=== PATIENT | female | born 1960 | race Caucasian/White ===

== ENCOUNTER 2019-05-15 07:49 | Outpatient (RCR) | payer MEDICARE, MEDICAID, SELFPAY ==
[2019-05-06 13:55] VITALS: BMI 49.4
--- NOTE | 2019-05-06 16:20 | WPDWOUNDNOTE ---
Wound Care Note Date/Time: 05/06/19 16:20 Wound history: Had excisional debridement in office yesterday to remove old cyst material as the abscess wound was not healing. Seen in the wound clinic today to reassess and start new dressing changes. Wound depth: Wound is healing well. About 3 mm deep. No signs of residual cyst or any abscess material. Drainage: Minimal Surrounding tissue appearance: Healthy Tunneling: None Percentage granulation tissue: Twenty Dressings: Silver gel and a Band-Aid daily Assessment and Plan Assessment and plan (1) Sebaceous cyst: Code(s): L72.3 - Sebaceous cyst Status: Acute Assessment and Plan: Removed residual sebaceous cyst at the debridement yesterday along with skin and subcutaneous. No residual cyst materials noted. (2) Left breast abscess: Code(s): N61.1 - Abscess of the breast and nipple Status: Acute Assessment and Plan: Resulting wound has been failing to heal and debridement was done yesterday. (3) Encounter for surgical aftercare following surgery on the skin and subcutaneous tissue: Code(s): Z48.817 - Encounter for surgical aftercare following surgery on the skin and subcutaneous tissue Status: Acute Assessment and Plan: Silver gel and a Band-Aid daily. Recheck in the wound clinic in 2 weeks.
--- NOTE | 2019-06-09 15:31 | WPDWOUNDNOTE ---
Wound Care Note Date/Time: 05/15/19 08:31 Patient is seen in the wound clinic for follow-up of her left breast abscess. This wound was very difficult to heal and she underwent excisional debridement in the office under local anesthesia on May 05. She was read checked on May 06 and wound was healing well. She has been using silver gel. She is seen today in the wound clinic. She has no complaints or new problems associated with the left breast wound which has been difficult to heal. Exam today shows the wound is healing well. It is over 50% smaller and remaining tissue is granulating nicely. The depth of the wound is healing just as quickly as the width and length. This was not the case on previous attempts to heal this wound. No residual cyst material was noted. Assessment and Plan Assessment and plan (1) Encounter for surgical aftercare following surgery on the skin and subcutaneous tissue: Code(s): Z48.817 - Encounter for surgical aftercare following surgery on the skin and subcutaneous tissue Status: Chronic Assessment and Plan: Wound is finally healing very well. No need to recheck her again in the wound clinic. She will continue silver gel dressing changes and I will see her in the office in approximately 2 weeks. (2) Left breast abscess: Code(s): N61.1 - Abscess of the breast and nipple Status: Resolved (3) Sebaceous cyst: Code(s): L72.3 - Sebaceous cyst Status: Resolved
== END 2019-07-21 07:57 | disposition home or self-care (01) ==
LOC: ANHWOC 07:49
PROVIDERS: PCP Family Medicine; Visit Provider Surgery
DX: N61.1 Abscess of the breast and nipple (principal)
CPT/HCPCS: 99212; G0463

== ENCOUNTER 2020-03-18 07:45 | Outpatient (CLI) | payer MEDICARE, MEDICAID, SELFPAY ==
[2020-03-18 09:16] LABS: Basophils Percent Auto 0.3 % (0.2-1.2); Eosinophils Absolute Auto 0.1 K/mm3 (0-0.3); Eosinophils Percent Auto 1.4 % (0-4.4); Hematocrit 34.6 % (37.0-47.0); Hemoglobin 10.9 g/dL (12.0-15.0); Immature Granulocyte Absolute 0.12 K/mm3 (0.00-0.031); Immature Granulocyte Percent A 3.4 % (0-0.5); Lymphocytes Absolute Auto 1.32 K/mm3 (0.9-3.2); Lymphocytes Percent Auto 37.6 % (18.3-44.2); Mean Corpuscular HGB Conc 31.5 g/dl (32-36); Mean Corpuscular Hemoglobin 30.4 pg (26-34); Mean Corpuscular Volume 96.6 fl (80-100); Mean Platelet Volume 10.5 fl (7.4-10.4); Monocytes Absolute Auto 0.3 K/mm3 (0.1-0.6); Monocytes Percent Auto 9.4 % (2.6-8.5); Neutrophils Absolute Auto 1.7 K/mm3 (1.3-6.7); Neutrophils Percent Auto 47.9 % (45.5-73.1); Platelet Count Result 113 k/mm3 (150-375); Red Blood Count 3.58 M/mm3 (4.2-5.4); White Blood Count 3.5 K/mm3 (4.5-10.0)
[2020-03-18 09:36] LABS: Alanine Aminotransferase 14 U/L (4-35); Albumin Level 3.7 g/dL (3.5-5.1); Alkaline Phosphatase 43 U/L (38-126); Anion Gap 7 mmol/L (8-16); Aspartate Amino Transferase 35 U/L (14-36); Bilirubin,Total 0.5 mg/dL (0.2-1.3); Blood Urea Nitrogen 28 mg/dL (7-17); Calcium 9.3 mg/dL (8.4-10.2); Carbon Dioxide 30 mmol/L (22-30); Chloride 103 mmol/L (98-107); Cholesterol 181 mg/dL (0-200); Estimated Glomerular Filt Rate 42; Glucose 135 mg/dL (65-105); HDL Direct 37 mg/dL; Potassium 4.3 mmol/L (3.4-5.0); Sodium 140 mmol/L (137-145); Triglycerides 369 mg/dL (<150)
[2020-03-18 09:47] LABS: LDL Cholesterol Direct 100 mg/dL
[2020-03-18 09:55] LABS: Creatinine Urine 134.2 mg/dL; MALB Creatinine Ratio 11.2 mg/g (0-30)
[2020-03-18 09:57] LABS: Free T4 Free Thyroxine 1.89 ng/mL (0.78-2.19); Vitamin D 25 Hydroxy 44.5 ng/mL
== END 2020-03-18 07:46 | disposition home or self-care (01) ==
PROVIDERS: PCP Family Medicine; Visit Provider Nurse Practitioner
DX: E11.22 Type 2 diabetes mellitus with diabetic chronic kidney disease (principal); E66.01 Morbid (severe) obesity due to excess calories; R14.0 Abdominal distension (gaseous); I12.9 Hypertensive chronic kidney disease with stage 1 through stage 4 chronic kidney disease, or unspecified chronic kidney disease; N18.30 Chronic kidney disease, stage 3 unspecified
CPT/HCPCS: 36415; 80053; 80061; 82043; 82306; 84439; 84443; 84480; 85025

== ENCOUNTER 2020-04-02 10:20 | Outpatient (CLI) | payer MEDICARE, MEDICAID, SELFPAY ==
--- NOTE | ~2020-04-02 | US_ITS ---
US abdomen complete EXAMINATION: US Abdomen Complete INDICATION: Abdomen pain. PROCEDURE: Realtime High Resolution abdomen ultrasound. COMPARISON: No prior studies for comparison FINDINGS: There are gallstones with contracted gallbladder. Common bile duct measures 6 mm. Liver echotexture is increased, consistent with fatty infiltration. Liver is enlarged measuring 23 cm .. Pancreas within normal limits. Pancreatic tail is obscured by bowel gas. Spleen is unremarkeabl e. Renal echotexture is within normal limits bilaterally without hydronephrosis, contour deforming ma ss or renal stone. Right kidney measures 12.6 cm. Left kidney measures 12.5 cm. Visualized aspects of the aorta and IVC are within normal limits. Portal vein is patent. No sonograph ic Little's sign indicated by the technologist. IMPRESSION: 1: Cholelithiasis. Contracted gallbladder with possible mild gallbladder wall thickening. 2: Fatty infiltration of the liver with hepatomegaly. Reviewed, dictated and finalized at location B. IMPRESSION: 1: Cholelithiasis. Contracted gallbladder with possible mild gallbladder wall t hickening. 2: Fatty infiltration of the liver with hepatomegaly.
== END 2020-04-02 10:21 | disposition home or self-care (01) ==
PROVIDERS: PCP Family Medicine; Visit Provider Nurse Practitioner
DX: K76.0 Fatty (change of) liver, not elsewhere classified (principal); K80.20 Calculus of gallbladder without cholecystitis without obstruction
CPT/HCPCS: 76700

== ENCOUNTER 2020-04-20 00:19 | Outpatient (CLI) | payer MEDICARE, MEDICAID, SELFPAY ==
[2020-04-20 19:47] LABS: SARS-CoV-2 RNA PCR Negative
== END 2020-04-20 00:20 | disposition home or self-care (01) ==
LOC: ANHCOVIDDT 00:20
PROVIDERS: PCP Family Medicine; Visit Provider Internal Medicine Gastroenterology
DX: Z01.818 Encounter for other preprocedural examination (principal); Z20.828 Contact with and (suspected) exposure to other viral communicable diseases
CPT/HCPCS: 87635; C9803; U0003

== ENCOUNTER 2020-04-23 00:44 | Day surgery (SDC) | payer MEDICARE, MEDICAID, SELFPAY ==
[2020-04-19 15:58] VITALS: BMI 47.5
--- NOTE | 2020-04-23 09:52 | WPDANESEPPF ---
Anes - Initial Pre Proc Eval Procedure: Operation Date: 04/23/20 13:15 Proposed Procedures p Esophagogastroduodenoscopy & Colonoscopy - Lorenzo Leone MD Date/Time: 04/23/20 09:52 Surgeon: Lorenzo Leone MD Pre Op Diagnosis: Diarrhea,nausea Patient Data Age: 60 Gender: F Height: 1.57 m Weight: 118 kg Allergies Allergy/AdvReac Type Severity Reaction Status Date / Time diphenhydramine Allergy Severe HYPERACTIVE Verified 04/23/20 12:20 FEELING oxycodone Allergy Severe go crazy Verified 04/23/20 12:20 tramadol Allergy Severe itching Verified 04/23/20 12:20 codeine AdvReac Mild feel weird Verified 04/23/20 12:20 Home Medications Medication Instructions Recorded Confirmed Type aspirin 81 mg tablet,delayed 81 mg PO DAILY 04/16/19 04/19/20 History release atorvastatin 80 mg tablet 80 mg PO DAILY 04/16/19 04/19/20 History divalproex 500 mg tablet,delayed 1,500 mg PO DAILY 04/16/19 04/19/20 History release ergocalciferol (vitamin D2) 1,250 50,000 unit PO WEEKLY 04/16/19 04/19/20 History mcg (50,000 unit) capsule fenofibrate nanocrystallized 145 145 mg PO DAILY 04/16/19 04/19/20 History mg tablet fluoxetine 20 mg capsule 20 mg PO DAILY 04/16/19 04/19/20 History glimepiride 4 mg tablet 4 mg PO BID 04/16/19 04/19/20 History levothyroxine 150 mcg tablet 150 mcg PO DAILY 04/16/19 04/19/20 History lorazepam 1 mg tablet 0.5 mg PO DAILY 04/16/19 04/19/20 History meclizine 25 mg tablet 25 mg PO BID 04/16/19 04/19/20 History metformin 500 mg tablet 2,000 mg PO DAILY 04/16/19 04/19/20 History quetiapine 100 mg tablet 100 mg PO HS 04/16/19 04/19/20 History sitagliptin 100 mg tablet 100 mg PO DAILY 04/16/19 04/19/20 History carvedilol 3.125 mg PO BID 04/19/20 04/19/20 History ferrous sulfate 325 mg PO BID 04/19/20 04/19/20 History hydrochlorothiazide 25 mg PO DAILY 04/19/20 04/19/20 History lamotrigine 100 mg PO BID 04/19/20 04/19/20 History lorazepam 2 mg PO HS 04/19/20 04/19/20 History peg 3350 240 gram-electrolytes 240 ml PO Q10M #4000 ml 04/19/20 Rx 22.72 gram-6.72 g-5.84 g powdr for soln sodium,potassium,mag sulfates 17.5 354 ml PO .COMPLEX #354 ml 04/20/20 Rx gram-3.13 gram-1.6 gram oral soln omeprazole 20 mg capsule,delayed 20 mg PO BID #60 cap 04/23/20 Rx release Patient hx anesthesia problems: none Family hx anesthesia problems: none PMFSH Past Medical History Medical History (Updated 04/23/20 @ 09:53 by Blas Ramires MD) Bipolar 1 disorder Cholelithiases Depression with anxiety Diabetes Fatty infiltration of liver High blood pressure High cholesterol History of kidney stones History of uterine cancer Hypothyroid Left breast abscess Morbid obesity Nausea PTSD (post-traumatic stress disorder) Surgical History Surgical History History of hysterectomy History of removal of cyst from back Family History Family History Mother Family history of cardiovascular disease Diabetes mellitus Leukemia Father Family history of lung cancer Liver cancer AIDS Grandparent Stomach cancer Grandparent Cerebrovascular accident Other Depression Hypertension Social History Social History Smoking status: Never smoker Alcohol intake: never Substance use: never Substance use type: does not use Living arrangements: alone Gender identity (if verbalized by the patient): Female Spiritual care concerns: No Anes - Eval Final PreProcedure Day of Procedure 04/23/20 09:52 Patient weight: morbidly obese Heart: regular rate and rhythm Lungs: clear to auscultation and normal air movement Airway: Mallampati scale class II Neurological: alert and oriented Last oral intake: >/= 8 hours ASA classification: III Emergent: no Anesthetic plan: proceed Anesthesia type and monitoring: g
[2020-04-23 12:22] VITALS: BP 147/69; PULSE 66; RESP 16; TEMP 36.2; O2SAT 100; BMI 48.7
[2020-04-23] MEDS: LACTATED RINGERS 1,000 ML 150 ML IV CONT (12:39)
[2020-04-23 12:41] LABS: Glucose Point of Care 171 (65-105)
[2020-04-23] MEDS: BENZOCAINE (*SP) 60 ML SPRAY CAN (HURRICAINE) 1 SPRAY MUCOUS MEM (13:25)
--- NOTE | 2020-04-23 13:52 | SUR.OPER ---
EGD START 1328, END 1333 COLONOSCOPY START 1338, END 1352
--- NOTE | 2020-04-23 13:55 | WPDHPUPDATE1 ---
History and Physical Update Update Date/Time: 04/23/20 13:55 History and Physical has been reviewed, including an updated exam of the patient. There are NO changes in the patient's condition. Risks, benefits, and alternatives have been discussed and questions answered. Patient agrees to proceed with procedure.
[2020-04-23 14:00] VITALS: BP 147/79; PULSE 67; RESP 23; O2SAT 94
[2020-04-23 14:10] VITALS: BP 141/75; PULSE 66; RESP 24; O2SAT 97
--- NOTE | 2020-04-23 14:15 | SUR.PHASEII ---
NOTIFIED DR STEWART OF PT C/O LT EYE BURNING, EYE GTTS ORDERED PER PROTOCOL
[2020-04-23 14:20] VITALS: BP 132/80; PULSE 69; RESP 22; O2SAT 95
[2020-04-23] MEDS: DICLOFENAC SODIUM 0.1% OPHTH SOLN 2.5 ML BOTTLE 1 DROP EACH EYE (14:27)
[2020-04-23] MEDS: PROPARACAINE HCL 0.5% 15 ML OPHTH SOLN 1 DROP EACH EYE (14:36)
== END 2020-04-23 14:43 | disposition home or self-care (01) ==
PROVIDERS: PCP Family Medicine; Visit Provider Internal Medicine Gastroenterology
PROC: 0DJ08ZZ Inspection of Upper Intestinal Tract, Via Natural or Artificial Opening Endoscopic (ICD-10-PCS; CPT 43235; principal; 2020-04-23 13:15)
DX: Z12.11 Encounter for screening for malignant neoplasm of colon (principal); R19.7 Diarrhea, unspecified; K57.30 Diverticulosis of large intestine without perforation or abscess without bleeding; K29.70 Gastritis, unspecified, without bleeding; K25.9 Gastric ulcer, unspecified as acute or chronic, without hemorrhage or perforation; E11.9 Type 2 diabetes mellitus without complications; I10 Essential (primary) hypertension; E78.00 Pure hypercholesterolemia, unspecified; E03.9 Hypothyroidism, unspecified; F43.10 Post-traumatic stress disorder, unspecified; K76.0 Fatty (change of) liver, not elsewhere classified; F41.9 Anxiety disorder, unspecified; F31.9 Bipolar disorder, unspecified; Z79.84 Long term (current) use of oral hypoglycemic drugs; E66.01 Morbid (severe) obesity due to excess calories; Z68.42 Body mass index [BMI] 45.0-49.9, adult
CPT/HCPCS: 45380; 43239; 87081; 88305; A9270; J2704; J7120

== ENCOUNTER 2020-08-20 10:15 | Outpatient (CLI) | payer MEDICARE, MEDICAID, SELFPAY ==
[2020-08-20 11:06] LABS: Basophils Percent Auto 0.4 % (0.2-1.2); Eosinophils Percent Auto 1.5 % (0-4.4); Hematocrit 33.4 % (37.0-47.0); Hemoglobin 10.6 g/dL (12.0-15.0); Immature Granulocyte Absolute 0.05 K/mm3 (0.00-0.031); Immature Granulocyte Percent A 1.8 % (0-0.5); Lymphocytes Absolute Auto 1.08 K/mm3 (0.9-3.2); Lymphocytes Percent Auto 39.4 % (18.3-44.2); Mean Corpuscular HGB Conc 31.7 g/dl (32-36); Mean Corpuscular Hemoglobin 31.6 pg (26-34); Mean Corpuscular Volume 99.7 fl (80-100); Mean Platelet Volume 9.2 fl (7.4-10.4); Monocytes Absolute Auto 0.3 K/mm3 (0.1-0.6); Monocytes Percent Auto 9.9 % (2.6-8.5); Neutrophils Absolute Auto 1.3 K/mm3 (1.3-6.7); Platelet Count Result 100 k/mm3 (150-375); Red Blood Count 3.35 M/mm3 (4.2-5.4); White Blood Count 2.7 K/mm3 (4.5-10.0)
[2020-08-20 11:15] LABS: Hemoglobin A1C 5.2 % (<5.7)
[2020-08-20 11:17] LABS: Potassium 3.7 mmol/L (3.4-5.0)
[2020-08-20 11:19] LABS: Alanine Aminotransferase 15 U/L (4-35); Albumin Level 3.7 g/dL (3.5-5.1); Alkaline Phosphatase 45 U/L (38-126); Anion Gap 7 mmol/L (8-16); Aspartate Amino Transferase 35 U/L (14-36); Bilirubin,Total 0.4 mg/dL (0.2-1.3); Blood Urea Nitrogen 33 mg/dL (7-17); Calcium 9.4 mg/dL (8.4-10.2); Carbon Dioxide 29 mmol/L (22-30); Chloride 105 mmol/L (98-107); Cholesterol 172 mg/dL (0-200); Estimated Glomerular Filt Rate 33; Glucose 95 mg/dL (65-105); HDL Direct 50 mg/dL; Sodium 141 mmol/L (137-145); Triglycerides 268 mg/dL (<150)
[2020-08-20 11:28] LABS: LDL Cholesterol Direct 82 mg/dL
[2020-08-20 11:48] LABS: Thyroid Stimulating Hormone 0.573 uIU/mL (0.465-4.680)
[2020-08-20 11:55] LABS: Valproic Acid 51.9 ug/mL (50-120)
[2020-08-20 12:07] LABS: Free T4 Free Thyroxine 1.91 ng/mL (0.78-2.19)
[2020-08-20 12:23] LABS: Folic Acid 6.7 ng/mL (2.76->20)
[2020-08-24 20:54] LABS: Prolactin 6.2 ng/mL (***)
== END 2020-08-20 10:16 | disposition home or self-care (01) ==
PROVIDERS: PCP Family Medicine
DX: E03.9 Hypothyroidism, unspecified (principal); E55.9 Vitamin D deficiency, unspecified; E23.2 Diabetes insipidus; E10.8 Type 1 diabetes mellitus with unspecified complications; F31.32 Bipolar disorder, current episode depressed, moderate; F41.1 Generalized anxiety disorder; E66.01 Morbid (severe) obesity due to excess calories; F51.11 Primary hypersomnia; E78.5 Hyperlipidemia, unspecified; F43.12 Post-traumatic stress disorder, chronic
CPT/HCPCS: 36415; 80053; 80061; 80164; 82306; 82746; 83036; 84146; 84439; 84443; 85025

== ENCOUNTER 2021-02-15 17:33 | Emergency (ER) | payer MEDICARE, MEDICAID, SELFPAY ==
[2021-02-15 17:39] VITALS: BP 123/66; PULSE 78; RESP 18; TEMP 36.9; O2SAT 97
--- NOTE | 2021-02-15 17:49 | ECG_ITS ---
Measurements Intervals [place] Rate: 70 P: 14 [place]: 194 QRS: -5 QRSD: 91 T: 10 QT: 410 QTc: 445 Interpretive Statements SINUS RHYTHM BORDERLINE R WAVE PROGRESSION, ANTERIOR LEADS CONSIDE INFERIOR INFARCT, AGE INDETERMINATE ABNORMAL ECG Electronically Signed On 02-15-2021 20:36:45 CDT by Giorgio Osorio D.O.
[2021-02-15 18:10] LABS: Basophils Percent Auto 0.3 % (0.2-1.2); Eosinophils Absolute Auto 0.1 K/mm3 (0-0.3); Eosinophils Percent Auto 2.2 % (0-4.4); Hematocrit 33.7 % (37.0-47.0); Hemoglobin 10.8 g/dL (12.0-15.0); Immature Granulocyte Absolute 0.04 K/mm3 (0.00-0.031); Immature Granulocyte Percent A 1.1 % (0-0.5); Lymphocytes Absolute Auto 1.49 K/mm3 (0.9-3.2); Lymphocytes Percent Auto 40.1 % (18.3-44.2); Mean Corpuscular Hemoglobin 30.1 pg (26-34); Mean Corpuscular Volume 93.9 fl (80-100); Mean Platelet Volume 10.2 fl (7.4-10.4); Monocytes Absolute Auto 0.4 K/mm3 (0.1-0.6); Monocytes Percent Auto 10.5 % (2.6-8.5); Neutrophils Absolute Auto 1.7 K/mm3 (1.3-6.7); Neutrophils Percent Auto 45.8 % (45.5-73.1); Platelet Count Result 108 k/mm3 (150-375); Red Blood Count 3.59 M/mm3 (4.2-5.4); Red Cell Distribution Width 13.9 % (11.5-14.5); White Blood Count 3.7 K/mm3 (4.5-10.0)
[2021-02-15 18:20] LABS: Alanine Aminotransferase 18 U/L (4-35); Albumin Level 3.4 g/dL (3.5-5.1); Alkaline Phosphatase 44 U/L (38-126); Anion Gap 9 mmol/L (8-16); Aspartate Amino Transferase 38 U/L (14-36); Bilirubin,Total 0.5 mg/dL (0.2-1.3); Blood Urea Nitrogen 41 mg/dL (7-17); Calcium 9.4 mg/dL (8.4-10.2); Carbon Dioxide 23 mmol/L (22-30); Chloride 107 mmol/L (98-107); Estimated CRCL calculation 42 ml/min; Estimated Glomerular Filt Rate 35; Glucose 166 mg/dL (65-110); Potassium 4.4 mmol/L (3.4-5.0); Sodium 139 mmol/L (137-145)
[2021-02-15 18:21] LABS: Acetaminophen < 10 ug/mL (10-30); Ethanol < 10 mg/dL (<10); Salicylate < 1.0 mg/dL (2-20)
[2021-02-15 19:58] VITALS: BP 137/72; PULSE 82; RESP 18; TEMP 36.4; O2SAT 96
[2021-02-15 22:58] LABS: Add Urine Microscopic? YES; Appearance Urine Clear (Clear); Bilirubin Urine Negative (Negative); Blood Urine Negative (Negative); Color Urine Yellow (Yellow); Glucose Urine UA Negative (Negative); Ketones Urine Trace mg/dL (Negative); Leukocyte Esterase Ur Trace LEU/UL (Negative); Mucus Urine Rare /lpf; Nitrate Urine Negative (Negative); Protein Urine 1+ mg/dL (Negative); RBC Urine 0-2 /hpf (0-2); Squamous Epithelial Cell Urine Few /hpf (Few); WBC Urine 0-3 /hpf
[2021-02-15 23:11] LABS: Amphetamine Screen Urine Negative (Negative); Barbiturate Screen Urine Negative (Negative); Benzodiazepines Screen Urine Negative (Negative); Cannabinoid Screen Urine Negative (Negative); Cocaine Screen Urine Negative (Negative); Methadone Screen Urine Negative (Negative); Opiate Screen Urine Negative (Negative); Phencyclidine Screen Urine Negative (Negative)
[2021-02-15 23:17] VITALS: BP 142/71; PULSE 71; RESP 18; TEMP 36.6; O2SAT 96
[2021-02-15 23:58] VITALS: BP 148/84; PULSE 79; RESP 18; TEMP 36.7; O2SAT 100
--- NOTE | 2021-02-15 23:58 | ED.OVERDOSE ---
HPI - Overdose General Chief Complaint: Overdose Stated Complaint: accidental od of prescribed meds, dizzy Time Seen by Provider: 02/15/21 23:46 History of Present Illness HPI Narrative: Patient presents for drug overdose. Patient reports she accidentally took her evening medications 1300 today. Ports her evening meds are BuSpar, carvedilol, iron, glemepiride, lamotrigine, meclizine, quetiapine. Reports initially felt lethargic called her primary care doctor is referred to the ER for evaluation. At the time my evaluation patient reports she feels much improved does not feel lightheaded denies any chest pain, shortness of breath, nausea, vomiting. She is evaluated approximately 11 hours after her ingestion. Related Data Home Medications Medication Instructions Recorded Confirmed aspirin 81 mg tablet,delayed 81 mg PO DAILY 04/16/19 04/19/20 release atorvastatin 80 mg tablet 80 mg PO DAILY 04/16/19 04/19/20 divalproex 500 mg tablet,delayed 1,500 mg PO DAILY 04/16/19 04/19/20 release ergocalciferol (vitamin D2) 1,250 50,000 unit PO WEEKLY 04/16/19 04/19/20 mcg (50,000 unit) capsule fenofibrate nanocrystallized 145 145 mg PO DAILY 04/16/19 04/19/20 mg tablet fluoxetine 20 mg capsule 20 mg PO DAILY 04/16/19 04/19/20 glimepiride 4 mg tablet 4 mg PO BID 04/16/19 04/19/20 levothyroxine 150 mcg tablet 150 mcg PO DAILY 04/16/19 04/19/20 lorazepam 1 mg tablet 0.5 mg PO DAILY 04/16/19 04/19/20 meclizine 25 mg tablet 25 mg PO BID 04/16/19 04/19/20 metformin 500 mg tablet 2,000 mg PO DAILY 04/16/19 04/19/20 quetiapine 100 mg tablet 100 mg PO HS 04/16/19 04/19/20 sitagliptin 100 mg tablet 100 mg PO DAILY 04/16/19 04/19/20 carvedilol 3.125 mg PO BID 04/19/20 04/19/20 ferrous sulfate 325 mg PO BID 04/19/20 04/19/20 hydrochlorothiazide 25 mg PO DAILY 04/19/20 04/19/20 lamotrigine 100 mg PO BID 04/19/20 04/19/20 lorazepam 2 mg PO HS 04/19/20 04/19/20 buspirone 10 mg PO TID 02/15/21 Allergies Allergy/AdvReac Type Severity Reaction Status Date / Time diphenhydramine Allergy Severe HYPERACTIVE Verified 04/23/20 12:20 FEELING oxycodone Allergy Severe go crazy Verified 04/23/20 12:20 tramadol Allergy Severe itching Verified 04/23/20 12:20 codeine AdvReac Mild feel weird Verified 04/23/20 12:20 Review of Systems Review of Systems: CONSTITUTIONAL: Denies fever, chills, or sweats. EYES: Denies visual changes, redness, or discharge. ENT: Denies rhinorrhea, congestion, sore throat, or otalgia. CARDIOVASCULAR: Denies chest pain, palpitations, or edema. RESPIRATORY: Denies cough or dyspnea. GASTROINTESTINAL: Denies abdominal pain, nausea, vomiting, or diarrhea. GENITOURINARY: Denies dysuria or hematuria. SKIN: Denies rash or itching. MUSCULOSKELETAL: Denies back pain, joint pain, or myalgia. NEUROLOGIC: Denies headache, numbness, dizziness, or weakness. PSYCHIATRIC: Denies anxiety or depression. All systems reviewed & are unremarkable except as noted in HPI and below PMFSH Past Medical History Medical History Bipolar 1 disorder Cholelithiases Depression with anxiety Diabetes Fatty infiltration of liver High blood pressure High cholesterol History of kidney stones History of uterine cancer Hypothyroid Left breast abscess Morbid obesity Nausea PTSD (post-traumatic stress disorder) Surgical History Surgical History History of hysterectomy History of removal of cyst from back Family History Family History Mother Family history of cardiovascular disease Diabetes mellitus Leukemia Father Family history of lung cancer Liver cancer AIDS Grandparent Stomach cancer Grandparent Cerebrovascular accident Other Depression Hypertension Social History Social History Smoking status: Never smoker A
[2021-02-16 00:24] VITALS: BP 146/70; PULSE 77; RESP 18; O2SAT 100
== END 2021-02-16 00:25 | disposition home or self-care (01) ==
LOC: ANHED 02-16 00:07
PROVIDERS: Emergency Medicine; Emergency Provider Emergency Medicine; PCP Family Medicine
DX: T50.901A Poisoning by unspecified drugs, medicaments and biological substances, accidental (unintentional), initial encounter (principal); F31.9 Bipolar disorder, unspecified; F41.8 Other specified anxiety disorders; E11.9 Type 2 diabetes mellitus without complications; E78.00 Pure hypercholesterolemia, unspecified; E03.9 Hypothyroidism, unspecified; E66.01 Morbid (severe) obesity due to excess calories; F43.10 Post-traumatic stress disorder, unspecified; Z79.899 Other long term (current) drug therapy; Z51.81 Encounter for therapeutic drug level monitoring; Z87.442 Personal history of urinary calculi; Z85.42 Personal history of malignant neoplasm of other parts of uterus; Z90.710 Acquired absence of both cervix and uterus
CPT/HCPCS: 36415; 80053; 80307; 81001; 84443; 85025; 93005; 99283

== ENCOUNTER 2021-06-17 09:19 | Outpatient (CLI) | payer MEDICARE, MEDICAID, SELFPAY ==
[2021-06-17 09:57] LABS: Basophils Percent Auto 0.2 % (0.2-1.2); Eosinophils Absolute Auto 0.1 K/mm3 (0-0.3); Eosinophils Percent Auto 2.5 % (0-4.4); Hematocrit 35.3 % (37.0-47.0); Hemoglobin 11.5 g/dL (12.0-15.0); Immature Granulocyte Absolute 0.05 K/mm3 (0.00-0.031); Immature Granulocyte Percent A 1.2 % (0-0.5); Lymphocytes Absolute Auto 1.76 K/mm3 (0.9-3.2); Lymphocytes Percent Auto 43.7 % (18.3-44.2); Mean Corpuscular HGB Conc 32.6 g/dl (32-36); Mean Corpuscular Hemoglobin 30.8 pg (26-34); Mean Corpuscular Volume 94.6 fl (80-100); Mean Platelet Volume 9.8 fl (7.4-10.4); Monocytes Absolute Auto 0.4 K/mm3 (0.1-0.6); Monocytes Percent Auto 9.4 % (2.6-8.5); Neutrophils Absolute Auto 1.7 K/mm3 (1.3-6.7); Platelet Count Result 122 k/mm3 (150-375); Red Blood Count 3.73 M/mm3 (4.2-5.4)
[2021-06-17 10:06] LABS: Alanine Aminotransferase 15 U/L (4-35); Albumin Level 3.9 g/dL (3.5-5.1); Alkaline Phosphatase 51 U/L (38-126); Anion Gap 8 mmol/L (8-16); Aspartate Amino Transferase 33 U/L (14-36); Bilirubin,Total 0.4 mg/dL (0.2-1.3); Blood Urea Nitrogen 47 mg/dL (7-17); Calcium 9.8 mg/dL (8.4-10.2); Carbon Dioxide 29 mmol/L (22-30); Chloride 104 mmol/L (98-107); Cholesterol 178 mg/dL (0-200); Estimated Glomerular Filt Rate 31; Glucose 97 mg/dL (65-110); HDL Direct 40 mg/dL; Hemoglobin A1C 5.5 % (<5.7); Potassium 4.1 mmol/L (3.4-5.0); Sodium 141 mmol/L (137-145); Triglycerides 270 mg/dL (<150)
[2021-06-17 10:19] LABS: LDL Cholesterol Direct 88 mg/dL; Valproic Acid 57.2 ug/mL (50-120)
[2021-06-17 10:32] LABS: Free T4 Free Thyroxine 1.67 ng/mL (0.78-2.19); Vitamin D 25 Hydroxy 57.7 ng/mL
[2021-06-17 11:12] LABS: Folic Acid 9.3 ng/mL (2.76->20)
[2021-06-17 11:26] LABS: Lithium < 0.2 mmol/L (0.6-1.2)
== END 2021-06-17 09:20 | disposition home or self-care (01) ==
PROVIDERS: PCP Family Medicine; Visit Provider Nurse Practitioner Psychiatric/Mental Health
DX: F51.01 Primary insomnia (principal); E55.9 Vitamin D deficiency, unspecified; Z79.899 Other long term (current) drug therapy; F41.1 Generalized anxiety disorder; E78.5 Hyperlipidemia, unspecified; E03.9 Hypothyroidism, unspecified; E11.9 Type 2 diabetes mellitus without complications; E66.9 Obesity, unspecified; F31.32 Bipolar disorder, current episode depressed, moderate
CPT/HCPCS: 36415; 80053; 80061; 80164; 80178; 82306; 82746; 83036; 84439; 84443; 85025

== ENCOUNTER 2021-12-01 20:04 | Inpatient (IN) | payer MEDICARE, MEDICAID, SELFPAY ==
--- NOTE | ~2021-12-01 | MR_ITS ---
EXAMINATION: MR brain/brain stem wo con DATE: 12/02/2021 12:29 INDICATION: Aphasia. Transient ischemic attack. TECHNIQUE: Magnetic resonance imaging (MRI) of the brain and brainstem was performed without intraven ous contrast. COMPARISON: Brain MRI 02/08/2017, head CT 12/01/2021 FINDINGS: There are scattered areas of nonspecific increased T2-weighted signal intensity in the cere bral white matter, which is within normal limits for the patient's age. There is no intracranial hemo rrhage, acute infarction, or abnormal intracranial mass lesion. The ventricles are normal in size. Th ere is mild mucosal thickening in the paranasal sinuses. There is a trace right mastoid effusion. The orbits are normal. IMPRESSION: 1. Normal aging brain. Reviewed, dictated and finalized at location A. IMPRESSION: 1. Normal aging brain.
--- NOTE | ~2021-12-01 | BM_ITS ---
EXAMINATION: CCL basic procedure ORDER COMPLETED DATE: 12/08/2021 10:16 INDICATION: Pancytopenia TECHNIQUE: A time-out was performed to verify the patient's name, date of , and procedure to b e performed. The procedure including the risks and benefits was discussed with the patient. Risks dis cussed included bleeding, infection, nerve injury and allergic reaction. The patient understood the r isks and agreed to proceed. The skin overlying the right posterior iliac spine was prepped and draped in usual sterile fashion. Anesthetic was administered with 1% lidocaine subcutaneously. Moderate co nscious sedation was achieved with 50 mcg fentanyl IV and 1 mg of Versed IV. An 11 gauge needle was i nserted into the ilium with fluoroscopic guidance. Bone marrow was aspirated. An 8 gauge needle was t hen inserted into the ilium with fluoroscopic guidance. A core bone marrow biopsy was obtained. The n eedle was removed and the entry site was cleaned and dressed. There were no immediate complications. A total of 103 fluoroscopic images were recorded. Fluoroscopy exposure time was 0.4 minutes. Total D AP was 993 mGycm^2 FINDINGS: Real-time fluoroscopy demonstrates the biopsy needle tip overlying the left posterior iliac spine. IMPRESSION: 1. Successful fluoroscopic guided bone marrow aspiration. 2. Successful fluoroscopic guided bone marrow biopsy. Reviewed, dictated and finalized at location A.
--- NOTE | ~2021-12-01 | US_ITS ---
EXAMINATION: US abdomen complete DATE: 12/06/2021 08:19 INDICATION: Pancytopenia TECHNIQUE: Multiple grayscale and Doppler ultrasound images of the abdomen were obtained. COMPARISON: 04/02/2020 FINDINGS: Bowel gas obscures visualization of the pancreas. The visualized portions of the pancreas a re unremarkable. The liver is normal with normal echogenicity and echotexture. No surface nodularity. Normal hepatopetal flow in the main portal vein. The gallbladder is contracted and full of stones. T here is no gallbladder wall thickening or pericholecystic fluid. The normal common bile duct measures 6 mm. There was no sonographic Little sign. The visualized portions of the aorta and inferior vena c yosvany are normal. The right kidney measures 12.5 x 5.5 x 6.9 cm. The left kidney measures 12.4 x 6.5 x 7.4 cm. The kidn eys demonstrate normal parenchymal echogenicity. There is no hydronephrosis. Punctate echogenic foci throughout the spleen are consistent with old granulomatous disease. The spleen is otherwise normal i n appearance and measures 13.1 cm. IMPRESSION: 1. No sonographic correlate for the patient's symptoms. Reviewed, dictated and finalized at location A.
--- NOTE | ~2021-12-01 | US_ITS ---
EXAMINATION: US carotid duplex BI DATE: 12/02/2021 12:35 INDICATION: Aphasia. Transient ischemic attack. TECHNIQUE: Grayscale, color Doppler, and pulsed Doppler images of the cervical carotid arteries were obtained. The degree of vessel stenosis is placed in one of the following categories: normal, <50%, 5 0-69%, >=70% but less than near-occlusion, near-occlusion, or total occlusion. Note that percent sten osis relative to normal distal artery lumen diameter is indirectly measured from velocity measurement s as described by Cortez, et al. Radiology 2003; 229:340-346. COMPARISON: Ultrasound 02/08/2017 FINDINGS: RIGHT: The right common carotid artery (CCA) peak systolic velocity (PSV) is 98 cm/s. The right internal car otid artery (ICA) PSV is 89 cm/s. The right ICA end-diastolic velocity (EDV) is 25 cm/s. The right IC A/CCA PSV ratio is 0.9. Grayscale and color Doppler images yield an estimate of <50% diameter reducti on from plaque in the ICA. There is antegrade flow in the right vertebral artery. LEFT: The left CCA PSV is 104 cm/s. The left ICA PSV is 119 cm/s. The left ICA EDV is 32 cm/s. The left ICA /CCA PSV ratio is 1.1. Grayscale and color Doppler images yield an estimate of <50% diameter reductio n from plaque in the ICA. There is antegrade flow in the left vertebral artery. IMPRESSION: 1. <50% stenosis in the right internal carotid artery. 2. <50% stenosis in the left internal carotid artery. Reviewed, dictated and finalized at location A.
--- NOTE | ~2021-12-01 | CT_ITS ---
EXAMINATION: CT brain wo con INDICATION: Intermittent weakness and confusion COMPARISON: 08/26/2018 TECHNIQUE: Standard unenhanced head CT. The dose-length product (DLP) was 605.33 mGy-cm. The mA was a djusted according to patient size. Iterative reconstruction technique was employed. FINDINGS: There is no acute intraparenchymal hemorrhage. No evidence of mass lesion. No evidence of a cute infarction. There is mild periventricular and subcortical hypodensity probably related to small vessel ischemic disease. There is mild prominence of the sulci and ventricles related to cerebral atr ophy. Intracranial calcified cerebral atherosclerosis is noted. There are no extra-axial collections. There is no mass effect or midline shift. The orbits and soft tissues are unremarkable. The visualiz ed sinuses and mastoid air cells are well aerated. IMPRESSION: 1. No acute intracranial abnormality. 2. Age related findings. Reviewed, dictated and finalized at location F.
[2021-12-01 20:14] VITALS: BP 140/99; PULSE 78; RESP 16; TEMP 36.3; O2SAT 98
--- NOTE | 2021-12-01 20:17 | ECG_ITS ---
Measurements Intervals [place] Rate: 71 P: 12 SD: 182 QRS: 17 QRSD: 97 T: -2 QT: 408 QTc: 444 Interpretive Statements SINUS RHYTHM POOR R-WAVE PROGRESSION ABNORMAL ECG COMPARED TO ECG 02/15/2021 18:01:39 NO SIGNIFICANT CHANGES Electronically Signed On 12-02-2021 16:42:03 CDT by Ash Malik M.D.
[2021-12-01 20:43] LABS: Basophils Percent Auto 0.3 % (0.2-1.2); Eosinophils Percent Auto 0.9 % (0-4.4); Hematocrit 32.6 % (37.0-47.0); Hemoglobin 10.3 g/dL (12.0-15.0); Immature Granulocyte Absolute 0.04 K/mm3 (0.00-0.031); Immature Granulocyte Percent A 1.2 % (0-0.5); Immature Platelet Fraction Pct 1.6 % (0.9-11.2); Lymphocytes Absolute Auto 1.02 K/mm3 (0.9-3.2); Lymphocytes Percent Auto 30.4 % (18.3-44.2); Mean Corpuscular HGB Conc 31.6 g/dl (32-36); Mean Corpuscular Hemoglobin 30.4 pg (26-34); Mean Corpuscular Volume 96.2 fl (80-100); Mean Platelet Volume 9.6 fl (7.4-10.4); Monocytes Absolute Auto 0.3 K/mm3 (0.1-0.6); Monocytes Percent Auto 9.9 % (2.6-8.5); Neutrophils Absolute Auto 1.9 K/mm3 (1.3-6.7); Neutrophils Percent Auto 57.3 % (45.5-73.1); Platelet Count Result 110 k/mm3 (150-375); Red Blood Count 3.39 M/mm3 (4.2-5.4); White Blood Count 3.4 K/mm3 (4.5-10.0)
--- NOTE | 2021-12-01 20:44 | ED.AMS ---
HPI - Altered Mental Status General Chief Complaint: Altered Mental Status Stated Complaint: feeling confused Time Seen by Provider: 12/01/21 20:31 History of Present Illness HPI narrative: Patient is a 61-year-old female with history of diabetes, high blood pressure, high cholesterol, hypothyroidism here for evaluation of intermittent episodes of weakness and confusion. Patient states that she first had an episode like this about a year ago. Since then she has had about 1 episode per month, but states over the past 2 weeks these episodes are becoming more frequent, to the point where over the past 4 days these episodes have been going on daily. She reports that all of a sudden she will be hit with a wave of confusion, not sure where she is or how to use items in front of her with slurred speech and difficulty with word finding. Additionally reports dyspnea on exertion. Patient also states that she has chronic indigestion symptoms, that has led her to feel nauseous with poor appetite past year. This is led to a 40 pound weight loss. Denies chest pain, fevers, chills, sick contacts, history of stroke. Related Data Home Medications Medication Instructions Recorded Confirmed aspirin 81 mg tablet,delayed 81 mg PO DAILY 04/16/19 04/19/20 release (Aspir-) atorvastatin 80 mg tablet 80 mg PO DAILY 04/16/19 04/19/20 divalproex 500 mg tablet,delayed 1,500 mg PO DAILY 04/16/19 04/19/20 release ergocalciferol (vitamin D2) 1,250 50,000 unit PO WEEKLY 04/16/19 04/19/20 mcg (50,000 unit) capsule fenofibrate nanocrystallized 145 145 mg PO DAILY 04/16/19 04/19/20 mg tablet fluoxetine 20 mg capsule (Prozac) 20 mg PO DAILY 04/16/19 04/19/20 glimepiride 4 mg tablet 4 mg PO BID 04/16/19 04/19/20 levothyroxine 150 mcg tablet 150 mcg PO DAILY 04/16/19 04/19/20 (Synthroid) lorazepam 1 mg tablet 0.5 mg PO DAILY 04/16/19 04/19/20 meclizine 25 mg tablet 25 mg PO BID 04/16/19 04/19/20 metformin 500 mg tablet 2,000 mg PO DAILY 04/16/19 04/19/20 quetiapine 100 mg tablet (Seroquel) 100 mg PO HS 04/16/19 04/19/20 sitagliptin 100 mg tablet (Januvia) 100 mg PO DAILY 04/16/19 04/19/20 carvedilol 3.125 mg tablet 3.125 mg PO BID 04/19/20 04/19/20 ferrous sulfate 325 mg (65 mg 325 mg PO BID 04/19/20 04/19/20 iron) tablet hydrochlorothiazide 25 mg tablet 25 mg PO DAILY 04/19/20 04/19/20 lamotrigine 100 mg tablet 100 mg PO BID 04/19/20 04/19/20 lorazepam 2 mg tablet 2 mg PO HS 04/19/20 04/19/20 buspirone 10 mg tablet 10 mg PO TID 02/15/21 Allergies Allergy/AdvReac Type Severity Reaction Status Date / Time diphenhydramine Allergy Severe HYPERACTIVE Verified 12/01/21 20:18 FEELING oxycodone Allergy Severe go crazy Verified 12/01/21 20:18 tramadol Allergy Severe itching Verified 12/01/21 20:18 codeine AdvReac Mild feel weird Verified 12/01/21 20:18 Review of Systems Review of Systems: Gen.: Denies fevers or chills Eyes: Denies eye pain or visual change ENT: Denies congestion Respiratory: Denies shortness of breath or cough CV: Denies chest pain or palpitations GI: Denies abdominal pain nausea, emesis or diarrhea : denies burning, urgency, frequency or hematuria Musculoskeletal: Denies back pain or muscle pain Neuro: Reports confusion. Skin: Denies rash Except as documented, all other systems reviewed and negative [facility] Past Medical History Medical History Bipolar 1 disorder Cholelithiases Depression with anxiety Diabetes Fatty infiltration of liver High blood pressure High cholesterol History of kidney stones History of uterine cancer Hypothyroid Left breast abscess Morbid obesity Nausea PTSD (post-traumatic stress disorder) Surgical History Surgical History History of hysterectomy History of removal of cyst from back Family History Family History Mother Fa
[2021-12-01 20:52] LABS: Alanine Aminotransferase 20 U/L (6-35); Albumin Level 3.3 g/dL (3.5-5.1); Alkaline Phosphatase 63 U/L (38-126); Anion Gap 7 mmol/L (8-16); Aspartate Amino Transferase 43 U/L (14-36); Bilirubin,Total 0.4 mg/dL (0.2-1.3); Blood Urea Nitrogen 42 mg/dL (7-17); Carbon Dioxide 26 mmol/L (22-30); Chloride 103 mmol/L (98-107); Estimated CRCL calculation 36 ml/min; Estimated Glomerular Filt Rate 31; Glucose 167 mg/dL (65-110); Potassium 3.8 mmol/L (3.4-5.0); Sodium 136 mmol/L (137-145)
[2021-12-01 21:03] LABS: INR 1.1; Prothrombin Time 13.5 Seconds (11.1-14.7)
[2021-12-01 21:04] LABS: Partial Thromboplastin Time 27.9 SECONDS (22.3-36.8)
[2021-12-01 21:10] LABS: Valproic Acid 32.1 ug/mL (50-120)
[2021-12-01 22:26] VITALS: BP 140/84; PULSE 90; RESP 16; O2SAT 98
[2021-12-01 22:45] LABS: Add Urine Microscopic? YES; Appearance Urine Clear (Clear); Bilirubin Urine Negative (Negative); Blood Urine Negative (Negative); Color Urine Yellow (Yellow); Glucose Urine UA Negative (Negative); Ketones Urine Trace mg/dL (Negative); Leukocyte Esterase Ur Trace LEU/UL (Negative); Nitrate Urine Negative (Negative); Protein Urine Negative (Negative)
[2021-12-01 22:49] LABS: Bacteria Urine Trace /hpf; Mucus Urine Rare /lpf; RBC Urine 0-2 /hpf (0-2); Squamous Epithelial Cell Urine Occasional /hpf (Few)
--- NOTE | 2021-12-01 23:11 | PC.NURSE ---
Assuming care of pt.
[2021-12-01 23:20] VITALS: BP 119/75; PULSE 75; RESP 18; O2SAT 97
[2021-12-02] VITALS (11 sets, daily range): BP systolic 105–155; BP diastolic 51–79; PULSE 56–75; RESP 16–18; TEMP 36.3–36.4; O2SAT 93–100; BMI 41.0
--- NOTE | 2021-12-02 | ECHO_ITS ---
Patient Info Name: Lee Ann May Age: 61 years : 1960 Gender: Female Ht: 63 in Wt: 231 lbs BSA: 2.21 m2 HR: 56 bpm BP: 115 / 64 mmHg Heart Rhythm: Sinus Rhythm Technical Quality: Fair Exam Date: 12/02/2021 7:28 AM Exam Location: [facility] Patient Status: Inpatient Admit Date: 12/01/2021 Staff Ordering Physician: Patrice Andino DO Tree Feller Operator: Nanda Cooper RDCS Attending Provider: Patrice Andino DO Exam Type: CA echo dop bubble study w con Study Info Indications - r/o TIA Complete two-dimentional, color flow and Doppler transthoracic echocardiogram is performed with agitated saline and with contrast to opacify the left ventricle and to improve the delineation of the left ventricle endocardial borders. Contrast/Agitated Saline Contrast/Ag. Saline: Definity Amount: 3.00 ml Administered By: Kasia Dial RDCS Existing IV Access: Yes IV Access Condition: patent with no signs of infiltration Contrast/Ag. Saline: Agitated Saline Amount: 20.00 ml Administered By: Kasia Dial RDCS Existing IV Access: Yes Summary 1. There is mild concentric increased left ventricular wall thickness. 2. Left ventricular chamber dimension is normal. 3. Normal left ventricular systolic function. 4. Right ventricular chamber dimension is normal. 5. There is mild aortic valve regurgitation. 6. Agitated saline contrast injection demonstrates no evidence of an intracardiac shunt. 7. Calcified mitral valve annulus. 8. Normal sinus rhythm. Left Ventricle Left ventricular chamber dimension is normal. There is mild concentric increased left ventricular wall thickness. The left ventricular diastolic function is grade I diastolic dysfunction. Normal left ventricular systolic function. Right Ventricle Right ventricular chamber dimension is normal. Left Atria Left atrial chamber dimension is mildly enlarged. Right Atria Right atrial chamber dimension is normal. Atrial Septum Intact interatrial septum visualized by agitated saline imaging. Aortic Valve The aortic valve is trileaflet. There is mild aortic valve regurgitation. Pulmonic Valve The pulmonic valve is not well visualized. Mitral Valve The mitral valve has normal leaflets. The mitral valve annulus is moderately calcified. Tricuspid Valve The tricuspid valve leaflets are normal. Pericardium/Pleural The pericardium appears normal. Aorta The aortic root size at the sinus of Valsalva is normal. Left Ventricular Outflow Tract Name Value Normal LVOT 2D LVOT Diameter 2.0 cm LVOT Doppler LVOT Peak Gradient 7 mmHg LVOT Mean Gradient 4 mmHg LVOT VTI 34 cm LVOT VTI/AV VTI Ratio 0.8 LVOT Stroke Volume 102 ml LVOT CO 5.9 l/min LVOT CI 2.7 l/min/m2 Pulmonic Valve
--- NOTE | 2021-12-02 03:02 | PM.IMHP ---
H&P: HPI History of Present Illness Date/Time: 12/02/21 03:02 Chief Complaint: Intermittent AMS Narrative: Greater than 30 minutes spent reviewing chart, evaluating, counseling, treating patient. Anticipate less than 48 hour admission, will admit as observation. 61-year-old female past medical history of bipolar 1 disorder, depression/anxiety, PTSD, hypothyroidism, diabetes on insulin, nonalcoholic fatty liver disease, history of uterine cancer, obesity, hypertension/hyperlipidemia. Presents with 2 weeks of intermittent difficulty with finding words and difficulty with performing certain actions. She states this typically happens later at night. Examples of certain actions that she has difficulty with from time to time are putting on a shirt. She admits to headaches, however they are not associated with these events. Admits to blurry vision intermittently. Denies sudden weakness in extremities. Denies chest pain, palpitations, shortness of breath. Denies nausea/vomiting, diarrhea/constipation, dysuria, hematuria. In ED, patient's vitals stable. CT head negative for acute intracranial pathology. UA unremarkable. EKG showing normal sinus rhythm. Glucose 167. Creatinine 1.7 (at baseline). Review of Systems Review of Systems: Ten point review of systems performed, negative unless otherwise specified per HPI [facility] Past Medical History Medical History (Updated 12/02/21 @ 03:14 by Patrice Andino DO) Bipolar 1 disorder Cholelithiases Depression with anxiety Diabetes Fatty infiltration of liver High blood pressure High cholesterol History of kidney stones History of uterine cancer Hypothyroid Left breast abscess Morbid obesity Nausea PTSD (post-traumatic stress disorder) Surgical History Surgical History History of hysterectomy History of removal of cyst from back Family History Family History Mother Family history of cardiovascular disease Diabetes mellitus Leukemia Father Family history of lung cancer Liver cancer AIDS Grandparent Stomach cancer Grandparent Cerebrovascular accident Other Depression Hypertension Social History Social History Smoking status: Never smoker Alcohol intake: never Substance use: never Substance use type: does not use Gender identity (if verbalized by the patient): Female Spiritual care concerns: No Meds Home Medications and Allergies Home Medications Medication Instructions Recorded Confirmed Type aspirin 81 mg tablet,delayed 81 mg PO DAILY 04/16/19 12/02/21 History release (Aspir-) atorvastatin 80 mg tablet 80 mg PO HS 04/16/19 12/02/21 History divalproex 500 mg tablet,delayed 1,500 mg PO HS 04/16/19 12/02/21 History release ergocalciferol (vitamin D2) 1,250 50,000 unit PO WEEKLY 04/16/19 12/02/21 History mcg (50,000 unit) capsule fenofibrate nanocrystallized 145 145 mg PO DAILY 04/16/19 12/02/21 History mg tablet fluoxetine 20 mg capsule (Prozac) 20 mg PO DAILY 04/16/19 12/02/21 History glimepiride 4 mg tablet 4 mg PO BID 04/16/19 12/02/21 History levothyroxine 150 mcg tablet 150 mcg PO DAILY 04/16/19 12/02/21 History (Synthroid) lorazepam 1 mg tablet 0.5 mg PO QAM AND QHS 04/16/19 12/02/21 History meclizine 25 mg tablet 25 mg PO BID PRN Dizziness 04/16/19 12/02/21 History metformin 500 mg tablet 1,000 mg PO DAILY 04/16/19 12/02/21 History quetiapine 100 mg tablet (Seroquel) 100 mg PO HS 04/16/19 12/02/21 History sitagliptin 100 mg tablet (Januvia) 100 mg PO DAILY 04/16/19 12/02/21 History carvedilol 3.125 mg tablet 3.125 mg PO BID 04/19/20 12/02/21 History hydrochlorothiazide 25 mg tablet 25 mg PO DAILY 04/19/20 12/02/21 History lamotrigine 100 mg tablet 100 mg PO BID 04/19/20 12/02/21 History buspirone 10 mg tablet 10 mg PO TID 02/15/21 12/02/21 History hydrox
[2021-12-02 05:46] LABS: Anion Gap 4 mmol/L (8-16); Blood Urea Nitrogen 41 mg/dL (7-17); Calcium 8.8 mg/dL (8.4-10.2); Carbon Dioxide 30 mmol/L (22-30); Chloride 103 mmol/L (98-107); Estimated CRCL calculation 39 ml/min; Estimated Glomerular Filt Rate 33; Glucose 37 mg/dL (65-110); Potassium 3.5 mmol/L (3.4-5.0); Sodium 137 mmol/L (137-145)
[2021-12-02] MEDS: LEVOTHYROXINE SODIUM 150 MCG TABLET PO (05:50)
[2021-12-02] MEDS: DEXTROSE 50% 25 GM/50 ML SYRINGE IV PUSH (05:50)
[2021-12-02] MEDS: MAG HYDROX/AL HYDROX/SIMETH 30 ML UDC PO (05:52)
[2021-12-02 06:07] LABS: Glucose Point of Care 100 mg/dl (65-105)
[2021-12-02 06:07] LABS: Glucose Point of Care 352 mg/dl (65-105)
[2021-12-02 06:12] LABS: Thyroid Stimulating Hormone 0.135 uIU/mL (0.465-4.680)
[2021-12-02 06:16] LABS: Hemoglobin A1C 4.9 % (<5.7)
[2021-12-02 07:48] LABS: Glucose Point of Care 49 mg/dl (65-105)
[2021-12-02] MEDS: PERFLUTREN LIPID MICROSPHERES 1.5 ML VIAL DILUTED TO 10 ML TOTAL VOLUME IV PUSH (08:25)
[2021-12-02 08:41] LABS: Glucose Point of Care 67 mg/dl (65-105)
--- NOTE | 2021-12-02 09:00 | PM.IMPN ---
Progress Note: A&P Assessment and Plan (1) Weakness: Code(s): R53.1 - Weakness Status: Acute Assessment and Plan: Reported aphasia, and difficulty with some adls at times Could be from psychosis, TIA, CVA, hypoglycemia CT of the head negative Carotid doppler ordered MRI ordered Echo pending Neurology consulted thank you for your help Telemetry ABCD2 5 which indicates a moderate risk NIH 2 for language (2) Bipolar 1 disorder: Code(s): F31.9 - Bipolar disorder, unspecified Status: Acute Assessment and Plan: Continue Depakote, Prozac, BuSpar, Lamictal, Ativan p.r.n., Seroquel Trend symptoms No toxicity noted on labs (3) High blood pressure: Code(s): I10 - Essential (primary) hypertension Status: Acute Assessment and Plan: Current BP is 105/51 Continue home carvedilol 3.125mg PO BID Stop HCTZ Trend BP Adjust therapy as indicated (4) Fatty infiltration of liver: Code(s): K76.0 - Fatty (change of) liver, not elsewhere classified Status: Acute Assessment and Plan: Continue Lipitor and fenofibrate (5) Hypothyroid: Code(s): E03.9 - Hypothyroidism, unspecified Status: Acute Assessment and Plan: Synthroid continued TSH low at 0.135 have her recheck in 4-6 weeks (6) Diabetes: Code(s): E11.9 - Type 2 diabetes mellitus without complications Status: Acute Assessment and Plan: Current glucose 37 on labs, rechecked was 352, current POC is 49 Hold metformin, sitagliptin, Amaryl. Low-dose sliding scale insulin check A1c 4.9 Wonder if this is why she is having the aphasia Probably need to DC one of her home medications Diabetes and social service agency director educator consult (7) Hypoglycemia: Code(s): E16.2 - Hypoglycemia, unspecified Status: Acute Assessment and Plan: Glucose on labs 37 Intervention given and up to 352, currently 49 Continue to trend Probably need to decrease her home regimen Continue to trend labs Adjust therapy as indicated hypoglycemia protocol on board Time Spent With Patient Time with patient: Greater than 35 minutes Subjective Date/time seen: 12/02/21 09:00 Interval history: 12/02/21 0900 Patient was lying in bed eating breakfast. Patient stated that a lot of times and she wakes up she just does not know what is happening or can not wrap her brain around certain tasks like putting on a shirt. She also states that she gets very dizzy and shaky and walk sideways and does not know why she does all of that. She also states that she is nauseous all the time and over the last year she has lost about 50 lb. She stated that she does not have an appetite. She also stated that for last 3 weeks she has had some indigestion and intermittent shortness of breath. Patient does not check her blood sugars as she said she cannot afford a monitor. Patient was enquiring about a diet. She denies any chest pain, vomiting, diarrhea, constipation, sweats, chills, fevers, weakness or fatigue. This morning patient's blood sugar has dropped into the 30s and 40s x2. Patient has been alert oriented however is very shaky and her words to come out very shaky as well. Patient is on 4 mg of glimepiride b.i.d. along with Januvia and metformin. It seems that patient is probably having more hypoglycemic episodes that is known. A1c was 4.9. She did state that her doctor had said that he thinks that her medications are not right and did orders of test however she has not had those performed at this time yet. Current workup for TIA CVA and progress. 12/02/21? 03:02 61-year-old female past medical history of bipolar 1 disorder, depression/anxiety, PTSD, hypothyroidism, diabetes on insulin, nonalcoholic fatty liver disease, history of uterine cancer, obesity, hypertension/hyperlipidemia.? Presents with 2 we
--- NOTE | 2021-12-02 09:00 | P.PNIM_ITS ---
Progress Note: A&P Assessment and Plan (1) Weakness: Code(s): R53.1 - Weakness Status: Acute Assessment and Plan: * Reported aphasia, and difficulty with some adls at times * Could be from psychosis, TIA, CVA, hypoglycemia * CT of the head negative * Carotid doppler ordered * MRI ordered * Echo pending * Neurology consulted thank you for your help * Telemetry * ABCD2 5 which indicates a moderate risk * NIH 2 for language (2) Bipolar 1 disorder: Code(s): F31.9 - Bipolar disorder, unspecified Status: Acute Assessment and Plan: * Continue Depakote, Prozac, BuSpar, Lamictal, Ativan p.r.n., Seroquel * Trend symptoms * No toxicity noted on labs (3) High blood pressure: Code(s): I10 - Essential (primary) hypertension Status: Acute Assessment and Plan: * Current BP is 105/51 * Continue home carvedilol 3.125mg PO BID * Stop HCTZ * Trend BP * Adjust therapy as indicated (4) Fatty infiltration of liver: Code(s): K76.0 - Fatty (change of) liver, not elsewhere classified Status: Acute Assessment and Plan: * Continue Lipitor and fenofibrate (5) Hypothyroid: Code(s): E03.9 - Hypothyroidism, unspecified Status: Acute Assessment and Plan: * Synthroid continued * TSH low at 0.135 * have her recheck in 4-6 weeks (6) Diabetes: Code(s): E11.9 - Type 2 diabetes mellitus without complications Status: Acute Assessment and Plan: * Current glucose 37 on labs, rechecked was 352, current POC is 49 * Hold metformin, sitagliptin, Amaryl. * Low-dose sliding scale insulin * check A1c 4.9 * Wonder if this is why she is having the aphasia * Probably need to DC one of her home medications * Diabetes and rn acute dialysis educator consult (7) Hypoglycemia: Code(s): E16.2 - Hypoglycemia, unspecified Status: Acute Assessment and Plan: * Glucose on labs 37 * Intervention given and up to 352, currently 49 * Continue to trend * Probably need to decrease her home regimen * Continue to trend labs * Adjust therapy as indicated * hypoglycemia protocol on board Time Spent With Patient Time with patient: Greater than 35 minutes Subjective Date/time seen: 12/02/21 09:00 Interval history: 12/02/21 0900 Patient was lying in bed eating breakfast. Patient stated that a lot of times and she wakes up she just does not know what is happening or can not wrap her brain around certain tasks like putting on a shirt. She also states that she gets very dizzy and shaky and walk sideways and does not know why she does all of that. She also states that she is nauseous all the time and over the last year she has lost about 50 lb. She stated that she does not have an appetite. She also stated that for last 3 weeks she has had some indigestion and intermittent shortness of breath. Patient does not check her blood sugars as she said she cannot afford a monitor. Patient was enquiring about a diet. She denies any chest pain, vomiting, diarrhea, constipation, sweats, chills, fevers, weakness or fatigue. This morning patient's blood sugar has dropped into the 30s and 40s x2. Patient has been alert oriented however is very shaky and her words to come out very shaky as well. Patient is on 4 mg of glimepiride b.i.d. along with Januvia and metformin. It seems that patien
[2021-12-02] MEDS: PANTOPRAZOLE 40 MG TABLET PO (09:27)
[2021-12-02] MEDS: busPIRone HCL 10 MG TABLET PO ×3 (09:27→16:24)
[2021-12-02] MEDS: FENOFIBRATE NANOCRYSTALLIZED 145 MG TABLET PO (09:27)
[2021-12-02] MEDS: carvediloL 3.125 MG TABLET PO ×2 (09:27→20:11)
[2021-12-02] MEDS: lamoTRIgine 100 MG TABLET PO ×2 (09:28→16:24)
[2021-12-02] MEDS: ENOXAPARIN 40 MG/0.4 ML SYRINGE SUB-Q (09:28)
[2021-12-02] MEDS: ASPIRIN 81 MG ENTERIC TABLET PO (09:28)
[2021-12-02] MEDS: FLUoxetine HCL 20 MG CAPSULE PO (09:28)
[2021-12-02] MEDS: LORazepam (*CRX) 0.5 MG TABLET PO ×2 (09:55→20:11)
[2021-12-02 10:32] LABS: Glucose Point of Care 148 mg/dl (65-105)
[2021-12-02 11:44] LABS: Iron 124 ug/dL (37-170)
[2021-12-02 11:47] LABS: Glucose Point of Care 128 mg/dl (65-105)
[2021-12-02 11:53] LABS: Percent Iron Saturation 25 % (20-50); Transferrin 346 mg/dL (206-381)
[2021-12-02 12:52] LABS: Folic Acid 9.7 ng/mL (2.76->20)
--- NOTE | 2021-12-02 13:07 | WPDNEURCNPN ---
Assessment and Plan Assessment and plan (1) TIA (transient ischemic attack): Code(s): G45.9 - Transient cerebral ischemic attack, unspecified Status: Acute Plan considering the history of underlying bipolar illness we just have to rule out the possibility of the TIA and also the use of the multiple medications as outlined again does list entertained by the psychiatrist he is taking aspirin 81 mg daily with atorvastatin 80 mg at night carvedilol 3.125 mg b.i.d. we will continue as such in addition to diabetic treatment and multiple psych medications have to be arranged by the psychiatric Consult date: 12/02/21 Time Seen: 11:00 Reason for consult: change in the mental status HPI: Lee Ann May is a 61 year old female admitted to the hospital through the emergency room for the complaints of confusion in addition to the history of 1. Hypertension 2. Diabetes mellitus 3. Hypo thyroidism 4. Hypercholesteremia and 5. Intermittent weakness with specific description that she has had an episode like this about a year ago, and has been experiencing recurrent episodes 1 per month but over the last 2 weeks episodes are becoming more frequent particularly describing that all of sudden she will become confused and would not know how to get along, she will have difficulties in finding the right word to carry on the conversation she has been taking aspirin 81 mg daily atorvastatin 80 mg daily divalproex 500 mg 3 of them daily fluoxetine 20 mg daily levothyroxine 150 micro g daily glimepiride 4 mg daily lorazepam half a mg daily metformin 2000 mg daily Seroquel 100 mg at night sitagliptin 100 mg daily carvedilol 3.125 mg twice a day hydrochlorothiazide 25 mg daily lamotrigine 100 mg b.i.d. lorazepam 2 mg at night and BuSpar 10 mg 3 times a day, she has ongoing history of bipolar disorder with morbid obesity hypothyroidism and fatty infiltration of the liver with hypercholesterolemia and high blood pressure though she has never smoker never alcohol intake evaluation documented normal vital signs, normal EKG with no atrial fibrillation, normal routine lab, negative Doppler study, normal MRI of the brain Review of Systems Review of Systems: All systems reviewed & are unremarkable except as noted in HPI and below [facility] Past Medical History Medical History (Updated 12/02/21 @ 13:18 by Hari Carreno MD) Bipolar 1 disorder Cholelithiases Depression with anxiety Diabetes Fatty infiltration of liver High blood pressure High cholesterol History of kidney stones History of uterine cancer Hypothyroid Left breast abscess Morbid obesity Nausea PTSD (post-traumatic stress disorder) Surgical History Surgical History History of hysterectomy History of removal of cyst from back Family History Family History Mother Family history of cardiovascular disease Diabetes mellitus Leukemia Father Family history of lung cancer Liver cancer AIDS Grandparent Stomach cancer Grandparent Cerebrovascular accident Other Depression Hypertension Social History Social History Smoking status: Never smoker Alcohol intake: never Substance use: never Substance use type: does not use Gender identity (if verbalized by the patient): Female Spiritual care concerns: No Meds Home Medications and Allergies Home Medications Medication Instructions Recorded Confirmed Type aspirin 81 mg tablet,delayed 81 mg PO DAILY 04/16/19 12/02/21 History release (Aspir-) atorvastatin 80 mg tablet 80 mg PO HS 04/16/19 12/02/21 History divalproex 500 mg tablet,delayed 1,500 mg PO HS 04/16/19 12/02/21 History release ergocalciferol (vitamin D2) 1,250 50,000 unit PO WEEKLY 04/16/19 12/02/21 History mcg (50,000 unit) capsule fenofibrate nanocrystallized 145 145 mg PO DAILY 11
--- NOTE | 2021-12-02 14:58 | PCNSR ---
On 12/02/21, the student, Damion Phelps, provided care and completed [facility] documentation on this patient. I have reviewed the student's documentation and agree with the findings.
[2021-12-02 16:59] LABS: Glucose Point of Care 141 mg/dl (65-105)
[2021-12-02] MEDS: QUEtiapine FUMARATE 100 MG TABLET PO (20:10)
[2021-12-02] MEDS: DIVALPROEX SODIUM DR 250 MG TABEC 1500 MG PO (20:10)
[2021-12-02] MEDS: ATORVASTATIN 40 MG TABLET 80 MG PO (20:11)
[2021-12-02 21:49] LABS: Glucose Point of Care 102 mg/dl (65-105)
[2021-12-03] VITALS (11 sets, daily range): BP systolic 119–164; BP diastolic 60–64; PULSE 64–101; RESP 16; TEMP 36.3–36.8; O2SAT 96–100
[2021-12-03] MEDS: LEVOTHYROXINE SODIUM 150 MCG TABLET PO (05:59)
[2021-12-03 06:53] LABS: Anion Gap 3 mmol/L (8-16); Blood Urea Nitrogen 37 mg/dL (7-17); Calcium 8.6 mg/dL (8.4-10.2); Carbon Dioxide 30 mmol/L (22-30); Chloride 105 mmol/L (98-107); Estimated CRCL calculation 39 ml/min; Estimated Glomerular Filt Rate 33; Glucose 37 mg/dL (65-110); Potassium 3.8 mmol/L (3.4-5.0); Sodium 138 mmol/L (137-145)
[2021-12-03] MEDS: DEXTROSE 50% 25 GM/50 ML SYRINGE IV PUSH (07:00)
[2021-12-03 07:16] LABS: Glucose Point of Care 98 mg/dl (65-105)
[2021-12-03 07:16] LABS: Glucose Point of Care 47 mg/dl (65-105)
[2021-12-03 09:05] LABS: Glucose Point of Care 78 mg/dl (65-105)
[2021-12-03] MEDS: busPIRone HCL 10 MG TABLET PO ×3 (09:08→16:49)
[2021-12-03] MEDS: FENOFIBRATE NANOCRYSTALLIZED 145 MG TABLET PO (09:09)
[2021-12-03] MEDS: ASPIRIN 81 MG ENTERIC TABLET PO (09:09)
[2021-12-03] MEDS: lamoTRIgine 100 MG TABLET PO ×2 (09:09→16:49)
[2021-12-03] MEDS: PANTOPRAZOLE 40 MG TABLET PO (09:09)
[2021-12-03] MEDS: carvediloL 3.125 MG TABLET PO ×2 (09:09→20:19)
[2021-12-03] MEDS: FLUoxetine HCL 20 MG CAPSULE PO (09:09)
[2021-12-03] MEDS: ENOXAPARIN 40 MG/0.4 ML SYRINGE SUB-Q (09:10)
[2021-12-03] MEDS: LORazepam (*CRX) 0.5 MG TABLET PO ×2 (09:15→20:28)
--- NOTE | 2021-12-03 10:15 | PM.IMPN ---
Progress Note: A&P Assessment and Plan (1) Hypoglycemia: Code(s): E16.2 - Hypoglycemia, unspecified <Kami ParksANU - Last Filed: 12/03/21 10:28> Status: Acute <Kami Parks ANU - Last Filed: 12/03/21 10:28> Assessment and Plan: I suspect this is what was causing the patient's weakness, confusion and hallucinations -glucose again this morning was down to 37 and improved with hypoglycemia protocol -she has remained within normal limits the last 2 readings and is eating so I do not think she needs dextrose IV at this time -will change diabetic diet to a regular diet -she is likely persistently hypoglycemic due to chronic renal failure which is likely causing her to retain some of her prior medications that have now been stopped Hopefully with time this will washout and her hypoglycemia will resolve -if she continues to be hypoglycemic after the washout, may consider workup for insulinoma etc although this seems less likely at this time -since she is hypoglycemic overnight, will provided snack before bed and I discussed this with the nurse. Will continue telemetry <Kami ParksANU - Last Filed: 12/03/21 10:28> (2) Weakness: Code(s): R53.1 - Weakness <Kami ParksANU - Last Filed: 12/03/21 10:28> Status: Acute <Kami ParksANU - Last Filed: 12/03/21 10:28> Assessment and Plan: Reported aphasia, and difficulty with some adls at times -likely due to above -brain MRI without acute stroke -TIA seems less likely due to persistent hypoglycemia which can cause similar symptoms -continue aspirin -TSH was abnormal but free T4 is normal, do not suspect thyroid to be a cause <Kami ParksANU - Last Filed: 12/03/21 10:28> (3) Bipolar 1 disorder: Code(s): F31.9 - Bipolar disorder, unspecified <Kami ParksANU - Last Filed: 12/03/21 10:28> Status: Acute <Kami FajardoANU schmitz - Last Filed: 12/03/21 10:28> Assessment and Plan: Continue Depakote, Prozac, BuSpar, Lamictal, Ativan p.r.n., Seroquel -no evidence of serotonin syndrome <Kami ParishJoseline Parks PA-C - Last Filed: 12/03/21 10:28> (4) High blood pressure: Code(s): I10 - Essential (primary) hypertension <Kami Eladio ANU Parks - Last Filed: 12/03/21 10:28> Status: Acute <Kami Hendricks ANU Parks - Last Filed: 12/03/21 10:28> Assessment and Plan: Last blood pressure 151/64 -continue carvedilol -hydrochlorothiazide has been stopped -monitor blood pressure and if it continues to be high, adjust therapy <Kami ParishJoseline Parks PA-C - Last Filed: 12/03/21 10:28> (5) Fatty infiltration of liver: Code(s): K76.0 - Fatty (change of) liver, not elsewhere classified <Kami ParishJoseline Parks PA-C - Last Filed: 12/03/21 10:28> Status: Acute <Kami ParishJoseline Parks PA-C - Last Filed: 12/03/21 10:28> Assessment and Plan: Chronic. Continue Lipitor and fenofibrate <Kami ParishJoseline Parks PA-C - Last Filed: 12/03/21 10:28> (6) Hypothyroid: Code(s): E03.9 - Hypothyroidism, unspecified <Kami ParishJoseline Parks PA-C - Last Filed: 12/03/21 10:28> Status: Acute <Kami ParishJoseline Parks PA-C - Last Filed: 12/03/21 10:28> Assessment and Plan: TSH low but T4 normal -recheck outpatient and 6 weeks -continue current dose of levothyroxine <Kami ParishJoseline Parks PA-C - Last Filed: 12/03/21 10:28> (7) Diabetes: Code(s): E11.9 - Type 2 diabetes mellitus without complications <Kami Parks PA-C - Last Filed: 12/03/21 10:28> Status: Acute <Kami ParishJoseline Parks PA-C - Last Filed: 12/03/21 10:28> Assessment and Plan: Plan as discussed above -recommend stopping hypoglycemics at discharge and with primary care. Was previously on glimepiride 4 mg b.i.d. and Januvia as well as metformin -A1c 4.9 <Kami Praks PA-C - Last Filed: 12/03/21 10:28>
[2021-12-03 11:25] LABS: Glucose Point of Care 260 mg/dl (65-105)
[2021-12-03 16:46] LABS: Glucose Point of Care 194 mg/dl (65-105)
[2021-12-03] MEDS: QUEtiapine FUMARATE 100 MG TABLET PO (20:19)
[2021-12-03] MEDS: ATORVASTATIN 40 MG TABLET 80 MG PO (20:19)
[2021-12-03] MEDS: DIVALPROEX SODIUM DR 250 MG TABEC 1500 MG PO (20:20)
[2021-12-03 21:30] LABS: Glucose Point of Care 145 mg/dl (65-105)
[2021-12-04] VITALS (11 sets, daily range): BP systolic 126–142; BP diastolic 52–69; PULSE 70–81; RESP 14–18; TEMP 36.3–36.8; O2SAT 95–100
[2021-12-04] MEDS: ACETAMINOPHEN 325 MG TABLET 650 MG PO ×3 (00:57→21:10)
[2021-12-04] MEDS: LEVOTHYROXINE SODIUM 150 MCG TABLET PO (05:45)
[2021-12-04 06:36] LABS: Anion Gap 2 mmol/L (8-16); Blood Urea Nitrogen 41 mg/dL (7-17); Calcium 8.8 mg/dL (8.4-10.2); Carbon Dioxide 29 mmol/L (22-30); Chloride 105 mmol/L (98-107); Estimated CRCL calculation 41 ml/min; Estimated Glomerular Filt Rate 35; Glucose 47 mg/dL (65-110); Potassium 4.1 mmol/L (3.4-5.0); Sodium 136 mmol/L (137-145)
[2021-12-04 07:53] LABS: Glucose Point of Care 110 mg/dl (65-105)
--- NOTE | 2021-12-04 07:58 | PC.NURSE ---
blood sugar serum 47 recieved 0636. Alert oriented x3,asymptomic except states felt very tired. Food given,repeat bloood sugar 110.
[2021-12-04 08:02] LABS: Glucose Point of Care 161 mg/dl (65-105)
[2021-12-04] MEDS: ENOXAPARIN 40 MG/0.4 ML SYRINGE SUB-Q (08:25)
[2021-12-04] MEDS: LORazepam (*CRX) 0.5 MG TABLET PO (08:25)
[2021-12-04] MEDS: PANTOPRAZOLE 40 MG TABLET PO (08:26)
[2021-12-04] MEDS: FENOFIBRATE NANOCRYSTALLIZED 145 MG TABLET PO (08:26)
[2021-12-04] MEDS: lamoTRIgine 100 MG TABLET PO ×2 (08:26→17:22)
[2021-12-04] MEDS: FLUoxetine HCL 20 MG CAPSULE PO (08:26)
[2021-12-04] MEDS: busPIRone HCL 10 MG TABLET PO ×3 (08:26→17:22)
[2021-12-04] MEDS: ASPIRIN 81 MG ENTERIC TABLET PO (08:26)
[2021-12-04] MEDS: carvediloL 3.125 MG TABLET PO ×2 (08:26→21:08)
[2021-12-04] MEDS: DEXTROSE 5%/0.9% SOD CHL 1,000 ML 100 ML IV CONT (08:29)
[2021-12-04 08:51] LABS: Valproic Acid 58.1 ug/mL (50-120)
[2021-12-04 10:44] LABS: Glucose Point of Care 110 mg/dl (65-105)
--- NOTE | 2021-12-04 12:07 | PM.IMPN ---
Progress Note: A&P Assessment and Plan (1) Hypoglycemia: Code(s): E16.2 - Hypoglycemia, unspecified Status: Acute Assessment and Plan: Patient had about a 50 lb weight loss last year. Weight has been stable since that time. Suspect that her symptoms of weakness, confusion and word-finding problems are related to hypoglycemia. 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 She is on sitagliptin, metformin and Amaryl for treatment of her diabetes. Her A1c is 4.9 which also points to well controlled diabetes and increased risk of hypoglycemia. Glucose again this morning was down to 47 and improved with hypoglycemia protocol. D5NS started. Glucose remaining stable. For persistent hyperglycemia probably related to her medications worsened by her CKD. Continue regular diet. Wean IV fluids as she tolerates. Frequent glucose checks. Continue hypoglycemia protocol. (2) Weakness: Code(s): R53.1 - Weakness Status: Acute Assessment and Plan: Patient reported to me as she was having headache, confusion and word-finding problems. She has a murmur but echocardiogram showing normal systolic function with grade 1 diastolic dysfunction and mild aortic regurgitation. TSH slightly low at 0.14 although free T4 is normal. Brain MRI negative for acute findings. Carotid ultrasound also negative for significant stenosis. Continue aspirin and Lipitor. Suspect overall that her symptoms are related to intermittent episodes of hypoglycemia. Appreciate Neurology input. (3) Bipolar 1 disorder: Code(s): F31.9 - Bipolar disorder, unspecified Status: Acute Assessment and Plan: Mood stable. Continue Depakote, Prozac, BuSpar, Lamictal and Seroquel. Ativan available as needed. Valproic acid level is 58. Continue to follow. (4) High blood pressure: Code(s): I10 - Essential (primary) hypertension Status: Acute Assessment and Plan: Patient's blood pressure was reviewed on 12/04 Blood pressure elevated at times. Will continue current medications with carvedilol. Hydrochlorothiazide has been stopped. Continue to monitor. (5) Fatty infiltration of liver: Code(s): K76.0 - Fatty (change of) liver, not elsewhere classified Status: Acute Assessment and Plan: Chronic. Continue Lipitor and fenofibrate (6) Hypothyroid: Code(s): E03.9 - Hypothyroidism, unspecified Status: Acute Assessment and Plan: TSH low but T4 normal -recheck outpatient and 6 weeks -continue current dose of levothyroxine (7) Diabetes: Code(s): E11.9 - Type 2 diabetes mellitus without complications Status: Acute Assessment and Plan: A1c 4.9. Plan as discussed above. Amaryl, Januvia and metformin have been stopped here. No plans to continue these at discharge. (8) Pancytopenia: Code(s): D61.818 - Other pancytopenia Status: Acute Assessment and Plan: Noted on labs but appears to be chronic. B12and folate levels normal. Possibly related to her medications. Follow-up with PCP Consider Hematology outpatient referral (9) CKD (chronic kidney disease): Code(s): N18.9 - Chronic kidney disease, unspecified Status: Acute Assessment and Plan: Creatinine 1.7 on admission. This is unchanged from a creatinine drawn 5 months earlier and appears to be within her baseline Creatinine has trended down to 1.5. Her hydrochlorothiazide has been stopped. Will continue to follow. Subjective Date/time seen: 12/04/21 12:07 Interval history: 61yo female with a history of diabetes, CKD, bipolar and hypertension here for weakness found to be hypoglycemic. Assuming care. Chart reviewed. Patient about a year ago lost about 50 lb. Over the past 10 months or so she states she has had headaches with confusion and word-finding problems. Sym
[2021-12-04 12:32] LABS: Glucose Point of Care 176 mg/dl (65-105)
[2021-12-04 14:43] LABS: Glucose Point of Care 198 mg/dl (65-105)
[2021-12-04 16:48] LABS: Glucose Point of Care 136 mg/dl (65-105)
[2021-12-04 20:40] LABS: Glucose Point of Care 112 mg/dl (65-105)
[2021-12-04] MEDS: ATORVASTATIN 40 MG TABLET 80 MG PO (21:08)
[2021-12-04] MEDS: DIVALPROEX SODIUM DR 250 MG TABEC 1500 MG PO (21:09)
[2021-12-04] MEDS: QUEtiapine FUMARATE 100 MG TABLET PO (21:09)
[2021-12-04 21:32] LABS: Glucose Point of Care 155 mg/dl (65-105)
[2021-12-04 23:36] LABS: Glucose Point of Care 141 mg/dl (65-105)
[2021-12-05] VITALS (9 sets, daily range): BP systolic 117–143; BP diastolic 55–73; PULSE 60–74; RESP 18–24; TEMP 36.4–36.6; O2SAT 97–100
[2021-12-05] MEDS: DEXTROSE 5%/0.9% SOD CHL 1,000 ML 50 ML IV CONT (01:09)
[2021-12-05 01:50] LABS: Glucose Point of Care 60 mg/dl (65-105)
[2021-12-05 03:05] LABS: Glucose Point of Care 114 mg/dl (65-105)
[2021-12-05] MEDS: LEVOTHYROXINE SODIUM 150 MCG TABLET PO (05:35)
[2021-12-05 05:39] LABS: Glucose Point of Care 73 mg/dl (65-105)
[2021-12-05 06:21] LABS: Basophils Percent Auto 0.4 % (0.2-1.2); Eosinophils Percent Auto 1.8 % (0-4.4); Hematocrit 31.3 % (37.0-47.0); Hemoglobin 9.6 g/dL (12.0-15.0); Immature Granulocyte Absolute 0.03 K/mm3 (0.00-0.031); Immature Granulocyte Percent A 1.3 % (0-0.5); Immature Platelet Fraction Pct 2.5 % (0.9-11.2); Lymphocytes Absolute Auto 0.99 K/mm3 (0.9-3.2); Lymphocytes Percent Auto 43.6 % (18.3-44.2); Mean Corpuscular HGB Conc 30.7 g/dl (32-36); Mean Corpuscular Hemoglobin 30.1 pg (26-34); Mean Corpuscular Volume 98.1 fl (80-100); Mean Platelet Volume 10.3 fl (7.4-10.4); Monocytes Absolute Auto 0.4 K/mm3 (0.1-0.6); Monocytes Percent Auto 15.9 % (2.6-8.5); Neutrophils Absolute Auto 0.8 K/mm3 (1.3-6.7); Platelet Count Result 70 k/mm3 (150-375); Red Blood Count 3.19 M/mm3 (4.2-5.4); Red Cell Distribution Width 14.1 % (11.5-14.5); White Blood Count 2.3 K/mm3 (4.5-10.0)
[2021-12-05 06:30] LABS: Anion Gap 2 mmol/L (8-16); Blood Urea Nitrogen 34 mg/dL (7-17); Calcium 8.3 mg/dL (8.4-10.2); Carbon Dioxide 29 mmol/L (22-30); Chloride 107 mmol/L (98-107); Estimated CRCL calculation 44 ml/min; Estimated Glomerular Filt Rate 38; Glucose 80 mg/dL (65-110); Potassium 3.9 mmol/L (3.4-5.0); Sodium 138 mmol/L (137-145)
[2021-12-05 08:09] LABS: Glucose Point of Care 77 mg/dl (65-105)
[2021-12-05] MEDS: carvediloL 3.125 MG TABLET PO ×2 (08:43→22:26)
[2021-12-05] MEDS: FENOFIBRATE NANOCRYSTALLIZED 145 MG TABLET PO (08:43)
[2021-12-05] MEDS: PANTOPRAZOLE 40 MG TABLET PO (08:43)
[2021-12-05] MEDS: FLUoxetine HCL 20 MG CAPSULE PO (08:43)
[2021-12-05] MEDS: busPIRone HCL 10 MG TABLET PO ×3 (08:43→16:28)
[2021-12-05] MEDS: lamoTRIgine 100 MG TABLET PO ×2 (08:43→16:28)
[2021-12-05] MEDS: ASPIRIN 81 MG ENTERIC TABLET PO (08:43)
[2021-12-05] MEDS: LORazepam (*CRX) 0.5 MG TABLET PO ×2 (08:48→22:25)
[2021-12-05 09:36] LABS: Glucose Point of Care 162 mg/dl (65-105)
[2021-12-05 11:36] LABS: Glucose Point of Care 140 mg/dl (65-105)
--- NOTE | 2021-12-05 12:51 | PDONCCN ---
HPI - Date of Consult Date/Time: 12/05/21 12:51 Requesting Physician: Kingsley Coombs MD Primary Care Provider: Derrell Scott MD - Consult Narrative Reason for consult: Pancytopenia Narrative: Lee Ann May is a 61 year old obese female with history of bipolar disorder, hypothyroidism, diabetes and nonalcoholic fatty liver disease came into the hospital with mental status changes. She was having difficulty finding words and performing tasks for last couple of weeks duration prior to the admission. Head CT showed no acute intracranial abnormalities. Brain MRI also came back normal. Labs showed WBC 2.3 hemoglobin 9.6 and platelets [id number]. Creatinine was 1.4 with GFR 38%. She denies any bleeding and bruising. She denies any history of drinking alcohol. She is feeling better today with some more alertness. She denies any recent weight changes. Denies any other new complaints. Review of Systems - Review of Systems All systems reviewed & are unremarkable except as noted in [facility] and [facility] Medical History: Medical History (Last Updated 12/04/21 @ 12:24 by Javier Coombs MD) Bipolar 1 disorder Cholelithiases CKD (chronic kidney disease) Depression with anxiety Diabetes Fatty infiltration of liver High blood pressure High cholesterol History of kidney stones History of uterine cancer Hypothyroid Left breast abscess Morbid obesity Nausea PTSD (post-traumatic stress disorder) Surgical History: Surgical History (Last Reviewed 02/16/21 @ 00:00 by Tod Urias MD) History of hysterectomy History of removal of cyst from back Family History: Family History (Last Reviewed 02/16/21 @ 00:00 by Tod Urias MD) Mother Family history of cardiovascular disease Diabetes mellitus Leukemia Father Family history of lung cancer Liver cancer AIDS Grandparent Stomach cancer Grandparent Cerebrovascular accident Other Depression Hypertension - Social History Social History: Social History (Last Reviewed 02/16/21 @ 00:00 by Tod Urias MD) Gender Identity: Gender identity (if verbalized by the patient): Female Alcohol Use: Alcohol intake: never Substance Use: Substance use: never Substance use type: does not use Others: Spiritual care concerns: No Smoking Status: Smoking status: Never smoker Meds Home Medications Medication Instructions Recorded Confirmed Type aspirin 81 mg tablet,delayed 81 mg PO DAILY 04/16/19 12/02/21 History release (Aspir-) atorvastatin 80 mg tablet 80 mg PO HS 04/16/19 12/02/21 History divalproex 500 mg tablet,delayed 1,500 mg PO HS 04/16/19 12/02/21 History release ergocalciferol (vitamin D2) 1,250 50,000 unit PO WEEKLY 04/16/19 12/02/21 History mcg (50,000 unit) capsule fenofibrate nanocrystallized 145 145 mg PO DAILY 04/16/19 12/02/21 History mg tablet fluoxetine 20 mg capsule (Prozac) 20 mg PO DAILY 04/16/19 12/02/21 History glimepiride 4 mg tablet 4 mg PO BID 04/16/19 12/02/21 History levothyroxine 150 mcg tablet 150 mcg PO DAILY 04/16/19 12/02/21 History (Synthroid) lorazepam 1 mg tablet 0.5 mg PO QAM AND QHS 04/16/19 12/02/21 History meclizine 25 mg tablet 25 mg PO BID PRN Dizziness 04/16/19 12/02/21 History metformin 500 mg tablet 1,000 mg PO DAILY 04/16/19 12/02/21 History quetiapine 100 mg tablet (Seroquel) 100 mg PO HS 04/16/19 12/02/21 History sitagliptin 100 mg tablet (Januvia) 100 mg PO DAILY 04/16/19 12/02/21 History carvedilol 3.125 mg tablet 3.125 mg PO BID 04/19/20 12/02/21 History hydrochlorothiazide 25 mg tablet 25 mg PO DAILY 04/19/20 12/02/21 History lamotrigine 100 mg tablet 100 mg PO BID 04/19/20 12/02/21 History buspirone 10 mg tablet 10 mg PO TID 02/15/21 12/02/21 History hydroxyzine pamoate 25 mg capsule 25 mg PO BID 12/02/21 12/02/21 History (Vistaril) Allergies Allergy/AdvReac Type Severity Reaction Status Date / Time diphenhydrami
--- NOTE | 2021-12-05 13:05 | PM.IMPN ---
Progress Note: A&P Assessment and Plan (1) Hypoglycemia: Code(s): E16.2 - Hypoglycemia, unspecified Status: Acute Assessment and Plan: Patient had about a 50 lb weight loss last year. Weight has been stable since that time. Suspect that her symptoms of weakness, confusion and word-finding problems are related to hypoglycemia. 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 She is on sitagliptin, metformin and Amaryl for treatment of her diabetes. Her A1c is 4.9 which also points to well controlled diabetes and increased risk of hypoglycemia. Patient was started on D5 NS. Glucose has stable this treatment. We have consulted wean IV fluids says her glucose tolerance. Continue to wean off IV fluids. Continue frequent glucose checks. Continue hypoglycemia protocol. Plan to stop IV fluids later today and monitor overnight. If glucose remains stable overnight, patient can be discharged home. (2) Weakness: Code(s): R53.1 - Weakness Status: Acute Assessment and Plan: Patient reported to me as she was having headache, confusion and word-finding problems. She has a murmur but echocardiogram showing normal systolic function with grade 1 diastolic dysfunction and mild aortic regurgitation. TSH slightly low at 0.14 although free T4 is normal. Brain MRI negative for acute findings. Carotid ultrasound also negative for significant stenosis. Continue aspirin and Lipitor. Suspect overall that her symptoms are related to intermittent episodes of hypoglycemia. Appreciate Neurology input. Okay to stop telemetry (3) Pancytopenia: Code(s): D61.818 - Other pancytopenia Status: Acute Assessment and Plan: Noted on labs but appears to be chronic. B12and folate levels normal. Possibly related to her medications. Hematology consulted and felt PCP related to underlying live disease with splenomegaly. Abdominal ultrasound ordered. Plan to have patient follow-up with Hematology at discharge. (4) High blood pressure: Code(s): I10 - Essential (primary) hypertension Status: Acute Assessment and Plan: Patient's blood pressure was reviewed on 12/05 Blood pressure elevated at times. Will continue current medications with carvedilol. Hydrochlorothiazide has been stopped. Continue to monitor. (5) Fatty infiltration of liver: Code(s): K76.0 - Fatty (change of) liver, not elsewhere classified Status: Acute Assessment and Plan: Chronic. Continue Lipitor and fenofibrate (6) Hypothyroid: Code(s): E03.9 - Hypothyroidism, unspecified Status: Acute Assessment and Plan: TSH low but T4 normal -recheck outpatient and 6 weeks -continue current dose of levothyroxine (7) Diabetes: Code(s): E11.9 - Type 2 diabetes mellitus without complications Status: Acute Assessment and Plan: A1c 4.9. Plan as discussed above. Amaryl, Januvia and metformin have been stopped here. No plans to continue these at discharge. (8) Bipolar 1 disorder: Code(s): F31.9 - Bipolar disorder, unspecified Status: Acute Assessment and Plan: Mood stable. Continue Depakote, Prozac, BuSpar, Lamictal and Seroquel. Ativan available as needed. Valproic acid level is 58. Continue to follow. (9) CKD (chronic kidney disease): Code(s): N18.9 - Chronic kidney disease, unspecified Status: Acute Assessment and Plan: Creatinine 1.7 on admission. This is unchanged from a creatinine drawn 5 months earlier and appears to be within her baseline Creatinine has trended down to 1.4. Her hydrochlorothiazide has been stopped which may have helped. Will continue to follow. Subjective Date/time seen: 12/05/21 13:05 Interval history: 61yo female with a history of diabetes, CKD, bipolar and hypertension here for weakness found to be hy
--- NOTE | 2021-12-05 13:20 | PC.NURSE ---
MD Dubose ordered US abd complete, scheduled for tomorrow, pt will be NPO at midnight for procedure in am 12/06/21.
[2021-12-05 15:08] LABS: Glucose Point of Care 181 mg/dl (65-105)
[2021-12-05 15:33] LABS: Glucose Point of Care 210 mg/dl (65-105)
[2021-12-05] MEDS: DEXTROSE 5%/0.9% SOD CHL 1,000 ML 25 ML IV CONT (15:57)
--- NOTE | 2021-12-05 16:45 | PC.NURSE ---
spoken with MD Coombs accuchecks back to q4hrs, dextrose stop for now, continue to monitor.
[2021-12-05 16:52] LABS: Glucose Point of Care 149 mg/dl (65-105)
[2021-12-05 18:14] LABS: Glucose Point of Care 204 mg/dl (65-105)
[2021-12-05] MEDS: ATORVASTATIN 40 MG TABLET 80 MG PO (22:25)
[2021-12-05] MEDS: DIVALPROEX SODIUM DR 250 MG TABEC 1500 MG PO (22:26)
[2021-12-05] MEDS: QUEtiapine FUMARATE 100 MG TABLET PO (22:26)
[2021-12-05 23:14] LABS: Glucose Point of Care 85 mg/dl (65-105)
[2021-12-06] VITALS (7 sets, daily range): BP systolic 114–148; BP diastolic 53–60; PULSE 64–82; RESP 18–19; TEMP 35.9–36.4; O2SAT 97–98
[2021-12-06] MEDS: LEVOTHYROXINE SODIUM 150 MCG TABLET PO (05:11)
[2021-12-06 05:26] LABS: Glucose Point of Care 70 mg/dl (65-105)
[2021-12-06 06:54] LABS: Basophils Percent Auto 0.4 % (0.2-1.2); Eosinophils Absolute Auto 0.1 K/mm3 (0-0.3); Eosinophils Percent Auto 2.4 % (0-4.4); Hematocrit 29.5 % (37.0-47.0); Hemoglobin 9.1 g/dL (12.0-15.0); Immature Granulocyte Absolute 0.03 K/mm3 (0.00-0.031); Immature Granulocyte Percent A 1.2 % (0-0.5); Immature Platelet Fraction Pct 2.4 % (0.9-11.2); Lymphocytes Absolute Auto 1.23 K/mm3 (0.9-3.2); Mean Corpuscular HGB Conc 30.8 g/dl (32-36); Mean Corpuscular Hemoglobin 30.5 pg (26-34); Mean Platelet Volume 10.1 fl (7.4-10.4); Monocytes Absolute Auto 0.5 K/mm3 (0.1-0.6); Monocytes Percent Auto 18.7 % (2.6-8.5); Neutrophils Absolute Auto 0.7 K/mm3 (1.3-6.7); Neutrophils Percent Auto 28.3 % (45.5-73.1); Platelet Count Result 70 k/mm3 (150-375); Red Blood Count 2.98 M/mm3 (4.2-5.4); Red Cell Distribution Width 14.1 % (11.5-14.5); White Blood Count 2.5 K/mm3 (4.5-10.0)
[2021-12-06 07:41] LABS: Glucose Point of Care 72 mg/dl (65-105)
[2021-12-06] MEDS: lamoTRIgine 100 MG TABLET PO ×2 (08:59→17:11)
[2021-12-06] MEDS: PANTOPRAZOLE 40 MG TABLET PO (08:59)
[2021-12-06] MEDS: FENOFIBRATE NANOCRYSTALLIZED 145 MG TABLET PO (08:59)
[2021-12-06] MEDS: carvediloL 3.125 MG TABLET PO ×2 (08:59→20:42)
[2021-12-06] MEDS: FLUoxetine HCL 20 MG CAPSULE PO (08:59)
[2021-12-06] MEDS: busPIRone HCL 10 MG TABLET PO ×3 (08:59→17:11)
[2021-12-06] MEDS: ASPIRIN 81 MG ENTERIC TABLET PO (08:59)
[2021-12-06] MEDS: LORazepam (*CRX) 0.5 MG TABLET PO ×2 (09:14→20:43)
--- NOTE | 2021-12-06 09:45 | PCOTNOTE ---
Attempted to see patient for OT tx this AM. Patient declined any/all activity at this time due to not feeling well and being tired. She requests to rest at this time. Will continue to attempt.
--- NOTE | 2021-12-06 10:45 | PCPTNOTE ---
Patient declined PT stating I am trying to get some sleep but I keep getting interrupted. I am not feeling well today.
[2021-12-06 11:46] LABS: Glucose Point of Care 127 mg/dl (65-105)
--- NOTE | 2021-12-06 13:09 | PM.IMPN ---
Progress Note: A&P Assessment and Plan (1) Hypoglycemia: Code(s): E16.2 - Hypoglycemia, unspecified Status: Acute Assessment and Plan: Patient had about a 50 lb weight loss last year. Weight has been stable since that time. Suspect that her symptoms of weakness, confusion and word-finding problems are related to hypoglycemia. 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 She is on sitagliptin, metformin and Amaryl for treatment of her diabetes. Her A1c is 4.9 which also points to well controlled diabetes and increased risk of hypoglycemia. Patient was started on D5 NS. Glucose has stable this treatment. We have consulted wean IV fluids says her glucose tolerance. Continue to wean off IV fluids. Continue frequent glucose checks. Continue hypoglycemia protocol. Plan to stop IV fluids later today and monitor overnight. If glucose remains stable overnight, patient can be discharged home. 12/06/2021 interval history: patient is 61-year-old female with history of bipolar, diabetes and obesity presented with weakness was found to have hypoglycemia as patient had been taking, sitagliptin, metformin, and Amaryl for her diabetes, patient hypoglycemic medication placed on hold and started the patient on D5 at 100 cc an hour has started the diet, blood sugars are trending up, patient A1c is 4.9 suggesting her diabetes was overtreated, hypoglycemia may have led to weakness and altered mental status as her CT scan of the head and MRI of the brain were normal, currently patient states mentally much more alert, patient still quite fatigue and tired, will stop D5IVF, and continue regular diet hold hypoglycemic medication and monitor, patient was also found to pancytopenia seen by and Hematology, hematology did not suspect that pancytopenia is related nutritional deficiency however patient does have history of fatty liver and to further evaluate abdominal ultrasound was ordered which is essentially normal, patient to follow with Oncology as outpatient, (2) Weakness: Code(s): R53.1 - Weakness Status: Acute Assessment and Plan: Patient reported to me as she was having headache, confusion and word-finding problems. She has a murmur but echocardiogram showing normal systolic function with grade 1 diastolic dysfunction and mild aortic regurgitation. TSH slightly low at 0.14 although free T4 is normal. Brain MRI negative for acute findings. Carotid ultrasound also negative for significant stenosis. Continue aspirin and Lipitor. Suspect overall that her symptoms are related to intermittent episodes of hypoglycemia. Appreciate Neurology input. Okay to stop telemetry (3) Pancytopenia: Code(s): D61.818 - Other pancytopenia Status: Acute Assessment and Plan: Noted on labs but appears to be chronic. B12and folate levels normal. Possibly related to her medications. Hematology consulted and felt PCP related to underlying live disease with splenomegaly. Abdominal ultrasound ordered. Plan to have patient follow-up with Hematology at discharge. (4) High blood pressure: Code(s): I10 - Essential (primary) hypertension Status: Acute Assessment and Plan: Patient's blood pressure was reviewed on 12/05 Blood pressure elevated at times. Will continue current medications with carvedilol. Hydrochlorothiazide has been stopped. Continue to monitor. (5) Fatty infiltration of liver: Code(s): K76.0 - Fatty (change of) liver, not elsewhere classified Status: Acute Assessment and Plan: Chronic. Continue Lipitor and fenofibrate (6) Hypothyroid: Code(s): E03.9 - Hypothyroidism, unspecified Status: Acute Assessment and Plan: TSH low but T4 normal -recheck outpatient and 6 weeks -continue current dose of levothyroxine (7) Diabetes: Code(s): E11.9 - Type 2 di
[2021-12-06 16:45] LABS: Glucose Point of Care 117 mg/dl (65-105)
[2021-12-06] MEDS: ATORVASTATIN 40 MG TABLET 80 MG PO (20:41)
[2021-12-06] MEDS: QUEtiapine FUMARATE 100 MG TABLET PO (20:42)
[2021-12-06] MEDS: DIVALPROEX SODIUM DR 250 MG TABEC 1500 MG PO (20:42)
[2021-12-06 21:25] LABS: Glucose Point of Care 86 mg/dl (65-105)
[2021-12-07] MEDS: LEVOTHYROXINE SODIUM 150 MCG TABLET PO (05:45)
[2021-12-07 05:49] VITALS: BP 120/57; PULSE 58; RESP 18; TEMP 36.7; O2SAT 97
[2021-12-07 07:03] LABS: Glucose Point of Care 76 mg/dl (65-105)
[2021-12-07 07:55] LABS: Glucose Point of Care 81 mg/dl (65-105)
[2021-12-07 08:07] VITALS: PULSE 68
[2021-12-07] MEDS: ASPIRIN 81 MG ENTERIC TABLET PO (08:07)
[2021-12-07] MEDS: lamoTRIgine 100 MG TABLET PO ×2 (08:07→17:40)
[2021-12-07] MEDS: carvediloL 3.125 MG TABLET PO ×2 (08:07→22:21)
[2021-12-07] MEDS: FLUoxetine HCL 20 MG CAPSULE PO (08:07)
[2021-12-07] MEDS: busPIRone HCL 10 MG TABLET PO ×3 (08:08→17:40)
[2021-12-07] MEDS: FENOFIBRATE NANOCRYSTALLIZED 145 MG TABLET PO (08:08)
[2021-12-07] MEDS: PANTOPRAZOLE 40 MG TABLET PO (08:08)
[2021-12-07] MEDS: LORazepam (*CRX) 0.5 MG TABLET PO ×2 (08:10→22:22)
[2021-12-07 11:46] LABS: Glucose Point of Care 166 mg/dl (65-105)
--- NOTE | 2021-12-07 12:49 | WPDONCPN ---
Progress Note: A/P - Additional Plan Pancytopenia. Abdominal ultrasound showed normal spleen and liver. I am concerned about underlying bone marrow pathology. Labs reviewed that showed persistent pancytopenia. Iron and vitamin B12 level is normal. Patient remains asymptomatic. We will order bone marrow aspiration and biopsy. I have explained the procedure to patient in detail. She will follow-up with me in the office to discuss the pathology report. - Time Spent With Patient Total time spent is greater than 50% in coordination of care (as documented) at patient's floor/unit and/or counseling patient: 15 - 25 minutes Subjective Interval history: Pancytopenia Review of Systems - Review of Systems Patient seems to be more alert and awake today. She denies any bleeding and bruising. Denies any chest pain and shortness of breath. She does have some tiredness and fatigue. No fevers and chills. No other new complaints. Exam Vital signs: Temp Pulse Resp BP Pulse Ox O2 Del Method 36.7 C 68 18 120/57 L 97 Room Air 12/07/21 05:49 12/07/21 08:07 12/07/21 05:49 12/07/21 05:49 12/07/21 05:49 12/07/21 08:00 Narrative: Lungs are clear to auscultation bilaterally Cardiovascular regular rate rhythm no murmurs Abdomen soft nontender nondistended bowel sounds are positive Extremities no edema PN: Objective Data - Labs CBC & Chem 7: 12/06/21 05:52 12/05/21 05:43 Labs: Laboratory Results - last 24 hr 12/06/21 12/06/21 12/07/21 16:42 20:40 06:53 POC Capillary Glucose 117 H 86 76 12/07/21 12/07/21 07:50 11:43 POC Capillary Glucose 81 166 H
--- NOTE | 2021-12-07 13:19 | PCNFU ---
Nutrition Follow-Up Complete: Nutrition related knowledge deficit related to glucose control as evidenced by pt report. Goal:Maintain oral intake of 75% or more. Pt is meeting current goal. New goal is for understanding and comprehension of diet recommendations upon discharge Pt current nutrition is Regular, Ensure compact BID. Nutrition recommendation: D/d ensure per pt preference Last recorded weight is 105 kg - stable Bowel Motility: +BM 12/05 Labs Reviewed: Hgb:9.1, HCT:24, glucose 117 Meds Noted:protonix Skin: WNL Additional Notes: pt reports good appetite and intake. Presents with nutrition questions from previous education given last week. Answered questions and encouraged follow up with outpatient counseling as needed. Pt stated she did not want the ensure drinks, agreed to discontinue. Monitor changes in wt, oral intake, and labs as well as education needs every 7 days.
[2021-12-07 14:00] VITALS: BP 135/56; PULSE 65; RESP 18; TEMP 36.1; O2SAT 100
--- NOTE | 2021-12-07 14:57 | PM.IMPN ---
Progress Note: A&P Assessment and Plan (1) Hypoglycemia: Code(s): E16.2 - Hypoglycemia, unspecified Status: Acute Assessment and Plan: Patient had about a 50 lb weight loss last year. Weight has been stable since that time. Suspect that her symptoms of weakness, confusion and word-finding problems are related to hypoglycemia. 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 She is on sitagliptin, metformin and Amaryl for treatment of her diabetes. Her A1c is 4.9 which also points to well controlled diabetes and increased risk of hypoglycemia. Patient was started on D5 NS. Glucose stablized with this treatment. We have been able to wean off IV fluids. Continue to monitor. Continue hypoglycemia protocol. Continue regular diet. (2) Weakness: Code(s): R53.1 - Weakness Status: Acute Assessment and Plan: Patient reported to me as she was having headache, confusion and word-finding problems. She has a murmur but echocardiogram showing normal systolic function with grade 1 diastolic dysfunction and mild aortic regurgitation. TSH slightly low at 0.14 although free T4 is normal. Brain MRI negative for acute findings. Carotid ultrasound also negative for significant stenosis. Continue aspirin and Lipitor. Suspect overall that her symptoms are related to intermittent episodes of hypoglycemia. Appreciate Neurology input. (3) Pancytopenia: Code(s): D61.818 - Other pancytopenia Status: Acute Assessment and Plan: Noted on labs but appears to be chronic. B12 and folate levels normal. Possibly related to her medications. Abd US showing no HSM. Hematology consulted and appreciate their input. Plan for bone marrow biopsy tomorrow. (4) High blood pressure: Code(s): I10 - Essential (primary) hypertension Status: Acute Assessment and Plan: Patient's blood pressure was reviewed on 12/07 Blood pressure better controlled. Will continue current medications with carvedilol. Hydrochlorothiazide has been stopped. Continue to monitor. (5) Fatty infiltration of liver: Code(s): K76.0 - Fatty (change of) liver, not elsewhere classified Status: Acute Assessment and Plan: Chronic. Abdominal ultrasound as mentioned above. Continue Lipitor and fenofibrate. (6) Hypothyroid: Code(s): E03.9 - Hypothyroidism, unspecified Status: Acute Assessment and Plan: TSH low but T4 normal -recheck outpatient and 6 weeks -continue current dose of levothyroxine (7) Diabetes: Code(s): E11.9 - Type 2 diabetes mellitus without complications Status: Acute Assessment and Plan: A1c 4.9. Plan as discussed above. Amaryl, Januvia and metformin have been stopped here. No plans to continue these at discharge. (8) Bipolar 1 disorder: Code(s): F31.9 - Bipolar disorder, unspecified Status: Acute Assessment and Plan: Mood stable. Continue Depakote, Prozac, BuSpar, Lamictal and Seroquel. Ativan available as needed. Valproic acid level is 58. Continue to follow. (9) CKD (chronic kidney disease): Code(s): N18.9 - Chronic kidney disease, unspecified Status: Acute Assessment and Plan: Creatinine 1.7 on admission. This is unchanged from a creatinine drawn 5 months earlier and appears to be within her baseline Creatinine has trended down to 1.4. Her hydrochlorothiazide has been stopped which may have helped. Will continue to follow. Subjective Date/time seen: 12/07/21 14:57 Interval history: 61yo female with a history of diabetes, CKD, bipolar and hypertension here for weakness found to be hypoglycemic. Resuming care. Chart reviewed. Slept well last night. Overall feeling much better. No further neurologic symptoms. Tolerating being off the dextrose. Nervous about bone marrow biopsy tomorrow. Exam Narrati
--- NOTE | 2021-12-07 15:03 | PCOTNOTE ---
Patient not seen for OT this date. Will continue per plan of care.
--- NOTE | 2021-12-07 15:16 | PC.NURSE ---
rapid covid screen sent to lab, pt is going to have a roommate
[2021-12-07 15:35] LABS: EDCOVIDSCREEN Negative (Negative)
[2021-12-07 16:43] LABS: Glucose Point of Care 91 mg/dl (65-105)
[2021-12-07 22:00] VITALS: BP 103/52; PULSE 104; RESP 18; TEMP 36.5; O2SAT 97
[2021-12-07] MEDS: ATORVASTATIN 40 MG TABLET 80 MG PO (22:20)
[2021-12-07 22:21] VITALS: PULSE 104
[2021-12-07] MEDS: DIVALPROEX SODIUM DR 250 MG TABEC 1500 MG PO (22:21)
[2021-12-07] MEDS: QUEtiapine FUMARATE 100 MG TABLET PO (22:22)
[2021-12-07 22:32] LABS: Glucose Point of Care 142 mg/dl (65-105)
[2021-12-08 03:40] VITALS: O2SAT 98
[2021-12-08] MEDS: LEVOTHYROXINE SODIUM 150 MCG TABLET PO (05:49)
[2021-12-08 06:00] VITALS: BP 134/59; PULSE 61; RESP 18; TEMP 36.2; O2SAT 97
[2021-12-08] MEDS: LORazepam (*CRX) 0.5 MG TABLET PO (07:59)
[2021-12-08 08:22] LABS: Glucose Point of Care 86 mg/dl (65-105)
--- NOTE | 2021-12-08 08:24 | WPDMODSED ---
Moderate Sedation Note-Pt Data Patient Data Diagnosis: pancytopenia Present Complaint: pancytopenia Procedure to be performed/Plan: bone marrow biopsy Allergies Allergy/AdvReac Type Severity Reaction Status Date / Time diphenhydramine Allergy Severe HYPERACTIVE Verified 12/01/21 20:18 FEELING oxycodone Allergy Severe go crazy Verified 12/01/21 20:18 tramadol Allergy Severe itching Verified 12/01/21 20:18 codeine AdvReac Mild feel weird Verified 12/01/21 20:18 Home Medications Medication Instructions Recorded Confirmed Type aspirin 81 mg tablet,delayed 81 mg PO DAILY 04/16/19 12/02/21 History release (Aspir-) atorvastatin 80 mg tablet 80 mg PO HS 04/16/19 12/02/21 History divalproex 500 mg tablet,delayed 1,500 mg PO HS 04/16/19 12/02/21 History release ergocalciferol (vitamin D2) 1,250 50,000 unit PO WEEKLY 04/16/19 12/02/21 History mcg (50,000 unit) capsule fenofibrate nanocrystallized 145 145 mg PO DAILY 04/16/19 12/02/21 History mg tablet fluoxetine 20 mg capsule (Prozac) 20 mg PO DAILY 04/16/19 12/02/21 History glimepiride 4 mg tablet 4 mg PO BID 04/16/19 12/02/21 History levothyroxine 150 mcg tablet 150 mcg PO DAILY 04/16/19 12/02/21 History (Synthroid) lorazepam 1 mg tablet 0.5 mg PO QAM AND QHS 04/16/19 12/02/21 History meclizine 25 mg tablet 25 mg PO BID PRN Dizziness 04/16/19 12/02/21 History metformin 500 mg tablet 1,000 mg PO DAILY 04/16/19 12/02/21 History quetiapine 100 mg tablet (Seroquel) 100 mg PO HS 04/16/19 12/02/21 History sitagliptin 100 mg tablet (Januvia) 100 mg PO DAILY 04/16/19 12/02/21 History carvedilol 3.125 mg tablet 3.125 mg PO BID 04/19/20 12/02/21 History hydrochlorothiazide 25 mg tablet 25 mg PO DAILY 04/19/20 12/02/21 History lamotrigine 100 mg tablet 100 mg PO BID 04/19/20 12/02/21 History buspirone 10 mg tablet 10 mg PO TID 02/15/21 12/02/21 History hydroxyzine pamoate 25 mg capsule 25 mg PO BID 12/02/21 12/02/21 History (Vistaril) Current Medications: Active Medications Acetaminophen (Acetaminophen 325 Mg Tablet) 650 mg PO Q6H PRN PRN Reason: Mild Pain (1-3) or Fever Last Admin: 12/04/21 21:10 Dose: 650 mg Al Hydrox/Mg Hydrox/Simethicone (Mag Hydrox/Al Hydrox/Simeth 30 Ml Udc) 30 ml PO QID PRN PRN Reason: Dyspepsia Last Admin: 12/02/21 05:52 Dose: 30 ml Aspirin (Aspirin 81 Mg Enteric Tablet) 81 mg PO DAILY [facility] Last Admin: 12/07/21 08:07 Dose: 81 mg Atorvastatin Calcium (Atorvastatin 40 Mg Tablet) 80 mg PO HS [facility] Last Admin: 12/07/21 22:20 Dose: 80 mg Buspirone HCl (Buspirone Hcl 10 Mg Tablet) 10 mg PO TID [facility] Last Admin: 12/07/21 17:40 Dose: 10 mg Carvedilol (Carvedilol 3.125 Mg Tablet) 3.125 mg PO Q12HR [facility] Last Admin: 12/07/21 22:21 Dose: 3.125 mg Dextrose (Dextrose 50% 25 Gm/50 Ml Syringe) 12.5 gm IV PUSH PRN PRN; Protocol PRN Reason: Hypoglycemia Last Admin: 12/03/21 07:00 Dose: 12.5 gm Divalproex Sodium (Divalproex Sodium Dr 250 Mg Tabec) 1,500 mg PO HS [facility] Last Admin: 12/07/21 22:21 Dose: 1,500 mg Enoxaparin Sodium (Enoxaparin 40 Mg/0.4 Ml Syringe) 40 mg SUB-Q DAILY [facility] Last Admin: 12/04/21 08:25 Dose: 40 mg Fenofibrate (Fenofibrate Nanocrystallized 145 Mg Tablet) 145 mg PO DAILY [facility] Last Admin: 12/07/21 08:08 Dose: 145 mg Fluoxetine HCl (Fluoxetine Hcl 20 Mg Capsule) 20 mg PO DAILY [facility] Last Admin: 12/07/21 08:07 Dose: 20 mg Glucagon (Glucagon For Inj 1 Mg Vial) 1 mg IM PRN PRN; Protocol PRN Reason: Hypoglycemia Glucose (Glucose Oral Gel 15 Gm Of Glucse In 37.5 Gm Tube) 15 gm PO PRN PRN; Protocol PRN Reason: Hypoglycemia Dextrose (Dextrose 5% 1,000 Ml) 1,000 mls @ 100 mls/hr IVPB PRN PRN; Protocol PRN Reason: Hypoglycemia Lamotrigine (Lamotrigine 100 Mg Tablet) 100 mg PO BID [facility] Last Admin: 12/07/21 17:40 Dose: 100 mg Levothyroxine Sodium (Levothyroxine Sodium 150 Mcg Tablet) 150 mcg PO DAILY@0630 [facility] Last Admin: 12/08/21 05:49 Dose: 150 mcg Lorazepam (Lorazepam (*Crx) 0.
[2021-12-08] MEDS: FENOFIBRATE NANOCRYSTALLIZED 145 MG TABLET PO (10:00)
[2021-12-08] MEDS: lamoTRIgine 100 MG TABLET PO ×2 (10:00→17:15)
[2021-12-08] MEDS: ASPIRIN 81 MG ENTERIC TABLET PO (10:00)
[2021-12-08] MEDS: busPIRone HCL 10 MG TABLET PO ×3 (10:00→17:15)
[2021-12-08] MEDS: FLUoxetine HCL 20 MG CAPSULE PO (10:00)
[2021-12-08] MEDS: PANTOPRAZOLE 40 MG TABLET PO (10:00)
[2021-12-08] MEDS: carvediloL 3.125 MG TABLET PO (10:00)
[2021-12-08 11:38] LABS: Glucose Point of Care 168 mg/dl (65-105)
--- NOTE | 2021-12-08 12:49 | PCOTNOTE ---
Attempted to see Pt at 11:06 am for Occupational Therapy tx. Per RN, pt is on bedrest for the next 4 hours due to recent procedure. Will continue per poc duration/frequency when appropriate.
[2021-12-08 14:00] VITALS: BP 150/71; PULSE 59; RESP 21; TEMP 35.8; O2SAT 100
--- NOTE | 2021-12-08 14:54 | PCOTNOTE ---
Attempted to see pt for Occupational Therapy Tx this PM. Pt is frustrated and upset due to not knowing when she is able to d/c due to being told different things different days. Pt was educated on the purpose and benefits of continued therapy, pt states I can clean myself up, put on my own socks, walk, exercise, etc...I don't need therapy. RN and CMM TECHNICIAN were notified of pt's refusal. Will continue per poc duration/frequency tomorrow.
--- NOTE | 2021-12-08 16:59 | PM.DS ---
DS: Admitting Diagnosis Discharge Date 12/08/21 Admitting Diagnosis Weakness DS: Discharge Diagnosis Discharge Diagnosis (1) Hypoglycemia: Code(s): E16.2 - Hypoglycemia, unspecified Status: Acute Assessment and Plan: Patient presents with weakness and found to have hypoglycemia. Patient had about a 50 lb weight loss last year. Weight has been stable since that time. Suspect that her symptoms of weakness, confusion and word-finding problems are related to hypoglycemia. 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 She is on sitagliptin, metformin and Amaryl for treatment of her diabetes. Her A1c is 4.9 which also points to well controlled diabetes and increased risk of hypoglycemia. Patient was started on D5 NS. Glucose stabilized with this treatment. We have been able to wean off IV fluids. No recurrence of the hypoglycemia. (2) Weakness: Code(s): R53.1 - Weakness Status: Acute Assessment and Plan: Patient reported to me as she was having headache, confusion and word-finding problems intermittently over the past few months. She has a murmur but echocardiogram showing normal systolic function with grade 1 diastolic dysfunction and mild aortic regurgitation. TSH slightly low at 0.14 although free T4 is normal. Brain MRI negative for acute findings. Carotid ultrasound also negative for significant stenosis. We continued aspirin and Lipitor. Suspect overall that her symptoms are related to intermittent episodes of hypoglycemia. Appreciated Neurology input. (3) Pancytopenia: Code(s): D61.818 - Other pancytopenia Status: Acute Assessment and Plan: Noted on labs but appears to be chronic. B12 and folate levels normal. Possibly related to her medications. Abd US showing no HSM. Hematology consulted and appreciate their input. Bone marrow biopsy performed 12/08/21. Patient to follow up with Hematology in 2-3 weeks. (4) HTN (hypertension), benign: Code(s): I10 - Essential (primary) hypertension Status: Acute Assessment and Plan: Patient's blood pressure remained well controlled. Will continued current medications with carvedilol. Hydrochlorothiazide was stopped. (5) Fatty infiltration of liver: Code(s): K76.0 - Fatty (change of) liver, not elsewhere classified Status: Acute Assessment and Plan: Chronic. Abdominal ultrasound as mentioned above. We continued Lipitor and fenofibrate. (6) Hypothyroid: Code(s): E03.9 - Hypothyroidism, unspecified Status: Acute Assessment and Plan: TSH low but T4 normal. Plan to recheck outpatient in 6 weeks. We continued current dose of levothyroxine here (7) Diabetes: Code(s): E11.9 - Type 2 diabetes mellitus without complications Status: Acute Assessment and Plan: A1c 4.9. Plan as discussed above. Amaryl, Januvia and metformin have been stopped here. No plans to continue these at discharge. (8) Bipolar 1 disorder: Code(s): F31.9 - Bipolar disorder, unspecified Status: Acute Assessment and Plan: Mood stable. We continued Depakote, Prozac, BuSpar, Lamictal and Seroquel. Ativan was available as needed. Valproic acid level was 58. (9) CKD (chronic kidney disease): Code(s): N18.9 - Chronic kidney disease, unspecified Status: Acute Assessment and Plan: Creatinine 1.7 on admission. This is unchanged from a creatinine drawn 5 months earlier and appears to be within her baseline Creatinine did trend down to 1.4. Her hydrochlorothiazide was stopped which may have helped. DS: Summary Hospital Course Reason for hospitalization: 61yo female with a history of diabetes, CKD, bipolar and hypertension here for weakness found to be hypoglycemic. Please see H&P for details. Hospital Course: Please see above for details of hos
[2021-12-08 20:01] LABS: Glucose Point of Care 125 mg/dl (65-105)
--- NOTE | 2021-12-15 07:52 | PC.NURSE ---
Bone marrow bx results shown to Dr. Coombs.
--- NOTE | 2021-12-17 07:18 | PC.NURSE ---
Bone marrow bx report faxed to Dr. Scott.
== END 2021-12-08 18:40 | disposition home health service (06) | DRG 638 ==
LOC: ANHED 23:37 → ANH3MEDSUR 12-02 00:01
PROVIDERS: Emergency Medicine; Nurse Practitioner; Physician Assistant; Radiology Diagnostic Radiology; Admitting Provider Internal Medicine; Emergency Provider Emergency Medicine; PCP Family Medicine; Referring Provider Internal Medicine Hematology & Oncology; Visit Provider Internal Medicine
PROC: 079T3ZX Drainage of Bone Marrow, Percutaneous Approach, Diagnostic (ICD-10-PCS; principal; 2021-12-08 08:00)
DX: E11.649 Type 2 diabetes mellitus with hypoglycemia without coma (principal); D61.818 Other pancytopenia; R53.1 Weakness; E11.22 Type 2 diabetes mellitus with diabetic chronic kidney disease; I12.9 Hypertensive chronic kidney disease with stage 1 through stage 4 chronic kidney disease, or unspecified chronic kidney disease; N18.9 Chronic kidney disease, unspecified; E66.9 Obesity, unspecified; F31.9 Bipolar disorder, unspecified; K76.0 Fatty (change of) liver, not elsewhere classified; E03.9 Hypothyroidism, unspecified; E78.5 Hyperlipidemia, unspecified; F41.8 Other specified anxiety disorders; F43.10 Post-traumatic stress disorder, unspecified; Z20.822 Contact with and (suspected) exposure to COVID-19; Z79.82 Long term (current) use of aspirin; Z79.84 Long term (current) use of oral hypoglycemic drugs; Z79.899 Other long term (current) drug therapy; Z85.42 Personal history of malignant neoplasm of other parts of uterus; Z87.442 Personal history of urinary calculi; Z90.710 Acquired absence of both cervix and uterus
CPT/HCPCS: 36415; 38222; 70450; 70551; 76700; 80048; 80053; 80164; 81001; 82607; 82728; 82746; 82948; 83036; 83540; 83550; 84439; 84443; 84466; 85025; 85055; 85610; 85730; 87426; 88305; 88311; 88313; 88341; 88342; 93005; 93880; 96374; 96375; 97110; 97116; 97161; 97165; 97530; 97535; 99285; A9270; C8929; C9803; J1642; J1650; J2250; J3010; J7040; J7042; Q9957

== ENCOUNTER 2022-06-30 10:08 | Outpatient (CLI) | payer MEDICARE, MEDICAID, SELFPAY ==
[2022-06-30 12:12] LABS: Thyroid Stimulating Hormone Reflex 0.298 uIU/mL (0.465-4.68)
[2022-06-30 12:56] LABS: Free T4 Free Thyroxine Reflex 1.88 ng/dL (0.78-2.19)
[2022-06-30 13:45] LABS: Total Triiodothyronine (T3) 0.82 NG/ML (0.97-1.69)
== END 2022-06-30 10:09 | disposition home or self-care (01) ==
PROVIDERS: PCP Family Medicine; Visit Provider Internal Medicine
DX: E03.9 Hypothyroidism, unspecified (principal)
CPT/HCPCS: 36415; 84439; 84443; 84480

== ENCOUNTER 2022-09-15 09:03 | Outpatient (CLI) | payer MEDICARE, MEDICAID, SELFPAY ==
[2022-09-15 09:52] LABS: Basophils Percent Auto 0.6 % (0.2-1.2); Eosinophils Absolute Auto 0.1 K/mm3 (0-0.3); Eosinophils Percent Auto 1.9 % (0-4.4); Hematocrit 34.1 % (37.0-47.0); Hemoglobin 10.9 g/dL (12.0-15.0); Immature Granulocyte Absolute 0.03 K/mm3 (0.00-0.031); Lymphocytes Absolute Auto 1.34 K/mm3 (0.9-3.2); Lymphocytes Percent Auto 42.9 % (18.3-44.2); Mean Corpuscular Hemoglobin 29.1 pg (26-34); Mean Corpuscular Volume 91.2 fl (80-100); Mean Platelet Volume 10.2 fl (7.4-10.4); Monocytes Absolute Auto 0.3 K/mm3 (0.1-0.6); Monocytes Percent Auto 8.7 % (2.6-8.5); Neutrophils Absolute Auto 1.4 K/mm3 (1.3-6.7); Neutrophils Percent Auto 44.9 % (45.5-73.1); Platelet Count Result 148 k/mm3 (150-375); Red Blood Count 3.74 M/mm3 (4.2-5.4); Red Cell Distribution Width 13.2 % (11.5-14.5); White Blood Count 3.1 K/mm3 (4.5-10.0)
[2022-09-15 09:59] LABS: Alanine Aminotransferase 17 U/L (6-35); Albumin Level 3.8 g/dL (3.5-5.1); Alkaline Phosphatase 75 U/L (38-126); Anion Gap 8 mmol/L (8-16); Aspartate Amino Transferase 24 U/L (14-36); Bilirubin,Total 0.6 mg/dL (0.2-1.3); Blood Urea Nitrogen 32 mg/dL (7-17); Calcium 9.6 mg/dL (8.4-10.2); Carbon Dioxide 27 mmol/L (22-30); Chloride 103 mmol/L (98-107); Cholesterol 178 mg/dL (0-200); Estimated Glomerular Filt Rate 42; Glucose 247 mg/dL (65-110); HDL Direct 49 mg/dL; Potassium 4.3 mmol/L (3.4-5.0); Sodium 138 mmol/L (137-145); Triglycerides 220 mg/dL (<150)
[2022-09-15 10:11] LABS: LDL Cholesterol Direct 91 mg/dL
[2022-09-15 10:29] LABS: Thyroid Stimulating Hormone 0.582 uIU/mL (0.465-4.680)
[2022-09-15 10:30] LABS: Free T4 Free Thyroxine 1.73 ng/mL (0.78-2.19); Vitamin D 25 Hydroxy 58.7 ng/mL
[2022-09-15 11:22] LABS: Microalbumin Urine Random 116.5 mg/L (0-16.7)
[2022-09-15 11:23] LABS: Creatinine Urine 137.8 mg/dL; MALB Creatinine Ratio 84.5 mg/g (0-30)
[2022-09-19 09:56] LABS: PCP NEGATIVE ng/mL (<25)
[2022-09-19 14:03] LABS: Marijuana Metabolites Negative
[2022-09-19 14:04] LABS: Amphetamines Negative; Barbiturates Negative; Benzodiazepines Positive; Cocaine Metabolites Negative
[2022-09-19 23:31] LABS: Vitamin D 1,25 (OH)2 Total 26 pg/mL (18-72); Vitamin D2 1,25 (OH)2 26 pg/mL; Vitamin D3 1,25 (OH)2 <8 pg/mL
[2022-09-20 05:51] LABS: Triiodothyronine T3 Free 2.2 pg/mL (2.3-4.2)
== END 2022-09-15 09:04 | disposition home or self-care (01) ==
PROVIDERS: PCP Family Medicine; Referring Provider Nurse Practitioner Psychiatric/Mental Health; Visit Provider Family Medicine
DX: E78.5 Hyperlipidemia, unspecified (principal); E55.9 Vitamin D deficiency, unspecified; E66.01 Morbid (severe) obesity due to excess calories; K21.9 Gastro-esophageal reflux disease without esophagitis; I10 Essential (primary) hypertension; R80.9 Proteinuria, unspecified; Z79.899 Other long term (current) drug therapy; F31.89 Other bipolar disorder; F41.1 Generalized anxiety disorder; E03.9 Hypothyroidism, unspecified; F31.32 Bipolar disorder, current episode depressed, moderate; F51.01 Primary insomnia
CPT/HCPCS: 36415; 80053; 80061; 80307; 82043; 82248; 82306; 82652; 83036; 84439; 84443; 84481; 85025

== ENCOUNTER 2022-10-04 21:02 | Emergency (ER) | payer MEDICARE, MEDICAID, SELFPAY ==
--- NOTE | ~2022-10-04 | XR_ITS ---
EXAMINATION: XR chest 1V portable Exam Date/Time: 10/04/2022 22:00 CDT HISTORY: URI Comparison: 08/25/2018. RESULT: Lines, tubes, and devices: None. Lungs and pleura: Clear. Cardiomediastinal silhouette: Stable. Other: No acute osseous or upper abdominal finding. IMPRESSION: No acute cardiopulmonary process. Reviewed, dictated and finalized at location [facility].
[2022-10-04 21:13] VITALS: BP 186/76; PULSE 93; RESP 19; TEMP 36.8; O2SAT 97
[2022-10-04 21:58] LABS: Influenza A QL RT-PCR Negative (Negative); Influenza B QL RT-PCR Negative (Negative); SARS-CoV-2 RNA PCR Negative (Negative)
--- NOTE | 2022-10-04 23:20 | ED.GENADULT ---
HPI - General Adult General Chief complaint: Upper Respiratory Infection Stated complaint: upper resp symptoms Time Seen by Provider: 10/04/22 21:36 History of Present Illness HPI narrative: This is a 62-year-old female presenting to the ED with URI symptoms. Patient has had a cough and sore throat for the last week. She has had some nausea and vomiting headaches and body aches. No diarrhea. No fevers at home. Noted difficulty breathing. Patient has taken an unknown [id number] cold medicine but does not know what it is. Related Data Home Medications Medication Instructions Recorded Confirmed aspirin 81 mg tablet,delayed 81 mg PO DAILY 04/16/19 12/02/21 release (Aspir-) atorvastatin 80 mg tablet 80 mg PO HS 04/16/19 12/02/21 divalproex 500 mg tablet,delayed 1,500 mg PO HS 04/16/19 12/02/21 release ergocalciferol (vitamin D2) 1,250 50,000 unit PO WEEKLY 04/16/19 12/02/21 mcg (50,000 unit) capsule fenofibrate nanocrystallized 145 145 mg PO DAILY 04/16/19 12/02/21 mg tablet fluoxetine 20 mg capsule (Prozac) 20 mg PO DAILY 04/16/19 12/02/21 levothyroxine 150 mcg tablet 150 mcg PO DAILY 04/16/19 12/02/21 (Synthroid) lorazepam 1 mg tablet 0.5 mg PO QAM AND QHS 04/16/19 12/02/21 meclizine 25 mg tablet 25 mg PO BID PRN Dizziness 04/16/19 12/02/21 quetiapine 100 mg tablet (Seroquel) 100 mg PO HS 04/16/19 12/02/21 carvedilol 3.125 mg tablet 3.125 mg PO BID 04/19/20 12/02/21 lamotrigine 100 mg tablet 100 mg PO BID 04/19/20 12/02/21 buspirone 10 mg tablet 10 mg PO TID 02/15/21 12/02/21 hydroxyzine pamoate 25 mg capsule 25 mg PO BID 12/02/21 12/02/21 (Vistaril) Allergies Allergy/AdvReac Type Severity Reaction Status Date / Time diphenhydramine Allergy Severe HYPERACTIVE Verified 12/01/21 20:18 FEELING oxycodone Allergy Severe go crazy Verified 12/01/21 20:18 tramadol Allergy Severe itching Verified 12/01/21 20:18 codeine AdvReac Mild feel weird Verified 12/01/21 20:18 PMFSH Past Medical History Medical History Bipolar 1 disorder Cholelithiases CKD (chronic kidney disease) Depression with anxiety Diabetes Fatty infiltration of liver High cholesterol History of kidney stones History of uterine cancer HTN (hypertension), benign Hypothyroid Left breast abscess Morbid obesity Nausea PTSD (post-traumatic stress disorder) Surgical History Surgical History History of hysterectomy History of removal of cyst from back Family History Family History Mother Family history of cardiovascular disease Diabetes mellitus Leukemia Father Family history of lung cancer Liver cancer AIDS Grandparent Stomach cancer Grandparent Cerebrovascular accident Other Depression Hypertension Social History Social History Smoking status: Never smoker Alcohol intake: never Substance use: never Substance use type: does not use Living arrangements: alone Gender identity (if verbalized by the patient): Female Spiritual care concerns: No Exam Narrative: APPEARANCE: No apparent distress. Patient is well-appearing Head: atraumatic. tympanic membranes are normal. No erythema or exudates on the throat. EYES: EOMI, NOSE: Atraumatic NECK: Trachea midline RESPIRATORY: No increased rate of breathing, clear to auscultation CARDIOVASCULAR: RRR, peripheral edema ABDOMINAL: Non-distended soft nontender no guarding or rebound MUSCULOSKELETAl: No obvious deformities NEURO: Alert. Moving 4/4 extremities SKIN:: Warm, dry. Normal color PSYCHIATRIC: Normal affect Course Vital Signs Vital signs: Vital Signs Temperature 98.3 F 10/04/22 21:13 Pulse Rate 93 10/04/22 21:13 Respiratory Rate 19 10/04/22 21:13 Blood Pressure 186/76 H 10/04/22 21:13 Pulse Oximetry
[2022-10-04] MEDS: IBUPROFEN 400 MG TABLET 800 MG PO (23:22)
[2022-10-04] MEDS: ACETAMINOPHEN 500 MG TABLET 1000 MG PO (23:23)
[2022-10-04 23:27] LABS: Strep Group A RT-PCR NOT DETECTED (Negative)
[2022-10-04] MEDS: guaiFENesin/DEXTROMETHORPHAN 10 ML UDC PO (23:29)
== END 2022-10-04 23:59 | disposition home or self-care (01) ==
PROVIDERS: Emergency Provider Emergency Medicine; PCP Family Medicine
DX: B34.9 Viral infection, unspecified (principal); Z20.822 Contact with and (suspected) exposure to COVID-19; I12.9 Hypertensive chronic kidney disease with stage 1 through stage 4 chronic kidney disease, or unspecified chronic kidney disease; N18.9 Chronic kidney disease, unspecified; F31.9 Bipolar disorder, unspecified; F43.10 Post-traumatic stress disorder, unspecified; F41.8 Other specified anxiety disorders; E66.01 Morbid (severe) obesity due to excess calories; Z68.41 Body mass index [BMI] 40.0-44.9, adult; Z87.440 Personal history of urinary (tract) infections; Z85.42 Personal history of malignant neoplasm of other parts of uterus; Z79.82 Long term (current) use of aspirin; Z90.710 Acquired absence of both cervix and uterus
CPT/HCPCS: 71045; 87636; 87651; 99283; A9270; J1100

== ENCOUNTER 2022-10-17 11:20 | Inpatient (IN) | payer MEDICARE, MEDICAID, SELFPAY ==
[2022-10-17] VITALS (67 sets, daily range): BP systolic 98–221; BP diastolic 56–202; PULSE 67–94; RESP 11–30; TEMP 36.2–36.7; O2SAT 85–100; BMI 38.2
--- NOTE | ~2022-10-17 | CT_ITS ---
EXAMINATION: CT brain wo con DATE: 10/17/2022 18:42 INDICATION: confusion, fall . TECHNIQUE: Computed tomography (CT) of the head was performed without intravenous contrast. The mA wa s adjusted according to patient size. Iterative reconstruction technique was employed. The dose-lengt h product was 681.00 mGy-cm. COMPARISON: 12/01/2021. FINDINGS: No acute intracranial hemorrhage or extra-axial fluid collection. No hydrocephalus, mass, or herniation. No acute ischemic infarct. Unremarkable dural venous sinus attenuation. No acute osseous abnormality. Opacification and air-fluid levels in the left maxillary, ethmoid, and sphenoid sinuses. Trace right mastoid fluid. The remaining aerated spaces are clear. Mild atrophy and chronic white matter change. Atherosclerotic intracranial calcification. IMPRESSION: No acute intracranial process. Paranasal sinus findings may reflect acute sinusitis in the appropriat e clinical context. Reviewed, dictated and finalized at location [facility]. IMPRESSION: No acute intracranial process. Paranasal sinus findings may reflect acute sinus itis in the appropriate clinical context.
--- NOTE | ~2022-10-17 | US_ITS ---
Abdominal Sonogram: Real-time sonographic imaging of the abdomen was performed. Clinical History: Pancreatitis, abnormal LFTs Findings: The liver appears mildly heterogeneous, with no evidence of mass lesion or bile duct dilat ation. Main portal vein demonstrates normal direction of flow. The spleen is normal in size, with lexi cified granulomas present. The gallbladder is completely filled with shadowing stones. No definite g allbladder wall thickening. The common bile duct measures 6 mm. The visualized pancreas, aorta, and IVC are unremarkable. The right kidney measures 11.8 cm in length and the left kidney measures 11.5 cm. There is no hydronephrosis or renal calculus. Renal echogenicity is diffusely increased. Impression: Cholelithiasis. Diffuse fatty infiltration of the liver. Echogenic kidneys suggest chronic medical renal disease. Reviewed, dictated and finalized at [facility]. Impression: Cholelithiasis. Diffuse fatty infiltration of the liver. Echogenic kidneys suggest chronic medical renal disease.
--- NOTE | ~2022-10-17 | CT_ITS ---
EXAMINATION: CT chest abdomen pelvis wo con DATE: 10/17/2022 13:54 CDT INDICATION: Abdominal pain TECHNIQUE: Computed tomography (CT) of the chest, abdomen, and pelvis was performed without intraveno us contrast. The dose-length product was 1749.45 mGy-cm. Automated exposure control and iterative rec onstruction technique were employed. COMPARISON: None FINDINGS: CHEST CT: There is a 3.4 cm low-density subcutaneous mass of the right chest anteriorly, most likely benign dionisio aceous cysts. There are additional low-density lesions of the subcutaneous tissues overlying the back , also likely sebaceous cysts. No significant pleural or pericardial effusion. No thoracic lymph node enlargement. There is atherosclerosis of the aorta and coronary arteries. No endobronchial lesions. No focal airspace consolidation. There is evidence for chronic granulomatous disease in the lungs, me diastinum and spleen. No pneumothorax. No endobronchial lesions. ABDOMEN/PELVIS CT: There are gallstones. There is thickened heterogeneous appearing pancreas with surrounding inflammato ry changes and fluid, consistent with acute pancreatitis. No evidence for necrosis or pseudocyst form ation given the limitations of a noncontrast study. The adrenal glands are unremarkable. There is a 3 mm nonobstructing right renal stone. There is an exophytic 12 mm left renal cyst laterally. There is a small subcentimeter hypodensity lower pole of the left kidney, most likely benign. Nonobstructive bowel gas pattern. No abnormal pelvic masses or fluid collections. Status post hysterectomy. No free air. There is advanced lower lumbar spondylosis. No acute osseous abnormality. IMPRESSION: 1. Acute uncomplicated appendicitis. 2: Cholelithiasis. 3: Nonobstructing right nephrolithiasis. Reviewed, dictated and finalized at location L.
--- NOTE | ~2022-10-17 | XR_ITS ---
EXAMINATION: XR ankle RT min 3V DATE: 10/17/2022 13:28 INDICATION: Right ankle pain, swelling and bruising post fall. TECHNIQUE: Anteroposterior, oblique, mortise, and lateral views of the right ankle were obtained. COMPARISON: None. FINDINGS: Small minimally displaced avulsion fracture along the lateral margin of the tip of the medial malleol us likely involving the footplate of the deep deltoid ligament. Additional small minimally displaced avulsion fracture at the distal tip of the lateral malleolus. Additional oblique fracture of the dist al fibular metadiaphysis with 4 mm posterior displacement. The fracture line extends across the media l cortex approximately 2 cm above level of the tibiotalar joint line. No other fracture of the economic analysis director ior malleolus or talar dome. Mild osteoarthritis at a few of the joints at the right midfoot. Small p lantar calcaneal spur and small enthesopathic ossicle at the distal Achilles tendon. IMPRESSION: 1. Small avulsion fractures at the distal tips of the medial and lateral malleoli and 4 mm posterior displacement of an oblique fracture of the distal right fibular metadiaphysis. Reviewed, dictated and finalized at location A. IMPRESSION: 1. Small avulsion fractures at the distal tips of the medial and lateral malleo li and 4 mm posterior displacement of an oblique fracture of the distal right f ibular metadiaphysis.
--- NOTE | ~2022-10-17 | XR_ITS ---
EXAMINATION: XR chest 2V 10/17/2022 13:28 INDICATION: Cough. Low oxygen saturations. PROCEDURE: 2 view chest COMPARISON: Comparison to multiple prior studies sequentially, with oldest reviewed study dated 07/25. FINDINGS: The lungs are clear. The cardiomediastinal silhouette is within normal limits. There are no pleural effusions. There is no pneumothorax suspected. IMPRESSION: 1: NO ACUTE CARDIOPULMONARY DISEASE. Reviewed, dictated and finalized at location L.
--- NOTE | 2022-10-17 11:40 | ECG_ITS ---
Measurements Intervals Sabael Rate: 69 P: 27 MA: 207 QRS: 3 QRSD: 110 T: 50 QT: 457 QTc: 493 Interpretive Statements SINUS RHYTHM DELAYED PRECORDIAL R/S TRANSITION VOLTAGE CRITERIA FOR LVH BORDERLINE ECG COMPARED TO ECG 12/01/2021 20:34:35 NO SIGNIFICANT CHANGES Electronically Signed On 10-17-2022 11:58:19 CDT by Giorgio Osorio D.O.
[2022-10-17 12:09] LABS: Basophils Percent Auto 0.1 % (0.2-1.2); Hematocrit 36.9 % (37.0-47.0); Hemoglobin 11.9 g/dL (12.0-15.0); Immature Granulocyte Absolute 0.19 K/mm3 (0.00-0.031); Immature Granulocyte Percent A 1.3 % (0-0.5); Lymphocytes Absolute Auto 0.93 K/mm3 (0.9-3.2); Lymphocytes Percent Auto 6.3 % (18.3-44.2); Mean Corpuscular HGB Conc 32.2 g/dl (32-36); Mean Corpuscular Hemoglobin 28.7 pg (26-34); Mean Corpuscular Volume 88.9 fl (80-100); Mean Platelet Volume 10.1 fl (7.4-10.4); Monocytes Absolute Auto 0.9 K/mm3 (0.1-0.6); Monocytes Percent Auto 6.2 % (2.6-8.5); Neutrophils Absolute Auto 12.7 K/mm3 (1.3-6.7); Neutrophils Percent Auto 86.1 % (45.5-73.1); Platelet Count Result 253 k/mm3 (150-375); Red Blood Count 4.15 M/mm3 (4.2-5.4); Red Cell Distribution Width 12.4 % (11.5-14.5); White Blood Count 14.8 K/mm3 (4.5-10.0)
[2022-10-17 12:31] LABS: Alanine Aminotransferase 55 U/L (6-35); Albumin Level 3.8 g/dL (3.5-5.1); Alkaline Phosphatase 128 U/L (38-126); Anion Gap 25 mmol/L (8-16); Aspartate Amino Transferase 132 U/L (14-36); Bilirubin,Total 1.4 mg/dL (0.2-1.3); Blood Urea Nitrogen 81 mg/dL (7-17); Calcium 8.8 mg/dL (8.4-10.2); Carbon Dioxide 19 mmol/L (22-30); Chloride 73 mmol/L (98-107); Estimated CRCL calculation 25 ml/min; Estimated Glomerular Filt Rate 20; Glucose 1226 mg/dL (65-110); Potassium 4.6 mmol/L (3.4-5.0); Sodium 117 mmol/L (137-145)
[2022-10-17 12:34] LABS: Appearance Urine Clear (Clear); Bacteria Urine None Seen /hpf; Bilirubin Urine Negative (Negative); Blood Urine 2+ (Negative); Color Urine Yellow (Yellow); Glucose Urine UA 3+ mg/dL (Negative); Ketones Urine 1+ mg/dL (Negative); Leukocyte Esterase Ur Negative LEU/UL (Negative); Need Manual Microscopic Reviewed; Nitrate Urine Negative (Negative); Non Pathogenic Casts 0-2; Protein Urine Negative (Negative); RBC Urine 0-2 /hpf (0-2); Specific Grav Ur 1.027 (1.001-1.035); Squamous Epithelial Cell Urine None seen /hpf (Few); Urobilinogen Urine 0.2 mg/dL (<2.0); WBC Urine 0-5 /hpf; pH Urine 5.5 (5.0-9.0)
[2022-10-17] MEDS: SODIUM CHLORIDE 0.9% IV 1,000 ML 999 ML IV CONT (12:41)
[2022-10-17 12:43] LABS: Alveolar/Arterial O2 Gradient 74.2 mmHg; Base Excess ABG -5.7 mEq/l (+/-2.0); Fractional Inspired Oxygen 28 %; HCO3 ABG 19.9 mEq/l (22.0-26.0); Oxygen Content ABG 16.8 %vol (16.0-22.0); Oxygen Saturation ABG 94.9 % (95.0-100.0); Oxyhemoglobin 92.5 % THb (90.0-100.0); PCO2 ABG 39.3 mmHg (35.0-45.0); PO2 ABG 79.1 mmHg (80.0-100.0); PO2 FiO2 Ratio Arterial Blood 2.83 %; Total Hemoglobin 12.9 g/dL (12.0-18.0); pH ABG 7.322 (7.350-7.450)
[2022-10-17 12:44] LABS: Device NASAL CANNULA; Modified Allen's Test Pass; Site Drawn RIGHT RADIAL
[2022-10-17 12:45] LABS: Add Urine Microscopic? YES
--- NOTE | 2022-10-17 12:59 | ED.GENADULT ---
HPI - General Adult General Chief complaint: Weakness Stated complaint: Weakness Time Seen by Provider: 10/17/22 11:58 Source: patient and family Mode of arrival: ambulatory Limitations: no limitations History of Present Illness HPI narrative: 62-year-old with a history of bipolar disorder, hypertension, diabetes on metformin was brought in by family with complaints of 4-week history of not feeling well. Patient's daughter who is at the bedside states that she has been hallucinating. She also states that her primary doctor prescribed a Z-[place] and prednisone a week ago she also states that she has been having black-colored stools. She denies any fever or chills. She states that she feels extremely drained her primary doctor recently started her back on metformin as her blood sugars going up. She also complains of right ankle pain. Patient states that she fell 3 to 4 days ago. She denied any head injuries. Onset (ago): week(s) (4) Severity: moderate Relieving factors: none Exacerbating factors: none Associated symptoms: confusion, cough and loss of appetite Treatments prior to arrival: none Related Data Home Medications Medication Instructions Recorded Confirmed aspirin 81 mg tablet,delayed 81 mg PO DAILY 04/16/19 12/02/21 release (Aspir-) atorvastatin 80 mg tablet 80 mg PO HS 04/16/19 12/02/21 divalproex 500 mg tablet,delayed 1,500 mg PO HS 04/16/19 12/02/21 release ergocalciferol (vitamin D2) 1,250 50,000 unit PO WEEKLY 04/16/19 12/02/21 mcg (50,000 unit) capsule fenofibrate nanocrystallized 145 145 mg PO DAILY 04/16/19 12/02/21 mg tablet fluoxetine 20 mg capsule (Prozac) 20 mg PO DAILY 04/16/19 12/02/21 levothyroxine 150 mcg tablet 150 mcg PO DAILY 04/16/19 12/02/21 (Synthroid) lorazepam 1 mg tablet 0.5 mg PO QAM AND QHS 04/16/19 12/02/21 meclizine 25 mg tablet 25 mg PO BID PRN Dizziness 04/16/19 12/02/21 quetiapine 100 mg tablet (Seroquel) 100 mg PO HS 04/16/19 12/02/21 carvedilol 3.125 mg tablet 3.125 mg PO BID 04/19/20 12/02/21 lamotrigine 100 mg tablet 100 mg PO BID 04/19/20 12/02/21 buspirone 10 mg tablet 10 mg PO TID 02/15/21 12/02/21 hydroxyzine pamoate 25 mg capsule 25 mg PO BID 12/02/21 12/02/21 (Vistaril) Allergies Allergy/AdvReac Type Severity Reaction Status Date / Time diphenhydramine Allergy Severe HYPERACTIVE Verified 10/17/22 11:41 FEELING oxycodone Allergy Severe go crazy Verified 10/17/22 11:41 tramadol Allergy Severe itching Verified 10/17/22 11:41 codeine AdvReac Mild feel weird Verified 10/17/22 11:41 Review of Systems Review of Systems: All systems reviewed & are unremarkable except as noted in HPI and below Constitutional: Constitutional: Reports as per HPI Eyes: Eyes: Reports no additional eye complaints ENT: Reports nasal congestion Cardiovascular: Cardiovascular: Reports no additional cardiovascular complaints Respiratory: Respiratory: Reports as per HPI Gastrointestinal: Gastrointestinal: Reports no additional gastrointestinal complaints Genitourinary: Genitourinary: Reports no additional female genitourinary complaints Musculoskeletal: Musculoskeletal: Reports as per HPI Integumentary/Breasts: Skin/Breast: Reports system reviewed and no additional complaints, except as docu PMFSH Past Medical History Medical History Bipolar 1 disorder Cholelithiases Chronic kidney disease, stage 3 Depression with anxiety Dyslipidemia Fatty infiltration of liver History of kidney stones History of uterine cancer Hypertension Hypothyroidism Morbid obesity Posttraumatic stress disorder Type 2 diabetes mellitus Surgical History Surgical History History of section History of hysterectomy For endometrial cancer. History of removal of cyst From the back. Family History Family History Mother Fam
[2022-10-17] MEDS: INSULIN HUMAN REGULAR (*BKC) 100 UNITS/ML 10 UNITS IV PUSH (13:00)
[2022-10-17 13:20] LABS: Magnesium 3.2 mg/dL (1.6-2.3); Phosphorus 8.1 mg/dL (2.5-4.5)
[2022-10-17] MEDS: SODIUM CHLORIDE 0.9% IV 2,000 ML 999 ML IV CONT (13:27)
[2022-10-17 13:52] LABS: Anion Gap 25 mmol/L (8-16); Blood Urea Nitrogen 81 mg/dL (7-17); Calcium 8.7 mg/dL (8.4-10.2); Carbon Dioxide 19 mmol/L (22-30); Chloride 73 mmol/L (98-107); Estimated CRCL calculation 24 ml/min; Estimated Glomerular Filt Rate 20; Glucose 1214 mg/dL (65-110); Magnesium 3.3 mg/dL (1.6-2.3); Potassium 4.4 mmol/L (3.4-5.0); Sodium 117 mmol/L (137-145)
--- NOTE | 2022-10-17 13:58 | PM.IMHP ---
H&P: HPI History of Present Illness Date/Time: 10/17/22 13:30 Chief Complaint: Weakness. Narrative: This is a 62-year-old female with type 2 diabetes mellitus, chronic kidney disease, hypothyroidism, dyslipidemia, anxiety, and bipolar disorder who presented to the emergency department for evaluation of weakness. The patient provides the following history but she is a bit confused and the accuracy of the history she provides is questionable. Her daughter provides additional information with the patient's history. She reportedly has not been feeling well for a month and saw her doctor the week of September although she could not really give me any specifics. Outpatient labs drawn on 09/15/2021 showed stable anemia and chronic kidney disease, glucose 247, and a hemoglobin A1c of 8 0. She was started back on metformin which she had been off for a period of time for unclear reasons. She has been taking the metformin but has not been monitoring her glucose at home. It looks like she was seen in the ED on 10/04/2022 with URI symptoms including headache, body aches, sore throat, cough, nausea, vomiting, and weakness. Chest x-ray and viral swabs were both negative and she was discharged home. She has continued to feel unwell and was prescribed a Z-Israel and prednisone 4 days ago for continued dry cough. Over last couple of days she has become increasingly weak and daughter reports that she has been hallucinating ?and seeing everything.? Her appetite has not been good and she continues to have nausea and occasional vomiting. She complains of diffuse abdominal discomfort which she cannot localize or qualify. She also reports polyuria, polydipsia, and blurry vision. She has been increasingly weak and has been feeling very lightheaded and dizzy. She reports having a fall 2 days ago in which she injured her right ankle; she cannot tell me where or how she fell or if there was any loss of consciousness. She denies diarrhea but reports having some dark stools last week. She denies fever, vertigo, focal weakness, headache, sore throat, chest pain, shortness a breath, and dysuria. In the ED: She was afebrile on arrival with stable blood pressures. SpO2 was 86% on room air and she is currently on 2 L nasal cannula. Labs were significant for a WBC count of 14.8, hemoglobin 11.9, sodium 117, potassium 4.6, chloride 73, carbon dioxide 19, anion gap 25, BUN 81, creatinine 2.40, glucose 1226, total bilirubin 1.4, AST 132, ALT 55, alkaline phosphatase 128, CK 4741, lipase 17,709, beta hydroxybutyrate 6.57, triglycerides 442.. UA was positive for 3+ glucose, 1+ ketones, 2+ blood, and 0 to 5 WBC. ABG showed a pH of 7.32, pCO2 39.3, bicarb 19.9. Brain CT showed no acute intracranial process and paranasal sinus findings which may reflect acute sinusitis. Right ankle x-ray showed small avulsion fractures at the distal tips of the medial and lateral malleoli and a 4 mm posterior displacement of an oblique fracture of the distal right fibular metadiaphysis. CT of the chest, abdomen, and pelvis showed acute uncomplicated pancreatitis, cholelithiasis, and nonobstructing right nephrolithiasis. She received a 3 L normal saline bolus, 10 units IV insulin, and she has since been started on an insulin drip. She is being admitted to ICU in this setting. Review of Systems Review of Systems: Twelve systems were reviewed and are negative except for as per HPI. Accuracy is questionable as detailed above. [facility] Past Medical History Medical History Bipolar 1 disorder Cholelithiases Chronic kidney disease, stage 3 Depression with anxiety Dyslipidemia Fatty infiltration of liver Grade I diastolic dysfunction History of kidney stones History of uterine cancer Hypertension Hypothyroidism Morbid obesity Posttraumatic stress disorder Type 2 diabetes mellitus Surgical History Surgical History (Reviewed 10/18/22 @ 13:16 by SAM Carlson
[2022-10-17] MEDS: INSULIN HUMAN REGULAR (*BKC) 100 UNITS in SODIUM CHLORIDE 0.9% IV 99 ML 23.3 UNITS IV CONT (13:59)
[2022-10-17 14:09] LABS: Hemoglobin A1C > 14.0 % (<5.7)
[2022-10-17 14:09] LABS: Glucose Point of Care > 500 mg/dl (65-105)
[2022-10-17 15:00] LABS: Glucose Point of Care > 500 mg/dl (65-105)
[2022-10-17 15:05] LABS: Beta-Hydroxybutyrate/Acetoacetate 6.57 mmol/L (0.02-0.27)
[2022-10-17] MEDS: PIPERACILLN/TAZ 3.375GM/NS50ML 3.375 GM/50 ML BAG IVPB (15:30)
--- NOTE | 2022-10-17 15:39 | ADMGEN ---
This patient, Lee Ann May, was admitted to Intensive Care Unit-3. Patient/family oriented to hospital policies and general routines including ID bracelet, bed and alarms, visiting hours, pain management, procedures, bathroom and other care routines, personal items, smoking policy, room service/diet, and visiting hours. Information on how to activate the Rapid Response Team has been discussed. Patient/Family are encouraged to report perceived risks to care and to ask questions if they do not understand what they are told or what they should do.
[2022-10-17] MEDS: SODIUM CHLORIDE 0.9% IV 1,000 ML 125 ML IV CONT (15:43)
[2022-10-17 15:50] LABS: Glucose 156 mg/dL (65-110)
[2022-10-17 16:18] LABS: Glucose Point of Care > 500 mg/dl (65-105)
[2022-10-17 16:18] LABS: Glucose Point of Care > 500 mg/dl (65-105)
[2022-10-17 17:05] LABS: Glucose 608 mg/dL (65-110)
[2022-10-17] MEDS: INSULIN HUMAN REGULAR (*BKC) 100 UNITS in SODIUM CHLORIDE 0.9% IV 99 ML 12 UNITS IV CONT (17:38)
[2022-10-17] MEDS: SODIUM CHLORIDE 0.9% IV 1,000 ML 150 ML IV CONT (17:39)
[2022-10-17 18:25] LABS: SARS-CoV-2 RNA PCR Negative (Negative)
[2022-10-17 18:27] LABS: Anion Gap 15 mmol/L (8-16); Blood Urea Nitrogen 74 mg/dL (7-17); Calcium 8.4 mg/dL (8.4-10.2); Carbon Dioxide 26 mmol/L (22-30); Chloride 92 mmol/L (98-107); Estimated CRCL calculation 27 ml/min; Estimated Glomerular Filt Rate 23; Glucose 351 mg/dL (65-110); Potassium 2.8 mmol/L (3.4-5.0); Sodium 133 mmol/L (137-145); Triglycerides 442 mg/dL (<150)
[2022-10-17 18:42] LABS: Appearance Urine Clear (Clear); Bacteria Urine None Seen /hpf; Bilirubin Urine Negative (Negative); Blood Urine 3+ (Negative); Color Urine Yellow (Yellow); Glucose Urine UA 3+ mg/dL (Negative); Ketones Urine Negative (Negative); Leukocyte Esterase Ur Negative LEU/UL (NEGATIVE); Need Manual Microscopic Reviewed; Nitrate Urine Negative (Negative); Protein Urine 1+ mg/dL (Negative); Squamous Epithelial Cell Urine Few /hpf (Few); Urobilinogen Urine 0.2 mg/dL (<2.0); WBC Urine 0-5 /hpf (0-3); pH Urine 5.5 (5.0-9.0)
[2022-10-17 18:53] LABS: Glucose Point of Care 463 mg/dl (65-105)
[2022-10-17 18:53] LABS: Glucose Point of Care 292 mg/dl (65-105)
[2022-10-17 18:57] LABS: Add Urine Microscopic? YES
[2022-10-17 18:59] LABS: Thyroid Stimulating Hormone Reflex 0.022 uIU/mL (0.465-4.68)
[2022-10-17 19:02] LABS: Glucose Point of Care 264 mg/dl (65-105)
[2022-10-17 19:26] LABS: Creatine Kinase 4741 U/L (30-135)
[2022-10-17] MEDS: POTASSIUM CHLORIDE 20 MEQ TABLET 40 MEQ PO (19:36)
[2022-10-17] MEDS: POTASSIUM CHLORIDE INJ 40 MEQ in SODIUM CHLORIDE 0.9% IV 500 ML 130 MEQ IVPB (19:36)
[2022-10-17] MEDS: KCL 20MEQ/0.9% SOD CHL 1,000 ML 125 ML IV CONT (19:59)
[2022-10-17 20:16] LABS: Lipase 17709 U/L (23-300)
[2022-10-17] MEDS: carvediloL 3.125 MG TABLET PO (21:32)
[2022-10-17] MEDS: lamoTRIgine 100 MG TABLET PO (22:45)
[2022-10-17] MEDS: PIPERACILLIN/TAZ 2.25G/NS 50ML 2.25 GM/50 ML BAG IVPB (23:00)
[2022-10-18] VITALS (11 sets, daily range): BP systolic 104–191; BP diastolic 50–125; PULSE 68–74; RESP 14–26; TEMP 36.1–37.2; O2SAT 96–100; BMI 40.6
[2022-10-18 04:11] LABS: Glucose Point of Care 337 mg/dl (65-105)
[2022-10-18 04:11] LABS: Glucose Point of Care 334 mg/dl (65-105)
[2022-10-18] MEDS: PIPERACILLIN/TAZ 2.25G/NS 50ML 2.25 GM/50 ML BAG IVPB (05:35)
[2022-10-18 05:38] LABS: Glucose Point of Care 325 mg/dl (65-105)
--- NOTE | 2022-10-18 06:23 | PC.NURSE ---
unplanned downtime, see paper charting.
--- NOTE | 2022-10-18 06:35 | PC.NURSE ---
Paper documentation exists on this patient due to [employer] [facility] downtime on 10/18/22 from 2200 to [0600] .
[2022-10-18 06:44] LABS: Glucose Point of Care 296 mg/dl (65-105)
[2022-10-18 07:37] LABS: Glucose Point of Care 273 mg/dl (65-105)
[2022-10-18 08:32] LABS: Anion Gap 15 mmol/L (8-16); Blood Urea Nitrogen 71 mg/dL (7-17); Calcium 8.3 mg/dL (8.4-10.2); Carbon Dioxide 20 mmol/L (22-30); Chloride 97 mmol/L (98-107); Estimated CRCL calculation 29 ml/min; Estimated Glomerular Filt Rate 24; Glucose 344 mg/dL (65-110); Potassium 5.1 mmol/L (3.4-5.0); Sodium 132 mmol/L (137-145)
[2022-10-18 08:33] LABS: Glucose Point of Care 215 mg/dl (65-105)
[2022-10-18] MEDS: ASPIRIN 81 MG ENTERIC TABLET PO (09:28)
[2022-10-18] MEDS: ATORVASTATIN 40 MG TABLET 80 MG PO (09:28)
[2022-10-18] MEDS: amLODIPine BESYLATE 5 MG TABLET PO (09:28)
[2022-10-18] MEDS: lamoTRIgine 100 MG TABLET PO ×2 (09:29→16:49)
[2022-10-18] MEDS: carvediloL 3.125 MG TABLET PO ×2 (09:29→20:25)
[2022-10-18] MEDS: ENOXAPARIN 40 MG/0.4 ML SYRINGE SUB-Q (09:29)
[2022-10-18] MEDS: PANTOPRAZOLE SODIUM IV 40 MG VIAL IV PUSH ×2 (09:29→20:30)
[2022-10-18] MEDS: FENOFIBRATE NANOCRYSTALLIZED 145 MG TABLET PO (09:29)
[2022-10-18 09:30] LABS: Glucose Point of Care 184 mg/dl (65-105)
[2022-10-18] MEDS: SODIUM CHLORIDE 0.9% IV 1,000 ML 150 ML IV CONT (09:53)
[2022-10-18 09:55] LABS: Basophils Absolute Auto 0.1 K/mm3 (0.0-0.1); Basophils Percent Auto 0.3 % (0.2-1.2); Eosinophils Percent Auto 0.1 % (0-4.4); Hematocrit 35.7 % (37.0-47.0); Hemoglobin 11.7 g/dL (12.0-15.0); Immature Granulocyte Absolute 0.21 K/mm3 (0.00-0.031); Immature Granulocyte Percent A 1.2 % (0-0.5); Lymphocytes Absolute Auto 0.78 K/mm3 (0.9-3.2); Lymphocytes Percent Auto 4.3 % (18.3-44.2); Mean Corpuscular HGB Conc 32.8 g/dl (32-36); Mean Corpuscular Hemoglobin 28.5 pg (26-34); Mean Corpuscular Volume 86.9 fl (80-100); Mean Platelet Volume 9.8 fl (7.4-10.4); Monocytes Absolute Auto 0.6 K/mm3 (0.1-0.6); Monocytes Percent Auto 3.1 % (2.6-8.5); Neutrophils Absolute Auto 16.4 K/mm3 (1.3-6.7); Platelet Count Result 178 k/mm3 (150-375); Red Blood Count 4.11 M/mm3 (4.2-5.4); Red Cell Distribution Width 12.7 % (11.5-14.5)
[2022-10-18 10:16] LABS: Glucose Point of Care 168 mg/dl (65-105)
[2022-10-18 10:18] LABS: Alanine Aminotransferase 52 U/L (6-35); Albumin Level 3.2 g/dL (3.5-5.1); Alkaline Phosphatase 100 U/L (38-126); Anion Gap 10 mmol/L (8-16); Aspartate Amino Transferase 115 U/L (14-36); Bilirubin,Total 0.8 mg/dL (0.2-1.3); Blood Urea Nitrogen 70 mg/dL (7-17); Calcium 8.7 mg/dL (8.4-10.2); Carbon Dioxide 27 mmol/L (22-30); Chloride 102 mmol/L (98-107); Creatine Kinase 1448 U/L (30-135); Estimated CRCL calculation 32 ml/min; Estimated Glomerular Filt Rate 27; Glucose 235 mg/dL (65-110); Magnesium 3.1 mg/dL (1.6-2.3); Potassium 3.8 mmol/L (3.4-5.0); Sodium 139 mmol/L (137-145); Triglycerides 256 mg/dL (<150)
--- NOTE | 2022-10-18 10:32 | WPDCNINT ---
Assessment and Plan Assessment and plan (1) Diabetic ketoacidosis associated with type 2 diabetes mellitus: Code(s): E11.10 - Type 2 diabetes mellitus with ketoacidosis without coma Status: Acute Assessment and Plan: Patient presented with DKA and was started on insulin infusion Patient was given iVF bolus and infusion Serial labs were performed Last night insulin was held due to hypokalemia and insulin infusion was restarted after K was replaced At this time patient is 9 gap has closed I will transition her to subcutaneous Lantus and sliding scale and monitor Hold metformin (2) Acute pancreatitis: Code(s): K85.90 - Acute pancreatitis without necrosis or infection, unspecified Status: Acute Assessment and Plan: Patient presented with findings of acute pancreatitis which was confirmed and elevated lipase She has been NPO Patient appears to have history of hypertriglyceridemia as she is on fenofibrate Triglyceride level is elevated but not critically high Abdominal ultrasound shows cholelithiasis but no bile duct dilatation and her bilirubin level is normal Continue pain control Patient at this time states that she is thirsty and hungry and would like to eat food. I will start patient on water and advanced to clear liquid diet if patient tolerates (3) Acute on chronic kidney failure: Code(s): N17.9 - Acute kidney failure, unspecified; N18.9 - Chronic kidney disease, unspecified Status: Acute Assessment and Plan: Patient has history of chronic kidney disease and presented with what appears to be acute kidney injury This is likely secondary to dehydration and rhabdomyolysis Continue IV fluids decrease rate CT abdomen pelvis shows nonobstructing right nephrolithiasis Creatinine is improving Potassium is improved Monitor electrolytes urine output and creatinine (4) Rhabdomyolysis: Code(s): M62.82 - Rhabdomyolysis Status: Acute Assessment and Plan: Patient presented with elevated CK of 4741 which is improved to 1 448 Continue IV fluids Hold statin (5) Toxic metabolic encephalopathy: Code(s): G92.8 - Other toxic encephalopathy Status: Acute Assessment and Plan: Patient is mildly confused but alert awake partially oriented. She appears to be more awake this morning as compared to last night Likely toxic metabolic encephalopathy Avoid sedatives Continue to monitor Head CT was negative (6) Transaminitis: Code(s): R74.01 - Elevation of levels of liver transaminase levels Status: Acute Assessment and Plan: Elevated AST > ALT likely secondary to rhabdomyolysis Bilirubin and alkaline phosphatase is normal Continue monitoring Hold statin (7) Fracture of distal end of fibula: Qualifiers: Encounter type: initial encounter Fracture morphology: unspecified fracture morphology Fracture type: closed Laterality: right Qualified Code(s): S82.831A - Other fracture of upper and lower end of right fibula, initial encounter for closed fracture Code(s): S82.839A - Other fracture of upper and lower end of unspecified fibula, initial encounter for closed fracture Status: Acute Assessment and Plan: Patient has OCL Consult Orthopedics (8) Hypothyroidism: Code(s): E03.9 - Hypothyroidism, unspecified Status: Acute Assessment and Plan: Continue Synthroid (9) Hypertension: Code(s): I10 - Essential (primary) hypertension Status: Acute Assessment and Plan: Continue Coreg. Add Norvasc Hold hydrochlorothiazide (10) Dark stools: Code(s): R19.5 - Other fecal abnormalities Status: Acute Assessment and Plan: Patient reported history of dark stools although her history is unreliable Her hemoglobin is 11.7 this morning which has been stable since she has arrived Stool occult is ordered and pending Continue PPI Patient on Lovenox for DVT prophylaxis due to h
[2022-10-18] MEDS: INSULIN GLARGINE (*BKC) 100 UNITS/ML 40 UNITS SUB-Q (11:16)
[2022-10-18 11:43] LABS: Free T4 Free Thyroxine Reflex 1.96 ng/dL (0.78-2.19)
[2022-10-18 12:13] LABS: Glucose Point of Care 218 mg/dl (65-105)
[2022-10-18] MEDS: INSULIN ASPART (*BKC) 100 UNITS/ML SUB-Q ×3 (12:23→20:28)
[2022-10-18 12:30] LABS: Lipase 10583 U/L (23-300)
[2022-10-18 12:32] LABS: Anion Gap 7 mmol/L (8-16); Blood Urea Nitrogen 65 mg/dL (7-17); Calcium 8.4 mg/dL (8.4-10.2); Carbon Dioxide 27 mmol/L (22-30); Chloride 104 mmol/L (98-107); Estimated CRCL calculation 36 ml/min; Estimated Glomerular Filt Rate 30; Glucose 196 mg/dL (65-110); Potassium 3.9 mmol/L (3.4-5.0); Sodium 138 mmol/L (137-145)
--- NOTE | 2022-10-18 12:40 | PM.IMPN ---
Progress Note: A&P Assessment and Plan (1) Diabetic ketoacidosis associated with type 2 diabetes mellitus: Code(s): E11.10 - Type 2 diabetes mellitus with ketoacidosis without coma Status: Acute Assessment and Plan: Management per orthotics prosthetics technician patient presented with DKA and was started on insulin infusion Patient was given iVF bolus and infusion Serial labs were performed Last night insulin was held due to hypokalemia and insulin infusion was restarted after K was replaced At this time anion gap has closed. being transitioned to subcutaneous Lantus and sliding scale and monitor Hold metformin (2) Acute pancreatitis: Code(s): K85.90 - Acute pancreatitis without necrosis or infection, unspecified Status: Acute Assessment and Plan: Patient presented with findings of acute pancreatitis which was confirmed and elevated lipase She has been NPO Patient appears to have history of hypertriglyceridemia as she is on fenofibrate Triglyceride level is elevated but not critically high Abdominal ultrasound shows cholelithiasis but no bile duct dilatation and her bilirubin level is normal Continue pain control Patient at this time states that she is thirsty and hungry and would like to eat food. (3) Acute on chronic kidney failure: Code(s): N17.9 - Acute kidney failure, unspecified; N18.9 - Chronic kidney disease, unspecified Status: Acute Assessment and Plan: Patient has history of chronic kidney disease and presented with what appears to be acute kidney injury This is likely secondary to dehydration and rhabdomyolysis Continue IV fluids decrease rate CT abdomen pelvis shows nonobstructing right nephrolithiasis Creatinine is improving Potassium is improved Monitor electrolytes urine output and creatinine (4) Rhabdomyolysis: Code(s): M62.82 - Rhabdomyolysis Status: Acute Assessment and Plan: Patient presented with elevated CK of 4741 which is improved to 1 448 Continue IV fluids Hold statin (5) Toxic metabolic encephalopathy: Code(s): G92.8 - Other toxic encephalopathy Status: Acute Assessment and Plan: Patient is mildly confused but alert awake partially oriented. She appears to be more awake this morning as compared to last night Likely toxic metabolic encephalopathy Avoid sedatives Continue to monitor Head CT was negative (6) Transaminitis: Code(s): R74.01 - Elevation of levels of liver transaminase levels Status: Acute Assessment and Plan: Elevated AST > ALT likely secondary to rhabdomyolysis Bilirubin and alkaline phosphatase is normal Continue monitoring Hold statin (7) Fracture of distal end of fibula: Qualifiers: Encounter type: initial encounter Fracture morphology: unspecified fracture morphology Fracture type: closed Laterality: right Qualified Code(s): S82.831A - Other fracture of upper and lower end of right fibula, initial encounter for closed fracture Code(s): S82.839A - Other fracture of upper and lower end of unspecified fibula, initial encounter for closed fracture Status: Acute Assessment and Plan: Patient has OCL Consult Orthopedics (8) Hypothyroidism: Code(s): E03.9 - Hypothyroidism, unspecified Status: Acute Assessment and Plan: Continue Synthroid (9) Hypertension: Code(s): I10 - Essential (primary) hypertension Status: Acute Assessment and Plan: Continue Coreg. Add Norvasc Hold hydrochlorothiazide Subjective Date/time seen: 10/18/22 12:40 Interval history: Patient confused Review of Systems Review of Systems: ROS unobtainable: Yes unobtainable due to mental status Exam Narrative: General: Pt is alert awake and in NAD Lungs/Chest: Trachea central Clear BS B/L, No crackles or wheezing. Cardiac: RRR. Normal S1 S2. No murmurs Circulation: Pedal pulses are intact and symmetrical. Abdomen: Normal bowel soun
[2022-10-18 13:08] LABS: Hepatitis B Surface Antigen Negative (Negative)
[2022-10-18 13:14] LABS: HAV RESULT Negative (Negative); Hepatitis B Core IgM Result Negative (Negative)
[2022-10-18 13:25] LABS: Hepatitis C Virus Antibody Negative (Negative)
--- NOTE | 2022-10-18 13:35 | PM.CNOR ---
Assessment and Plan Assessment and plan (1) Fracture of distal end of fibula: Qualifiers: Encounter type: initial encounter Fracture morphology: unspecified fracture morphology Fracture type: closed Laterality: right Qualified Code(s): S82.831A - Other fracture of upper and lower end of right fibula, initial encounter for closed fracture Code(s): S82.839A - Other fracture of upper and lower end of unspecified fibula, initial encounter for closed fracture Status: Acute Assessment and Plan: New patient evaluation status post injury Right ankle. The history, physical exam and radiographs reviewed with the patient. right distal fibular fracture status post fall. Type of fracture discussed in detail. Treatment options including operative and non operative treatment reviewed. Risks, benefits and alternatives of each treatment discussed in detail. The patient has declined surgical treatment. Risks of treatment decision discussed in detail. Potential problems with displacement of the fracture, loss of alignment, nonunion, malunion and dysfunction discussed in detail. The patient's questions were answered. They verbalized understanding and agreement. Conservative treatment with immobilization, ice, compression and elevation. Currently in splint. Will transition to fracture boot when able to mobilize. Nonweightbearing. History of Present Illness HPI Consult date: 10/18/22 Requesting physician: Alexei Curtis MD Chief complaint: DKA/ Right Ankle Fracture Narrative: 62-year-old with a history of recent falls noted to have right ankle fracture with emergency room evaluation. Admitted to intensive care for TKA. Patient complains of lateral ankle pain. Review of Systems Constitutional: Constitutional: Denies fever(s) Eyes: Eyes: Denies blurry vision ENT: Reports Normal hearing present Cardiovascular: Cardiovascular: Denies chest pain and Denies dyspnea Respiratory: Respiratory: Denies dyspnea and Denies wheezing Gastrointestinal: Gastrointestinal: Denies abdominal pain Genitourinary: Genitourinary: Denies urinary urgency Musculoskeletal: Musculoskeletal: Reports as per HPI and Denies numbness Integumentary/Breasts: Skin/Breast: Denies changing lesions and Denies sores Neurologic: Reports Normal hearing present, Denies behavioral changes, Denies confusion, Denies numbness and Denies convulsions Psychiatric: Psychiatric: Denies behavioral changes, Denies confusion and Denies hallucinations Endocrine: Endocrine: Denies heat intolerance Hematologic/Lymphatic: Hematologic/Lymphatic: Denies easy bleeding Allergic/Immunologic: Allergic/Immunologic: Denies wheezing PMFSH Past Medical History Medical History Bipolar 1 disorder Cholelithiases Chronic kidney disease, stage 3 Depression with anxiety Dyslipidemia Fatty infiltration of liver Grade I diastolic dysfunction History of kidney stones History of uterine cancer Hypertension Hypothyroidism Morbid obesity Posttraumatic stress disorder Type 2 diabetes mellitus Surgical History Surgical History History of section History of hysterectomy For endometrial cancer. History of removal of cyst From the back. Family History Family History Mother Family history of cardiovascular disease Diabetes mellitus Leukemia Father Family history of lung cancer Liver cancer AIDS Grandparent Stomach cancer Grandparent Cerebrovascular accident Other Depression Hypertension Social History Social History Social History: Surrogate medical decision maker: Mirtha Zeeshan (daughter) or Brinda Stuart (sister). Code status: Full code. Smoking status: Never smoker Alcohol intake: never Substance use: n
[2022-10-18 14:31] LABS: Total Triiodothyronine (T3) 0.38 NG/ML (0.97-1.69)
[2022-10-18 16:09] LABS: Glucose Point of Care 205 mg/dl (65-105)
--- NOTE | 2022-10-18 17:30 | PC.NURSE ---
This patient, Lee Ann May, was transferred to [[id number]] on 10/18/22 at 1730. Personal belongings sent with patient. Report given to [PADMINI STERLING]. Appropriate documentation sent with patient.
--- NOTE | 2022-10-18 17:42 | PC.NURSE ---
This patient, Lee Ann May, was transferred to [[facility]] on 10/18/22 at 1742. Personal belongings sent with patient. Report given to [Paula STERLING ]. Appropriate documentation sent with patient.
[2022-10-18] MEDS: SODIUM CHLORIDE 0.9% IV 1,000 ML 100 ML IV CONT (18:07)
[2022-10-18 20:24] LABS: Glucose Point of Care 245 mg/dl (65-105)
[2022-10-18 23:27] LABS: Glucose Point of Care 200 mg/dl (65-105)
[2022-10-19 01:06] LABS: Glucose Point of Care 193 mg/dl (65-105)
[2022-10-19 03:50] LABS: Glucose Point of Care 172 mg/dl (65-105)
[2022-10-19] MEDS: SODIUM CHLORIDE 0.9% IV 1,000 ML 100 ML IV CONT (04:13)
[2022-10-19 06:43] LABS: Hematocrit 30.3 % (37.0-47.0); Hemoglobin 9.8 g/dL (12.0-15.0); Mean Corpuscular HGB Conc 32.3 g/dl (32-36); Mean Corpuscular Hemoglobin 28.3 pg (26-34); Mean Corpuscular Volume 87.6 fl (80-100); Mean Platelet Volume 9.5 fl (7.4-10.4); Platelet Count Result 104 k/mm3 (150-375); Red Blood Count 3.46 M/mm3 (4.2-5.4); Red Cell Distribution Width 13.2 % (11.5-14.5); White Blood Count 10.9 K/mm3 (4.5-10.0)
[2022-10-19 06:56] LABS: Alanine Aminotransferase 47 U/L (6-35); Albumin Level 2.7 g/dL (3.5-5.1); Alkaline Phosphatase 81 U/L (38-126); Anion Gap 7 mmol/L (8-16); Aspartate Amino Transferase 84 U/L (14-36); Bilirubin,Total 0.7 mg/dL (0.2-1.3); Blood Urea Nitrogen 43 mg/dL (7-17); Calcium 8.3 mg/dL (8.4-10.2); Carbon Dioxide 26 mmol/L (22-30); Chloride 103 mmol/L (98-107); Estimated CRCL calculation 54 ml/min; Estimated Glomerular Filt Rate 46; Glucose 169 mg/dL (65-110); Magnesium 2.4 mg/dL (1.6-2.3); Phosphorus 2.8 mg/dL (2.5-4.5); Potassium 3.9 mmol/L (3.4-5.0); Sodium 136 mmol/L (137-145)
[2022-10-19] MEDS: LEVOTHYROXINE SODIUM 150 MCG TABLET PO (07:06)
[2022-10-19 07:58] LABS: Glucose Point of Care 158 mg/dl (65-105)
[2022-10-19 08:00] VITALS: BP 161/76; PULSE 68; RESP 20; TEMP 36.2; O2SAT 100
[2022-10-19] MEDS: INSULIN GLARGINE (*BKC) 100 UNITS/ML 30 UNITS SUB-Q (08:58)
[2022-10-19] MEDS: FENOFIBRATE NANOCRYSTALLIZED 145 MG TABLET PO (08:59)
[2022-10-19] MEDS: ENOXAPARIN 40 MG/0.4 ML SYRINGE SUB-Q (08:59)
[2022-10-19] MEDS: ASPIRIN 81 MG ENTERIC TABLET PO (08:59)
[2022-10-19] MEDS: amLODIPine BESYLATE 5 MG TABLET 10 MG PO (08:59)
[2022-10-19] MEDS: lamoTRIgine 100 MG TABLET PO ×2 (09:00→17:40)
[2022-10-19] MEDS: carvediloL 3.125 MG TABLET PO ×2 (09:00→20:30)
--- NOTE | 2022-10-19 09:26 | PM.PNORT ---
Progress Note: A&P Assessment and Plan (1) Fracture of distal end of fibula: Qualifiers: Encounter type: initial encounter Fracture morphology: unspecified fracture morphology Fracture type: closed Laterality: right Qualified Code(s): S82.831A - Other fracture of upper and lower end of right fibula, initial encounter for closed fracture Code(s): S82.839A - Other fracture of upper and lower end of unspecified fibula, initial encounter for closed fracture Status: Acute Assessment and Plan: History, exam and injury radiographs reviewed once again with the patient. Patient has splint in place at this time. Continue conservative treatment with immobilization in splint, ice, elevate. Okay to transition to CAM boot when able to be mobilized with PT/OT and swelling controlled. Patient will maintain NWB status with boot in place as well. Will arrange outpatient orthopedic follow up to monitor fracture and progress activity. PT/OT to determine patient's safe discharge plan. Would recommend CC consult. (2) Diabetic ketoacidosis associated with type 2 diabetes mellitus: Code(s): E11.10 - Type 2 diabetes mellitus with ketoacidosis without coma Status: Acute (3) Acute pancreatitis: Code(s): K85.90 - Acute pancreatitis without necrosis or infection, unspecified Status: Acute (4) Acute on chronic kidney failure: Code(s): N17.9 - Acute kidney failure, unspecified; N18.9 - Chronic kidney disease, unspecified Status: Acute (5) Rhabdomyolysis: Code(s): M62.82 - Rhabdomyolysis Status: Acute (6) Toxic metabolic encephalopathy: Code(s): G92.8 - Other toxic encephalopathy Status: Acute (7) Transaminitis: Code(s): R74.01 - Elevation of levels of liver transaminase levels Status: Acute (8) Hypothyroidism: Code(s): E03.9 - Hypothyroidism, unspecified Status: Acute (9) Hypertension: Code(s): I10 - Essential (primary) hypertension Status: Acute Subjective Subjective Date/Time Seen: 10/19/22 09:26 Post Op day: 1 Interval history: 2 days s/p right distal fibula fracture. Admitted for DKA treatment and pain control right ankle. Splint in place. No new concerns regarding ankle today. Has not gotten up with PT/OT up to this point. Review of Systems Constitutional: Constitutional: Denies fever(s) Eyes: Eyes: Denies blurry vision ENT: Reports Normal hearing present Cardiovascular: Cardiovascular: Denies chest pain and Denies dyspnea Respiratory: Respiratory: Denies dyspnea and Denies wheezing Gastrointestinal: Gastrointestinal: Denies abdominal pain Genitourinary: Genitourinary: Denies urinary urgency Musculoskeletal: Musculoskeletal: Reports as per HPI and Denies numbness Integumentary/Breasts: Skin/Breast: Denies changing lesions and Denies sores Neurologic: Reports Normal hearing present, Denies behavioral changes, Denies confusion, Denies numbness and Denies convulsions Psychiatric: Psychiatric: Denies behavioral changes, Denies confusion and Denies hallucinations Endocrine: Endocrine: Denies heat intolerance Hematologic/Lymphatic: Hematologic/Lymphatic: Denies easy bleeding Allergic/Immunologic: Allergic/Immunologic: Denies wheezing Exam Const: General: No confusion Orientation/consciousness: patient oriented x3 and No confusion HENMT: Head: normal to inspection, normocephalic and atraumatic Eyes: Conjunctivae: conjunctivae normal Sclera: sclerae normal Neck: Neck: supple and nontender Chest: Chest palpation & inspection: normal inspection of the chest Resp: Effort & Inspection: normal respiratory effort and no audible wheezes Cardio: Rate: regular rate Rhythm: regular rhythm : General: Yes deferred Skin: General skin exam: no rashes or lesions noted Neuro: General: patient oriented x3 and No confusion Extrem: General: capillary refill normal Right upper extremity
--- NOTE | 2022-10-19 09:48 | PCOTNOTE ---
Spoke with Helen Mahmood from Dr. Covington's office who reports it is ok to take out bedrest orders at this time. Will speak with RN about taking bedrest orders out.
--- NOTE | 2022-10-19 11:01 | PM.IMPN ---
Progress Note: A&P Assessment and Plan (1) Diabetic ketoacidosis associated with type 2 diabetes mellitus: Code(s): E11.10 - Type 2 diabetes mellitus with ketoacidosis without coma Status: Acute Assessment and Plan: Resolved On subcutaneous Lantus and sliding scale insulin. Will stop sliding scale insulin and put her on scheduled dose of Humalog. A1c greater than 14 (2) Acute pancreatitis: Code(s): K85.90 - Acute pancreatitis without necrosis or infection, unspecified Status: Acute Assessment and Plan: Patient presented with findings of acute pancreatitis which was confirmed and elevated lipase Patient has tolerated clear liquid diet. Advance to diabetic diet (3) Acute on chronic kidney failure: Code(s): N17.9 - Acute kidney failure, unspecified; N18.9 - Chronic kidney disease, unspecified Status: Acute Assessment and Plan: Resolved. patient has history of chronic kidney disease and presented with what appears to be acute kidney injury This is likely secondary to dehydration and rhabdomyolysis Discontinue IV fluid (4) Rhabdomyolysis: Code(s): M62.82 - Rhabdomyolysis Status: Acute Assessment and Plan: Hold statin (5) Toxic metabolic encephalopathy: Code(s): G92.8 - Other toxic encephalopathy Status: Acute Assessment and Plan: Resolved Head CT was negative (6) Transaminitis: Code(s): R74.01 - Elevation of levels of liver transaminase levels Status: Acute Assessment and Plan: Elevated AST > ALT likely secondary to rhabdomyolysis Bilirubin and alkaline phosphatase is normal Continue monitoring Hold statin (7) Fracture of distal end of fibula: Qualifiers: Encounter type: initial encounter Fracture morphology: unspecified fracture morphology Fracture type: closed Laterality: right Qualified Code(s): S82.831A - Other fracture of upper and lower end of right fibula, initial encounter for closed fracture Code(s): S82.839A - Other fracture of upper and lower end of unspecified fibula, initial encounter for closed fracture Status: Acute Assessment and Plan: Splint per Orthopedic surgery (8) Hypothyroidism: Code(s): E03.9 - Hypothyroidism, unspecified Status: Acute Assessment and Plan: Continue Synthroid (9) Hypertension: Code(s): I10 - Essential (primary) hypertension Status: Acute Assessment and Plan: Continue Coreg. Norvasc Hold hydrochlorothiazide Subjective Date/time seen: 10/19/22 11:01 Interval history: Patient remains stable. Wants to eat regular diet Review of Systems Review of Systems: Negative other than HPI Exam Narrative: General: Pt is alert awake and in NAD Lungs/Chest: Trachea central Clear BS B/L, No crackles or wheezing. Cardiac: RRR. Normal S1 S2. No murmurs Circulation: Pedal pulses are intact and symmetrical. Abdomen: Normal bowel sounds.. Soft. She states she is mildly tender throughout her abdomen, no guarding or rigidity Extremities: No clubbing, cyanosis or edema. Warm, right foot and lower leg OCL Splint Roll : [place] in place Neurologic: She appears to be slightly confused, she follows commands. Moves all 4 extremities PERRL AO x2 Skin: No Rash Objective Data Vital Signs Vital Signs: Vital Signs - 24 hr 10/18/22 12:00 10/18/22 12:00 10/18/22 12:00 Temperature 98.3 F Pulse Rate 69 70 Respiratory Rate 22 H Blood Pressure 118/50 L Pulse Oximetry 100 96 Oxygen Delivery Room Air 10/18/22 14:00 10/18/22 14:00 10/18/22 16:00 Temperature 98.8 F 98.9 F Pulse Rate 69 69 73 Respiratory Rate 22 H 20 Blood Pressure 104/82 191/64 H Pulse Oximetry 100 100 Oxygen Delivery 10/18/22 18:22 10/18/22 20:25 10/18/22 20:00 Temperature 97.3 F L Pulse Rate 68 70 Respiratory Rate 18 Blood Pressure 151/75 H Pulse Oximetry 100 Oxygen Delivery Room Air
[2022-10-19 11:53] LABS: Glucose Point of Care 179 mg/dl (65-105)
[2022-10-19 16:00] VITALS: BP 173/84; PULSE 73; RESP 20; TEMP 36.2; O2SAT 100
[2022-10-19 16:24] LABS: Glucose Point of Care 201 mg/dl (65-105)
[2022-10-19] MEDS: INSULIN ASPART (*BKC) 100 UNITS/ML 7 UNITS SUB-Q (17:40)
[2022-10-19] MEDS: ACETAMINOPHEN 325 MG TABLET 650 MG PO (19:50)
[2022-10-19 20:18] LABS: Glucose Point of Care 208 mg/dl (65-105)
[2022-10-19 20:30] VITALS: PULSE 73
[2022-10-19 23:52] VITALS: BP 170/70; PULSE 73; RESP 14; TEMP 36.3; O2SAT 100
[2022-10-20] MEDS: ACETAMINOPHEN 325 MG TABLET 650 MG PO (02:46)
[2022-10-20] MEDS: LEVOTHYROXINE SODIUM 150 MCG TABLET PO (05:30)
[2022-10-20 07:07] LABS: Anion Gap 5 mmol/L (8-16); Blood Urea Nitrogen 28 mg/dL (7-17); Calcium 8.7 mg/dL (8.4-10.2); Carbon Dioxide 26 mmol/L (22-30); Chloride 101 mmol/L (98-107); Estimated CRCL calculation 65 ml/min; Estimated Glomerular Filt Rate 56; Glucose 231 mg/dL (65-110); Potassium 3.8 mmol/L (3.4-5.0); Sodium 132 mmol/L (137-145)
[2022-10-20 07:53] LABS: Glucose Point of Care 231 mg/dl (65-105)
--- NOTE | 2022-10-20 09:01 | PM.PNORT ---
Progress Note: A&P Assessment and Plan (1) Fracture of distal end of fibula: Qualifiers: Encounter type: initial encounter Fracture morphology: unspecified fracture morphology Fracture type: closed Laterality: right Qualified Code(s): S82.831A - Other fracture of upper and lower end of right fibula, initial encounter for closed fracture Code(s): S82.839A - Other fracture of upper and lower end of unspecified fibula, initial encounter for closed fracture Status: Acute Assessment and Plan: Patient has splint in place at this time. Continue conservative treatment with immobilization in splint, ice, elevate. PT/OT for mobilization with NWB RLE. Okay to transition to CAM boot when able to be better mobilized with PT/OT and swelling controlled. Patient will maintain NWB status with boot in place as well. Outpatient orthopedic follow up arranged to monitor fracture and progress activity. PT/OT to determine patient's safe discharge plan. Would recommend CC consult. Patient will likely require SNF or rehab at discharge. (2) Diabetic ketoacidosis associated with type 2 diabetes mellitus: Code(s): E11.10 - Type 2 diabetes mellitus with ketoacidosis without coma Status: Acute Assessment and Plan: Resolved (3) Acute pancreatitis: Code(s): K85.90 - Acute pancreatitis without necrosis or infection, unspecified Status: Acute Assessment and Plan: Advancing diet (4) Acute on chronic kidney failure: Code(s): N17.9 - Acute kidney failure, unspecified; N18.9 - Chronic kidney disease, unspecified Status: Acute (5) Rhabdomyolysis: Code(s): M62.82 - Rhabdomyolysis Status: Acute (6) Toxic metabolic encephalopathy: Code(s): G92.8 - Other toxic encephalopathy Status: Acute (7) Transaminitis: Code(s): R74.01 - Elevation of levels of liver transaminase levels Status: Acute (8) Hypothyroidism: Code(s): E03.9 - Hypothyroidism, unspecified Status: Acute (9) Hypertension: Code(s): I10 - Essential (primary) hypertension Status: Acute Subjective Subjective Date/Time Seen: 10/20/22 09:01 Post Op day: 3 Interval history: 3 days s/p right distal fibula fracture. Admitted for DKA treatment, pancreatitis and pain control of right ankle. Splint in place. Overall improvement in medical condition. No new concerns regarding ankle today aside from difficulty maintaining NWB status per PT/OT. Up in chair at time of exam. Review of Systems Constitutional: Constitutional: Denies fever(s) Eyes: Eyes: Denies blurry vision ENT: Reports Normal hearing present Cardiovascular: Cardiovascular: Denies chest pain and Denies dyspnea Respiratory: Respiratory: Denies dyspnea and Denies wheezing Gastrointestinal: Gastrointestinal: Denies abdominal pain Genitourinary: Genitourinary: Denies urinary urgency Musculoskeletal: Musculoskeletal: Reports as per HPI and Denies numbness Integumentary/Breasts: Skin/Breast: Denies changing lesions and Denies sores Neurologic: Reports Normal hearing present, Denies behavioral changes, Denies confusion, Denies numbness and Denies convulsions Psychiatric: Psychiatric: Denies behavioral changes, Denies confusion and Denies hallucinations Endocrine: Endocrine: Denies heat intolerance Hematologic/Lymphatic: Hematologic/Lymphatic: Denies easy bleeding Allergic/Immunologic: Allergic/Immunologic: Denies wheezing Exam Const: General: No confusion Orientation/consciousness: patient oriented x3 and No confusion HENMT: Head: normal to inspection, normocephalic and atraumatic Eyes: Conjunctivae: conjunctivae normal Sclera: sclerae normal Neck: Neck: supple and nontender Chest: Chest palpation & inspection: normal inspection of the chest Resp: Effort & Inspection: normal respiratory effort and no audible wheezes Cardio: Rate: regular rate Rhythm: regular rhythm G
[2022-10-20 09:27] VITALS: PULSE 74
[2022-10-20] MEDS: FENOFIBRATE NANOCRYSTALLIZED 145 MG TABLET PO (09:27)
[2022-10-20] MEDS: ASPIRIN 81 MG ENTERIC TABLET PO (09:27)
[2022-10-20] MEDS: ENOXAPARIN 40 MG/0.4 ML SYRINGE SUB-Q (09:27)
[2022-10-20] MEDS: carvediloL 3.125 MG TABLET PO ×2 (09:27→21:04)
[2022-10-20] MEDS: lamoTRIgine 100 MG TABLET PO ×2 (09:27→17:30)
[2022-10-20] MEDS: INSULIN ASPART (*BKC) 100 UNITS/ML 10 UNITS SUB-Q ×3 (09:27→17:30)
[2022-10-20] MEDS: amLODIPine BESYLATE 5 MG TABLET 10 MG PO (09:27)
[2022-10-20] MEDS: INSULIN GLARGINE (*BKC) 100 UNITS/ML 30 UNITS SUB-Q (09:28)
[2022-10-20] MEDS: lisinopriL 5 MG TABLET PO (09:32)
[2022-10-20] MEDS: ONDANSETRON INJ 4 MG/2 ML VIAL IV PUSH (09:38)
[2022-10-20 11:56] LABS: Glucose Point of Care 234 mg/dl (65-105)
--- NOTE | 2022-10-20 11:58 | PM.IMPN ---
Progress Note: A&P Assessment and Plan (1) Diabetic ketoacidosis associated with type 2 diabetes mellitus: Code(s): E11.10 - Type 2 diabetes mellitus with ketoacidosis without coma Status: Acute Assessment and Plan: Resolved continue Lantus at 30 units. Will increase Humalog dose to 10 units t.i.d. since still uncontrolled blood glucose . A1c greater than 14 (2) Acute pancreatitis: Code(s): K85.90 - Acute pancreatitis without necrosis or infection, unspecified Status: Acute Assessment and Plan: Patient presented with findings of acute pancreatitis which was confirmed and elevated lipase Patient tolerating diabetic diet (3) Acute on chronic kidney failure: Code(s): N17.9 - Acute kidney failure, unspecified; N18.9 - Chronic kidney disease, unspecified Status: Acute Assessment and Plan: Resolved. patient has history of chronic kidney disease and presented with what appears to be acute kidney injury This is likely secondary to dehydration and rhabdomyolysis Discontinue IV fluid (4) Rhabdomyolysis: Code(s): M62.82 - Rhabdomyolysis Status: Acute Assessment and Plan: Hold statin (5) Toxic metabolic encephalopathy: Code(s): G92.8 - Other toxic encephalopathy Status: Acute Assessment and Plan: Resolved Head CT was negative (6) Transaminitis: Code(s): R74.01 - Elevation of levels of liver transaminase levels Status: Acute Assessment and Plan: Elevated AST > ALT likely secondary to rhabdomyolysis Bilirubin and alkaline phosphatase is normal Continue monitoring Hold statin (7) Fracture of distal end of fibula: Qualifiers: Encounter type: initial encounter Fracture morphology: unspecified fracture morphology Fracture type: closed Laterality: right Qualified Code(s): S82.831A - Other fracture of upper and lower end of right fibula, initial encounter for closed fracture Code(s): S82.839A - Other fracture of upper and lower end of unspecified fibula, initial encounter for closed fracture Status: Acute Assessment and Plan: Splint per Orthopedic surgery (8) Hypothyroidism: Code(s): E03.9 - Hypothyroidism, unspecified Status: Acute Assessment and Plan: Continue Synthroid (9) Hypertension: Code(s): I10 - Essential (primary) hypertension Status: Acute Assessment and Plan: Continue Coreg. Norvasc Hold hydrochlorothiazide Subjective Date/time seen: 10/20/22 11:58 Interval history: patient states she feels weak. She is a little anxious this morning Review of Systems Review of Systems: Negative other than HPI Exam Narrative: General: Pt is alert awake and in NAD Lungs/Chest: Trachea central Clear BS B/L, No crackles or wheezing. Cardiac: RRR. Normal S1 S2. No murmurs Circulation: Pedal pulses are intact and symmetrical. Abdomen: Normal bowel sounds.. Soft. She states she is mildly tender throughout her abdomen, no guarding or rigidity Extremities: No clubbing, cyanosis or edema. Warm, right foot and lower leg OCL Splint Roll : Huddleston in place Neurologic: She appears to be slightly confused, she follows commands. Moves all 4 extremities PERRL AO x2 Skin: No Rash Objective Data Vital Signs Vital Signs: Vital Signs - 24 hr 10/19/22 16:00 10/19/22 20:30 10/19/22 23:52 Temperature 97.2 F L 97.4 F L Pulse Rate 73 73 73 Respiratory Rate 20 14 Blood Pressure 173/84 H 170/70 H Pulse Oximetry 100 100 Oxygen Delivery 10/20/22 09:27 10/20/22 08:00 Temperature Pulse Rate 74 Respiratory Rate Blood Pressure Pulse Oximetry Oxygen Delivery Room Air Intake/Output Intake/Output: Intake & Output 10/17/22 10/18/22 10/19/22 10/20/22 23:59 23:59 23:59 23:59 Intake Total 1150 / 1150 5150 / 5150 2512 / 2512 750 / 750 Output Total 700 / 700 1800 / 1800 2550 / 2550 1400 / 1400 Balance 450 / 450 3
--- NOTE | 2022-10-20 13:58 | PCCDE ---
Stopped in to see pt due to interest in outpatient DSMT/MNT and potential DC on insulin. Provided insulin instruction/demo. Daughter came in while we were talking. Daughter demo?d back insulin injection technique. Patient with blurry vision, didn?t have glasses. Aware blurry vision potential side effect hyperglycemia vs need for new glasses. Discussed BG control before getting new prescription glasses. Educated on insulin injection technique, site, rotation, storage, different types, timing. Questions answered. Educated re: Medicare benefits for outpatient DSMT/MNT and provided contact information for our outpatient services. Pt plans on changing PCPs advised re: need for referral from provider treating DM.
[2022-10-20 14:37] VITALS: BP 123/62; PULSE 79; RESP 18; TEMP 36.3; O2SAT 100
[2022-10-20 17:11] LABS: Glucose Point of Care 255 mg/dl (65-105)
[2022-10-20 20:00] LABS: Glucose Point of Care 308 mg/dl (65-105)
[2022-10-20] MEDS: INSULIN ASPART (*BKC) 100 UNITS/ML 6 UNITS SUB-Q (20:55)
[2022-10-20] MEDS: DIVALPROEX SODIUM ER 500 MG TAB.24H PO (21:03)
[2022-10-20] MEDS: LORazepam (*CRX) 0.5 MG TABLET PO (21:03)
[2022-10-20 21:04] VITALS: PULSE 64
[2022-10-20] MEDS: QUEtiapine FUMARATE 100 MG TABLET PO (21:04)
[2022-10-20 21:24] VITALS: BP 151/66; PULSE 86; RESP 18; TEMP 36.4; O2SAT 100
[2022-10-21] VITALS (7 sets, daily range): BP systolic 88–127; BP diastolic 50–66; PULSE 74–88; RESP 14–20; TEMP 36–36.5; O2SAT 95–98
[2022-10-21] MEDS: LEVOTHYROXINE SODIUM 150 MCG TABLET PO (05:31)
[2022-10-21 07:59] LABS: Glucose Point of Care 191 mg/dl (65-105)
[2022-10-21] MEDS: amLODIPine BESYLATE 5 MG TABLET 10 MG PO (08:47)
[2022-10-21] MEDS: DIVALPROEX SODIUM ER 250 MG TAB.24H PO (08:47)
[2022-10-21] MEDS: ASPIRIN 81 MG ENTERIC TABLET PO (08:48)
[2022-10-21] MEDS: INSULIN GLARGINE (*BKC) 100 UNITS/ML 40 UNITS SUB-Q (08:48)
[2022-10-21] MEDS: ENOXAPARIN 40 MG/0.4 ML SYRINGE SUB-Q (08:48)
[2022-10-21] MEDS: carvediloL 3.125 MG TABLET PO ×2 (08:48→20:22)
[2022-10-21] MEDS: FENOFIBRATE NANOCRYSTALLIZED 145 MG TABLET PO (08:48)
[2022-10-21] MEDS: INSULIN ASPART (*BKC) 100 UNITS/ML 13 UNITS SUB-Q ×3 (08:48→16:54)
[2022-10-21] MEDS: lisinopriL 5 MG TABLET PO (08:48)
[2022-10-21] MEDS: lamoTRIgine 100 MG TABLET PO ×2 (08:48→16:55)
--- NOTE | 2022-10-21 10:35 | PM.DS ---
DS: Admitting Diagnosis Discharge Date 10/21/2022 Admitting Diagnosis DKA closed right ankle fracture DS: Discharge Diagnosis Discharge Diagnosis (1) Acute pancreatitis: Code(s): K85.90 - Acute pancreatitis without necrosis or infection, unspecified Status: Acute (2) DKA, type 2: Qualifiers: Diabetes mellitus complication detail: without coma Qualified Code(s): E11.10 - Type 2 diabetes mellitus with ketoacidosis without coma Code(s): E11.10 - Type 2 diabetes mellitus with ketoacidosis without coma Status: Acute (3) Closed right ankle fracture: Code(s): S82.891A - Other fracture of right lower leg, initial encounter for closed fracture Status: Acute (4) Hypothyroidism: Code(s): E03.9 - Hypothyroidism, unspecified Status: Acute (5) Hypertension: Code(s): I10 - Essential (primary) hypertension Status: Acute DS: Summary Hospital Course Hospital Course: Assessment and Plan (1) Diabetic ketoacidosis associated with type 2 diabetes mellitus: Resolved continue Lantus at 40 units.? Will increase Humalog dose to 13 units t.i.d. since? still uncontrolled blood glucose .? A1c greater than 14. patient to continue on diabetic diet. Patient counseled on medication compliance. She was advised to follow-up with her PCP and maybe follow-up with endocrine specialist as outpatient (2) Acute pancreatitis: Patient presented with findings of acute pancreatitis which was confirmed and elevated lipase Patient? tolerating diabetic diet (3) Acute on chronic kidney failure: Resolved.? patient has history of chronic kidney disease and presented with what appears to be acute kidney injury This is likely secondary to dehydration and rhabdomyolysis Discontinue IV fluid (4) Rhabdomyolysis: resolved resume statin (5) Toxic metabolic encephalopathy: Resolved Head CT was negative (6) Transaminitis: Elevated AST > ALT likely secondary to rhabdomyolysis Bilirubin and alkaline phosphatase is normal Continue monitoring (7) Fracture of distal end of fibula: Splint per Orthopedic surgery (8) Hypothyroidism: Continue Synthroid (9) Hypertension: Continue Coreg.? losartan at home does. patient is clinically stable and is being discharged to long-term facility Time Spent with Patient Time attestation: Total time spent providing and/or coordinating discharge services: Exam Narrative: General: Pt is alert awake and in NAD Lungs/Chest: Trachea central Clear BS B/L, No crackles or wheezing. Cardiac: RRR. Normal S1 S2. No murmurs Circulation: Pedal pulses are intact and symmetrical. Abdomen: Normal bowel sounds.. Soft. She states she is mildly tender throughout her abdomen, no guarding or rigidity Extremities: No clubbing, cyanosis or edema. Warm, right foot and lower leg OCL Splint Roll : H[place]leston in place Neurologic: She appears to be slightly confused, she follows commands. Moves all 4 extremities PERRL AO x2 Skin: No Rash DS: Data Data Completed and Pending Labs on day of discharge: Labs from last 24 hours 10/21/22 10/20/22 10/20/22 07:30 19:49 16:46 POC Capillary Glucose 191 H 308 H 255 H 10/20/22 11:40 POC Capillary Glucose 234 H Discharge Plan Discharge Consulting providers: Carlito Antonio; Jude Pedro Discharging Clinician: Shorty Gong Anticipated Discharge Date/Time: 10/21/22 10:31 Patient Disposition: SNF Activity: may shower, no driving and follow weight bearing status Diet: heart healthy and diabetic Discharge Instructions: Orthopedic Recommendations Dr. Jude Pedro [phone] Okay to transition out of splint and into fracture boot with NON weight bearing at discharge. Elevate, ice right ankle. Pain control. Follow up appt as indicated below. Patient Instructions: Basic Carbohydrate Counting (DC) Stand Alone Forms: General Discharge Information Follow-up/Refe
[2022-10-21 12:11] LABS: Glucose Point of Care 296 mg/dl (65-105)
--- NOTE | 2022-10-21 12:22 | PM.PNORT ---
Progress Note: A&P Assessment and Plan (1) Fracture of distal end of fibula: Qualifiers: Encounter type: initial encounter Fracture morphology: unspecified fracture morphology Fracture type: closed Laterality: right Qualified Code(s): S82.831A - Other fracture of upper and lower end of right fibula, initial encounter for closed fracture Code(s): S82.839A - Other fracture of upper and lower end of unspecified fibula, initial encounter for closed fracture Status: Acute Assessment and Plan: Patient has splint in place at this time. Continue conservative treatment with immobilization in splint, ice, elevate. PT/OT for mobilization with NWB RLE. Okay to transition to CAM boot when able to be better mobilized with PT/OT and swelling controlled. Patient will maintain NWB status with boot in place as well. (2) Diabetic ketoacidosis associated with type 2 diabetes mellitus: Qualifiers: Diabetes mellitus complication detail: without coma Qualified Code(s): E11.10 - Type 2 diabetes mellitus with ketoacidosis without coma Code(s): E11.10 - Type 2 diabetes mellitus with ketoacidosis without coma Status: Acute Assessment and Plan: Resolved (3) Acute on chronic kidney failure: Qualifiers: Acute renal failure type: unspecified Chronic kidney disease stage: stage 3 (moderate) Chronic kidney disease stage 3 subtype: stage 3a (GFR 45-59) Qualified Code(s): N17.9 - Acute kidney failure, unspecified; N18.31 - Chronic kidney disease, stage 3a Code(s): N17.9 - Acute kidney failure, unspecified; N18.9 - Chronic kidney disease, unspecified Status: Acute (4) Toxic metabolic encephalopathy: Code(s): G92.8 - Other toxic encephalopathy Status: Acute Assessment and Plan: Slowly improving but patient complains of weakness and hallucinations. Subjective Subjective Date/Time Seen: 10/21/22 12:22 Principal diagnosis: Right ankle fracture Interval history: patient complains of weakness as well as hallucinations. States she sees people running in the [place]. Exam Const: General: alert and awake; No acute distress Orientation/consciousness: oriented to person and oriented to place HENMT: Head: normal to inspection, normocephalic and atraumatic Neck: Neck: supple and nontender Neuro: General: patient oriented x3 and No confusion Cranial nerves: Yes Normal hearing present Extrem: General: capillary refill normal Right upper extremity: normal to inspection Left upper extremity: normal to inspection Right lower extremity: hip/thigh Details: no tenderness, knee Details: abnormal ROM ( Knee range of motion deferred secondary to fracture); no tenderness and no swelling, ankle Details: tenderness Location: of the lateral malleolus and anteromedially, swelling ( moderate) Details: laterally and medially, abnormal ROM Details: pain with active ROM and ecchymosis ( moderate diffusely ankle) and foot Details: vascular exam Details: dorsalis pedis pulse present and normal capillary refill, tendon exam (intact, able to flex and extend toes) and motor-sensory exam Details: light-touch normal Location: in all toes Left lower extremity: normal to inspection, hip/thigh Details: normal to inspection, knee Details: normal to inspection, ankle Details: normal to inspection and normal ROM ( Active flexion and extension intact); no tenderness and no swelling and foot Details: vascular exam Details: dorsalis pedis pulse present and normal capillary refill, tendon exam active flexion normal and active flexion abnormal and motor-sensory exam light-touch normal; no tenderness Other: Right ankle splint in place. Psych: Affect: normal affect Objective Data Vital Signs Vital Signs: Vital Signs - 24 hr 10/20/22 14:37 10/20/22 21:04 10/20/22 21:24 Temperature 97.4 F L 97.5 F L Pulse Rate 79 64 86 Respiratory Rate 18 18 Blood Pressure 123/62 151/66 H
--- NOTE | 2022-10-21 14:27 | PCOTNOTE ---
Per RN, pt is not appropriate for Occupational Therapy treatment at this time due to low bp. Will continue per POC duration/frequency tomorrow.
[2022-10-21 17:05] LABS: Glucose Point of Care 419 mg/dl (65-105)
[2022-10-21] MEDS: DIVALPROEX SODIUM ER 500 MG TAB.24H PO (20:22)
[2022-10-21] MEDS: QUEtiapine FUMARATE 100 MG TABLET PO (20:22)
[2022-10-21] MEDS: LORazepam (*CRX) 0.5 MG TABLET PO (20:23)
[2022-10-21] MEDS: ACETAMINOPHEN 325 MG TABLET 650 MG PO (20:23)
[2022-10-21 21:15] LABS: Glucose Point of Care 367 mg/dl (65-105)
[2022-10-21] MEDS: INSULIN ASPART (*BKC) 100 UNITS/ML 8 UNITS SUB-Q (21:34)
[2022-10-22] MEDS: LEVOTHYROXINE SODIUM 150 MCG TABLET PO (05:42)
[2022-10-22 06:00] VITALS: BP 131/70; PULSE 73; RESP 20; TEMP 36.4; O2SAT 100
[2022-10-22 07:38] LABS: Glucose Point of Care 330 mg/dl (65-105)
--- NOTE | 2022-10-22 08:05 | PM.PNORT ---
Progress Note: A&P Assessment and Plan (1) Fracture of distal end of fibula: Qualifiers: Encounter type: initial encounter Fracture morphology: unspecified fracture morphology Fracture type: closed Laterality: right Qualified Code(s): S82.831A - Other fracture of upper and lower end of right fibula, initial encounter for closed fracture Code(s): S82.839A - Other fracture of upper and lower end of unspecified fibula, initial encounter for closed fracture Status: Acute Assessment and Plan: Patient has splint in place at this time. Continue conservative treatment with immobilization in splint, ice, elevate. PT/OT for mobilization with NWB RLE. Okay to transition to CAM boot when able to be better mobilized with PT/OT and swelling controlled. Patient will maintain NWB status with boot in place as well. (2) Toxic metabolic encephalopathy: Code(s): G92.8 - Other toxic encephalopathy Status: Acute Assessment and Plan: Slowly improving but patient complains of weakness and hallucinations. Subjective Subjective Date/Time Seen: 10/22/22 08:05 Principal diagnosis: Right ankle fracture Interval history: patient complains of weakness as well as hallucinations. States she sees people running in the [place]. Exam Const: General: alert and awake; No acute distress or confusion Orientation/consciousness: oriented to person, oriented to place, patient oriented x3 and No confusion Neck: Neck: supple and nontender Skin: General skin exam: no rashes or lesions noted Neuro: General: oriented to person, oriented to place, patient oriented x3 and No confusion Extrem: General: capillary refill normal Right upper extremity: normal to inspection Left upper extremity: normal to inspection Right lower extremity: hip/thigh Details: no tenderness, knee Details: abnormal ROM ( Knee range of motion deferred secondary to fracture); no tenderness and no swelling, ankle Details: tenderness Location: of the lateral malleolus and anteromedially, swelling ( moderate) Details: laterally and medially, abnormal ROM Details: pain with active ROM and ecchymosis ( moderate diffusely ankle) and foot Details: vascular exam Details: dorsalis pedis pulse present and normal capillary refill, tendon exam (intact, able to flex and extend toes) and motor-sensory exam Details: light-touch normal Location: in all toes Left lower extremity: normal to inspection, hip/thigh Details: normal to inspection, knee Details: normal to inspection, ankle Details: normal to inspection and normal ROM ( Active flexion and extension intact); no tenderness and no swelling and foot Details: vascular exam Details: dorsalis pedis pulse present and normal capillary refill, tendon exam active flexion normal and active flexion abnormal and motor-sensory exam light-touch normal; no tenderness Other: Right ankle splint in place. Psych: Affect: normal affect Objective Data Vital Signs Vital Signs: Vital Signs - 24 hr 10/21/22 08:48 10/21/22 14:00 10/21/22 14:00 Temperature 96.8 F L Pulse Rate 77 74 Respiratory Rate 14 Blood Pressure 88/50 L 110/56 L Pulse Oximetry 98 Oxygen Delivery 10/21/22 15:05 10/21/22 20:22 10/21/22 20:00 Temperature Pulse Rate 88 88 Respiratory Rate 14 Blood Pressure 108/56 L Pulse Oximetry 98 Oxygen Delivery Room Air 10/21/22 21:26 10/22/22 06:00 Temperature 97.7 F 97.6 F Pulse Rate 77 73 Respiratory Rate 20 20 Blood Pressure 127/63 131/70 Pulse Oximetry 95 100 Oxygen Delivery Intake/Output Intake/Output: Intake & Output 10/19/22 10/20/22 10/21/22 10/22/22 23:59 23:59 23:59 23:59 Intake Total 2512 1290 1220 125 Output Total 2550 2225 400 Balance -38 935 820 125 Meds/Results Medications: Active Medications Generic Name Dose Route Start Last Admin Trade Name Freq PRN Reason Stop Dose Admin Acetaminophen 650 mg 10/17/22 14:06 10/21/22 20:
[2022-10-22] MEDS: lamoTRIgine 100 MG TABLET PO (09:24)
[2022-10-22] MEDS: lisinopriL 5 MG TABLET PO (09:24)
[2022-10-22] MEDS: ASPIRIN 81 MG ENTERIC TABLET PO (09:24)
[2022-10-22] MEDS: FENOFIBRATE NANOCRYSTALLIZED 145 MG TABLET PO (09:25)
[2022-10-22] MEDS: DIVALPROEX SODIUM ER 250 MG TAB.24H PO (09:25)
[2022-10-22 09:28] VITALS: BP 116/79; PULSE 76
[2022-10-22] MEDS: amLODIPine BESYLATE 5 MG TABLET 10 MG PO (09:32)
[2022-10-22 09:33] VITALS: PULSE 76
[2022-10-22] MEDS: carvediloL 3.125 MG TABLET PO (09:33)
[2022-10-22] MEDS: INSULIN GLARGINE (*BKC) 100 UNITS/ML 40 UNITS SUB-Q (09:34)
[2022-10-22] MEDS: INSULIN ASPART (*BKC) 100 UNITS/ML 13 UNITS SUB-Q ×2 (09:35→12:29)
[2022-10-22] MEDS: CALCIUM CARBONATE (TUMS) 500 MG (200 MG ELEMENTAL) PO (10:27)
[2022-10-22 11:55] LABS: Glucose Point of Care 374 mg/dl (65-105)
[2022-10-22 13:34] VITALS: BP 107/51; PULSE 70; RESP 18; TEMP 36.6; O2SAT 99
[2022-10-22 14:02] LABS: EDCOVIDSCREEN Negative (Negative)
[2022-10-22] MEDS: ONDANSETRON INJ 4 MG/2 ML VIAL IV PUSH (15:16)
== END 2022-10-22 16:35 | DRG 637 ==
LOC: ANHED 12:43 → ANHICU 14:52 → ANH3MEDSUR 10-18 17:33
PROVIDERS: Internal Medicine; Physician Assistant; Preventive Medicine Aerospace Medicine; Admitting Provider Chiropractor; Emergency Provider Family Medicine; PCP Family Medicine; Visit Provider Hospitalist
DX: E11.10 Type 2 diabetes mellitus with ketoacidosis without coma (principal); G92.8 Other toxic encephalopathy; K85.90 Acute pancreatitis without necrosis or infection, unspecified; N17.9 Acute kidney failure, unspecified; M62.82 Rhabdomyolysis; Z68.42 Body mass index [BMI] 45.0-49.9, adult; E87.1 Hypo-osmolality and hyponatremia; S82.51XA Displaced fracture of medial malleolus of right tibia, initial encounter for closed fracture; S82.431A Displaced oblique fracture of shaft of right fibula, initial encounter for closed fracture; E86.0 Dehydration; E03.9 Hypothyroidism, unspecified; E66.01 Morbid (severe) obesity due to excess calories; I12.9 Hypertensive chronic kidney disease with stage 1 through stage 4 chronic kidney disease, or unspecified chronic kidney disease; E11.22 Type 2 diabetes mellitus with diabetic chronic kidney disease; N18.30 Chronic kidney disease, stage 3 unspecified; D64.9 Anemia, unspecified; Z20.822 Contact with and (suspected) exposure to COVID-19; F41.9 Anxiety disorder, unspecified; F31.9 Bipolar disorder, unspecified; E87.6 Hypokalemia; R19.5 Other fecal abnormalities; E78.5 Hyperlipidemia, unspecified; K76.0 Fatty (change of) liver, not elsewhere classified; F41.8 Other specified anxiety disorders; F43.10 Post-traumatic stress disorder, unspecified; Z79.84 Long term (current) use of oral hypoglycemic drugs; Z85.42 Personal history of malignant neoplasm of other parts of uterus; Z79.82 Long term (current) use of aspirin; Z87.442 Personal history of urinary calculi; Z90.710 Acquired absence of both cervix and uterus
CPT/HCPCS: 36415; 36600; 70450; 71046; 71250; 73610; 74176; 76700; 80048; 80053; 80074; 80164; 81001; 82010; 82550; 82805; 82947; 82948; 83036; 83690; 83735; 84100; 84439; 84443; 84478; 84480; 85025; 85027; 87426; 93005; 96361; 96374; 97110; 97161; 97165; 97530; 97535; 99285; A9270; C9113; C9803; J1650; J1815; J2405; J2543; J3480; J7030; J7040; U0003; U0005

== ENCOUNTER 2023-01-13 08:38 | Outpatient (CLI) | payer MEDICARE, MEDICAID, SELFPAY ==
[2023-01-13 09:33] LABS: Eosinophils Absolute Auto 0.1 K/mm3 (0-0.3); Hematocrit 32.8 % (37.0-47.0); Hemoglobin 10.1 g/dL (12.0-15.0); Immature Granulocyte Absolute 0.01 K/mm3 (0.00-0.031); Immature Granulocyte Percent A 0.3 % (0-0.5); Lymphocytes Absolute Auto 1.32 K/mm3 (0.9-3.2); Lymphocytes Percent Auto 41.1 % (18.3-44.2); Mean Corpuscular HGB Conc 30.8 g/dl (32-36); Mean Corpuscular Hemoglobin 30.1 pg (26-34); Mean Corpuscular Volume 97.9 fl (80-100); Mean Platelet Volume 10.1 fl (7.4-10.4); Monocytes Absolute Auto 0.3 K/mm3 (0.1-0.6); Monocytes Percent Auto 8.7 % (2.6-8.5); Neutrophils Absolute Auto 1.5 K/mm3 (1.3-6.7); Neutrophils Percent Auto 45.9 % (45.5-73.1); Platelet Count Result 123 k/mm3 (150-375); Red Blood Count 3.35 M/mm3 (4.2-5.4); Red Cell Distribution Width 14.9 % (11.5-14.5); White Blood Count 3.2 K/mm3 (4.5-10.0)
[2023-01-13 09:47] LABS: Hemoglobin A1C 5.2 % (<5.7)
[2023-01-13 09:51] LABS: Alanine Aminotransferase 21 U/L (6-35); Albumin Level 3.4 g/dL (3.5-5.1); Alkaline Phosphatase 83 U/L (38-126); Anion Gap 4 mmol/L (8-16); Aspartate Amino Transferase 42 U/L (14-36); Bilirubin,Total 0.4 mg/dL (0.2-1.3); Blood Urea Nitrogen 32 mg/dL (7-17); Calcium 9.3 mg/dL (8.4-10.2); Carbon Dioxide 27 mmol/L (22-30); Chloride 109 mmol/L (98-107); Cholesterol 117 mg/dL (0-200); Estimated Glomerular Filt Rate 35; Glucose 72 mg/dL (65-110); HDL Direct 40 mg/dL; Potassium 4.5 mmol/L (3.4-5.0); Sodium 140 mmol/L (137-145); Triglycerides 178 mg/dL (<150)
[2023-01-13 10:01] LABS: LDL Cholesterol Direct 41 mg/dL
[2023-01-13 10:15] LABS: Thyroid Stimulating Hormone 0.088 uIU/mL (0.465-4.680)
[2023-01-13 10:18] LABS: Microalbumin Urine Random 26.6 mg/L (0-16.7)
[2023-01-13 10:25] LABS: Creatinine Urine 117.4 mg/dL; MALB Creatinine Ratio 22.7 mg/g (0-30)
[2023-01-13 10:32] LABS: Vitamin D 25 Hydroxy 45.4 ng/mL
== END 2023-01-13 08:39 | disposition home or self-care (01) ==
PROVIDERS: PCP Internal Medicine; Visit Provider Nurse Practitioner
DX: E03.9 Hypothyroidism, unspecified (principal); E11.9 Type 2 diabetes mellitus without complications; E78.5 Hyperlipidemia, unspecified; E55.9 Vitamin D deficiency, unspecified
CPT/HCPCS: 36415; 80053; 80061; 82043; 82306; 83036; 84443; 85025

== ENCOUNTER 2023-04-06 09:44 | Outpatient (CLI) | payer MEDICARE, MEDICAID, SELFPAY ==
[2023-04-06 10:03] LABS: Eosinophils Absolute Auto 0.1 K/mm3 (0-0.3); Eosinophils Percent Auto 2.2 % (0-4.4); Hematocrit 35.5 % (37.0-47.0); Hemoglobin 10.7 g/dL (12.0-15.0); Immature Granulocyte Absolute 0.02 K/mm3 (0.00-0.031); Immature Granulocyte Percent A 0.5 % (0-0.5); Lymphocytes Absolute Auto 1.81 K/mm3 (0.9-3.2); Lymphocytes Percent Auto 43.5 % (18.3-44.2); Mean Corpuscular HGB Conc 30.1 g/dl (32-36); Mean Corpuscular Hemoglobin 28.7 pg (26-34); Mean Corpuscular Volume 95.2 fl (80-100); Mean Platelet Volume 9.5 fl (7.4-10.4); Monocytes Absolute Auto 0.4 K/mm3 (0.1-0.6); Monocytes Percent Auto 10.6 % (2.6-8.5); Neutrophils Absolute Auto 1.8 K/mm3 (1.3-6.7); Neutrophils Percent Auto 43.2 % (45.5-73.1); Platelet Count Result 119 k/mm3 (150-375); Red Blood Count 3.73 M/mm3 (4.2-5.4); Red Cell Distribution Width 13.9 % (11.5-14.5); White Blood Count 4.2 K/mm3 (4.5-10.0)
[2023-04-06 10:13] LABS: Alanine Aminotransferase 25 U/L (6-35); Albumin Level 3.6 g/dL (3.5-5.1); Alkaline Phosphatase 71 U/L (38-126); Anion Gap 6 mmol/L (8-16); Aspartate Amino Transferase 41 U/L (14-36); Bilirubin,Total 0.5 mg/dL (0.2-1.3); Blood Urea Nitrogen 38 mg/dL (7-17); Calcium 9.5 mg/dL (8.4-10.2); Carbon Dioxide 26 mmol/L (22-30); Chloride 107 mmol/L (98-107); Estimated Glomerular Filt Rate 35; Glucose 109 mg/dL (65-110); Potassium 4.2 mmol/L (3.4-5.0); Sodium 139 mmol/L (137-145)
[2023-04-06 10:16] LABS: Hemoglobin A1C 5.4 % (<5.7)
== END 2023-04-06 09:45 | disposition home or self-care (01) ==
PROVIDERS: PCP Internal Medicine; Visit Provider Nurse Practitioner
DX: E03.9 Hypothyroidism, unspecified (principal); E11.9 Type 2 diabetes mellitus without complications
CPT/HCPCS: 36415; 80053; 83036; 84443; 85025

== ENCOUNTER 2023-07-20 09:53 | Outpatient (CLI) | payer MEDICARE, SELFPAY ==
[2023-07-20 10:07] LABS: Hematocrit 37.6 % (37.0-47.0); Hemoglobin 11.3 g/dL (12.0-15.0); Mean Corpuscular HGB Conc 30.1 g/dl (32-36); Mean Corpuscular Hemoglobin 28.6 pg (26-34); Mean Corpuscular Volume 95.2 fl (80-100); Mean Platelet Volume 10.1 fl (7.4-10.4); Platelet Count Result 128 k/mm3 (150-375); Red Blood Count 3.95 M/mm3 (4.2-5.4); Red Cell Distribution Width 13.6 % (11.5-14.5); White Blood Count 3.4 K/mm3 (4.5-10.0)
[2023-07-20 10:19] LABS: Hematocrit 36.7 % (37.0-47.0); Hemoglobin 11.3 g/dL (12.0-15.0); Mean Corpuscular HGB Conc 30.8 g/dl (32-36); Mean Corpuscular Hemoglobin 28.8 pg (26-34); Mean Corpuscular Volume 93.4 fl (80-100); Mean Platelet Volume 10.2 fl (7.4-10.4); Platelet Count Result 130 k/mm3 (150-375); Red Blood Count 3.93 M/mm3 (4.2-5.4); Red Cell Distribution Width 13.7 % (11.5-14.5); White Blood Count 3.2 K/mm3 (4.5-10.0)
[2023-07-20 10:21] LABS: Appearance Urine Clear (Clear); Bacteria Urine None Seen /hpf; Bilirubin Urine Negative (Negative); Blood Urine Negative (Negative); Color Urine Yellow (Yellow); Glucose Urine UA 3+ mg/dL (Negative); Ketones Urine Negative (Negative); Leukocyte Esterase Ur Trace LEU/UL (NEGATIVE); Nitrate Urine Negative (Negative); Non Pathogenic Casts 0-2; Protein Urine Negative (Negative); RBC Urine 0-2 /hpf (0-2); Specific Grav Ur 1.026 (1.001-1.035); Squamous Epithelial Cell Urine Occasional /hpf (Few); Urobilinogen Urine 0.2 mg/dL (<2.0); pH Urine 5.5 (5.0-9.0)
[2023-07-20 10:22] LABS: Albumin Level 3.7 g/dL (3.5-5.1); Anion Gap 8 mmol/L (8-16); Blood Urea Nitrogen 34 mg/dL (7-17); Calcium 9.9 mg/dL (8.4-10.2); Carbon Dioxide 26 mmol/L (22-30); Chloride 109 mmol/L (98-107); Estimated Glomerular Filt Rate 35; Glucose 138 mg/dL (65-110); Phosphorus 3.9 mg/dL (2.5-4.5); Potassium 4.6 mmol/L (3.4-5.0); Sodium 143 mmol/L (137-145)
[2023-07-20 10:23] LABS: Add Urine Microscopic? YES
[2023-07-20 10:29] LABS: Total Protein Urine Random 12 mg/dL; Ur Ttl Prot Creatinine Ratio 0.13 mg/mg (0-0.20)
[2023-07-20 10:29] LABS: Creatine Kinase 57 U/L (30-135)
[2023-07-20 10:37] LABS: Complement C3 130 mg/dL (88-165)
[2023-07-20 10:41] LABS: Parathyroid Intact 36.6 pg/mL (7.5-53.5)
[2023-07-20 11:07] LABS: Erythrocyte Sedimentation Rate 23 mm/hr (0-20)
[2023-07-24 09:11] LABS: Complement Total CH50 >60 U/mL (31-60)
[2023-07-24 11:45] LABS: Kappa\\Lambda Light Chains 1.25 (0.26-1.65); Lambda Light Chain 29.1 mg/L (5.7-26.3)
== END 2023-07-20 09:54 | disposition home or self-care (01) ==
PROVIDERS: PCP Internal Medicine; Visit Provider Internal Medicine Nephrology
DX: I12.9 Hypertensive chronic kidney disease with stage 1 through stage 4 chronic kidney disease, or unspecified chronic kidney disease (principal); N18.32 Chronic kidney disease, stage 3b; E11.9 Type 2 diabetes mellitus without complications; E78.5 Hyperlipidemia, unspecified
CPT/HCPCS: 36415; 80069; 81001; 82550; 82570; 83883; 83970; 84156; 85027; 85652; 86038; 86160; 86162; 86334

== ENCOUNTER 2023-07-25 11:37 | Emergency (ER) | payer MEDICARE, SELFPAY | END 2023-07-25 11:55 | disposition left against medical advice (07) | PROVIDERS: Emergency Provider Internal Medicine Hematology & Oncology; PCP Internal Medicine | DX: Z53.21 Procedure and treatment not carried out due to patient leaving prior to being seen by health care provider (principal) | CPT/HCPCS: 99199 ==

== ENCOUNTER 2023-08-31 08:51 | Outpatient (CLI) | payer MEDICARE, SELFPAY ==
[2023-08-31 09:31] LABS: Basophils Percent Auto 0.2 % (0.2-1.2); Eosinophils Absolute Auto 0.1 K/mm3 (0-0.3); Eosinophils Percent Auto 2.7 % (0-4.4); Hematocrit 39.4 % (37.0-47.0); Hemoglobin 12.3 g/dL (12.0-15.0); Immature Granulocyte Absolute 0.03 K/mm3 (0.00-0.031); Immature Granulocyte Percent A 0.7 % (0-0.5); Lymphocytes Absolute Auto 1.77 K/mm3 (0.9-3.2); Lymphocytes Percent Auto 40.5 % (18.3-44.2); Mean Corpuscular HGB Conc 31.2 g/dl (32-36); Mean Corpuscular Hemoglobin 29.1 pg (26-34); Mean Corpuscular Volume 93.4 fl (80-100); Mean Platelet Volume 9.6 fl (7.4-10.4); Monocytes Absolute Auto 0.4 K/mm3 (0.1-0.6); Monocytes Percent Auto 8.9 % (2.6-8.5); Neutrophils Absolute Auto 2.1 K/mm3 (1.3-6.7); Platelet Count Result 135 k/mm3 (150-375); Red Blood Count 4.22 M/mm3 (4.2-5.4); Red Cell Distribution Width 13.6 % (11.5-14.5); White Blood Count 4.4 K/mm3 (4.5-10.0)
[2023-08-31 09:44] LABS: Alanine Aminotransferase 17 U/L (6-35); Alkaline Phosphatase 69 U/L (38-126); Anion Gap 3 mmol/L (8-16); Aspartate Amino Transferase 34 U/L (14-36); Bilirubin,Total 0.7 mg/dL (0.2-1.3); Blood Urea Nitrogen 41 mg/dL (7-17); Calcium 9.8 mg/dL (8.4-10.2); Carbon Dioxide 25 mmol/L (22-30); Chloride 109 mmol/L (98-107); Estimated Glomerular Filt Rate 28; Glucose 153 mg/dL (65-110); Potassium 4.6 mmol/L (3.4-5.0); Sodium 137 mmol/L (137-145)
[2023-08-31 10:16] LABS: Thyroid Stimulating Hormone 0.322 uIU/mL (0.465-4.680)
[2023-08-31 16:12] LABS: Hemoglobin A1C 6.6 % (<5.7)
== END 2023-08-31 08:52 | disposition home or self-care (01) ==
LOC: ANHLAB 09:07
PROVIDERS: PCP Internal Medicine; Visit Provider Nurse Practitioner
DX: E03.9 Hypothyroidism, unspecified (principal); E11.22 Type 2 diabetes mellitus with diabetic chronic kidney disease
CPT/HCPCS: 36415; 80053; 83036; 84443; 85025

== ENCOUNTER 2023-10-12 09:17 | Outpatient (CLI) | payer MEDICARE, SELFPAY ==
[2023-10-12 09:44] LABS: Hematocrit 38.2 % (37.0-47.0); Hemoglobin 11.5 g/dL (12.0-15.0); Mean Corpuscular HGB Conc 30.1 g/dl (32-36); Mean Corpuscular Hemoglobin 28.8 pg (26-34); Mean Corpuscular Volume 95.5 fl (80-100); Mean Platelet Volume 10.6 fl (7.4-10.4); Platelet Count Result 125 k/mm3 (150-375); Red Cell Distribution Width 13.8 % (11.5-14.5); White Blood Count 3.3 K/mm3 (4.5-10.0)
[2023-10-12 10:01] LABS: Albumin Level 3.9 g/dL (3.5-5.1); Anion Gap 7 mmol/L (4-12); Blood Urea Nitrogen 44 mg/dL (7-17); Calcium 9.9 mg/dL (8.4-10.2); Carbon Dioxide 24 mmol/L (22-30); Chloride 110 mmol/L (98-107); Estimated Glomerular Filt Rate 28; Glucose 136 mg/dL (65-110); Phosphorus 4.4 mg/dL (2.5-4.5); Potassium 4.3 mmol/L (3.4-5.0); Sodium 141 mmol/L (137-145)
[2023-10-12 10:10] LABS: Creatinine Urine 55.8 mg/dL; Total Protein Urine Random 6 mg/dL; Total Volume 24 Hour Urine 2000 ml; Ur Ttl Prot Creatinine Ratio 0.11 mg/mg (0-0.20); Urea Nitrogen 24 Hour Urine 16.1 G/DAY (12-20)
[2023-10-12 10:11] LABS: Parathyroid Intact 36.8 pg/mL (7.5-53.5)
[2023-10-13 07:29] LABS: Creat 24 Hr 1.08 g/24 h (0.50-2.15); Pro/Creat Ratio 93 mg/g creat (<150); Pro/Creat Ratio mg/mg 0.093 (<0.150); Protein,total, 24 Hr Ur 100 mg/24 h (<150)
== END 2023-10-12 09:18 | disposition home or self-care (01) ==
LOC: ANHLAB 09:18
PROVIDERS: PCP Internal Medicine; Visit Provider Internal Medicine Nephrology
DX: E11.9 Type 2 diabetes mellitus without complications (principal); E78.5 Hyperlipidemia, unspecified; Z48.817 Encounter for surgical aftercare following surgery on the skin and subcutaneous tissue; I12.9 Hypertensive chronic kidney disease with stage 1 through stage 4 chronic kidney disease, or unspecified chronic kidney disease; N18.32 Chronic kidney disease, stage 3b
CPT/HCPCS: 36415; 80069; 81050; 82570; 83970; 84156; 84540; 85027; 86335

== ENCOUNTER 2023-12-15 09:00 | Outpatient (CLI) | payer MEDICARE, SELFPAY ==
[2023-12-15 09:39] LABS: Basophils Percent Auto 0.8 % (0.2-1.2); Eosinophils Absolute Auto 0.1 K/mm3 (0-0.3); Eosinophils Percent Auto 3.1 % (0-4.4); Hematocrit 37.8 % (37.0-47.0); Hemoglobin 11.3 g/dL (12.0-15.0); Immature Granulocyte Absolute 0.06 K/mm3 (0.00-0.031); Immature Granulocyte Percent A 1.5 % (0-0.5); Lymphocytes Absolute Auto 1.53 K/mm3 (0.9-3.2); Lymphocytes Percent Auto 39.1 % (18.3-44.2); Mean Corpuscular HGB Conc 29.9 g/dl (32-36); Mean Corpuscular Volume 96.9 fl (80-100); Mean Platelet Volume 10.4 fl (7.4-10.4); Monocytes Absolute Auto 0.3 K/mm3 (0.1-0.6); Monocytes Percent Auto 8.7 % (2.6-8.5); Neutrophils Absolute Auto 1.8 K/mm3 (1.3-6.7); Neutrophils Percent Auto 46.8 % (45.5-73.1); Platelet Count Result 132 k/mm3 (150-375); Red Cell Distribution Width 14.4 % (11.5-14.5); White Blood Count 3.9 K/mm3 (4.5-10.0)
[2023-12-15 09:57] LABS: Alanine Aminotransferase 15 U/L (6-35); Albumin Level 3.9 g/dL (3.5-5.1); Alkaline Phosphatase 68 U/L (38-126); Anion Gap 7 mmol/L (4-12); Aspartate Amino Transferase 32 U/L (14-36); Bilirubin,Total 0.6 mg/dL (0.2-1.3); Blood Urea Nitrogen 40 mg/dL (7-17); Calcium 9.6 mg/dL (8.4-10.2); Carbon Dioxide 26 mmol/L (22-30); Chloride 108 mmol/L (98-107); Cholesterol 139 mg/dL (0-200); Estimated Glomerular Filt Rate 28; Glucose 129 mg/dL (65-110); HDL Direct 48 mg/dL; Potassium 4.7 mmol/L (3.4-5.0); Sodium 141 mmol/L (137-145); Triglycerides 166 mg/dL (<150)
[2023-12-15 10:06] LABS: Hemoglobin A1C 5.9 % (<5.7)
[2023-12-15 10:07] LABS: LDL Cholesterol Direct 69 mg/dL
[2023-12-15 10:24] LABS: Platelet Estimate Slightly Decreased (Adequate); Schistocytes None Seen
[2023-12-15 10:50] LABS: Thyroid Stimulating Hormone Reflex 0.536 uIU/mL (0.465-4.68)
== END 2023-12-15 09:01 | disposition home or self-care (01) ==
PROVIDERS: PCP Internal Medicine; Visit Provider Nurse Practitioner Psychiatric/Mental Health
DX: E78.5 Hyperlipidemia, unspecified (principal); E03.9 Hypothyroidism, unspecified; F31.32 Bipolar disorder, current episode depressed, moderate; F41.1 Generalized anxiety disorder; E11.9 Type 2 diabetes mellitus without complications; E66.9 Obesity, unspecified; F51.01 Primary insomnia; E55.9 Vitamin D deficiency, unspecified; Z79.899 Other long term (current) drug therapy
CPT/HCPCS: 36415; 80053; 80061; 80164; 80165; 83036; 84443; 85025

== ENCOUNTER 2023-12-31 14:19 | Outpatient (CLI) | payer MEDICARE, SELFPAY ==
[2023-12-31 14:39] LABS: Basophils Percent Auto 0.7 % (0.2-1.2); Eosinophils Absolute Auto 0.1 K/mm3 (0-0.3); Eosinophils Percent Auto 2.7 % (0-4.4); Hematocrit 36.5 % (37.0-47.0); Hemoglobin 11.4 g/dL (12.0-15.0); Immature Granulocyte Absolute 0.06 K/mm3 (0.00-0.031); Immature Granulocyte Percent A 1.4 % (0-0.5); Lymphocytes Absolute Auto 1.42 K/mm3 (0.9-3.2); Lymphocytes Percent Auto 34.2 % (18.3-44.2); Mean Corpuscular HGB Conc 31.2 g/dl (32-36); Mean Corpuscular Hemoglobin 29.8 pg (26-34); Mean Corpuscular Volume 95.3 fl (80-100); Monocytes Absolute Auto 0.4 K/mm3 (0.1-0.6); Monocytes Percent Auto 8.7 % (2.6-8.5); Neutrophils Absolute Auto 2.2 K/mm3 (1.3-6.7); Neutrophils Percent Auto 52.3 % (45.5-73.1); Platelet Count Result 125 k/mm3 (150-375); Red Blood Count 3.83 M/mm3 (4.2-5.4); White Blood Count 4.2 K/mm3 (4.5-10.0)
[2023-12-31 16:58] LABS: Iron 113 ug/dL (37-170)
[2023-12-31 17:08] LABS: Percent Iron Saturation 21 % (20-50)
[2023-12-31 17:12] LABS: Anion Gap 8 mmol/L (4-12); Blood Urea Nitrogen 33 mg/dL (7-17); Calcium 9.6 mg/dL (8.4-10.2); Carbon Dioxide 26 mmol/L (22-30); Chloride 106 mmol/L (98-107); Estimated Glomerular Filt Rate 30; Glucose 108 mg/dL (65-110); Potassium 4.8 mmol/L (3.4-5.0); Sodium 140 mmol/L (137-145)
[2023-12-31 18:15] LABS: Folic Acid 9.9 ng/mL (2.76->20)
[2024-01-04 14:13] LABS: Methylmalonic Acid 277 nmol/L (69-390)
== END 2023-12-31 14:20 | disposition home or self-care (01) ==
LOC: ANHLAB 14:22
PROVIDERS: PCP Internal Medicine; Visit Provider Internal Medicine Hematology & Oncology
DX: D63.8 Anemia in other chronic diseases classified elsewhere (principal)
CPT/HCPCS: 36415; 80048; 82607; 82728; 82746; 83540; 83550; 83921; 84238; 85025

== ENCOUNTER 2024-01-28 13:54 | Emergency (ER) | payer MEDICARE, MEDICAID, SELFPAY ==
--- NOTE | ~2024-01-28 | XR_ITS ---
EXAMINATION: XR chest 2V Exam Date/Time: 01/28/2024 14:45 CDT HISTORY: productive cough Comparison: 10/17/2022. RESULT: Lines, tubes, and devices: None. Lungs and pleura: Ill-defined subsegmental airspace disease in the left lower lobe. Cardiomediastinal silhouette: Stable. Other: No acute osseous or upper abdominal finding. IMPRESSION: Subsegmental left lower lobe airspace disease concerning for pneumonia. Reviewed, dictated and finalized at location K.
[2024-01-28 14:08] VITALS: BP 139/73; PULSE 80; RESP 20; TEMP 36.8; O2SAT 97
--- NOTE | 2024-01-28 14:26 | ED.URI ---
HPI - URI/Sore Throat General Chief Complaint: Upper Respiratory Infection Stated Complaint: throat hurts,GOMEZ,bodyaches Time Seen by Provider: 01/28/24 14:26 Source: patient, RN notes reviewed and old records reviewed Mode of arrival: ambulatory Limitations: no limitations History of Present Illness HPI Narrative: Quite possible patient presents with complaints of sore throat, cough, fever and fatigue for 4 days. She reports cough became productive today. She has been using lozenges and Tylenol for her symptoms. She reports the most bothersome symptom is her sore throat, states that pain is worse when she coughs. She denies any shortness of breath. Related Data Home Medications Medication Instructions Recorded Confirmed divalproex 500 mg tablet,delayed 500 mg PO HS 04/16/19 01/28/24 release quetiapine 100 mg tablet (Seroquel) 100 mg PO HS 04/16/19 01/28/24 lamotrigine 100 mg tablet 100 mg PO BID 04/19/20 01/28/24 buspirone 10 mg tablet 10 mg PO TID 02/15/21 01/28/24 divalproex 250 mg tablet,delayed 250 mg PO DAILY 10/17/22 01/28/24 release acetaminophen 325 mg capsule 325 mg PO Q6H PRN Pain 12/27/22 01/28/24 lorazepam 0.5 mg tablet 0.5 mg PO BID 10/05/23 01/28/24 fluoxetine 20 mg capsule 20 mg PO DAILY 01/28/24 01/28/24 Allergies Allergy/AdvReac Type Severity Reaction Status Date / Time diphenhydramine Allergy Severe HYPERACTIVE Verified 11/21/23 13:56 FEELING oxycodone Allergy Severe go crazy Verified 11/21/23 13:56 tramadol Allergy Severe itching Verified 11/21/23 13:56 codeine AdvReac Mild feel weird Verified 11/21/23 13:56 ALL STEROIDS AdvReac Other Uncoded 01/28/24 14:45 Review of Systems Review of Systems: All systems reviewed & are unremarkable except as noted in HPI and below Constitutional: Constitutional: Reports no additional constitutional complaints ENT: Reports system reviewed and no additional complaints, except as documented, Reports as per HPI and Reports sore throat Cardiovascular: Cardiovascular: Reports no additional cardiovascular complaints Respiratory: Respiratory: Reports as per HPI, Reports no additional respiratory complaints, Reports chest congestion, Reports cough, Reports excessive phlegm production and Reports pain with cough Gastrointestinal: Gastrointestinal: Reports no additional gastrointestinal complaints PMFSH Past Medical History Medical History Bipolar 1 disorder Cholelithiases Chronic kidney disease, stage 3 Depression with anxiety Dyslipidemia Fatty infiltration of liver Grade I diastolic dysfunction History of kidney stones History of uterine cancer Hypertension Hypothyroidism Morbid obesity Posttraumatic stress disorder Type 2 diabetes mellitus Surgical History Surgical History History of section History of hysterectomy For endometrial cancer. History of removal of cyst From the back. Family History Family History Mother Family history of cardiovascular disease Diabetes mellitus Leukemia Father Family history of lung cancer Liver cancer AIDS Grandparent Stomach cancer Grandparent Cerebrovascular accident Other Depression Hypertension Social History Social History Social History: Surrogate medical decision maker: Mirtha Byers (daughter) or Brinda Stuart (sister). Code status: Full code. Smoking status: Never smoker Alcohol intake: never Substance use: never Substance use type: does not use Do You Feel Safe in your Home?: Yes Lack of Transportation: No Lack of Food: Never True Current Housing: I Have Housing Concerned About Future Housing: No Difficulty Paying Gas/Electric Bills: No Difficulty Paying for Meds: No Currently Unemploy[employer]
[2024-01-28 14:35] LABS: EDINFLUASCREEN Negative; EDINFLUBSCREEN Negative
[2024-01-28 14:47] LABS: Glucose Point of Care 130 mg/dl (65-105)
[2024-01-28 15:30] VITALS: PULSE 88; RESP 18; O2SAT 97
[2024-01-30 16:37] LABS: EDSTREPNEGPOS1 Negative
== END 2024-01-28 15:30 | disposition home or self-care (01) ==
PROVIDERS: Emergency Provider Nurse Practitioner Family; PCP Nurse Practitioner
DX: J18.9 Pneumonia, unspecified organism (principal); Z20.822 Contact with and (suspected) exposure to COVID-19; I12.9 Hypertensive chronic kidney disease with stage 1 through stage 4 chronic kidney disease, or unspecified chronic kidney disease; E11.22 Type 2 diabetes mellitus with diabetic chronic kidney disease; N18.30 Chronic kidney disease, stage 3 unspecified; E78.5 Hyperlipidemia, unspecified; E03.9 Hypothyroidism, unspecified; E66.01 Morbid (severe) obesity due to excess calories; Z68.39 Body mass index [BMI] 39.0-39.9, adult; F31.9 Bipolar disorder, unspecified; F41.9 Anxiety disorder, unspecified
CPT/HCPCS: 71046; 82948; 87081; 87426; 87804; 87880; 99213; G0463

== ENCOUNTER 2024-01-28 20:05 | Emergency (ER) | payer MEDICARE, MEDICAID, SELFPAY ==
[2024-01-28 20:25] VITALS: BP 142/69; PULSE 74; RESP 20; TEMP 36.7; O2SAT 97
[2024-01-28 22:55] VITALS: BP 165/76; PULSE 66; RESP 16; TEMP 36.8; O2SAT 95
--- NOTE | 2024-01-29 00:54 | ED.GENADULT ---
HPI - General Adult General Chief complaint: Shortness of Breath/Dyspnea Stated complaint: feels funny, facial twisting Time Seen by Provider: 01/29/24 00:40 History of Present Illness HPI narrative: This is a 63-year-old female with history of anxiety depression bipolar disorder presenting to the ED with concerns about her pneumonia diagnosis. She was diagnosed with pneumonia at the urgent care earlier today as she has been having a cough. She was started on doxycycline. After the patient took the doxycycline she felt like she had a cramp on the side of her face that happened 1 time and that has not occurred since then. She has not had any other signs of allergic reaction such as hives, throat swelling, nausea vomiting or diarrhea. She has had a cough and sometime she gets very scared when she starts coughing she will be able to breathe. She believes she had a panic attack earlier. At this time the patient is not in any respiratory distress and is resting comfortably in the room although she appears anxious. Related Data Home Medications Medication Instructions Recorded Confirmed divalproex 500 mg tablet,delayed 500 mg PO HS 04/16/19 01/28/24 release quetiapine 100 mg tablet (Seroquel) 100 mg PO HS 04/16/19 01/28/24 lamotrigine 100 mg tablet 100 mg PO BID 04/19/20 01/28/24 buspirone 10 mg tablet 10 mg PO TID 02/15/21 01/28/24 divalproex 250 mg tablet,delayed 250 mg PO DAILY 10/17/22 01/28/24 release acetaminophen 325 mg capsule 325 mg PO Q6H PRN Pain 12/27/22 01/28/24 lorazepam 0.5 mg tablet 0.5 mg PO BID 10/05/23 01/28/24 fluoxetine 20 mg capsule 20 mg PO DAILY 01/28/24 01/28/24 Allergies Allergy/AdvReac Type Severity Reaction Status Date / Time diphenhydramine Allergy Severe HYPERACTIVE Verified 01/28/24 20:28 FEELING oxycodone Allergy Severe go crazy Verified 01/28/24 20:28 tramadol Allergy Severe itching Verified 01/28/24 20:28 codeine AdvReac Mild feel weird Verified 01/28/24 20:28 ALL STEROIDS AdvReac Other Uncoded 01/28/24 14:45 [facility] Past Medical History Medical History Bipolar 1 disorder Cholelithiases Chronic kidney disease, stage 3 Depression with anxiety Dyslipidemia Fatty infiltration of liver Grade I diastolic dysfunction History of kidney stones History of uterine cancer Hypertension Hypothyroidism Morbid obesity Posttraumatic stress disorder Type 2 diabetes mellitus Surgical History Surgical History History of section History of hysterectomy For endometrial cancer. History of removal of cyst From the back. Family History Family History Mother Family history of cardiovascular disease Diabetes mellitus Leukemia Father Family history of lung cancer Liver cancer AIDS Grandparent Stomach cancer Grandparent Cerebrovascular accident Other Depression Hypertension Social History Social History Social History: Surrogate medical decision maker: Mirtha Zeeshan (daughter) or Brinda Stuart (sister). Code status: Full code. Smoking status: Never smoker Alcohol intake: never Substance use: never Substance use type: does not use Do You Feel Safe in your Home?: Yes Lack of Transportation: No Lack of Food: Never True Current Housing: I Have Housing Concerned About Future Housing: No Difficulty Paying Gas/Electric Bills: No Difficulty Paying for Meds: No Currently Unemployed: No Education: High School Diploma/GED Difficulty w/ Childcare or Family Care: No Gender identity (if verbalized by the patient): Female Sexual Orientation (if Verbalized by the Patient): Straight or Heterosexual Spiritual care concerns: No Exam Narrative: APPEARANCE: Anxious appearing Head: atraumatic. EYES: EOMI, NOSE: Atraumati
[2024-01-29 01:07] VITALS: O2SAT 99
[2024-01-29 01:08] VITALS: BP 134/87; PULSE 78; RESP 18; O2SAT 99
== END 2024-01-29 01:09 | disposition home or self-care (01) ==
PROVIDERS: Emergency Provider Emergency Medicine; PCP Nurse Practitioner
DX: J18.9 Pneumonia, unspecified organism (principal); F41.9 Anxiety disorder, unspecified; F31.9 Bipolar disorder, unspecified; I12.9 Hypertensive chronic kidney disease with stage 1 through stage 4 chronic kidney disease, or unspecified chronic kidney disease; E11.22 Type 2 diabetes mellitus with diabetic chronic kidney disease; N18.30 Chronic kidney disease, stage 3 unspecified; Z87.442 Personal history of urinary calculi; E03.9 Hypothyroidism, unspecified
CPT/HCPCS: 71046; 82948; 87081; 87426; 87804; 87880; 99281

== ENCOUNTER 2024-02-14 10:51 | Emergency (ER) | payer MEDICARE, MEDICAID, SELFPAY ==
--- NOTE | ~2024-02-14 | XR_ITS ---
EXAMINATION: XR chest 2V DATE: 02/14/2024 13:24 INDICATION: Recent pneumonia. TECHNIQUE: PA and lateral views of the chest were obtained. COMPARISON: Chest radiograph dated 01/28/2024 FINDINGS: The prior airspace opacity left lower lung zone has resolved. The lungs are clear with no airspace op acities, pulmonary edema, pleural effusion or pneumothorax. The cardiomediastinal silhouette is daisy l. Dense mitral annular calcification. IMPRESSION: 1. No acute cardiopulmonary disease with resolution of the prior opacity at the left lower lung zone. Reviewed, dictated and finalized at location A.
[2024-02-14 10:52] VITALS: BP 148/99; PULSE 69; RESP 16; TEMP 36.6; O2SAT 98
[2024-02-14 12:19] VITALS: BP 144/76; PULSE 66; RESP 18; O2SAT 100
[2024-02-14 12:31] VITALS: BP 115/60; PULSE 62; RESP 20; O2SAT 98
--- NOTE | 2024-02-14 12:56 | ED.GENADULT ---
HPI - General Adult General Chief complaint: Upper Respiratory Infection Stated complaint: multiple complaints Time Seen by Provider: 02/14/24 12:32 Source: patient Mode of arrival: ambulatory Limitations: no limitations History of Present Illness HPI narrative: Patient reports continually not feeling well and overall generalized weakness. She was recently treated with doxycycline for pneumonia that was diagnosed at an urgent care on 01/28/2024. She was subsequently seen in the emergency department on 01/29/2024 and she states that she was told that her lungs sounded good but in general she states the visit was late at night and she does not recall many of the instruction she was given. She has had decreased p.o. intake and occasionally vomiting. She notes that the difficulty breathing is somewhat better although she still coughs with deep breaths and experiences dyspnea with exertion. She has also been a bit forgetful on which medication she should take despite the fact that at baseline she uses many alarms to keep track. Denies any lower extremity edema. States she called her healthcare provider, Jackelyn Garcia DEVICE TEST ENGINEER with Dr Fallon. She was frustrated as she was not able to get in to be seen and they advised her to present to the emergency department. She felt that she should have been able to get in to be seen in the past several weeks and doesn't like that she had to come to the ED to be evaluated. History of anemia but no previous blood transfusions required. Patient has not been taking any steroids; states she has an adverse reaction with them due to her history of diabetes which caused her to be admitted to the intensive care unit 1 point. Related Data Home Medications Medication Instructions Recorded Confirmed divalproex 500 mg tablet,delayed 500 mg PO HS 04/16/19 01/28/24 release quetiapine 100 mg tablet (Seroquel) 100 mg PO HS 04/16/19 01/28/24 lamotrigine 100 mg tablet 100 mg PO BID 04/19/20 01/28/24 buspirone 10 mg tablet 10 mg PO TID 02/15/21 01/28/24 divalproex 250 mg tablet,delayed 250 mg PO DAILY 10/17/22 01/28/24 release acetaminophen 325 mg capsule 325 mg PO Q6H PRN Pain 12/27/22 01/28/24 lorazepam 0.5 mg tablet 0.5 mg PO BID 10/05/23 01/28/24 fluoxetine 20 mg capsule 20 mg PO DAILY 01/28/24 01/28/24 Allergies Allergy/AdvReac Type Severity Reaction Status Date / Time diphenhydramine Allergy Severe HYPERACTIVE Verified 01/28/24 20:28 FEELING oxycodone Allergy Severe go crazy Verified 01/28/24 20:28 tramadol Allergy Severe itching Verified 01/28/24 20:28 codeine AdvReac Mild feel weird Verified 01/28/24 20:28 ALL STEROIDS AdvReac Other Uncoded 01/28/24 14:45 [facility] Past Medical History Medical History Bipolar 1 disorder Cholelithiases Chronic kidney disease, stage 3 Depression with anxiety Dyslipidemia Fatty infiltration of liver Grade I diastolic dysfunction History of anemia History of kidney stones History of uterine cancer Hypertension Hypothyroidism Morbid obesity Pneumonia January 2024 Posttraumatic stress disorder Type 2 diabetes mellitus Surgical History Surgical History History of section History of hysterectomy For endometrial cancer. History of removal of cyst From the back. Family History Family History Mother Family history of cardiovascular disease Diabetes mellitus Leukemia Father Family history of lung cancer Liver cancer AIDS Grandparent Stomach cancer Grandparent Cerebrovascular accident Other Depression Hypertension Social History Social History Social History: Surrogate medical decision maker: Mirhta Byers (daughter) or Brinda Stuart (sister). Code status: Full code. Smoking status: Never smoker Alcohol intake: nev
[2024-02-14 13:46] LABS: Basophils Percent Auto 0.5 % (0.2-1.2); Eosinophils Absolute Auto 0.1 K/mm3 (0-0.3); Eosinophils Percent Auto 2.1 % (0-4.4); Hematocrit 37.3 % (37.0-47.0); Hemoglobin 11.6 g/dL (12.0-15.0); Immature Granulocyte Absolute 0.05 K/mm3 (0.00-0.031); Immature Granulocyte Percent A 1.2 % (0-0.5); Lymphocytes Absolute Auto 1.37 K/mm3 (0.9-3.2); Lymphocytes Percent Auto 31.9 % (18.3-44.2); Mean Corpuscular HGB Conc 31.1 g/dl (32-36); Mean Corpuscular Hemoglobin 30.3 pg (26-34); Mean Corpuscular Volume 97.4 fl (80-100); Mean Platelet Volume 10.2 fl (7.4-10.4); Monocytes Absolute Auto 0.4 K/mm3 (0.1-0.6); Monocytes Percent Auto 9.6 % (2.6-8.5); Neutrophils Absolute Auto 2.4 K/mm3 (1.3-6.7); Neutrophils Percent Auto 54.7 % (45.5-73.1); Platelet Count Result 122 k/mm3 (150-375); Red Blood Count 3.83 M/mm3 (4.2-5.4); Red Cell Distribution Width 13.9 % (11.5-14.5); White Blood Count 4.3 K/mm3 (4.5-10.0)
[2024-02-14 13:57] LABS: Alanine Aminotransferase 16 U/L (6-35); Albumin Level 3.7 g/dL (3.5-5.1); Alkaline Phosphatase 79 U/L (38-126); Anion Gap 8 mmol/L (4-12); Aspartate Amino Transferase 35 U/L (14-36); Bilirubin,Total 0.5 mg/dL (0.2-1.3); Blood Urea Nitrogen 44 mg/dL (7-17); Calcium 9.2 mg/dL (8.4-10.2); Carbon Dioxide 25 mmol/L (22-30); Chloride 106 mmol/L (98-107); Estimated CRCL calculation 34 ml/min; Estimated Glomerular Filt Rate 30; Glucose 120 mg/dL (65-110); Magnesium 2.4 mg/dL (1.6-2.3); Potassium 4.5 mmol/L (3.4-5.0); Sodium 139 mmol/L (137-145)
[2024-02-14 14:06] LABS: NT Pro B Type Natriuretic Pept 602 pg/mL (19.9-100)
[2024-02-14 14:13] LABS: Add Urine Microscopic? NO; Appearance Urine Clear (Clear); Bilirubin Urine Negative (Negative); Blood Urine Negative (Negative); Color Urine Yellow (Yellow); Glucose Urine UA 3+ mg/dL (Negative); Ketones Urine Negative (Negative); Leukocyte Esterase Ur Negative LEU/UL (Negative); Nitrate Urine Negative (Negative); Protein Urine Negative (Negative); Specific Grav Ur 1.028 (1.001-1.035); pH Urine 5.5 (5.0-9.0)
[2024-02-14 14:43] VITALS: PULSE 70; RESP 19; O2SAT 97
[2024-02-14 14:45] VITALS: BP 140/69; PULSE 68; RESP 16; O2SAT 98
== END 2024-02-14 15:33 | disposition home or self-care (01) ==
PROVIDERS: Emergency Provider Student in an Organized Health Care Education/Training Program; PCP Nurse Practitioner
DX: D72.819 Decreased white blood cell count, unspecified (principal); R06.00 Dyspnea, unspecified; D69.6 Thrombocytopenia, unspecified; R81 Glycosuria; Z87.01 Personal history of pneumonia (recurrent); I13.10 Hypertensive heart and chronic kidney disease without heart failure, with stage 1 through stage 4 chronic kidney disease, or unspecified chronic kidney disease; E11.22 Type 2 diabetes mellitus with diabetic chronic kidney disease; N18.30 Chronic kidney disease, stage 3 unspecified; E78.5 Hyperlipidemia, unspecified; E03.9 Hypothyroidism, unspecified; F31.9 Bipolar disorder, unspecified; F41.8 Other specified anxiety disorders; F43.10 Post-traumatic stress disorder, unspecified; Z79.51 Long term (current) use of inhaled steroids; Z79.84 Long term (current) use of oral hypoglycemic drugs
CPT/HCPCS: 36415; 71046; 80053; 81003; 83735; 83880; 85025; 99283

== ENCOUNTER 2024-03-15 09:28 | Outpatient (CLI) | payer MEDICARE, MEDICAID, SELFPAY ==
[2024-03-15 10:15] LABS: Anion Gap 5 mmol/L (4-12); Blood Urea Nitrogen 40 mg/dL (7-17); Calcium 9.3 mg/dL (8.4-10.2); Carbon Dioxide 27 mmol/L (22-30); Chloride 108 mmol/L (98-107); Cholesterol 172 mg/dL (0-200); Estimated Glomerular Filt Rate 30; Glucose 153 mg/dL (65-110); HDL Direct 53 mg/dL; Potassium 4.6 mmol/L (3.4-5.0); Sodium 140 mmol/L (137-145); Triglycerides 216 mg/dL (<150)
[2024-03-15 10:26] LABS: LDL Cholesterol Direct 74 mg/dL
[2024-03-15 10:31] LABS: Hemoglobin A1C 6.5 % (<5.7)
[2024-03-15 10:46] LABS: Vitamin D 25 Hydroxy 46.5 ng/mL
[2024-03-15 10:46] LABS: Thyroid Stimulating Hormone 0.296 uIU/mL (0.465-4.680)
== END 2024-03-15 09:29 | disposition home or self-care (01) ==
PROVIDERS: PCP Nurse Practitioner; Visit Provider Nurse Practitioner
DX: E11.22 Type 2 diabetes mellitus with diabetic chronic kidney disease (principal); N18.4 Chronic kidney disease, stage 4 (severe); E03.9 Hypothyroidism, unspecified; E55.9 Vitamin D deficiency, unspecified
CPT/HCPCS: 36415; 80048; 80061; 82306; 83036; 84443

== ENCOUNTER 2024-04-11 08:15 | Outpatient (CLI) | payer MEDICARE, MEDICAID, SELFPAY ==
--- NOTE | ~2024-04-11 | MM_ITS ---
EXAMINATION: MM screening sridhar BI w abigail HISTORY: Screening mammogram TECHNIQUE: Craniocaudal and mediolateral oblique 3-D tomosynthesis images were obtained and synthetic 2-D images were generated. CAD analysis was submitted and interpreted. COMPARISON: 01/20/2009 BREAST PARENCHYMAL COMPOSITION:Not Dense. The breasts are almost entirely fatty FINDINGS: No suspicious mass, calcification, or architectural distortion are identified in either bhavani ast to suggest malignancy. There has been no suspicious interval change. IMPRESSION: No mammographic evidence of malignancy. Recommend routine screening mammography in one year. BI-RADS Category 1: Negative Reviewed, dictated and finalized at location .
== END 2024-04-11 08:16 | disposition home or self-care (01) ==
LOC: ANHIMG 08:18
PROVIDERS: PCP Nurse Practitioner; Visit Provider Nurse Practitioner
DX: Z12.31 Encounter for screening mammogram for malignant neoplasm of breast (principal)
CPT/HCPCS: 77063; 77067

== ENCOUNTER 2024-06-21 09:42 | Outpatient (CLI) | payer MEDICARE, MEDICAID, SELFPAY ==
[2024-06-21 10:03] LABS: Anion Gap 7 mmol/L (4-12); Blood Urea Nitrogen 27 mg/dL (7-17); Calcium 9.5 mg/dL (8.4-10.2); Carbon Dioxide 26 mmol/L (22-30); Chloride 107 mmol/L (98-107); Estimated Glomerular Filt Rate 36; Glucose 149 mg/dL (65-110); Potassium 4.5 mmol/L (3.4-5.0); Sodium 140 mmol/L (137-145)
[2024-06-21 10:04] LABS: Hemoglobin A1C 7.1 % (<5.7)
== END 2024-06-21 09:43 | disposition home or self-care (01) ==
PROVIDERS: PCP Nurse Practitioner; Visit Provider Clinical Nurse Specialist
DX: E11.22 Type 2 diabetes mellitus with diabetic chronic kidney disease (principal); N18.4 Chronic kidney disease, stage 4 (severe)
CPT/HCPCS: 36415; 80048; 83036

== ENCOUNTER 2024-09-30 09:48 | Outpatient (CLI) | payer MEDICARE, MEDICAID, SELFPAY ==
[2024-09-30 10:08] LABS: Basophils Percent Auto 0.3 % (0.2-1.2); Eosinophils Absolute Auto 0.1 K/mm3 (0-0.3); Eosinophils Percent Auto 2.7 % (0-4.4); Hematocrit 35.3 % (37.0-47.0); Hemoglobin 10.6 g/dL (12.0-15.0); Immature Granulocyte Absolute 0.03 K/mm3 (0.00-0.031); Immature Granulocyte Percent A 0.9 % (0-0.5); Lymphocytes Absolute Auto 1.19 K/mm3 (0.9-3.2); Lymphocytes Percent Auto 35.7 % (18.3-44.2); Mean Corpuscular Hemoglobin 28.6 pg (26-34); Mean Corpuscular Volume 95.1 fl (80-100); Mean Platelet Volume 9.8 fl (7.4-10.4); Monocytes Absolute Auto 0.4 K/mm3 (0.1-0.6); Monocytes Percent Auto 10.5 % (2.6-8.5); Neutrophils Absolute Auto 1.7 K/mm3 (1.3-6.7); Neutrophils Percent Auto 49.9 % (45.5-73.1); Platelet Count Result 118 k/mm3 (150-375); Red Blood Count 3.71 M/mm3 (4.2-5.4); Red Cell Distribution Width 14.2 % (11.5-14.5); White Blood Count 3.3 K/mm3 (4.5-10.0)
[2024-09-30 10:26] LABS: Alanine Aminotransferase 15 U/L (6-35); Albumin Level 3.7 g/dL (3.5-5.1); Alkaline Phosphatase 77 U/L (38-126); Anion Gap 7 mmol/L (4-12); Aspartate Amino Transferase 27 U/L (14-36); Bilirubin,Total 0.5 mg/dL (0.2-1.3); Blood Urea Nitrogen 40 mg/dL (7-17); Calcium 9.5 mg/dL (8.4-10.2); Carbon Dioxide 25 mmol/L (22-30); Chloride 107 mmol/L (98-107); Estimated Glomerular Filt Rate 28; Glucose 161 mg/dL (65-110); Potassium 5.4 mmol/L (3.4-5.0); Sodium 139 mmol/L (137-145)
[2024-09-30 10:44] LABS: Creatinine Urine 50.2 mg/dL
[2024-09-30 10:49] LABS: MALB Creatinine Ratio 30.3 mg/g (0-30); Microalbumin Urine Random 15.2 mg/L (0-16.7)
--- OUTSIDE RECORDS SUMMARY | 2024-09-30 11:00 | XMS_ITS | Clinical Summary ---
Author Organization [facility] Address [address], [facility] [address] [place] [address] Phone Care Team Providers Care Manager Neonatal Name Role Phone Derrell Scott MD Primary Care Provider Social History Tobacco Use Types Packs/Day Years Used Date Smoking Tobacco: Never Assessed Comments Unknown Sex and Gender Information Value Date Recorded Sex Assigned at Not on file Legal Sex Female 10:21 AM CDT Gender Identity Not on file Sexual Orientation Not on file Plan of Treatment Health Maintenance Due Date Last Done Comments Hepatitis C Virus (HCV) Screening 1960 TdaP Immunization 1960 Pap Smear 1981 Cervical Cancer Screening (CCS) 1990 HPV/Cotest 1990 Colonoscopy 2005 Colorectal Cancer Screening 2005 Cologuard 2010 Immunochemical Fecal Occult Blood 2010 Mammogram 2010 Pneumococcal Immunization (5 0+ years) (1 of 1 - PCV) 2010 Zoster Immunization (1 of 2) 2010 Influenza Immunization (#1) 2024 SARS-COV-2 Immunization ( season) 2024 04/12/2021, 09/28/2020, 09/07/2020 Respiratory Syncytial Virus (RSV) Immunization (Adult) (1 - 1-dose 75+ series) 2035 Hepatitis B Immunization Aged Out No longer eligible based on patient's age to complete this topic Meningococcal Immunization (ACWY) Aged Out No longer eligible b ased on patient's age to complete this topic Pneumococcal Immunization Combined Aged Out No longer eligible b ased on patient's age to complete this topic Rotavirus Immunization Aged Out No lo nger eligible based on patient's age to complete this topic Insurance MEDICARE Care Teams Manager Neonatal Relationship Specialty Start Date End Date Derrell Scott MD [address] [place] [id number] PCP - General Family Medicine 03/18/20
--- OUTSIDE RECORDS SUMMARY | 2024-09-30 11:00 | XMS_ITS | Patient Health Record ---
Author Organization [facility] As [facility] Address [address] [place] [address] Care Team Providers [employer] Operations Specialist Name Role Phone Jules Govea DO Primary Care Provider Hemant Rea Unavailable [phone] Migration, Provider Unavailable Unavailable Allergies Allergen (clinical drug ingredient) Drug/Non Drug Allergy documented on EMR Reaction Allergy Type Onset Date Status diphenhydramine Benadryl Unknown Drug Allergy 09/14/2023 Active oxycodone Oxycodone Unknown Drug Allergy 09/14/2023 Active tramadol Tramadol Unknown Drug Allergy 09/14/2023 Active Reason For Referral No Information Medications Medication SIG (Take, Route, Frequency, Duration) Notes Start Date End Date Status CHOLECALCIFEROL (VITAMIN D3) 25 MCG (1,000 UNIT) CAPSULE *Reorder from [employer] for eRx and Interaction Alerts* 4 Active Contour Next One MISCELLANEOUS 4 Active Fluconazole 150 MG Oral 4 Active Levothyroxine Sodium 125 MCG Oral 4 Active Acetaminophen Extra Strength 500 MG Oral 4 Active Depakote 250 MG Oral 4 Active Pantoprazole Sodium 40 MG Oral 4 Active hydroCHLOROthiazide 25 MG Oral 4 Not-Taking Fenofibrate 145 MG Oral 4 Active Divalproex Sodium 500 MG 1 tablet Oral a t bedtime for 90 days Active Divalproex Sodium 250 MG 1 tablet Oral i n am for 90 days Active lamoTRIgine 100 MG 1 tablet Oral twice a day for 90 days Active QUEtiapine Fumarate 100 MG 1 tablet Oral bedtime for 90 days Active LORazepam 0.5 MG 1 tablet Oral twice a day for 30 days OK TO FILL 06/13/24 5 Active busPIRone HCl 10 MG 1 tablet Oral three times a day for 90 days Active FLUoxetine HCl 20 MG 1 capsule Oral Once a day for 90 days Active Losartan Potassium 25 MG Oral 4 Active Atorvastatin Calcium 80 MG Oral 4 Active Jardiance 25 MG Oral 4 Active Contour Blood Glucose System w/Device In Vitro 4 Active Carvedilol 3.125 MG Oral 09/14/19 2 4 Active Immunizations Vaccine Route Administration Date Status Comme nts Pfizer Biontech Covid-19 Vac cine 2nd dose Unknown 09/07/2020 Administered Pfizer Biontech Covid-19 Vac cine 2nd dose Unknown 09/28/2020 Administered Pfizer [employer]ion[employer] Covid-19 Vac cine 2nd dose Unknown 04/12/2021 Administered Social History Tobacco Use: Social History Observation Description Date Details (start date - stop date) Never Smoker NA - NA Sex Assigned At : Social History Observation Description Sex Assigned At Female Tobacco Control (Standard) Question Answer Notes Tobacco use: Nonsmoker Problems Problem Type SNOMED Code ICD Code Onset Dates Problem Status W/U Status Risk Notes Problem Bipolar affective disorder, currently depressed, moderate (277428019) Bipolar disorder, current episode depressed, moderate (F31.32) 4 Active confirmed Problem Generalized anxiety disorder (96444385) Generalized anxiety disorder (F41.1) 4 Active confirmed Problem Posttraumatic stress disorder (38493943) Post-traumatic stress disorder, chronic (F43.12) 4 Active confirmed Problem Primary hypersomnia (17482561) Primary hypersomnia (F51.11) 4 Active confirmed Problem Long-term current use of drug therapy (342505194) Other terminal carman (current) drug therapy (Z79.899) 4 Active confirmed Vital Signs Heart Rate 78 /min 06/13/2024 Height-cm 160.02 cm 06/13/2024 Blood pressure diastolic 81 mm Hg 06/13/2024 Weight-kg 110.22 kg 06/13/2024 Height 63.00 in 06/13/2024 Blood pressure systolic 140 mm Hg 06/13/2024 Weight 243 lbs 06/13/2024 BMI 43.04 kg/m2 06/13/2024 Encounters Encounter Location Date Provider Diagnosis [facility] [address] [place] [address] 12/21/2023 Hemant Loco Bipolar disorder, current episode depressed, moderate F31.32 ; Generalized anxiety disorder F41.1 ; Primary hypersomnia F51.11 ; Post-traumatic stress disorder, chronic F43.12 and Other terminal carman (current) drug therapy Z79.899 [facility], [facility] [address] [place] [address] 03/14/2024 Hemant Loco Bipolar disorder, current episode depressed, moderate F31.32 ; Generalized anxiety disorder F41.1 ; Primary hypersomnia F51.11 ; Post-traumatic stress disorder, chronic F43.12 and Other chcf (current) drug therapy Z79.899 [facility], [facility] [address] [place] [address] 06/13/2024 Hemant Loco Bipolar disorder, current episode depressed, moderate F31.32 ; Generalized anxiety disorder F41.1 ; Primary hypersomnia F51.11 ; Post-traumatic stress disorder, chronic F43.12 and Other terminal carman (current) drug therapy Z79.899 [facility], [facility] [address] [place] [address] 10/22/2023 Provider Migration [facility], [facility] [address] [place] [address] 10/27/2023 Provider Migration [facility], [facility] [address] [place] [address] 10/28/2023 Provider Migration [facility], [facility] [address] [place] [address] 10/29/2023 Provider Migration [facility], [facility] [address] [place] [address] 11/14/2023 Hemant Loco [facility], [facility] [address] [place] [address] 12/31/2023 Hemant Loco [facility], [facility] [address] [place] [address] 02/13/2024 Hemant [employer] [address] [place] [address] 05/01/2024 Hemant Loco [facility] [employer] [address] [place] [address] 05/05/2024 Hemant Loco Assessments Encounter Date Diagnosis (ICD Code) Assessment Notes Treatment Notes Treatment Clinical Notes Section Notes 06/13/2024 Bipolar disorder, current episode depressed, moderate (ICD-10 - F31.32) Bipolar Disorder: Care Instructions material was published, Learning About Movement Disorders From Antipsychotic Medicines material was published, Learning About Mood Disorders material was published, Learning About How to Get Help During a Mental Health Crisis material was published obtain labs PCP and kidney provider 1. Mild bipolar disorder - Depakote 250 mg in am and continue Depakote 500 mg at night Lamotrigine 100 mg twice a day Seroquel 100 mg at bedtime- LABS completed will obtained - she is seeing specialist with abnormal labs and saw PCP pill box for all medications aims=1 07/28/22 AIMS- 1 09/13/23 missing teeth refer to therapy [facility] educated on all medications, benefits, side effects and risk, and educated on depression, anxiety, and , mood d/o and educated on compliance of medications, metabolic and movement d/o education appointment's, continue therapy discussion with patient about course of treatmentand patient instructions. education on serotonin syndrome Discussed and educated pt regarding benzodiazepines are generally not intended for prolonged use and that use can cause tolerance, dependence, depression, and associated memory issues including dementias (this list is not exhaustive). Benzodiazepine use is generally not recommended concurrently with pain medications and/or other controlled substances due to increased risks of profound sedation, respiratory depression, coma, and even . They are not to be used with any alcohol, as this combination can also be lethal. Patient was provided caution Lamotrigine lamotrigine has a serious rashes requiring hospitalization and discontinue treatment including Dallin John syndrome rare case of toxic epidermal necrolysis and cache related deaths. Incidence with adjunct of epilepsy treatment 0.8% in 2 to 16 years old and 0.3% in adults, bipolar and other mood disorders incidence 0.8% this initial monotherapy and 0.13% as adjunctive treatment. Other risk factor may include concomitant use of valproate acid derivative or exceeding initial lamotrigine does or does as clinician recommendation; most life-threatening rash of occurring first 2 to 8 week of treatment with isolated cases after prolonged treatment; though benign may occur, discontinue treatment at first sign of rash unless clearly not a drug related; TC treatment may not prevent trash from becoming life-threatening or permanently disabling or disfiguring. Comment reaction include, nausea/vomiting, dizziness/vertigo, visual disturbances, somnolence, ataxia, pruritus/rash, pharyngitis, headache, rhinitis, diarrhea, fever, asthenia, insomnia, tremor, abdominal pain, cough, accidental injury, constipation, dysmenorrhea, incoordination, anxiety, seizures, irritability, anorexia, xerostomia, and photosensitivity. Serious reactions include: Rash, severe; Minor John syndrome; toxic epidermal necrosis; injury edema, hypersensitivity reactions. Including fatal, multiple organ failure to safe fatal, rash with eosinophilia systemic symptoms, DIC, neutropenia, leukopenia, thrombocytopenia, pancytopenia, aplastic anemia, hemolytic anemia, i pancreatitis, hepatic failure, rhabdomyolysis, worsening of suicidal ideation, worsening of depression, cleft lip/palate [first trimester use] DO not Change Cosmetic, perfumes or soap for next 4 weeks. The patient was advice to take lamotrigine as prescribed the patient was instructed not to deviate from the prescription dosages. Stop lamotrigine is the first sign of rash. Patient was insisted to inform office if any of the serious side effect develops. 2. Generalized anxiety disorder - Prozac 20 mg daily for depression and anxietymonitor for agustín - patient reported had good response in past on rx obtain [facility] Buspar 10 mg three times a day- with meals educated patient not to take Vistaril Lorazepam 0.5 mg in am and 0.5 mg at bedtime education on medications patient will see PCP about seeing dietcian/nutrition with proper diet for DM/Kidney diets Discussed and educated pt regarding benzodiazepines are generally not intended for prolonged use and that use can cause tolerance, dependence, depression, and associated memory issues including dementias (this list is not exhaustive). Benzodiazepine use is generally not recommended concurrently with pain medications and/or other controlled substances due to increased risks of profound sedation, respiratory depression, coma, and even . They are not to be used with any alcohol, as this combination can also be lethal. Patient was provided cautioN 3. Primary hypersomnia -educated on sleep 4. Long-term drug therapy 12/21/2023 Bipolar disorder, current episode depressed, moderate (ICD-10 - F31.32) Bipolar Disorder: Care Instructions material was published, Learning About Movement Disorders From Antipsychotic Medicines material was published, Learning About Mood Disorders material was published, Learning About How to Get Help During a Mental Health Crisis material was published obtain labs PCP and kidney provider 1. Mild bipolar disorder - Depakote 250 mg in am and continue Depakote 500 mg at night Lamotrigine 100 mg twice a day Seroquel 100 mg at bedtime- LABS completed will obtained - she is seeing specialist with abnormal labs and saw PCP pill box for all medications aims=1 07/28/22 AIMS- 1 09/13/23 missing teeth refer to therapy [place] educated on all medications, benefits, side effects and risk, and educated on depression, anxiety, and , mood d/o and educated on compliance of medications, metabolic and movement d/o education appointment's, continue therapy discussion with patient about course of treatmentand patient instructions. education on serotonin syndrome Discussed and educated pt regarding benzodiazepines are generally not intended for prolonged use and that use can cause tolerance, dependence, depression, and associated memory issues including dementias (this list is not exhaustive). Benzodiazepine use is generally not recommended concurrently with pain medications and/or other controlled substances due to increased risks of profound sedation, respiratory depression, coma, and even . They are not to be used with any alcohol, as this combination can also be lethal. Patient was provided caution Lamotrigine lamotrigine has a serious rashes requiring hospitalization and discontinue treatment including Dallin John syndrome rare case of toxic epidermal necrolysis and cache related deaths. Incidence with adjunct of epilepsy treatment 0.8% in 2 to 16 years old and 0.3% in adults, bipolar and other mood disorders incidence 0.8% this initial monotherapy and 0.13% as adjunctive treatment. Other risk factor may include concomitant use of valproate acid derivative or exceeding initial lamotrigine does or does as clinician recommendation; most life-threatening rash of occurring first 2 to 8 week of treatment with isolated cases after prolonged treatment; though benign may occur, discontinue treatment at first sign of rash unless clearly not a drug related; TC treatment may not prevent trash from becoming life-threatening or permanently disabling or disfiguring. Comment reaction include, nausea/vomiting, dizziness/vertigo, visual disturbances, somnolence, ataxia, pruritus/rash, pharyngitis, headache, rhinitis, diarrhea, fever, asthenia, insomnia, tremor, abdominal pain, cough, accidental injury, constipation, dysmenorrhea, incoordination, anxiety, seizures, irritability, anorexia, xerostomia, and photosensitivity. Serious reactions include: Rash, severe; Minor John syndrome; toxic epidermal necrosis; injury edema, hypersensitivity reactions. Including fatal, multiple organ failure to safe fatal, rash with eosinophilia systemic symptoms, DIC, neutropenia, leukopenia, thrombocytopenia, pancytopenia, aplastic anemia, hemolytic anemia, i pancreatitis, hepatic failure, rhabdomyolysis, worsening of suicidal ideation, worsening of depression, cleft lip/palate [first trimester use] DO not Change Cosmetic, perfumes or soap for next 4 weeks. The patient was advice to take lamotrigine as prescribed the patient was instructed not to deviate from the prescription dosages. Stop lamotrigine is the first sign of rash. Patient was insisted to inform office if any of the serious side effect develops. F31.89: Other bipolar disorder divalproex 250 mg tablet,delayed release - TAKE 1 TABLET BY MOUTH EVERY DAY IN THE MORNING Qty: (90) tablet Refills: 0 Pharmacy: [facility][id number] divalproex 500 mg tablet,delayed release - Take 1 tablet(s) every day by oral route at bedtime for 30 days. Qty: (30) tablet Refills: 2 Pharmacy: [facility] #[id number] Note to Pharmacy: quetiapine 100 mg tablet - TAKE 1 TABLET BY MOUTH EVERYDAY AT BEDTIME Qty: (90) tablet Refills: 0 Pharmacy: [facility] #[id number] lamotrigine 100 mg tablet - TAKE 1 TABLET BY MOUTH TWICE A DAY DIRECTED FOR 90 DAYS Qty: (180) tablet Refills: 0 Pharmacy: [facility] #[id number] 2. Generalized anxiety disorder - Prozac 20 mg daily for depression and anxietymonitor for agustín - patient reported had good response in past on rx obtain [facility] Buspar 10 mg three times a day- with meals educated patient not to take Vistaril Lorazepam 0.5 mg in am and 0.5 mg at bedtime education on medications patient will see PCP about seeing dietcian/nutrition with proper diet for DM/Kidney diets Discussed and educated pt regarding benzodiazepines are generally not intended for prolonged use and that use can cause tolerance, dependence, depression, and associated memory issues including dementias (this list is not exhaustive). Benzodiazepine use is generally not recommended concurrently with pain medications and/or other controlled substances due to increased risks of profound sedation, respiratory depression, coma, and even . They are not to be used with any alcohol, as this combination can also be lethal. Patient was provided cautioN F41.1: Generalized anxiety disorder buspirone 10 mg tablet - TAKE 1 TABLET BY MOUTH THREE TIMES A DAY WITH MEALS Qty: (270) tablet Refills: 0 Pharmacy: [facility] #[id number] fluoxetine 20 mg capsule - TAKE 1 CAPSULE BY MOUTH EVERY DAY IN THE MORNING Qty: (30) capsule Refills: 1 Pharmacy: [facility] #[id number] lorazepam 0.5 mg tablet - TAKE 1 TABLET BY MOUTH TWICE A DAY Qty: (60) tablet Refills: 2 Pharmacy: [facility] #[id number] 3. Primary hypersomnia -educated on sleep F51.11: Primary hypersomnia 4. Long-term drug therapy 12/21/2023 Generalized anxiety disorder (ICD-10 - F41.1) Learning About Generalized Anxiety Disorder material was published, Generalized Anxiety Disorder: Care Instructions material was published, Learning About Anxiety Disorders material was published 1. Mild bipolar disorder - Depakote 250 mg in am and continue Depakote 500 mg at night Lamotrigine 100 mg twice a day Seroquel 100 mg at bedtime- LABS completed will obtained - she is seeing specialist with abnormal labs and saw PCP pill box for all medications aims=1 07/28/22 AIMS- 1 09/13/23 missing teeth refer to therapy [place] educated on all medications, benefits, side effects and risk, and educated on depression, anxiety, and , mood d/o and educated on compliance of medications, metabolic and movement d/o education appointment's, continue therapy discussion with patient about course of treatmentand patient instructions. education on serotonin syndrome Discussed and educated pt regarding benzodiazepines are generally not intended for prolonged use and that use can cause tolerance, dependence, depression, and associated memory issues including dementias (this list is not exhaustive). Benzodiazepine use is generally not recommended concurrently with pain medications and/or other controlled substances due to increased risks of profound sedation, respiratory depression, coma, and even . They are not to be used with any alcohol, as this combination can also be lethal. Patient was provided caution Lamotrigine lamotrigine has a serious rashes requiring hospitalization and discontinue treatment including Dallin John syndrome rare case of toxic epidermal necrolysis and cache related deaths. Incidence with adjunct of epilepsy treatment 0.8% in 2 to 16 years old and 0.3% in adults, bipolar and other mood disorders incidence 0.8% this initial monotherapy and 0.13% as adjunctive treatment. Other risk factor may include concomitant use of valproate acid derivative or exceeding initial lamotrigine does or does as clinician recommendation; most life-threatening rash of occurring first 2 to 8 week of treatment with isolated cases after prolonged treatment; though benign may occur, discontinue treatment at first sign of rash unless clearly not a drug related; TC treatment may not prevent trash from becoming life-threatening or permanently disabling or disfiguring. Comment reaction include, nausea/vomiting, dizziness/vertigo, visual disturbances, somnolence, ataxia, pruritus/rash, pharyngitis, headache, rhinitis, diarrhea, fever, asthenia, insomnia, tremor, abdominal pain, cough, accidental injury, constipation, dysmenorrhea, incoordination, anxiety, seizures, irritability, anorexia, xerostomia, and photosensitivity. Serious reactions include: Rash, severe; Minor John syndrome; toxic epidermal necrosis; injury edema, hypersensitivity reactions. Including fatal, multiple organ failure to safe fatal, rash with eosinophilia systemic symptoms, DIC, neutropenia, leukopenia, thrombocytopenia, pancytopenia, aplastic anemia, hemolytic anemia, i pancreatitis, hepatic failure, rhabdomyolysis, worsening of suicidal ideation, worsening of depression, cleft lip/palate [first trimester use] DO not Change Cosmetic, perfumes or soap for next 4 weeks. The patient was advice to take lamotrigine as prescribed the patient was instructed not to deviate from the prescription dosages. Stop lamotrigine is the first sign of rash. Patient was insisted to inform office if any of the serious side effect develops. F31.89: Other bipolar disorder divalproex 250 mg tablet,delayed release - TAKE 1 TABLET BY MOUTH EVERY DAY IN THE MORNING Qty: (90) tablet Refills: 0 Pharmacy: [facility] #[id number] divalproex 500 mg tablet,delayed release - Take 1 tablet(s) every day by oral route at bedtime for 30 days. Qty: (30) tablet Refills: 2 Pharmacy: [facility] #[id number] Note to Pharmacy: quetiapine 100 mg tablet - TAKE 1 TABLET BY MOUTH EVERYDAY AT BEDTIME Qty: (90) tablet Refills: 0 Pharmacy: [facility] #[id number] lamotrigine 100 mg tablet - TAKE 1 TABLET BY MOUTH TWICE A DAY DIRECTED FOR 90 DAYS Qty: (180) tablet Refills: 0 Pharmacy: [facility] #[id number] 2. Generalized anxiety disorder - Prozac 20 mg daily for depression and anxietymonitor for agustín - patient reported had good response in past on rx obtain [facility] Buspar 10 mg three times a day- with meals educated patient not to take Vistaril Lorazepam 0.5 mg in am and 0.5 mg at bedtime education on medications patient will see PCP about seeing dietcian/nutrition with proper diet for DM/Kidney diets Discussed and educated pt regarding benzodiazepines are generally not intended for prolonged use and that use can cause tolerance, dependence, depression, and associated memory issues including dementias (this list is not exhaustive). Benzodiazepine use is generally not recommended concurrently with pain medications and/or other controlled substances due to increased risks of profound sedation, respiratory depression, coma, and even . They are not to be used with any alcohol, as this combination can also be lethal. Patient was provided cautioN F41.1: Generalized anxiety disorder buspirone 10 mg tablet - TAKE 1 TABLET BY MOUTH THREE TIMES A DAY WITH MEALS Qty: (270) tablet Refills: 0 Pharmacy: [facility] #[id number] fluoxetine 20 mg capsule - TAKE 1 CAPSULE BY MOUTH EVERY DAY IN THE MORNING Qty: (30) capsule Refills: 1 Pharmacy: [facility] #[id number] lorazepam 0.5 mg tablet - TAKE 1 TABLET BY MOUTH TWICE A DAY Qty: (60) tablet Refills: 2 Pharmacy: [facility] #[id number] 3. Primary hypersomnia -educated on sleep F51.11: Primary hypersomnia 4. Long-term drug therapy 03/14/2024 Bipolar disorder, current episode depressed, moderate (ICD-10 - F31.32) Bipolar Disorder: Care Instructions material was published, Learning About Movement Disorders From Antipsychotic Medicines material was published, Learning About Mood Disorders material was published, Learning About How to Get Help During a Mental Health Crisis material was published obtain labs PCP and kidney provider 1. Mild bipolar disorder - Depakote 250 mg in am and continue Depakote 500 mg at night Lamotrigine 100 mg twice a day Seroquel 100 mg at bedtime- LABS completed will obtained - she is seeing specialist with abnormal labs and saw PCP pill box for all medications aims=1 07/28/22 AIMS- 1 09/13/23 missing teeth refer to therapy [place] educated on all medications, benefits, side effects and risk, and educated on depression, anxiety, and , mood d/o and educated on compliance of medications, metabolic and movement d/o education appointment's, continue therapy discussion with patient about course of treatmentand patient instructions. education on serotonin syndrome Discussed and educated pt regarding benzodiazepines are generally not intended for prolonged use and that use can cause tolerance, dependence, depression, and associated memory issues including dementias (this list is not exhaustive). Benzodiazepine use is generally not recommended concurrently with pain medications and/or other controlled substances due to increased risks of profound sedation, respiratory depression, coma, and even . They are not to be used with any alcohol, as this combination can also be lethal. Patient was provided caution Lamotrigine lamotrigine has a serious rashes requiring hospitalization and discontinue treatment including Dallin John syndrome rare case of toxic epidermal necrolysis and cache related deaths. Incidence with adjunct of epilepsy treatment 0.8% in 2 to 16 years old and 0.3% in adults, bipolar and other mood disorders incidence 0.8% this initial monotherapy and 0.13% as adjunctive treatment. Other risk factor may include concomitant use of valproate acid derivative or exceeding initial lamotrigine does or does as clinician recommendation; most life-threatening rash of occurring first 2 to 8 week of treatment with isolated cases after prolonged treatment; though benign may occur, discontinue treatment at first sign of rash unless clearly not a drug related; TC treatment may not prevent trash from becoming life-threatening or permanently disabling or disfiguring. Comment reaction include, nausea/vomiting, dizziness/vertigo, visual disturbances, somnolence, ataxia, pruritus/rash, pharyngitis, headache, rhinitis, diarrhea, fever, asthenia, insomnia, tremor, abdominal pain, cough, accidental injury, constipation, dysmenorrhea, incoordination, anxiety, seizures, irritability, anorexia, xerostomia, and photosensitivity. Serious reactions include: Rash, severe; Minor John syndrome; toxic epidermal necrosis; injury edema, hypersensitivity reactions. Including fatal, multiple organ failure to safe fatal, rash with eosinophilia systemic symptoms, DIC, neutropenia, leukopenia, thrombocytopenia, pancytopenia, aplastic anemia, hemolytic anemia, i pancreatitis, hepatic failure, rhabdomyolysis, worsening of suicidal ideation, worsening of depression, cleft lip/palate [first trimester use] DO not Change Cosmetic, perfumes or soap for next 4 weeks. The patient was advice to take lamotrigine as prescribed the patient was instructed not to deviate from the prescription dosages. Stop lamotrigine is the first sign of rash. Patient was insisted to inform office if any of the serious side effect develops. 2. Generalized anxiety disorder - Prozac 20 mg daily for depression and anxietymonitor for agustín - patient reported had good response in past on rx obtain [facility] Buspar 10 mg three times a day- with meals educated patient not to take Vistaril Lorazepam 0.5 mg in am and 0.5 mg at bedtime education on medications patient will see PCP about seeing dietcian/nutrition with proper diet for DM/Kidney diets Discussed and educated pt regarding benzodiazepines are generally not intended for prolonged use and that use can cause tolerance, dependence, depression, and associated memory issues including dementias (this list is not exhaustive). Benzodiazepine use is generally not recommended concurrently with pain medications and/or other controlled substances due to increased risks of profound sedation, respiratory depression, coma, and even . They are not to be used with any alcohol, as this combination can also be lethal. Patient was provided cautioN 3. Primary hypersomnia -educated on sleep 4. Long-term drug therapy 03/14/2024 Generalized anxiety disorder (ICD-10 - F41.1) Learning About Generalized Anxiety Disorder material was published, Generalized Anxiety Disorder: Care Instructions material was published, Learning About Anxiety Disorders material was published 1. Mild bipolar disorder - Depakote 250 mg in am and continue Depakote 500 mg at night Lamotrigine 100 mg twice a day Seroquel 100 mg at bedtime- LABS completed will obtained - she is seeing specialist with abnormal labs and saw PCP pill box for all medications aims=1 07/28/22 AIMS- 1 09/13/23 missing teeth refer to therapy MARLEN educated on all medications, benefits, side effects and risk, and educated on depression, anxiety, and , mood d/o and educated on compliance of medications, metabolic and movement d/o education appointment's, continue therapy discussion with patient about course of treatmentand patient instructions. education on serotonin syndrome Discussed and educated pt regarding benzodiazepines are generally not intended for prolonged use and that use can cause tolerance, dependence, depression, and associated memory issues including dementias (this list is not exhaustive). Benzodiazepine use is generally not recommended concurrently with pain medications and/or other controlled substances due to increased risks of profound sedation, respiratory depression, coma, and even . They are not to be used with any alcohol, as this combination can also be lethal. Patient was provided caution Lamotrigine lamotrigine has a serious rashes requiring hospitalization and discontinue treatment including Dallin John syndrome rare case of toxic epidermal necrolysis and cache related deaths. Incidence with adjunct of epilepsy treatment 0.8% in 2 to 16 years old and 0.3% in adults, bipolar and other mood disorders incidence 0.8% this initial monotherapy and 0.13% as adjunctive treatment. Other risk factor may include concomitant use of valproate acid derivative or exceeding initial lamotrigine does or does as clinician recommendation; most life-threatening rash of occurring first 2 to 8 week of treatment with isolated cases after prolonged treatment; though benign may occur, discontinue treatment at first sign of rash unless clearly not a drug related; TC treatment may not prevent trash from becoming life-threatening or permanently disabling or disfiguring. Comment reaction include, nausea/vomiting, dizziness/vertigo, visual disturbances, somnolence, ataxia, pruritus/rash, pharyngitis, headache, rhinitis, diarrhea, fever, asthenia, insomnia, tremor, abdominal pain, cough, accidental injury, constipation, dysmenorrhea, incoordination, anxiety, seizures, irritability, anorexia, xerostomia, and photosensitivity. Serious reactions include: Rash, severe; Minor John syndrome; toxic epidermal necrosis; injury edema, hypersensitivity reactions. Including fatal, multiple organ failure to safe fatal, rash with eosinophilia systemic symptoms, DIC, neutropenia, leukopenia, thrombocytopenia, pancytopenia, aplastic anemia, hemolytic anemia, i pancreatitis, hepatic failure, rhabdomyolysis, worsening of suicidal ideation, worsening of depression, cleft lip/palate [first trimester use] DO not Change Cosmetic, perfumes or soap for next 4 weeks. The patient was advice to take lamotrigine as prescribed the patient was instructed not to deviate from the prescription dosages. Stop lamotrigine is the first sign of rash. Patient was insisted to inform office if any of the serious side effect develops. 2. Generalized anxiety disorder - Prozac 20 mg daily for depression and anxietymonitor for agustín - patient reported had good response in past on rx obtain labs [facility] Buspar 10 mg three times a day- with meals educated patient not to take Vistaril Lorazepam 0.5 mg in am and 0.5 mg at bedtime education on medications patient will see PCP about seeing dietcian/nutrition with proper diet for DM/Kidney diets Discussed and educated pt regarding benzodiazepines are generally not intended for prolonged use and that use can cause tolerance, dependence, depression, and associated memory issues including dementias (this list is not exhaustive). Benzodiazepine use is generally not recommended concurrently with pain medications and/or other controlled substances due to increased risks of profound sedation, respiratory depression, coma, and even . They are not to be used with any alcohol, as this combination can also be lethal. Patient was provided cautioN 3. Primary hypersomnia -educated on sleep 4. Long-term drug therapy 12/21/2023 Primary hypersomnia (ICD-10 - F51.11) 1. Mild bipolar disorder - Depakote 250 mg in am and continue Depakote 500 mg at night Lamotrigine 100 mg twice a day Seroquel 100 mg at bedtime- LABS completed will obtained - she is seeing specialist with abnormal labs and saw PCP pill box for all medications aims=1 07/28/22 AIMS- 1 09/13/23 missing teeth refer to therapy MARLEN educated on all medications, benefits, side effects and risk, and educated on depression, anxiety, and , mood d/o and educated on compliance of medications, metabolic and movement d/o education appointment's, continue therapy discussion with patient about course of treatmentand patient instructions. education on serotonin syndrome Discussed and educated pt regarding benzodiazepines are generally not intended for prolonged use and that use can cause tolerance, dependence, depression, and associated memory issues including dementias (this list is not exhaustive). Benzodiazepine use is generally not recommended concurrently with pain medications and/or other controlled substances due to increased risks of profound sedation, respiratory depression, coma, and even . They are not to be used with any alcohol, as this combination can also be lethal. Patient was provided caution Lamotrigine lamotrigine has a serious rashes requiring hospitalization and discontinue treatment including Dallin John syndrome rare case of toxic epidermal necrolysis and cache related deaths. Incidence with adjunct of epilepsy treatment 0.8% in 2 to 16 years old and 0.3% in adults, bipolar and other mood disorders incidence 0.8% this initial monotherapy and 0.13% as adjunctive treatment. Other risk factor may include concomitant use of valproate acid derivative or exceeding initial lamotrigine does or does as clinician recommendation; most life-threatening rash of occurring first 2 to 8 week of treatment with isolated cases after prolonged treatment; though benign may occur, discontinue treatment at first sign of rash unless clearly not a drug related; TC treatment may not prevent trash from becoming life-threatening or permanently disabling or disfiguring. Comment reaction include, nausea/vomiting, dizziness/vertigo, visual disturbances, somnolence, ataxia, pruritus/rash, pharyngitis, headache, rhinitis, diarrhea, fever, asthenia, insomnia, tremor, abdominal pain, cough, accidental injury, constipation, dysmenorrhea, incoordination, anxiety, seizures, irritability, anorexia, xerostomia, and photosensitivity. Serious reactions include: Rash, severe; Minor John syndrome; toxic epidermal necrosis; injury edema, hypersensitivity reactions. Including fatal, multiple organ failure to safe fatal, rash with eosinophilia systemic symptoms, DIC, neutropenia, leukopenia, thrombocytopenia, pancytopenia, aplastic anemia, hemolytic anemia, i pancreatitis, hepatic failure, rhabdomyolysis, worsening of suicidal ideation, worsening of depression, cleft lip/palate [first trimester use] DO not Change Cosmetic, perfumes or soap for next 4 weeks. The patient was advice to take lamotrigine as prescribed the patient was instructed not to deviate from the prescription dosages. Stop lamotrigine is the first sign of rash. Patient was insisted to inform office if any of the serious side effect develops. F31.89: Other bipolar disorder divalproex 250 mg tablet,delayed release - TAKE 1 TABLET BY MOUTH EVERY DAY IN THE MORNING Qty: (90) tablet Refills: 0 Pharmacy: [facility] #[id number] divalproex 500 mg tablet,delayed release - Take 1 tablet(s) every day by oral route at bedtime for 30 days. Qty: (30) tablet Refills: 2 Pharmacy: [facility] #[id number] Note to Pharmacy: quetiapine 100 mg tablet - TAKE 1 TABLET BY MOUTH EVERYDAY AT BEDTIME Qty: (90) tablet Refills: 0 Pharmacy: [facility] #[id number] lamotrigine 100 mg tablet - TAKE 1 TABLET BY MOUTH TWICE A DAY DIRECTED FOR 90 DAYS Qty: (180) tablet Refills: 0 Pharmacy: [facility] #[id number] 2. Generalized anxiety disorder - Prozac 20 mg daily for depression and anxietymonitor for agustín - patient reported had good response in past on rx obtain labs [facility] Buspar 10 mg three times a day- with meals educated patient not to take Vistaril Lorazepam 0.5 mg in am and 0.5 mg at bedtime education on medications patient will see PCP about seeing dietcian/nutrition with proper diet for DM/Kidney diets Discussed and educated pt regarding benzodiazepines are generally not intended for prolonged use and that use can cause tolerance, dependence, depression, and associated memory issues including dementias (this list is not exhaustive). Benzodiazepine use is generally not recommended concurrently with pain medications and/or other controlled substances due to increased risks of profound sedation, respiratory depression, coma, and even . They are not to be used with any alcohol, as this combination can also be lethal. Patient was provided cautioN F41.1: Generalized anxiety disorder buspirone 10 mg tablet - TAKE 1 TABLET BY MOUTH THREE TIMES A DAY WITH MEALS Qty: (270) tablet Refills: 0 Pharmacy: [facility] #[id number] fluoxetine 20 mg capsule - TAKE 1 CAPSULE BY MOUTH EVERY DAY IN THE MORNING Qty: (30) capsule Refills: 1 Pharmacy: [facility] #[id number] lorazepam 0.5 mg tablet - TAKE 1 TABLET BY MOUTH TWICE A DAY Qty: (60) tablet Refills: 2 Pharmacy: [facility] #[id number] 3. Primary hypersomnia -educated on sleep F51.11: Primary hypersomnia 4. Long-term drug therapy 06/13/2024 Generalized anxiety disorder (ICD-10 - F41.1) Learning About Generalized Anxiety Disorder material was published, Generalized Anxiety Disorder: Care Instructions material was published, Learning About Anxiety Disorders material was published 1. Mild bipolar disorder - Depakote 250 mg in am and continue Depakote 500 mg at night Lamotrigine 100 mg twice a day Seroquel 100 mg at bedtime- LABS completed will obtained - she is seeing specialist with abnormal labs and saw PCP pill box for all medications aims=1 07/28/22 AIMS- 1 09/13/23 missing teeth refer to therapy MARLEN educated on all medications, benefits, side effects and risk, and educated on depression, anxiety, and , mood d/o and educated on compliance of medications, metabolic and movement d/o education appointment's, continue therapy discussion with patient about course of treatmentand patient instructions. education on serotonin syndrome Discussed and educated pt regarding benzodiazepines are generally not intended for prolonged use and that use can cause tolerance, dependence, depression, and associated memory issues including dementias (this list is not exhaustive). Benzodiazepine use is generally not recommended concurrently with pain medications and/or other controlled substances due to increased risks of profound sedation, respiratory depression, coma, and even . They are not to be used with any alcohol, as this combination can also be lethal. Patient was provided caution Lamotrigine lamotrigine has a serious rashes requiring hospitalization and discontinue treatment including Dallin John syndrome rare case of toxic epidermal necrolysis and cache related deaths. Incidence with adjunct of epilepsy treatment 0.8% in 2 to 16 years old and 0.3% in adults, bipolar and other mood disorders incidence 0.8% this initial monotherapy and 0.13% as adjunctive treatment. Other risk factor may include concomitant use of valproate acid derivative or exceeding initial lamotrigine does or does as clinician recommendation; most life-threatening rash of occurring first 2 to 8 week of treatment with isolated cases after prolonged treatment; though benign may occur, discontinue treatment at first sign of rash unless clearly not a drug related; TC treatment may not prevent trash from becoming life-threatening or permanently disabling or disfiguring. Comment reaction include, nausea/vomiting, dizziness/vertigo, visual disturbances, somnolence, ataxia, pruritus/rash, pharyngitis, headache, rhinitis, diarrhea, fever, asthenia, insomnia, tremor, abdominal pain, cough, accidental injury, constipation, dysmenorrhea, incoordination, anxiety, seizures, irritability, anorexia, xerostomia, and photosensitivity. Serious reactions include: Rash, severe; Minor John syndrome; toxic epidermal necrosis; injury edema, hypersensitivity reactions. Including fatal, multiple organ failure to safe fatal, rash with eosinophilia systemic symptoms, DIC, neutropenia, leukopenia, thrombocytopenia, pancytopenia, aplastic anemia, hemolytic anemia, i pancreatitis, hepatic failure, rhabdomyolysis, worsening of suicidal ideation, worsening of depression, cleft lip/palate [first trimester use] DO not Change Cosmetic, perfumes or soap for next 4 weeks. The patient was advice to take lamotrigine as prescribed the patient was instructed not to deviate from the prescription dosages. Stop lamotrigine is the first sign of rash. Patient was insisted to inform office if any of the serious side effect develops. 2. Generalized anxiety disorder - Prozac 20 mg daily for depression and anxietymonitor for agustín - patient reported had good response in past on rx obtain labs [facility] Buspar 10 mg three times a day- with meals educated patient not to take Vistaril Lorazepam 0.5 mg in am and 0.5 mg at bedtime education on medications patient will see PCP about seeing dietcian/nutrition with proper diet for DM/Kidney diets Discussed and educated pt regarding benzodiazepines are generally not intended for prolonged use and that use can cause tolerance, dependence, depression, and associated memory issues including dementias (this list is not exhaustive). Benzodiazepine use is generally not recommended concurrently with pain medications and/or other controlled substances due to increased risks of profound sedation, respiratory depression, coma, and even . They are not to be used with any alcohol, as this combination can also be lethal. Patient was provided cautioN 3. Primary hypersomnia -educated on sleep 4. Long-term drug therapy 12/21/2023 Post-traumatic stress disorder, chronic (ICD-10 - F43.12) Post-Traumatic Stress Disorder (PTSD): Care Instructions material was published 1. Mild bipolar disorder - Depakote 250 mg in am and continue Depakote 500 mg at night Lamotrigine 100 mg twice a day Seroquel 100 mg at bedtime- LABS completed will obtained - she is seeing specialist with abnormal labs and saw PCP pill box for all medications aims=1 07/28/22 AIMS- 1 09/13/23 missing teeth refer to therapy MARLEN educated on all medications, benefits, side effects and risk, and educated on depression, anxiety, and , mood d/o and educated on compliance of medications, metabolic and movement d/o education appointment's, continue therapy discussion with patient about course of treatmentand patient instructions. education on serotonin syndrome Discussed and educated pt regarding benzodiazepines are generally not intended for prolonged use and that use can cause tolerance, dependence, depression, and associated memory issues including dementias (this list is not exhaustive). Benzodiazepine use is generally not recommended concurrently with pain medications and/or other controlled substances due to increased risks of profound sedation, respiratory depression, coma, and even . They are not to be used with any alcohol, as this combination can also be lethal. Patient was provided caution Lamotrigine lamotrigine has a serious rashes requiring hospitalization and discontinue treatment including Dallin John syndrome rare case of toxic epidermal necrolysis and cache related deaths. Incidence with adjunct of epilepsy treatment 0.8% in 2 to 16 years old and 0.3% in adults, bipolar and other mood disorders incidence 0.8% this initial monotherapy and 0.13% as adjunctive treatment. Other risk factor may include concomitant use of valproate acid derivative or exceeding initial lamotrigine does or does as clinician recommendation; most life-threatening rash of occurring first 2 to 8 week of treatment with isolated cases after prolonged treatment; though benign may occur, discontinue treatment at first sign of rash unless clearly not a drug related; TC treatment may not prevent trash from becoming life-threatening or permanently disabling or disfiguring. Comment reaction include, nausea/vomiting, dizziness/vertigo, visual disturbances, somnolence, ataxia, pruritus/rash, pharyngitis, headache, rhinitis, diarrhea, fever, asthenia, insomnia, tremor, abdominal pain, cough, accidental injury, constipation, dysmenorrhea, incoordination, anxiety, seizures, irritability, anorexia, xerostomia, and photosensitivity. Serious reactions include: Rash, severe; Minor John syndrome; toxic epidermal necrosis; injury edema, hypersensitivity reactions. Including fatal, multiple organ failure to safe fatal, rash with eosinophilia systemic symptoms, DIC, neutropenia, leukopenia, thrombocytopenia, pancytopenia, aplastic anemia, hemolytic anemia, i pancreatitis, hepatic failure, rhabdomyolysis, worsening of suicidal ideation, worsening of depression, cleft lip/palate [first trimester use] DO not Change Cosmetic, perfumes or soap for next 4 weeks. The patient was advice to take lamotrigine as prescribed the patient was instructed not to deviate from the prescription dosages. Stop lamotrigine is the first sign of rash. Patient was insisted to inform office if any of the serious side effect develops. F31.89: Other bipolar disorder divalproex 250 mg tablet,delayed release - TAKE 1 TABLET BY MOUTH EVERY DAY IN THE MORNING Qty: (90) tablet Refills: 0 Pharmacy: [facility] #[id number] divalproex 500 mg tablet,delayed release - Take 1 tablet(s) every day by oral route at bedtime for 30 days. Qty: (30) tablet Refills: 2 Pharmacy: [facility] #[id number] Note to Pharmacy: quetiapine 100 mg tablet - TAKE 1 TABLET BY MOUTH EVERYDAY AT BEDTIME Qty: (90) tablet Refills: 0 Pharmacy: [facility] #[id number] lamotrigine 100 mg tablet - TAKE 1 TABLET BY MOUTH TWICE A DAY DIRECTED FOR 90 DAYS Qty: (180) tablet Refills: 0 Pharmacy: [facility] #[id number] 2. Generalized anxiety disorder - Prozac 20 mg daily for depression and anxietymonitor for agustín - patient reported had good response in past on rx obtain [facility] Buspar 10 mg three times a day- with meals educated patient not to take Vistaril Lorazepam 0.5 mg in am and 0.5 mg at bedtime education on medications patient will see PCP about seeing dietcian/nutrition with proper diet for DM/Kidney diets Discussed and educated pt regarding benzodiazepines are generally not intended for prolonged use and that use can cause tolerance, dependence, depression, and associated memory issues including dementias (this list is not exhaustive). Benzodiazepine use is generally not recommended concurrently with pain medications and/or other controlled substances due to increased risks of profound sedation, respiratory depression, coma, and even . They are not to be used with any alcohol, as this combination can also be lethal. Patient was provided cautioN F41.1: Generalized anxiety disorder buspirone 10 mg tablet - TAKE 1 TABLET BY MOUTH THREE TIMES A DAY WITH MEALS Qty: (270) tablet Refills: 0 Pharmacy: [facility] #[id number] fluoxetine 20 mg capsule - TAKE 1 CAPSULE BY MOUTH EVERY DAY IN THE MORNING Qty: (30) capsule Refills: 1 Pharmacy: [facility] #[id number] lorazepam 0.5 mg tablet - TAKE 1 TABLET BY MOUTH TWICE A DAY Qty: (60) tablet Refills: 2 Pharmacy: [facility] #[id number] 3. Primary hypersomnia -educated on sleep F51.11: Primary hypersomnia 4. Long-term drug therapy 06/13/2024 Primary hypersomnia (ICD-10 - F51.11) 1. Mild bipolar disorder - Depakote 250 mg in am and continue Depakote 500 mg at night Lamotrigine 100 mg twice a day Seroquel 100 mg at bedtime- LABS completed will obtained - she is seeing specialist with abnormal labs and saw PCP pill box for all medications aims=1 07/28/22 AIMS- 1 09/13/23 missing teeth refer to therapy MARLEN educated on all medications, benefits, side effects and risk, and educated on depression, anxiety, and , mood d/o and educated on compliance of medications, metabolic and movement d/o education appointment's, continue therapy discussion with patient about course of treatmentand patient instructions. education on serotonin syndrome Discussed and educated pt regarding benzodiazepines are generally not intended for prolonged use and that use can cause tolerance, dependence, depression, and associated memory issues including dementias (this list is not exhaustive). Benzodiazepine use is generally not recommended concurrently with pain medications and/or other controlled substances due to increased risks of profound sedation, respiratory depression, coma, and even . They are not to be used with any alcohol, as this combination can also be lethal. Patient was provided caution Lamotrigine lamotrigine has a serious rashes requiring hospitalization and discontinue treatment including Dallin John syndrome rare case of toxic epidermal necrolysis and cache related deaths. Incidence with adjunct of epilepsy treatment 0.8% in 2 to 16 years old and 0.3% in adults, bipolar and other mood disorders incidence 0.8% this initial monotherapy and 0.13% as adjunctive treatment. Other risk factor may include concomitant use of valproate acid derivative or exceeding initial lamotrigine does or does as clinician recommendation; most life-threatening rash of occurring first 2 to 8 week of treatment with isolated cases after prolonged treatment; though benign may occur, discontinue treatment at first sign of rash unless clearly not a drug related; TC treatment may not prevent trash from becoming life-threatening or permanently disabling or disfiguring. Comment reaction include, nausea/vomiting, dizziness/vertigo, visual disturbances, somnolence, ataxia, pruritus/rash, pharyngitis, headache, rhinitis, diarrhea, fever, asthenia, insomnia, tremor, abdominal pain, cough, accidental injury, constipation, dysmenorrhea, incoordination, anxiety, seizures, irritability, anorexia, xerostomia, and photosensitivity. Serious reactions include: Rash, severe; Minor John syndrome; toxic epidermal necrosis; injury edema, hypersensitivity reactions. Including fatal, multiple organ failure to safe fatal, rash with eosinophilia systemic symptoms, DIC, neutropenia, leukopenia, thrombocytopenia, pancytopenia, aplastic anemia, hemolytic anemia, i pancreatitis, hepatic failure, rhabdomyolysis, worsening of suicidal ideation, worsening of depression, cleft lip/palate [first trimester use] DO not Change Cosmetic, perfumes or soap for next 4 weeks. The patient was advice to take lamotrigine as prescribed the patient was instructed not to deviate from the prescription dosages. Stop lamotrigine is the first sign of rash. Patient was insisted to inform office if any of the serious side effect develops. 2. Generalized anxiety disorder - Prozac 20 mg daily for depression and anxietymonitor for agustín - patient reported had good response in past on rx obtain [facility] Buspar 10 mg three times a day- with meals educated patient not to take Vistaril Lorazepam 0.5 mg in am and 0.5 mg at bedtime education on medications patient will see PCP about seeing dietcian/nutrition with proper diet for DM/Kidney diets Discussed and educated pt regarding benzodiazepines are generally not intended for prolonged use and that use can cause tolerance, dependence, depression, and associated memory issues including dementias (this list is not exhaustive). Benzodiazepine use is generally not recommended concurrently with pain medications and/or other controlled substances due to increased risks of profound sedation, respiratory depression, coma, and even . They are not to be used with any alcohol, as this combination can also be lethal. Patient was provided cautioN 3. Primary hypersomnia -educated on sleep 4. Long-term drug therapy 03/14/2024 Primary hypersomnia (ICD-10 - F51.11) 1. Mild bipolar disorder - Depakote 250 mg in am and continue Depakote 500 mg at night Lamotrigine 100 mg twice a day Seroquel 100 mg at bedtime- LABS completed will obtained - she is seeing specialist with abnormal labs and saw PCP pill box for all medications aims=1 07/28/22 AIMS- 1 09/13/23 missing teeth refer to therapy MARLEN educated on all medications, benefits, side effects and risk, and educated on depression, anxiety, and , mood d/o and educated on compliance of medications, metabolic and movement d/o education appointment's, continue therapy discussion with patient about course of treatmentand patient instructions. education on serotonin syndrome Discussed and educated pt regarding benzodiazepines are generally not intended for prolonged use and that use can cause tolerance, dependence, depression, and associated memory issues including dementias (this list is not exhaustive). Benzodiazepine use is generally not recommended concurrently with pain medications and/or other controlled substances due to increased risks of profound sedation, respiratory depression, coma, and even . They are not to be used with any alcohol, as this combination can also be lethal. Patient was provided caution Lamotrigine lamotrigine has a serious rashes requiring hospitalization and discontinue treatment including Dallin John syndrome rare case of toxic epidermal necrolysis and cache related deaths. Incidence with adjunct of epilepsy treatment 0.8% in 2 to 16 years old and 0.3% in adults, bipolar and other mood disorders incidence 0.8% this initial monotherapy and 0.13% as adjunctive treatment. Other risk factor may include concomitant use of valproate acid derivative or exceeding initial lamotrigine does or does as clinician recommendation; most life-threatening rash of occurring first 2 to 8 week of treatment with isolated cases after prolonged treatment; though benign may occur, discontinue treatment at first sign of rash unless clearly not a drug related; TC treatment may not prevent trash from becoming life-threatening or permanently disabling or disfiguring. Comment reaction include, nausea/vomiting, dizziness/vertigo, visual disturbances, somnolence, ataxia, pruritus/rash, pharyngitis, headache, rhinitis, diarrhea, fever, asthenia, insomnia, tremor, abdominal pain, cough, accidental injury, constipation, dysmenorrhea, incoordination, anxiety, seizures, irritability, anorexia, xerostomia, and photosensitivity. Serious reactions include: Rash, severe; Minor John syndrome; toxic epidermal necrosis; injury edema, hypersensitivity reactions. Including fatal, multiple organ failure to safe fatal, rash with eosinophilia systemic symptoms, DIC, neutropenia, leukopenia, thrombocytopenia, pancytopenia, aplastic anemia, hemolytic anemia, i pancreatitis, hepatic failure, rhabdomyolysis, worsening of suicidal ideation, worsening of depression, cleft lip/palate [first trimester use] DO not Change Cosmetic, perfumes or soap for next 4 weeks. The patient was advice to take lamotrigine as prescribed the patient was instructed not to deviate from the prescription dosages. Stop lamotrigine is the first sign of rash. Patient was insisted to inform office if any of the serious side effect develops. 2. Generalized anxiety disorder - Prozac 20 mg daily for depression and anxietymonitor for agustín - patient reported had good response in past on rx obtain labs [facility] Buspar 10 mg three times a day- with meals educated patient not to take Vistaril Lorazepam 0.5 mg in am and 0.5 mg at bedtime education on medications patient will see PCP about seeing dietcian/nutrition with proper diet for DM/Kidney diets Discussed and educated pt regarding benzodiazepines are generally not intended for prolonged use and that use can cause tolerance, dependence, depression, and associated memory issues including dementias (this list is not exhaustive). Benzodiazepine use is generally not recommended concurrently with pain medications and/or other controlled substances due to increased risks of profound sedation, respiratory depression, coma, and even . They are not to be used with any alcohol, as this combination can also be lethal. Patient was provided cautioN 3. Primary hypersomnia -educated on sleep 4. Long-term drug therapy 12/21/2023 Other terminal carman (current) drug therapy (ICD-10 - Z79.899) Medication Refill: Care Instructions material was published 1. Mild bipolar disorder - Depakote 250 mg in am and continue Depakote 500 mg at night Lamotrigine 100 mg twice a day Seroquel 100 mg at bedtime- LABS completed will obtained - she is seeing specialist with abnormal labs and saw PCP pill box for all medications aims=1 07/28/22 AIMS- 1 09/13/23 missing teeth refer to therapy MARLEN educated on all medications, benefits, side effects and risk, and educated on depression, anxiety, and , mood d/o and educated on compliance of medications, metabolic and movement d/o education appointment's, continue therapy discussion with patient about course of treatmentand patient instructions. education on serotonin syndrome Discussed and educated pt regarding benzodiazepines are generally not intended for prolonged use and that use can cause tolerance, dependence, depression, and associated memory issues including dementias (this list is not exhaustive). Benzodiazepine use is generally not recommended concurrently with pain medications and/or other controlled substances due to increased risks of profound sedation, respiratory depression, coma, and even . They are not to be used with any alcohol, as this combination can also be lethal. Patient was provided caution Lamotrigine lamotrigine has a serious rashes requiring hospitalization and discontinue treatment including Dallin John syndrome rare case of toxic epidermal necrolysis and cache related deaths. Incidence with adjunct of epilepsy treatment 0.8% in 2 to 16 years old and 0.3% in adults, bipolar and other mood disorders incidence 0.8% this initial monotherapy and 0.13% as adjunctive treatment. Other risk factor may include concomitant use of valproate acid derivative or exceeding initial lamotrigine does or does as clinician recommendation; most life-threatening rash of occurring first 2 to 8 week of treatment with isolated cases after prolonged treatment; though benign may occur, discontinue treatment at first sign of rash unless clearly not a drug related; TC treatment may not prevent trash from becoming life-threatening or permanently disabling or disfiguring. Comment reaction include, nausea/vomiting, dizziness/vertigo, visual disturbances, somnolence, ataxia, pruritus/rash, pharyngitis, headache, rhinitis, diarrhea, fever, asthenia, insomnia, tremor, abdominal pain, cough, accidental injury, constipation, dysmenorrhea, incoordination, anxiety, seizures, irritability, anorexia, xerostomia, and photosensitivity. Serious reactions include: Rash, severe; Minor John syndrome; toxic epidermal necrosis; injury edema, hypersensitivity reactions. Including fatal, multiple organ failure to safe fatal, rash with eosinophilia systemic symptoms, DIC, neutropenia, leukopenia, thrombocytopenia, pancytopenia, aplastic anemia, hemolytic anemia, i pancreatitis, hepatic failure, rhabdomyolysis, worsening of suicidal ideation, worsening of depression, cleft lip/palate [first trimester use] DO not Change Cosmetic, perfumes or soap for next 4 weeks. The patient was advice to take lamotrigine as prescribed the patient was instructed not to deviate from the prescription dosages. Stop lamotrigine is the first sign of rash. Patient was insisted to inform office if any of the serious side effect develops. F31.89: Other bipolar disorder divalproex 250 mg tablet,delayed release - TAKE 1 TABLET BY MOUTH EVERY DAY IN THE MORNING Qty: (90) tablet Refills: 0 Pharmacy: [facility] #[id number] divalproex 500 mg tablet,delayed release - Take 1 tablet(s) every day by oral route at bedtime for 30 days. Qty: (30) tablet Refills: 2 Pharmacy: [facility] #[id number] Note to Pharmacy: quetiapine 100 mg tablet - TAKE 1 TABLET BY MOUTH EVERYDAY AT BEDTIME Qty: (90) tablet Refills: 0 Pharmacy: [facility] #[id number] lamotrigine 100 mg tablet - TAKE 1 TABLET BY MOUTH TWICE A DAY DIRECTED FOR 90 DAYS Qty: (180) tablet Refills: 0 Pharmacy: [facility] #[id number] 2. Generalized anxiety disorder - Prozac 20 mg daily for depression and anxietymonitor for agustín - patient reported had good response in past on rx obtain labs [facility] Buspar 10 mg three times a day- with meals educated patient not to take Vistaril Lorazepam 0.5 mg in am and 0.5 mg at bedtime education on medications patient will see PCP about seeing dietcian/nutrition with proper diet for DM/Kidney diets Discussed and educated pt regarding benzodiazepines are generally not intended for prolonged use and that use can cause tolerance, dependence, depression, and associated memory issues including dementias (this list is not exhaustive). Benzodiazepine use is generally not recommended concurrently with pain medications and/or other controlled substances due to increased risks of profound sedation, respiratory depression, coma, and even . They are not to be used with any alcohol, as this combination can also be lethal. Patient was provided cautioN F41.1: Generalized anxiety disorder buspirone 10 mg tablet - TAKE 1 TABLET BY MOUTH THREE TIMES A DAY WITH MEALS Qty: (270) tablet Refills: 0 Pharmacy: [facility] #[id number] fluoxetine 20 mg capsule - TAKE 1 CAPSULE BY MOUTH EVERY DAY IN THE MORNING Qty: (30) capsule Refills: 1 Pharmacy: [facility] #[id number] lorazepam 0.5 mg tablet - TAKE 1 TABLET BY MOUTH TWICE A DAY Qty: (60) tablet Refills: 2 Pharmacy: [facility] #[id number] 3. Primary hypersomnia -educated on sleep F51.11: Primary hypersomnia 4. Long-term drug therapy 03/14/2024 Post-traumatic stress disorder, chronic (ICD-10 - F43.12) Post-Traumatic Stress Disorder (PTSD): Care Instructions material was published 1. Mild bipolar disorder - Depakote 250 mg in am and continue Depakote 500 mg at night Lamotrigine 100 mg twice a day Seroquel 100 mg at bedtime- LABS completed will obtained - she is seeing specialist with abnormal labs and saw PCP pill box for all medications aims=1 07/28/22 AIMS- 1 09/13/23 missing teeth refer to therapy MARLEN educated on all medications, benefits, side effects and risk, and educated on depression, anxiety, and , mood d/o and educated on compliance of medications, metabolic and movement d/o education appointment's, continue therapy discussion with patient about course of treatmentand patient instructions. education on serotonin syndrome Discussed and educated pt regarding benzodiazepines are generally not intended for prolonged use and that use can cause tolerance, dependence, depression, and associated memory issues including dementias (this list is not exhaustive). Benzodiazepine use is generally not recommended concurrently with pain medications and/or other controlled substances due to increased risks of profound sedation, respiratory depression, coma, and even . They are not to be used with any alcohol, as this combination can also be lethal. Patient was provided caution Lamotrigine lamotrigine has a serious rashes requiring hospitalization and discontinue treatment including Dallin John syndrome rare case of toxic epidermal necrolysis and cache related deaths. Incidence with adjunct of epilepsy treatment 0.8% in 2 to 16 years old and 0.3% in adults, bipolar and other mood disorders incidence 0.8% this initial monotherapy and 0.13% as adjunctive treatment. Other risk factor may include concomitant use of valproate acid derivative or exceeding initial lamotrigine does or does as clinician recommendation; most life-threatening rash of occurring first 2 to 8 week of treatment with isolated cases after prolonged treatment; though benign may occur, discontinue treatment at first sign of rash unless clearly not a drug related; TC treatment may not prevent trash from becoming life-threatening or permanently disabling or disfiguring. Comment reaction include, nausea/vomiting, dizziness/vertigo, visual disturbances, somnolence, ataxia, pruritus/rash, pharyngitis, headache, rhinitis, diarrhea, fever, asthenia, insomnia, tremor, abdominal pain, cough, accidental injury, constipation, dysmenorrhea, incoordination, anxiety, seizures, irritability, anorexia, xerostomia, and photosensitivity. Serious reactions include: Rash, severe; Minor John syndrome; toxic epidermal necrosis; injury edema, hypersensitivity reactions. Including fatal, multiple organ failure to safe fatal, rash with eosinophilia systemic symptoms, DIC, neutropenia, leukopenia, thrombocytopenia, pancytopenia, aplastic anemia, hemolytic anemia, i pancreatitis, hepatic failure, rhabdomyolysis, worsening of suicidal ideation, worsening of depression, cleft lip/palate [first trimester use] DO not Change Cosmetic, perfumes or soap for next 4 weeks. The patient was advice to take lamotrigine as prescribed the patient was instructed not to deviate from the prescription dosages. Stop lamotrigine is the first sign of rash. Patient was insisted to inform office if any of the serious side effect develops. 2. Generalized anxiety disorder - Prozac 20 mg daily for depression and anxietymonitor for agustín - patient reported had good response in past on rx obtain labs [facility] Buspar 10 mg three times a day- with meals educated patient not to take Vistaril Lorazepam 0.5 mg in am and 0.5 mg at bedtime education on medications patient will see PCP about seeing dietcian/nutrition with proper diet for DM/Kidney diets Discussed and educated pt regarding benzodiazepines are generally not intended for prolonged use and that use can cause tolerance, dependence, depression, and associated memory issues including dementias (this list is not exhaustive). Benzodiazepine use is generally not recommended concurrently with pain medications and/or other controlled substances due to increased risks of profound sedation, respiratory depression, coma, and even . They are not to be used with any alcohol, as this combination can also be lethal. Patient was provided cautioN 3. Primary hypersomnia -educated on sleep 4. Long-term drug therapy 06/13/2024 Post-traumatic stress disorder, chronic (ICD-10 - F43.12) Post-Traumatic Stress Disorder (PTSD): Care Instructions material was published 1. Mild bipolar disorder - Depakote 250 mg in am and continue Depakote 500 mg at night Lamotrigine 100 mg twice a day Seroquel 100 mg at bedtime- LABS completed will obtained - she is seeing specialist with abnormal labs and saw PCP pill box for all medications aims=1 07/28/22 AIMS- 1 09/13/23 missing teeth refer to therapy MARLEN educated on all medications, benefits, side effects and risk, and educated on depression, anxiety, and , mood d/o and educated on compliance of medications, metabolic and movement d/o education appointment's, continue therapy discussion with patient about course of treatmentand patient instructions. education on serotonin syndrome Discussed and educated pt regarding benzodiazepines are generally not intended for prolonged use and that use can cause tolerance, dependence, depression, and associated memory issues including dementias (this list is not exhaustive). Benzodiazepine use is generally not recommended concurrently with pain medications and/or other controlled substances due to increased risks of profound sedation, respiratory depression, coma, and even . They are not to be used with any alcohol, as this combination can also be lethal. Patient was provided caution Lamotrigine lamotrigine has a serious rashes requiring hospitalization and discontinue treatment including Dallin John syndrome rare case of toxic epidermal necrolysis and cache related deaths. Incidence with adjunct of epilepsy treatment 0.8% in 2 to 16 years old and 0.3% in adults, bipolar and other mood disorders incidence 0.8% this initial monotherapy and 0.13% as adjunctive treatment. Other risk factor may include concomitant use of valproate acid derivative or exceeding initial lamotrigine does or does as clinician recommendation; most life-threatening rash of occurring first 2 to 8 week of treatment with isolated cases after prolonged treatment; though benign may occur, discontinue treatment at first sign of rash unless clearly not a drug related; TC treatment may not prevent trash from becoming life-threatening or permanently disabling or disfiguring. Comment reaction include, nausea/vomiting, dizziness/vertigo, visual disturbances, somnolence, ataxia, pruritus/rash, pharyngitis, headache, rhinitis, diarrhea, fever, asthenia, insomnia, tremor, abdominal pain, cough, accidental injury, constipation, dysmenorrhea, incoordination, anxiety, seizures, irritability, anorexia, xerostomia, and photosensitivity. Serious reactions include: Rash, severe; Minor John syndrome; toxic epidermal necrosis; injury edema, hypersensitivity reactions. Including fatal, multiple organ failure to safe fatal, rash with eosinophilia systemic symptoms, DIC, neutropenia, leukopenia, thrombocytopenia, pancytopenia, aplastic anemia, hemolytic anemia, i pancreatitis, hepatic failure, rhabdomyolysis, worsening of suicidal ideation, worsening of depression, cleft lip/palate [first trimester use] DO not Change Cosmetic, perfumes or soap for next 4 weeks. The patient was advice to take lamotrigine as prescribed the patient was instructed not to deviate from the prescription dosages. Stop lamotrigine is the first sign of rash. Patient was insisted to inform office if any of the serious side effect develops. 2. Generalized anxiety disorder - Prozac 20 mg daily for depression and anxietymonitor for agustín - patient reported had good response in past on rx obtain [facility] Buspar 10 mg three times a day- with meals educated patient not to take Vistaril Lorazepam 0.5 mg in am and 0.5 mg at bedtime education on medications patient will see PCP about seeing dietcian/nutrition with proper diet for DM/Kidney diets Discussed and educated pt regarding benzodiazepines are generally not intended for prolonged use and that use can cause tolerance, dependence, depression, and associated memory issues including dementias (this list is not exhaustive). Benzodiazepine use is generally not recommended concurrently with pain medications and/or other controlled substances due to increased risks of profound sedation, respiratory depression, coma, and even . They are not to be used with any alcohol, as this combination can also be lethal. Patient was provided cautioN 3. Primary hypersomnia -educated on sleep 4. Long-term drug therapy 03/14/2024 Other terminal carman (current) drug therapy (ICD-10 - Z79.899) Medication Refill: Care Instructions material was published 1. Mild bipolar disorder - Depakote 250 mg in am and continue Depakote 500 mg at night Lamotrigine 100 mg twice a day Seroquel 100 mg at bedtime- LABS completed will obtained - she is seeing specialist with abnormal labs and saw PCP pill box for all medications aims=1 07/28/22 AIMS- 1 09/13/23 missing teeth refer to therapy MARLEN educated on all medications, benefits, side effects and risk, and educated on depression, anxiety, and , mood d/o and educated on compliance of medications, metabolic and movement d/o education appointment's, continue therapy discussion with patient about course of treatmentand patient instructions. education on serotonin syndrome Discussed and educated pt regarding benzodiazepines are generally not intended for prolonged use and that use can cause tolerance, dependence, depression, and associated memory issues including dementias (this list is not exhaustive). Benzodiazepine use is generally not recommended concurrently with pain medications and/or other controlled substances due to increased risks of profound sedation, respiratory depression, coma, and even . They are not to be used with any alcohol, as this combination can also be lethal. Patient was provided caution Lamotrigine lamotrigine has a serious rashes requiring hospitalization and discontinue treatment including Dallin John syndrome rare case of toxic epidermal necrolysis and cache related deaths. Incidence with adjunct of epilepsy treatment 0.8% in 2 to 16 years old and 0.3% in adults, bipolar and other mood disorders incidence 0.8% this initial monotherapy and 0.13% as adjunctive treatment. Other risk factor may include concomitant use of valproate acid derivative or exceeding initial lamotrigine does or does as clinician recommendation; most life-threatening rash of occurring first 2 to 8 week of treatment with isolated cases after prolonged treatment; though benign may occur, discontinue treatment at first sign of rash unless clearly not a drug related; TC treatment may not prevent trash from becoming life-threatening or permanently disabling or disfiguring. Comment reaction include, nausea/vomiting, dizziness/vertigo, visual disturbances, somnolence, ataxia, pruritus/rash, pharyngitis, headache, rhinitis, diarrhea, fever, asthenia, insomnia, tremor, abdominal pain, cough, accidental injury, constipation, dysmenorrhea, incoordination, anxiety, seizures, irritability, anorexia, xerostomia, and photosensitivity. Serious reactions include: Rash, severe; Minor John syndrome; toxic epidermal necrosis; injury edema, hypersensitivity reactions. Including fatal, multiple organ failure to safe fatal, rash with eosinophilia systemic symptoms, DIC, neutropenia, leukopenia, thrombocytopenia, pancytopenia, aplastic anemia, hemolytic anemia, i pancreatitis, hepatic failure, rhabdomyolysis, worsening of suicidal ideation, worsening of depression, cleft lip/palate [first trimester use] DO not Change Cosmetic, perfumes or soap for next 4 weeks. The patient was advice to take lamotrigine as prescribed the patient was instructed not to deviate from the prescription dosages. Stop lamotrigine is the first sign of rash. Patient was insisted to inform office if any of the serious side effect develops. 2. Generalized anxiety disorder - Prozac 20 mg daily for depression and anxietymonitor for agustín - patient reported had good response in past on rx obtain [facility] Buspar 10 mg three times a day- with meals educated patient not to take Vistaril Lorazepam 0.5 mg in am and 0.5 mg at bedtime education on medications patient will see PCP about seeing dietcian/nutrition with proper diet for DM/Kidney diets Discussed and educated pt regarding benzodiazepines are generally not intended for prolonged use and that use can cause tolerance, dependence, depression, and associated memory issues including dementias (this list is not exhaustive). Benzodiazepine use is generally not recommended concurrently with pain medications and/or other controlled substances due to increased risks of profound sedation, respiratory depression, coma, and even . They are not to be used with any alcohol, as this combination can also be lethal. Patient was provided cautioN 3. Primary hypersomnia -educated on sleep 4. Long-term drug therapy 06/13/2024 Other terminal carman (current) drug therapy (ICD-10 - Z79.899) Medication Refill: Care Instructions material was published 1. Mild bipolar disorder - Depakote 250 mg in am and continue Depakote 500 mg at night Lamotrigine 100 mg twice a day Seroquel 100 mg at bedtime- LABS completed will obtained - she is seeing specialist with abnormal labs and saw PCP pill box for all medications aims=1 07/28/22 AIMS- 1 09/13/23 missing teeth refer to therapy MARLEN educated on all medications, benefits, side effects and risk, and educated on depression, anxiety, and , mood d/o and educated on compliance of medications, metabolic and movement d/o education appointment's, continue therapy discussion with patient about course of treatmentand patient instructions. education on serotonin syndrome Discussed and educated pt regarding benzodiazepines are generally not intended for prolonged use and that use can cause tolerance, dependence, depression, and associated memory issues including dementias (this list is not exhaustive). Benzodiazepine use is generally not recommended concurrently with pain medications and/or other controlled substances due to increased risks of profound sedation, respiratory depression, coma, and even . They are not to be used with any alcohol, as this combination can also be lethal. Patient was provided caution Lamotrigine lamotrigine has a serious rashes requiring hospitalization and discontinue treatment including Dallin John syndrome rare case of toxic epidermal necrolysis and cache related deaths. Incidence with adjunct of epilepsy treatment 0.8% in 2 to 16 years old and 0.3% in adults, bipolar and other mood disorders incidence 0.8% this initial monotherapy and 0.13% as adjunctive treatment. Other risk factor may include concomitant use of valproate acid derivative or exceeding initial lamotrigine does or does as clinician recommendation; most life-threatening rash of occurring first 2 to 8 week of treatment with isolated cases after prolonged treatment; though benign may occur, discontinue treatment at first sign of rash unless clearly not a drug related; TC treatment may not prevent trash from becoming life-threatening or permanently disabling or disfiguring. Comment reaction include, nausea/vomiting, dizziness/vertigo, visual disturbances, somnolence, ataxia, pruritus/rash, pharyngitis, headache, rhinitis, diarrhea, fever, asthenia, insomnia, tremor, abdominal pain, cough, accidental injury, constipation, dysmenorrhea, incoordination, anxiety, seizures, irritability, anorexia, xerostomia, and photosensitivity. Serious reactions include: Rash, severe; Minor John syndrome; toxic epidermal necrosis; injury edema, hypersensitivity reactions. Including fatal, multiple organ failure to safe fatal, rash with eosinophilia systemic symptoms, DIC, neutropenia, leukopenia, thrombocytopenia, pancytopenia, aplastic anemia, hemolytic anemia, i pancreatitis, hepatic failure, rhabdomyolysis, worsening of suicidal ideation, worsening of depression, cleft lip/palate [first trimester use] DO not Change Cosmetic, perfumes or soap for next 4 weeks. The patient was advice to take lamotrigine as prescribed the patient was instructed not to deviate from the prescription dosages. Stop lamotrigine is the first sign of rash. Patient was insisted to inform office if any of the serious side effect develops. 2. Generalized anxiety disorder - Prozac 20 mg daily for depression and anxietymonitor for agustín - patient reported had good response in past on rx obtain [facility] Buspar 10 mg three times a day- with meals educated patient not to take Vistaril Lorazepam 0.5 mg in am and 0.5 mg at bedtime education on medications patient will see PCP about seeing dietcian/nutrition with proper diet for DM/Kidney diets Discussed and educated pt regarding benzodiazepines are generally not intended for prolonged use and that use can cause tolerance, dependence, depression, and associated memory issues including dementias (this list is not exhaustive). Benzodiazepine use is generally not recommended concurrently with pain medications and/or other controlled substances due to increased risks of profound sedation, respiratory depression, coma, and even . They are not to be used with any alcohol, as this combination can also be lethal. Patient was provided cautioN 3. Primary hypersomnia -educated on sleep 4. Long-term drug therapy 12/21/2023 Other Valproate Delayed Release Oral Tablet (DIVALPROEX SODIUM ENTERIC-COATED TABLET - ORAL) material was published, Lamotrigine Oral Tablet (LAMOTRIGINE - ORAL) material was published, Quetiapine Oral Tablet (QUETIAPINE - ORAL) material was published, Lorazepam Oral Tablet (LORAZEPAM - ORAL) material was published, Buspirone Oral Tablet (BUSPIRONE - ORAL) material was published, Fluoxetine Oral Capsule (FLUOXETINE - ORAL) material was published 1. Mild bipolar disorder - Depakote 250 mg in am and continue Depakote 500 mg at night Lamotrigine 100 mg twice a day Seroquel 100 mg at bedtime- LABS completed will obtained - she is seeing specialist with abnormal labs and saw PCP pill box for all medications aims=1 07/28/22 AIMS- 1 09/13/23 missing teeth refer to therapy MARLEN educated on all medications, benefits, side effects and risk, and educated on depression, anxiety, and , mood d/o and educated on compliance of medications, metabolic and movement d/o education appointment's, continue therapy discussion with patient about course of treatmentand patient instructions. education on serotonin syndrome Discussed and educated pt regarding benzodiazepines are generally not intended for prolonged use and that use can cause tolerance, dependence, depression, and associated memory issues including dementias (this list is not exhaustive). Benzodiazepine use is generally not recommended concurrently with pain medications and/or other controlled substances due to increased risks of profound sedation, respiratory depression, coma, and even . They are not to be used with any alcohol, as this combination can also be lethal. Patient was provided caution Lamotrigine lamotrigine has a serious rashes requiring hospitalization and discontinue treatment including Dallin John syndrome rare case of toxic epidermal necrolysis and cache related deaths. Incidence with adjunct of epilepsy treatment 0.8% in 2 to 16 years old and 0.3% in adults, bipolar and other mood disorders incidence 0.8% this initial monotherapy and 0.13% as adjunctive treatment. Other risk factor may include concomitant use of valproate acid derivative or exceeding initial lamotrigine does or does as clinician recommendation; most life-threatening rash of occurring first 2 to 8 week of treatment with isolated cases after prolonged treatment; though benign may occur, discontinue treatment at first sign of rash unless clearly not a drug related; TC treatment may not prevent trash from becoming life-threatening or permanently disabling or disfiguring. Comment reaction include, nausea/vomiting, dizziness/vertigo, visual disturbances, somnolence, ataxia, pruritus/rash, pharyngitis, headache, rhinitis, diarrhea, fever, asthenia, insomnia, tremor, abdominal pain, cough, accidental injury, constipation, dysmenorrhea, incoordination, anxiety, seizures, irritability, anorexia, xerostomia, and photosensitivity. Serious reactions include: Rash, severe; Minor John syndrome; toxic epidermal necrosis; injury edema, hypersensitivity reactions. Including fatal, multiple organ failure to safe fatal, rash with eosinophilia systemic symptoms, DIC, neutropenia, leukopenia, thrombocytopenia, pancytopenia, aplastic anemia, hemolytic anemia, i pancreatitis, hepatic failure, rhabdomyolysis, worsening of suicidal ideation, worsening of depression, cleft lip/palate [first trimester use] DO not Change Cosmetic, perfumes or soap for next 4 weeks. The patient was advice to take lamotrigine as prescribed the patient was instructed not to deviate from the prescription dosages. Stop lamotrigine is the first sign of rash. Patient was insisted to inform office if any of the serious side effect develops. F31.89: Other bipolar disorder divalproex 250 mg tablet,delayed release - TAKE 1 TABLET BY MOUTH EVERY DAY IN THE MORNING Qty: (90) tablet Refills: 0 Pharmacy: [id number] divalproex 500 mg tablet,delayed release - Take 1 tablet(s) every day by oral route at bedtime for 30 days. Qty: (30) tablet Refills: 2 Pharmacy: [id number] Note to Pharmacy: quetiapine 100 mg tablet - TAKE 1 TABLET BY MOUTH EVERYDAY AT BEDTIME Qty: (90) tablet Refills: 0 Pharmacy: [id number] lamotrigine 100 mg tablet - TAKE 1 TABLET BY MOUTH TWICE A DAY DIRECTED FOR 90 DAYS Qty: (180) tablet Refills: 0 Pharmacy: [id number] 2. Generalized anxiety disorder - Prozac 20 mg daily for depression and anxietymonitor for agustín - patient reported had good response in past on rx obtain [facility] Buspar 10 mg three times a day- with meals educated patient not to take Vistaril Lorazepam 0.5 mg in am and 0.5 mg at bedtime education on medications patient will see PCP about seeing dietcian/nutrition with proper diet for DM/Kidney diets Discussed and educated pt regarding benzodiazepines are generally not intended for prolonged use and that use can cause tolerance, dependence, depression, and associated memory issues including dementias (this list is not exhaustive). Benzodiazepine use is generally not recommended concurrently with pain medications and/or other controlled substances due to increased risks of profound sedation, respiratory depression, coma, and even . They are not to be used with any alcohol, as this combination can also be lethal. Patient was provided cautioN F41.1: Generalized anxiety disorder buspirone 10 mg tablet - TAKE 1 TABLET BY MOUTH THREE TIMES A DAY WITH MEALS Qty: (270) tablet Refills: 0 Pharmacy: [id number] fluoxetine 20 mg capsule - TAKE 1 CAPSULE BY MOUTH EVERY DAY IN THE MORNING Qty: (30) capsule Refills: 1 Pharmacy: [id number] lorazepam 0.5 mg tablet - TAKE 1 TABLET BY MOUTH TWICE A DAY Qty: (60) tablet Refills: 2 Pharmacy: [id number] 3. Primary hypersomnia -educated on sleep F51.11: Primary hypersomnia 4. Long-term drug therapy Plan Of Treatment Future Test Test Name Order Date LIPID PANEL WITH REFLEX TO DIRECT LDL (1 4763) 03/14/2024 COMPREHENSIVE METABOLIC PANEL (21941) CBC (INCLUDES DIFF/PLT) (6399) HEMOGLOBIN A1c (496) 03/14/2024 TSH W/REFLEX TO FT4 (72154) 03/14/2024 VALPROIC ACID (916) 03/14/2024 Next Appt Details Provider Name:Hemant Loco , 10/03/2024 11:30:00 AM, [address], [facility] [address], [place], [address], Insurance Providers Payer Name Payer Address Payer Phone Subscriber Number Group Number Insured Name Patient Relationship to Insured Coverage Start Date Coverage End Date Medicare-I l Medicare [address] [place] [id number] [employer] Self - patient is the insured Medical (General) History Medical History History ICD Code Problems: Bipolar disorder Chronic post-traumatic stress disorder Generalized anxiety disorder History of SARS-CoV-2 Hyperlipidemia Hypothyroidism Long-term drug therapy Mild bipolar disorder Morbid obesity Normal grief reaction Primary hypersomnia Type 2 diabetes mellitus , Surgical History Surgery Date(Month/Year) Any surgical history Other 06/11/2003 Hysterectomy (45348) 06/11/2003
--- OUTSIDE RECORDS SUMMARY | 2024-09-30 11:00 | XMS_ITS | Encounter Summary ---
Author Organization [facility] Address [address] [place] [address] Care Team Providers Care Television Journalist Name Role Phone Derrell Scott MD Primary Care Provider [phone] Encounter Details Date Type Department Care Team (Late st Contact Info) Description 12/13/2021 Lab Requisition [facility] Care Pathology Lab [address] [place] [address] Jamaal Manuel MD [address] [place] [address] Illness, unspecified Social History Tobacco Use Types Packs/Day Years Used Date Smoking Tobacco: Never Assessed Comments Unknown Sex and Gender Information Value Date Recorded Sex Assigned at Not on file Legal Sex Female 1:40 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 Gender Identity Not on file Sexual Orientation Not on file documented as of this encounter Plan of Treatment Not on file documented as of this encounter Procedures Procedure Name Priority Date/Time Associated Diagnosis Comments BONE MARROW BIOPSY (STL) Routine 12/08/2021 9:20 AM CDT Illness, unspecified documented in this encounter Results * BONE MARROW BIOPSY (STL) (12/08/2021 9:20 AM CDT) Case Report Bone Marrow Patholog y Report Case: [id number] Authorizing Provider: Jamaal Manuel MD Collected: 12/08/2021 09:20 AM Ordering Location: [facility] Care Pathology Lab Received: 12/13/2021 11:49 AM Pathologist: Bhavin Peck MD Specimens: A) - Bone Marrow Clot B) - Bone Marrow Core 12/14/2021 11:44 AM CDT [facility] Final Diagnosis Bone marrow, touch preparation, clot section, and core biopsy: - Hypocellular core with relative erythroid hyperplasia, no evidence of lymphoma or high-grade myeloid neoplasm. - Hemodilute touch preparation. - See description. Peripheral blood smear: - Pancytopenia. - See description. 12/14/2021 11:44 AM [facility] PATH[facility] Comment Immunohistochemistry is performed to assess staining cells in an architectural context: CD3 and CD20 highlight a mixture of CD3+ T- and CD20+ B-cells in the lymphoid aggregate, likely reactive. Cyclin D1 is negative. CD34 is negative for an increased blast population, and CD117 shows no increased mast cells. CD138 shows normal numbers of plasma cells. CD30 is negative for large atypical lymphoid cells. In summary, diagnostic features of a hematolymphoid neoplasm are not seen here. However, correlation with genetics is recommended. 12/14/2021 11:44 AM [facility] Peripheral Smear Description RBC: normocytic anemia WBC: decreased in number with no overt dysplasia or circulating blasts Platelets: decreased in number, normal morphology 12/14/2021 11:44 AM [facility] Bone Marrow Aspirate Touch preparation only: Differential count (200 cells): not performed due to hemodilution Specimen quality: dilute Spicules: none Peripheral blood contamination is present. Megakaryocytes are not seen in this preparation indicating the hemodilution. Few myeloid and erythroid precursor cells are seen. No overt dyspoiesis is present. 12/14/2021 11:44 AM [facility] Bone Marrow Core Biopsy and Clot Section Description Specimen quality: adequate with 2.4 cm of evaluable marrow. Cellularity: 20 % Trilineage Hematopoiesis: present. Myeloid to Erythroid ratio: decreased. Myeloid maturation and localization: present. Erythroid maturation and localization: normal. Megakaryocyte number: normal. Megakaryocyte distribution: normal. Lymphoid aggregates: few, para- and non-paratrabecular, comprising <5% of marrow cellularity. Bone trabeculae: normal. Blood vessels: normal. Plasma cells: normal. Clot section marrow particles: few. Clot section morphology: similar to core biopsy. Iron: Decreased to absent on clot section. 12/14/2021 11:44 AM [facility] Flow Cytometry Summary Not submitted. 12/14/2021 11:44 AM [facility] Clinical History Pancytopenia. 12/14/2021 11:44 AM [facility] Materials Received Received are 14 slide(s) and 3 blocks labeled [id number] along with a copy of the outside pathology report. The materials originate from [address], [place] [address]. All original materials are returned to the referring institution, along with a copy of our final report. 12/14/2021 11:44 AM [facility] Disclaimer The performance characteristics of all immunohistochemical and indirect immunofluorescence stains (if any) cited in this report were determined by the Histopathology Laboratory of [facility]. Some of these tests were developed by our own laboratory and have not been cleared or approved by the US Food and Drug Administration. The FDA does not require this test to go through premarket FDA review. These tests are used for clinical purposes. They should not be regarded as investigational or for research. This laboratory is certified under the Clinical Laboratory Improvement Amendments (CLIA) as qualified to perform high complexity clinical laboratory testing. This case has been personally reviewed and interpreted by the attending (teaching) pathologist. 12/14/2021 11:44 AM [facility] Embedded Images 12/14/2021 11:44 AM T [facility] PATHOLOG[facility] LAB Pathology/Cytology BONE MARROW SPECIMEN / Unknown 12/08/2021 9:20 AM CDT 12/13/2021 11:49 AM CDT Miscellaneous samples (specimen) BONE MARROW SPECIMEN / Unknown 12/08/2021 9:20 AM CDT 12/13/2021 11:49 AM CDT us Jamaal Manuel MD LAB - PATHOLOGY/CYTOLOGY ORD ERABLES Final Result [facility] PATHOLOG[facility] LAB [address] [facility] [phone] documented in this encounter Visit Diagnoses Diagnosis Illness, unspecified documented in this encounter Care Teams Television Journalist Relationship Specialty Start Date End Date Derrell Scott MD [address] [place] [address] PCP - General 04/27/20 documented as of this encounter
--- OUTSIDE RECORDS SUMMARY | 2024-09-30 11:00 | XMS_ITS | Clinical Summary ---
Author Organization [facility] Address [address] [facility] [place] [address] Care Team Providers Care Treatment Manager Name Role Phone Derrell Scott MD Primary Care Provider Source Comments [facility],non-owned Affiliates and Associated Physician Practices is amultiple site organization consisting of ambulatory clinics and hospital sitesin [place], [place], [place] and [place]. This disclosure is being madepursuant to the Care Everywhere program and may not contain all information available regarding this patient. Last updated 18.[facility] [employer] Social History Tobacco Use Types Packs/Day Years Used Date Smoking Tobacco: Never Assessed Comments Unknown Sex and Gender Information Value Date Recorded Sex Assigned at Not on file Legal Sex Female 1:40 PM PRESSER FIRST Gender Identity Not on file Sexual Orientation Not on file Plan of Treatment Health Maintenance Due Date Last Done Comments COLOGUARD (AGES 45-75) - COL ON CA SCREENING 1960 COLON MONITORING 1960 COLONOSCOPY - COLON CA SCREENING 1960 CT COLONOGRAPHY - COLON CA SCREENING 1960 Colorectal Cancer Screening 1960 FIT - COLON CA SCREENING 1960 FLEX SIG - COLON CA SCREENING 1960 LIPID TESTING 1960 MAMMOGRAM 1960 MEDICARE AWV 12 MONTHS 1960 PAP SMEAR 1960 HIV SCREENING 1975 HEPATITIS C SCREENING 04/01/1978 DTAP/TDAP/TD VACCINES (1 - Tdap) 1979 PNEUMOCOCCAL VACCINE 50+ (1 of 1 - PCV) 2010 ZOSTER VACCINE (1 of 2) 2010 COVID-19 VACCINE (1 - 2023-2 5 season) 2024 DEPRESSION SCREENING 06/11/2024 INFLUENZA VACCINE (Season Ended) 2025 Respiratory Syncytial Virus (RSV) Vaccine Pt: or over 60 yrs (1 - 1-dose 75+ series) 2035 HEPATITIS B VACCINE Aged Out No longe r eligible based on patient's age to complete this topic HIB VACCINE Aged Out No longer eligi ble based on patient's age to complete this topic HPV VACCINE Aged Out No longer eligi ble based on patient's age to complete this topic MENINGOCOCCAL (Group B) VACC INE SHARED DECISION-MAKING Aged Out No longer eligibl e based on patient's age to complete this topic MENINGOCOCCAL GROUPS A/C/Y/W VACCINE Aged Out No longer eligible b ased on patient's age to complete this topic PNEUMOCOCCAL VACCINE Aged Out No long er eligible based on patient's age to complete this topic Insurance MEDICARE MEDICAID - OUT OF [facility] Care Teams Treatment Manager Relationship Specialty Start Date End Date Derrell Scott MD [address] [place] [address] PCP - General 04/27/20
== END 2024-09-30 09:49 | disposition home or self-care (01) ==
PROVIDERS: PCP Nurse Practitioner; Visit Provider Nurse Practitioner
DX: E03.9 Hypothyroidism, unspecified (principal); E16.2 Hypoglycemia, unspecified; E11.9 Type 2 diabetes mellitus without complications
CPT/HCPCS: 36415; 80053; 82043; 83036; 84443; 85025

== ENCOUNTER 2024-10-10 08:08 | Outpatient (CLI) | payer MEDICARE, MEDICAID, SELFPAY ==
--- OUTSIDE RECORDS SUMMARY | 2024-10-10 08:15 | XMS_ITS | Clinical Summary ---
Author Organization [facility] Address [address] [place] [address] Care Team Providers Care Skate Shop Attendant Name Role Phone Derrell Scott MD Primary Care Provider Source Comments [facility],non-owned Affiliates and Associated Physician Practices is amultiple site organization consisting of ambulatory clinics and hospital sitesin [place], [place], [place] and [place]. This disclosure is being madepursuant to the Care Everywhere program and may not contain all information available regarding this patient. Last updated 18.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
--- OUTSIDE RECORDS SUMMARY | 2024-10-10 08:15 | XMS_ITS | Clinical Summary ---
Author Organization [facility] Address [address], [facility] [address] [place] [address] Phone Care Team Providers Care Cradle Slide Maker Name Role Phone Derrell Scott MD Primary [...] complete this topic Insurance MEDICARE Care Teams Cradle Slide Maker Relationship Specialty Start Date End Date Derrell Soctt MD [address] [place] [id number] PCP - General Family Medicine 03/18/20
--- OUTSIDE RECORDS SUMMARY | 2024-10-10 08:15 | XMS_ITS | Patient Health Record ---
Author Organization [facility] [employer] Address [address] [place] [address] Care Team Providers Care Paste Up Artist Name Role Phone Jules Govea DO Primary Care Provider Hemant Rea Unavailable [phone] Migration, Provider Unavailable Unavailable Allergies Allergen (clinical drug ingredient) Drug/Non Drug Allergy documented on EMR Reaction Allergy Type Onset Date Status diphenhydramine Benadryl Unknown Drug Allergy 09/14/2023 Active oxycodone Oxycodone Unknown Drug Allergy 09/14/2023 Active tramadol Tramadol Unknown Drug Allergy 09/14/2023 Active Reason For Referral No Information Medications Medication SIG (Take, Route, Frequency, Duration) Notes Start Date End Date Status hydroCHLOROthiazide 25 MG Oral 4 Not-Taking Levothyroxine Sodium 125 MCG Oral 4 Active Fluconazole 150 MG Oral 4 Active Contour Next One MISCELLANEOUS 4 Active Pantoprazole Sodium 40 MG Oral 4 Active Acetaminophen Extra Strength 500 MG Oral 4 Active Contour Blood Glucose System w/Device In Vitro 4 Active Jardiance 25 MG Oral 4 Active CHOLECALCIFEROL (VITAMIN D3) 25 MCG (1,000 UNIT) CAPSULE *Reorder from [facility] for eRx and Interaction Alerts* 4 Active Carvedilol 3.125 MG Oral 09/14/19 2 4 Active Fenofibrate 145 MG Oral 4 Active Atorvastatin Calcium 80 MG Oral 4 Active Losartan Potassium 25 MG Oral 4 Active busPIRone HCl 10 MG 1 tablet Oral three times a day for 90 days Active FLUoxetine HCl 20 MG 1 capsule Oral Once a day for 90 days Active Divalproex Sodium 500 MG 1 tablet Oral a t bedtime for 90 days Active lamoTRIgine 100 MG 1 tablet Oral twice a day for 90 days Active QUEtiapine Fumarate 100 MG 1 tablet Oral bedtime for 90 days Active Divalproex Sodium 250 MG 1 tablet Oral i n am for 90 days Active LORazepam 0.5 MG 1 tablet Oral twice a day for 30 days OK TO FILL 06/13/24 5 Active Immunizations Vaccine Route Administration Date Status [...] Problem Bipolar affective disorder, currently depressed, moderate (263740968) Bipolar disorder, current episode depressed, moderate (F31.32) 09/14/19 24 Active confirmed Problem Generalized anxiety disorder (00641601) Generalized anxiety disorder (F41.1) 09/14/19 24 Active confirmed Problem Posttraumatic stress disorder (87721272) Post-traumatic stress disorder, chronic (F43.12) 06/15/19 24 Active confirmed Problem Primary hypersomnia (03669344) Primary hypersomnia (F51.11) 09/14/19 24 Active confirmed Problem Encounter for screening for cardiovascular disorders (Z13.6) Active confirmed Problem Long-term current use of drug therapy (920194970) Other fdc (current) drug therapy (Z79.899) 09/14/19 24 Active confirmed Problem Depression Screening (274592487) Encounter for screening for depression (Z13.31) Active confirmed Vital Signs Heart Rate 63 /min 10/03/2024 Respiratory Rate 16 /min 10/03/2024 Height-cm 160.02 cm 10/03/2024 Blood pressure diastolic 76 mm Hg 10/03/2024 Weight-kg 103.42 kg 10/03/2024 Height 63.00 in 10/03/2024 Blood pressure systolic 124 mm Hg 10/03/2024 Weight 228 lbs 10/03/2024 BMI 40.38 kg/m2 10/03/2024 Encounters [facility]counter [facility] Date [facility] [address] [address] 12/21/2023 Hemant Loco Bipolar disorder, current episode depressed, moderate F31.32 ; Generalized anxiety disorder F41.1 ; Primary hypersomnia F51.11 ; Post-traumatic stress disorder, chronic F43.12 and Other fdc (current) drug therapy Z79.899 [facility] [employer] [address] [address] 03/14/2024 Hemant Loco Bipolar disorder, current episode depressed, moderate F31.32 ; Generalized anxiety disorder F41.1 ; Primary hypersomnia F51.11 ; Post-traumatic stress disorder, chronic F43.12 and Other fdc (current) drug therapy Z79.899 [facility] [employer] [address] [address] 06/13/2024 Hemant Loco Bipolar disorder, current episode depressed, moderate F31.32 ; Generalized anxiety disorder F41.1 ; Primary hypersomnia F51.11 ; Post-traumatic stress disorder, chronic F43.12 and Other fdc (current) drug therapy Z79.899 [facility] [employer] [address] [address] 10/03/2024 Hemant Loco Encounter for screening for depression Z13.31 ; Encounter for screening for cardiovascular disorders Z13.6 ; Bipolar disorder, current episode depressed, moderate F31.32 ; Generalized anxiety disorder F41.1 ; Primary hypersomnia F51.11 ; Post-traumatic stress disorder, chronic F43.12 and Other oysterman (current) drug therapy Z79.899 [facility] [employer] [address] [address] 10/22/2023 Provider Migration [facility] [address] 10/27/2023 Provider Migration [facility] [address] [place] [address] 10/28/2023 Provider Migration [facility], [facility] [address] [facility] [address] [place] [address] 10/29/[address] [facility], [facility] [address] [place] [address] 11/14/2023 Hemant Loco [facility], [facility] [address] [facility] [address] [place] [address] 12/31/2023 Hemant Loco [facility], [facility] [address] [facility] [address] [place] [address] 02/13/2024 Hemant Loco [facility], [facility] [address] [facility] [address] [place] [address] 05/01/2024 Hemant Loco [facility] [address] [address] 05/05/2024 Hemant Loco Assessments Encounter Date Diagnosis (ICD Code) Assessment Notes Treatment Notes Treatment Clinical Notes Section Notes 12/21/2023 Bipolar disorder, current episode depressed, moderate [...] MORNING Qty: (90) tablet Refills: 0 Pharmacy: [facility] #[id number] divalproex 500 mg tablet,delayed release - Take 1 tablet(s) every day by oral route at bedtime for 30 days. Qty: (30) tablet Refills: 2 Pharmacy: [facility] #[id number] Note to Pharmacy: quetiapine 100 mg tablet - TAKE 1 TABLET BY MOUTH EVERYDAY AT BEDTIME Qty: (90) tablet Refills: 0 Pharmacy: [facility] #2510 lamotrigine 100 mg tablet - TAKE 1 TABLET BY MOUTH TWICE A DAY DIRECTED FOR 90 DAYS Qty: (180) tablet Refills: 0 Pharmacy: [facility] #[id number] 2. Generalized anxiety disorder - Prozac 20 mg daily for depression and anxietymonitor for agustín - patient reported had good response in past on rx obtain [facility] Buspar 10 mg three times [...] MEALS Qty: (270) tablet Refills: 0 Pharmacy: [facility] #2510 fluoxetine 20 mg capsule - TAKE 1 CAPSULE BY MOUTH EVERY DAY IN THE MORNING Qty: (30) capsule Refills: 1 Pharmacy: [facility] #2510 lorazepam 0.5 mg tablet - TAKE 1 TABLET BY MOUTH TWICE A DAY Qty: (60) tablet Refills: 2 Pharmacy: [facility] #[id number] 3. Primary hypersomnia -educated on sleep [...] MORNING Qty: (90) tablet Refills: 0 Pharmacy: [facility] #2510 divalproex 500 mg tablet,delayed release - Take 1 tablet(s) every day by oral route at bedtime for 30 days. Qty: (30) tablet Refills: 2 Pharmacy: [facility] #2510 Note to Pharmacy: quetiapine 100 mg tablet - TAKE 1 TABLET BY MOUTH EVERYDAY AT BEDTIME Qty: (90) tablet Refills: 0 Pharmacy: [facility] #2510 lamotrigine 100 mg tablet - TAKE 1 TABLET BY MOUTH TWICE A DAY DIRECTED FOR 90 DAYS Qty: (180) tablet Refills: 0 Pharmacy: [facility] #2510 2. Generalized anxiety disorder - Prozac 20 mg daily for depression and anxietymonitor for agustín - patient reported had good response in past on rx obtain [facility] Buspar 10 mg three times [...] MEALS Qty: (270) tablet Refills: 0 Pharmacy: [facility] #2510 fluoxetine 20 mg capsule - TAKE 1 CAPSULE BY MOUTH EVERY DAY IN THE MORNING Qty: (30) capsule Refills: 1 Pharmacy: [facility] #2510 lorazepam 0.5 mg tablet - TAKE 1 TABLET BY MOUTH TWICE A DAY Qty: (60) tablet Refills: 2 Pharmacy: [facility] #[id number] 3. Primary hypersomnia -educated on sleep [...] good response in past on rx obtain [facility] Buspar 10 mg three times [...] on sleep 4. Long-term drug therapy 06/13/2024 Bipolar disorder, current episode depressed, moderate [...] good response in past on rx obtain [facility] Buspar 10 mg three times [...] -educated on sleep 4. Long-term drug therapy 10/03/2024 Encounter for screening for depression (ICD-10 - Z13.31) 1. Mild bipolar disorder - Depakote 250 mg in am and continue Depakote 500 mg at night Lamotrigine 100 mg twice a day Seroquel 100 mg at bedtime- LABS completed will obtained - and scheduled in 2 weeks she is seeing specialist with labs pill box for all medications aims=1 07/28/22 AIMS- 1 09/13/23 missing teeth AIMS= 0 missing teeth refer to therapy MARLEN educated [...] Prozac 20 mg daily for depression and anxiety monitor for agustín - patient reported had good response in past on rx obtain labs [facility] Buspar 10 mg three times a day- [...] also be lethal. Patient was provided cautioN labs reviewed on patient phone 10/03 A1c 8, TSH 1.58, TG 216, TC 172, LDL 74, HDL 53, Vit D 46.5, 3. Primary hypersomnia -educated on sleep 4. Long-term drug therapy 10/03/2024 Encounter for screening for cardiovascular disorders (ICD-10 - Z13.6) 1. Mild bipolar disorder - Depakote 250 mg in am and continue Depakote 500 mg at night Lamotrigine 100 mg twice a day Seroquel 100 mg at bedtime- LABS completed will obtained - and scheduled in 2 weeks she is seeing specialist with labs pill box for all medications aims=1 07/28/22 AIMS- 1 09/13/23 missing teeth AIMS= 0 4/252/5 missing teeth refer to therapy MARLEN educated [...] Prozac 20 mg daily for depression and anxiety monitor for agustín - patient reported had good response in past on rx obtain labs [facility] Buspar 10 mg three times a day- [...] also be lethal. Patient was provided cautioN labs reviewed on patient phone 10/03 A1c 8, TSH 1.58, TG 216, TC 172, LDL 74, HDL 53, Vit D 46.5, 3. Primary hypersomnia -educated on sleep 4. Long-term drug therapy 06/13/2024 Generalized anxiety [...] response in past on rx obtain labs [facility] Buspar 10 mg three times a day- [...] good response in past on rx obtain [facility] Buspar 10 mg three times [...] MORNING Qty: (90) tablet Refills: 0 Pharmacy: [facility] #2510 divalproex 500 mg tablet,delayed release - Take 1 tablet(s) every day by oral route at bedtime for 30 days. Qty: (30) tablet Refills: 2 Pharmacy: [facility] #2510 Note to Pharmacy: quetiapine 100 mg tablet - TAKE 1 TABLET BY MOUTH EVERYDAY AT BEDTIME Qty: (90) tablet Refills: 0 Pharmacy: [facility] #2510 lamotrigine 100 mg tablet - TAKE 1 TABLET BY MOUTH TWICE A DAY DIRECTED FOR 90 DAYS Qty: (180) tablet Refills: 0 Pharmacy: [facility] #2510 2. Generalized anxiety disorder - Prozac 20 mg daily for depression and anxietymonitor for agustín - patient reported had good response in past on rx obtain [facility] Buspar 10 mg three times [...] MEALS Qty: (270) tablet Refills: 0 Pharmacy: [facility] #2510 fluoxetine 20 mg capsule - TAKE 1 CAPSULE BY MOUTH EVERY DAY IN THE MORNING Qty: (30) capsule Refills: 1 Pharmacy: [facility] #2510 lorazepam 0.5 mg tablet - TAKE 1 TABLET BY MOUTH TWICE A DAY Qty: (60) tablet Refills: 2 Pharmacy: [facility] #2510 3. Primary hypersomnia -educated on sleep F51.11: Primary hypersomnia 4. Long-term drug therapy 03/14/2024 Primary hypersomnia [...] good response in past on rx obtain [facility] Buspar 10 mg three times [...] on sleep 4. Long-term drug therapy 06/13/2024 Primary hypersomnia [...] good response in past on rx obtain [facility] Buspar 10 mg three times [...] -educated on sleep 4. Long-term drug therapy 10/03/2024 Bipolar disorder, current episode depressed, moderate (ICD-10 [...] at bedtime- LABS completed will obtained - and scheduled in 2 weeks she is seeing specialist with labs pill box for all medications aims=1 07/28/22 AIMS- 1 09/13/23 missing teeth AIMS= 0 missing teeth refer to therapy MARLEN educated [...] Prozac 20 mg daily for depression and anxiety monitor for agustín - patient reported had good response in past on rx obtain [facility] Buspar 10 mg three times [...] also be lethal. Patient was provided cautioN labs reviewed on patient phone 10/03 A1c 8, TSH 1.58, TG 216, TC 172, LDL 74, HDL 53, Vit D 46.5, 3. Primary hypersomnia -educated on sleep 4. [...] MORNING Qty: (90) tablet Refills: 0 Pharmacy: [facility] #2510 divalproex 500 mg tablet,delayed release - Take 1 tablet(s) every day by oral route at bedtime for 30 days. Qty: (30) tablet Refills: 2 Pharmacy: [facility] #2510 Note to Pharmacy: quetiapine 100 mg tablet - TAKE 1 TABLET BY MOUTH EVERYDAY AT BEDTIME Qty: (90) tablet Refills: 0 Pharmacy: [facility] #2510 lamotrigine 100 mg tablet - TAKE 1 TABLET BY MOUTH TWICE A DAY DIRECTED FOR 90 DAYS Qty: (180) tablet Refills: 0 Pharmacy: [facility] #2510 2. Generalized anxiety disorder - Prozac 20 mg daily for depression and anxietymonitor for agustín - patient reported had good response in past on rx obtain [facility] Buspar 10 mg three times [...] MEALS Qty: (270) tablet Refills: 0 Pharmacy: [facility] #2510 fluoxetine 20 mg capsule - TAKE 1 CAPSULE BY MOUTH EVERY DAY IN THE MORNING Qty: (30) capsule Refills: 1 Pharmacy: [facility] #2510 lorazepam 0.5 mg tablet - TAKE 1 TABLET BY MOUTH TWICE A DAY Qty: (60) tablet Refills: 2 Pharmacy: [facility] #2510 3. Primary hypersomnia -educated on sleep F51.11: Primary hypersomnia 4. Long-term drug therapy 10/03/2024 Generalized anxiety disorder (ICD-10 - F41.1) Learning About Generalized Anxiety Disorder material was published, Generalized Anxiety Disorder: Care Instructions material was published, Learning About Anxiety Disorders material was published 1. Mild bipolar disorder - Depakote 250 mg in am and continue Depakote 500 mg at night Lamotrigine 100 mg twice a day Seroquel 100 mg at bedtime- LABS completed will obtained - and scheduled in 2 weeks she is seeing specialist with labs pill box for all medications aims=1 07/28/22 AIMS- 1 09/13/23 missing teeth AIMS= 0 missing teeth refer to therapy MARLEN educated [...] Prozac 20 mg daily for depression and anxiety monitor for agustín - patient reported had good response in past on rx obtain [facility] Buspar 10 mg three times [...] also be lethal. Patient was provided cautioN labs reviewed on patient phone 10/03 A1c 8, TSH 1.58, TG 216, TC 172, LDL 74, HDL 53, Vit D 46.5, 3. Primary hypersomnia -educated on sleep 4. [...] good response in past on rx obtain [facility] Buspar 10 mg three times [...] sleep 4. Long-term drug therapy 12/21/2023 Other oysterman (current) drug therapy (ICD-10 - Z79.899) Medication [...] MORNING Qty: (90) tablet Refills: 0 Pharmacy: [facility]2510 divalproex 500 mg tablet,delayed release - Take 1 tablet(s) every day by oral route at bedtime for 30 days. Qty: (30) tablet Refills: 2 Pharmacy: [facility] #2510 Note to Pharmacy: quetiapine 100 mg tablet - TAKE 1 TABLET BY MOUTH EVERYDAY AT BEDTIME Qty: (90) tablet Refills: 0 Pharmacy: [facility] #2510 lamotrigine 100 mg tablet - TAKE 1 TABLET BY MOUTH TWICE A DAY DIRECTED FOR 90 DAYS Qty: (180) tablet Refills: 0 Pharmacy: [facility] #2510 2. Generalized anxiety disorder - Prozac 20 mg daily for depression and anxietymonitor for agustín - patient reported had good response in past on rx obtain [facility] Buspar 10 mg three times [...] MEALS Qty: (270) tablet Refills: 0 Pharmacy: [facility] #2510 fluoxetine 20 mg capsule - TAKE 1 CAPSULE BY MOUTH EVERY DAY IN THE MORNING Qty: (30) capsule Refills: 1 Pharmacy: [facility] #2510 lorazepam 0.5 mg tablet - TAKE 1 TABLET BY MOUTH TWICE A DAY Qty: (60) tablet Refills: 2 Pharmacy: [facility] #2510 3. Primary hypersomnia -educated on sleep [...] good response in past on rx obtain [facility] Buspar 10 mg three times [...] sleep 4. Long-term drug therapy 03/14/2024 Other oysterman (current) drug therapy (ICD-10 - Z79.899) Medication [...] good response in past on rx obtain [facility] Buspar 10 mg three times [...] sleep 4. Long-term drug therapy 06/13/2024 Other oysterman (current) drug therapy (ICD-10 - Z79.899) Medication [...] response in past on rx obtain labs [facility] Buspar 10 mg three times a day- [...] -educated on sleep 4. Long-term drug therapy 10/03/2024 Primary hypersomnia (ICD-10 - F51.11) 1. Mild bipolar disorder - Depakote 250 mg in am and continue Depakote 500 mg at night Lamotrigine 100 mg twice a day Seroquel 100 mg at bedtime- LABS completed will obtained - and scheduled in 2 weeks she is seeing specialist with labs pill box for all medications aims=1 07/28/22 AIMS- 1 09/13/23 missing teeth AIMS= 0 missing teeth refer to therapy MARLEN educated [...] Prozac 20 mg daily for depression and anxiety monitor for agustín - patient reported had good response in past on rx obtain [facility] Buspar 10 mg three times [...] also be lethal. Patient was provided cautioN labs reviewed on patient phone 10/03 A1c 8, TSH 1.58, TG 216, TC 172, LDL 74, HDL 53, Vit D 46.5, 3. Primary hypersomnia -educated on sleep 4. Long-term drug therapy 10/03/2024 Post-traumatic stress disorder, chronic (ICD-10 - F43.12) Post-Traumatic Stress Disorder (PTSD): Care Instructions material was published 1. Mild bipolar disorder - Depakote 250 mg in am and continue Depakote 500 mg at night Lamotrigine 100 mg twice a day Seroquel 100 mg at bedtime- LABS completed will obtained - and scheduled in 2 weeks she is seeing specialist with labs pill box for all medications aims=1 07/28/22 AIMS- 1 09/13/23 missing teeth AIMS= 0 missing teeth refer to therapy MARLEN educated [...] Prozac 20 mg daily for depression and anxiety monitor for agustín - patient reported had good response in past on rx obtain [facility] Buspar 10 mg three times [...] also be lethal. Patient was provided cautioN labs reviewed on patient phone 10/03 A1c 8, TSH 1.58, TG 216, TC 172, LDL 74, HDL 53, Vit D 46.5, 3. Primary hypersomnia -educated on sleep 4. Long-term drug therapy 10/03/2024 Other oysterman (current) drug therapy (ICD-10 - Z79.899) Medication Refill: Care Instructions material was published 1. Mild bipolar disorder - Depakote 250 mg in am and continue Depakote 500 mg at night Lamotrigine 100 mg twice a day Seroquel 100 mg at bedtime- LABS completed will obtained - and scheduled in 2 weeks she is seeing specialist with labs pill box for all medications aims=1 07/28/22 AIMS- 1 09/13/23 missing teeth AIMS= 0 missing teeth refer to therapy MARLEN educated [...] Prozac 20 mg daily for depression and anxiety monitor for agustín - patient reported had good response in past on rx obtain labs [facility] Buspar 10 mg three times a day- [...] also be lethal. Patient was provided cautioN labs reviewed on patient phone 10/03 A1c 8, TSH 1.58, TG 216, TC 172, LDL 74, HDL 53, Vit D 46.5, 3. Primary hypersomnia -educated on sleep 4. [...] MORNING Qty: (90) tablet Refills: 0 Pharmacy: [facility]2510 divalproex 500 mg tablet,delayed release - Take 1 tablet(s) every day by oral route at bedtime for 30 days. Qty: (30) tablet Refills: 2 Pharmacy: [facility] #251 Note to Pharmacy: quetiapine 100 mg tablet - TAKE 1 TABLET BY MOUTH EVERYDAY AT BEDTIME Qty: (90) tablet Refills: 0 Pharmacy: [facility] #2514 lamotrigine 100 mg tablet - TAKE 1 TABLET BY MOUTH TWICE A DAY DIRECTED FOR 90 DAYS Qty: (180) tablet Refills: 0 Pharmacy: [facility] #2515 2. Generalized anxiety disorder - Prozac 20 mg daily for depression and anxietymonitor for agustín - patient reported had good response in past on rx obtain [facility] Buspar 10 mg three times [...] MEALS Qty: (270) tablet Refills: 0 Pharmacy: [facility]2510 fluoxetine 20 mg capsule - TAKE 1 CAPSULE BY MOUTH EVERY DAY IN THE MORNING Qty: (30) capsule Refills: 1 Pharmacy: [facility]2510 lorazepam 0.5 mg tablet - TAKE 1 TABLET BY MOUTH TWICE A DAY Qty: (60) tablet Refills: 2 Pharmacy: [facility]2510 3. Primary hypersomnia -educated on sleep F51.11: Primary hypersomnia 4. Long-term drug therapy Plan Of Treatment Future Test Test Name Order Date LIPID PANEL WITH REFLEX TO DIRECT LDL (1 2540) 03/14/2024 COMPREHENSIVE METABOLIC PANEL (46723) CBC (INCLUDES DIFF/PLT) (6399) HEMOGLOBIN A1c (496) 03/14/2024 TSH W/REFLEX TO FT4 (27601) 03/14/2024 VALPROIC ACID (916) 03/14/2024 Liver Function Test (LFT) 10/03/2024 VALPROIC ACID (916) 10/03/2024 Next Appt Details Provider Name:Hemant Loco , 05/01/2025 09:30:00 AM, [address], [facility] [address], [place], [address], Insurance Providers Payer Name Payer Address Payer Phone Subscriber Number Group Number Insured Name Patient Relationship to Insured Coverage Start Date Coverage End Date Medicare-I l Medicare [address] [place] [id number] KELBY Wharton AMBER Self - patient is the insured Medical (General) History Medical History History ICD Code Problems: Bipolar disorder Chronic post-traumatic stress disorder Generalized anxiety disorder History of SARS-CoV-2 Hyperlipidemia Hypothyroidism Long-term drug therapy Mild bipolar disorder Morbid obesity Normal grief reaction Primary hypersomnia Type 2 diabetes mellitus , Surgical History Surgery Date(Month/Year) Any surgical history Other 06/11/2003 Hysterectomy (71169) 06/11/2003
--- OUTSIDE RECORDS SUMMARY | 2024-10-10 08:15 | XMS_ITS | Encounter Summary ---
Author Organization [facility] Address [address] [place] [address] Care Team Providers Care Workforce Development Program Director Name Role Phone Derrell Scott MD Primary Care Provider Encounter Details Date Type Department Care Team (Late st Contact Info) Description 12/13/[address] 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 Care Pathology Lab Received: 12/13/2021 11:49 [...] Pancytopenia. - See description. 12/14/2021 11:44 AM [facility] Comment Immunohistochemistry is performed to [...] with genetics is recommended. 12/14/2021 11:44 AM [facility] Peripheral Smear Description RBC: normocytic anemia WBC: decreased in number with no overt dysplasia or circulating blasts Platelets: decreased in number, normal morphology 12/14/2021 11:44 AM [facility] Bone Marrow Aspirate Touch preparation only: Differential count (200 cells): not performed due to hemodilution Specimen quality: dilute Spicules: none Peripheral blood contamination is present. Megakaryocytes are not seen in this preparation indicating the hemodilution. Few myeloid and erythroid precursor cells are seen. No overt dyspoiesis is present. 12/14/2021 11:44 AM [facility] Bone Marrow Core Biopsy and [...] absent on clot section. 12/14/2021 11:44 AM [facility] Flow Cytometry Summary Not submitted. 12/14/2021 11:44 AM [facility] Clinical History Pancytopenia. 12/14/2021 11:44 AM [facility] Materials Received Received are 14 slide(s) and 3 blocks labeled [id number] along with a copy of the outside pathology report. The materials originate from [address], [place] [address]. All original materials are returned to the referring institution, along with a copy of our final report. 12/14/2021 11:44 AM [facility] Disclaimer The performance characteristics of all immunohistochemical and indirect immunofluorescence stains (if any) cited in this report were determined by the Histopathology Laboratory of [facility]. Some of these tests were developed by [...] the attending (teaching) pathologist. 12/14/2021 11:44 AM [facility] Embedded Images 12/14/2021 11:[address] [facility] Pathology/Cytology BONE MARROW SPECIMEN / Unknown 12/08/2021 9:20 AM CDT 12/13/2021 11:49 AM CDT Miscellaneous samples (specimen) BONE MARROW SPECIMEN / Unknown 12/08/2021 9:20 AM CDT 12/13/2021 11:49 AM CDT us Jamaal Manuel MD LAB - PATHOLOGY/CYTOLOGY ORD ERABLES Final Result [facility] [address] [facility] [phone] documented in this encounter Visit Diagnoses Diagnosis Illness, unspecified documented in this encounter Care Teams Workforce Development Program Director Relationship Specialty Start Date End Date Derrell Scott MD [address] [place] [address] PCP - General 04/27/20 documented as of this encounter
[2024-10-10 08:48] LABS: Hematocrit 36.3 % (37.0-47.0); Hemoglobin 10.8 g/dL (12.0-15.0); Mean Corpuscular HGB Conc 29.8 g/dl (32-36); Mean Corpuscular Hemoglobin 28.3 pg (26-34); Mean Corpuscular Volume 95.3 fl (80-100); Mean Platelet Volume 10.3 fl (7.4-10.4); Platelet Count Result 138 k/mm3 (150-375); Red Blood Count 3.81 M/mm3 (4.2-5.4); White Blood Count 4.1 K/mm3 (4.5-10.0)
[2024-10-10 08:49] LABS: Albumin Level 3.9 g/dL (3.5-5.1); Anion Gap 9 mmol/L (4-12); Blood Urea Nitrogen 39 mg/dL (7-17); Calcium 9.7 mg/dL (8.4-10.2); Carbon Dioxide 24 mmol/L (22-30); Chloride 108 mmol/L (98-107); Estimated Glomerular Filt Rate 32; Glucose 164 mg/dL (65-110); Phosphorus 4.6 mg/dL (2.5-4.5); Potassium 5.1 mmol/L (3.4-5.0); Sodium 141 mmol/L (137-145)
[2024-10-10 08:58] LABS: Parathyroid Intact 42.1 pg/mL (14.5-75.2)
[2024-10-10 09:38] LABS: Creatinine Urine 67.2 mg/dL; Total Protein Urine Random 14 mg/dL; Ur Ttl Prot Creatinine Ratio 0.21 mg/mg (0-0.20)
== END 2024-10-10 08:09 | disposition home or self-care (01) ==
PROVIDERS: PCP Nurse Practitioner; Visit Provider Internal Medicine Nephrology
DX: N18.32 Chronic kidney disease, stage 3b (principal)
CPT/HCPCS: 36415; 80069; 82570; 83970; 84156; 85027

== ENCOUNTER 2024-10-31 07:55 | Outpatient (CLI) | payer MEDICARE, MEDICAID, SELFPAY ==
--- OUTSIDE RECORDS SUMMARY | 2024-10-31 07:58 | XMS_ITS | Clinical Summary ---
Author Organization [facility] Address [address] [place] [address] Care Team Providers Care Validation Scientist Name Role Phone Unavailable Primary Care Provider Unavailabl e Allergies Active Allergy Reactions Criticality Noted Date Comments Codeine Hallucination Low 12/31/2023 Dyphylline (Bulk) Anxiety Low 12/31/2023 Nsaids (Non-Steroidal Anti-Inflammatory Drug) Other (See Comments) 12/31/2023 Increase blood sugar Oxycodone Hallucination Low 12/31/2023 Tramadol Rash Low 12/31/2023 Medications LORazepam (ATIVAN) 0.5 mg tablet Take 0.5 mg by mouth every 6 hours as needed for Anxiety. Active levothyroxine 125 mcg tablet Take 125 mcg by mouth daily in the morning. Active losartan (COZAAR) 25 mg tablet Take 25 mg by mouth daily. Active QUEtiapine (SEROquel) 100 mg tablet Take 100 mg by mouth 2 times daily. Active divalproex (DEPAKOTE) 500 mg delayed release tablet Take 500 mg by mouth 3 times daily. Active atorvastatin (LIPITOR) 80 mg tablet Take 80 mg by mouth daily. Active FLUoxetine (PROzac) 20 mg capsule Take 20 mg by mouth daily. Active FENOFIBRATE ORAL Take 145 mg by mouth daily. Active empagliflozin (Jardiance) 25 mg tablet Take 25 mg by mouth daily in the morning. Active pantoprazole (PROTONIX) 40 mg Tablet, Delayed Release (E.C.) Take 40 mg by mouth daily. Active carvediloL (COREG) 12.5 mg tablet Take 12.5 mg by mouth 2 times daily with meals. Active divalproex (DEPAKOTE ER) 250 mg Extended Release 24 hour tablet Take 250 mg by mouth daily. Active lamoTRIgine (LaMICtal) 100 mg tablet Take 100 mg by mouth daily. Active busPIRone (BUSPAR) 10 mg tablet Take 10 mg by mouth 3 times daily. Active Active Problems No known active problems Encounters Date Type Department Care Team Description 10/29/2024 External Device Data [facility] ABSTRACTION Provider, Abstract 10/29/2024 External Device Data [facility]CTION Provider, Abstract 08/27/2024 External Device Data [facility]CTION Provider, Abstract 08/16/2024 External Device Data [facility]CTION Provider, Abstract 08/15/2024 External Device Data [facility]CTION Provider, Abstract 08/13/2024 External Device Data [facility]STRACTION Provider, Abstract from Last 3 Months Family History Medical History Relation Name Comments Thyroid Cancer Brother 1 Diabetes Brother 2 No Known Problems Child Lung Cancer Father Diabetes Mother Leukemia Mother No Known Problems Sister Relation Name Status Comments Brother 1 Alive Brother 2 Alive Child Alive Father Mother Sister Alive Social History Tobacco Use Types Packs/Day Years Used Date Smoking Tobacco: Never Smokeless Tobacco: Never Alcohol Use Standard Drinks/Week Comments Never 0 (1 standard drink = 0.6 oz pur e alcohol) Comments Unknown Sex and Gender Information Value Date Recorded Sex Assigned at Not on file 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 Gender Identity Not on file Sexual Orientation Not on file Last Filed Vital Signs Vital Sign Reading Time Taken Comments Blood Pressure 146/77 12/31/2023 1:35 PM CDT Pulse 65 12/31/2023 1:35 PM CDT Temperature 36.5 C (97.7 F) 12/31/2023 1:31 PM CDT Respiratory Rate 18 12/31/2023 1:31 PM CDT Oxygen Saturation 96% 12/31/2023 1:31 PM CDT Inhaled Oxygen Concentration - - Weight 98.9 kg (218 lb) 12/31/2023 1:31 PM CDT Height 157.5 cm (5' 2 ) 12/31/2023 1:31 PM CDT Body Mass Index 39.87 12/31/2023 1:31 PM CDT Plan of Treatment Health Maintenance Due Date Last Done Comments Pre-Diabetes and Diabetes Screening 1960 DTAP/TDAP/TD VACCINES (1 - Tdap) 1979 HPV/Cotest (21-29) 1981 CERVICAL CANCER SCREENING 1990 HPV/Cotest (30-65) 1990 PAP SMEAR 1990 BREAST CANCER SCREENING 2000 FIT-DNA Q 3 years 2005 FIT/FOBT Q 1 year 2005 Flex Sig/CT Colonography Q 5 years 2005 ZOSTER VACCINE (1 of 2) 2010 RSV VACCINE (60+ or ) (1 - Risk 60-74 years 1-dose series) 2020 INFLUENZA VACCINE (#1) 2024 COLORECTAL SCREENING 04/23/2030 04/23/2020 Colorectal Cancer Screening 04/23/2030 Insurance MEDICARE PART A AND B MEDICARE PART A AND B [address] [facility], [place] [id number]
--- OUTSIDE RECORDS SUMMARY | 2024-10-31 07:58 | XMS_ITS | Patient Health Record ---
Author Organization [facility] [employer] [facility] Address [address] [place] [address] Care Team Providers Care Lumber Mover Name Role Phone Jules Govea DO Primary Care Provider Hemant Rea Unavailable [phone] Allergies Allergen (clinical drug ingredient) Drug/Non Drug [...] 25 MCG (1,000 UNIT) CAPSULE *Reorder from [facility] for eRx and Interaction Alerts* [...] Problem Bipolar affective disorder, currently depressed, moderate (299014035) Bipolar disorder, current episode depressed, moderate (F31.32) 09/14/19 24 Active confirmed Problem Generalized anxiety disorder (09854571) Generalized anxiety disorder (F41.1) 09/14/19 24 Active confirmed Problem Posttraumatic stress disorder (12257694) Post-traumatic stress disorder, chronic (F43.12) 06/15/19 24 Active confirmed Problem Primary hypersomnia (57758082) Primary hypersomnia (F51.11) 09/14/19 24 Active confirmed Problem Screening for cardiovascular system disease (195021310) Encounter for screening for cardiovascular disorders (Z13.6) Active confirmed Problem Long-term current use of drug therapy (434769558) Other exterminator helper (current) drug therapy (Z79.899) 09/14/19 24 Active confirmed Problem Depression Screening (599827031) Encounter for screening for depression (Z13.31) Active confirmed Vital Signs Heart Rate 63 /min 10/03/2024 Respiratory Rate 16 /min 10/03/2024 Height-cm 160.02 cm 10/03/2024 Blood pressure diastolic 76 mm Hg 10/03/2024 Weight-kg 103.42 kg 10/03/2024 Height 63.00 in 10/03/2024 Blood pressure systolic 124 mm Hg 10/03/2024 Weight 228 lbs 10/03/2024 BMI 40.38 kg/m2 10/03/2024 Encounters Encounter [facility] Date [facility] [address] [facility] [address] [address] 12/21/2023 Hemant Loco Bipolar disorder, current episode depressed, moderate F31.32 ; Generalized anxiety disorder F41.1 ; Primary hypersomnia F51.11 ; Post-traumatic stress disorder, chronic F43.12 and Other exterminator helper (current) drug therapy Z79.899 [facility] [employer] [facility] [address] [facility] [address] [address] 03/14/2024 Hemant Loco Bipolar disorder, current episode depressed, moderate F31.32 ; Generalized anxiety disorder F41.1 ; Primary hypersomnia F51.11 ; Post-traumatic stress disorder, chronic F43.12 and Other alf (current) drug therapy Z79.899 [facility] [employer] [facility] [address] [facility] [address] [address] 06/13/2024 Hemant Loco Bipolar disorder, current episode depressed, moderate F31.32 ; Generalized anxiety disorder F41.1 ; Primary hypersomnia F51.11 ; Post-traumatic stress disorder, chronic F43.12 and Other exterminator helper (current) drug therapy Z79.899 [facility] [employer] [facility] [address] [facility] [address] [address] 10/03/2024 Hemant Loco Encounter for screen ing for depression Z13.31 ; Encounter for screening for cardiovascular disorders Z13.6 ; Bipolar disorder, current episode depressed, moderate F31.32 ; Generalized anxiety disorder F41.1 ; Primary hypersomnia F51.11 ; Post-traumatic stress disorder, chronic F43.12 and Other alf (current) drug therapy Z79.899 [facility] [employer] [facility] [address] [facility] [address] [address] 11/14/2023 [facility] [place] [address] [facility] [address] [address] 12/31/2023 Hemant Blountnoah [facility] [employer] [facility] [address] [place] [address] 02/13/2024 Hemant Loco [facility] [employer] [facility] [address] [place] [address] 05/01/2024 Hemant Loco [facility] [employer] [facility] [address] [place] [address] 05/05/2024 Hemant Beronica Assessments Encounter Date Diagnosis (ICD Code) Assessment [...] MORNING Qty: (90) tablet Refills: 0 Pharmacy: [facility] #2510 divalproex 500 mg tablet,delayed release - Take 1 tablet(s) every day by oral route at bedtime for 30 days. Qty: (30) tablet Refills: 2 Pharmacy: [facility] #0428 Note to Pharmacy: quetiapine 100 mg tablet - TAKE 1 TABLET BY MOUTH EVERYDAY AT BEDTIME Qty: (90) tablet Refills: 0 Pharmacy: [facility] #0061 lamotrigine 100 mg tablet - TAKE 1 TABLET BY MOUTH TWICE A DAY DIRECTED FOR 90 DAYS Qty: (180) tablet Refills: 0 Pharmacy: [facility] #2510 2. Generalized anxiety disorder - Prozac 20 mg daily for depression and anxietymonitor for agustín - patient reported had good response in past on rx obtain [facility] Buspar 10 mg three times a day- [...] MEALS Qty: (270) tablet Refills: 0 Pharmacy: [facility] #2510 fluoxetine 20 mg capsule - TAKE 1 CAPSULE BY MOUTH EVERY DAY IN THE MORNING Qty: (30) capsule Refills: 1 Pharmacy: [facility] #2510 lorazepam 0.5 mg tablet - TAKE 1 TABLET BY MOUTH TWICE A DAY Qty: (60) tablet Refills: 2 Pharmacy: [facility] #2510 3. Primary hypersomnia -educated on sleep [...] MORNING Qty: (90) tablet Refills: 0 Pharmacy: [facility] #2510 divalproex 500 mg tablet,delayed release - Take 1 tablet(s) every day by oral route at bedtime for 30 days. Qty: (30) tablet Refills: 2 Pharmacy: [facility] #2510 Note to Pharmacy: quetiapine 100 mg tablet - TAKE 1 TABLET BY MOUTH EVERYDAY AT BEDTIME Qty: (90) tablet Refills: 0 Pharmacy: [facility] #2510 lamotrigine 100 mg tablet - TAKE 1 TABLET BY MOUTH TWICE A DAY DIRECTED FOR 90 DAYS Qty: (180) tablet Refills: 0 Pharmacy: [facility] #2510 2. Generalized anxiety disorder - Prozac 20 mg daily for depression and anxietymonitor for agustín - patient reported had good response in past on rx obtain [facility] Buspar 10 mg three times a day- [...] MEALS Qty: (270) tablet Refills: 0 Pharmacy: [facility] #2510 fluoxetine 20 mg capsule - TAKE 1 CAPSULE BY MOUTH EVERY DAY IN THE MORNING Qty: (30) capsule Refills: 1 Pharmacy: [facility] #2510 lorazepam 0.5 mg tablet - TAKE 1 TABLET BY MOUTH TWICE A DAY Qty: (60) tablet Refills: 2 Pharmacy: [facility] #2510 3. Primary hypersomnia -educated on sleep [...] good response in past on rx obtain [facility] Buspar 10 mg three times a day- [...] good response in past on rx obtain [facility] Buspar 10 mg three times a day- [...] response in past on rx obtain [facility] Buspar 10 mg three times a day- [...] AIMS- 1 09/13/23 missing teeth AIMS= 0 / missing teeth refer to therapy MARLEN educated [...] good response in past on rx obtain [facility] Buspar 10 mg three times a day- [...] good response in past on rx obtain [facility] Buspar 10 mg three times a day- [...] good response in past on rx obtain [facility] Buspar 10 mg three times a day- [...] MORNING Qty: (90) tablet Refills: 0 Pharmacy: [facility] #2510 divalproex 500 mg tablet,delayed release - Take 1 tablet(s) every day by oral route at bedtime for 30 days. Qty: (30) tablet Refills: 2 Pharmacy: [facility] #2510 Note to Pharmacy: quetiapine 100 mg tablet - TAKE 1 TABLET BY MOUTH EVERYDAY AT BEDTIME Qty: (90) tablet Refills: 0 Pharmacy: [facility] #2510 lamotrigine 100 mg tablet - TAKE 1 TABLET BY MOUTH TWICE A DAY DIRECTED FOR 90 DAYS Qty: (180) tablet Refills: 0 Pharmacy: [facility] #2510 2. Generalized anxiety disorder - Prozac 20 mg daily for depression and anxietymonitor for agustín - patient reported had good response in past on rx obtain [facility] Buspar 10 mg three times a day- [...] MEALS Qty: (270) tablet Refills: 0 Pharmacy: [facility] #2510 fluoxetine 20 mg capsule - TAKE 1 CAPSULE BY MOUTH EVERY DAY IN THE MORNING Qty: (30) capsule Refills: 1 Pharmacy: [facility] #2510 lorazepam 0.5 mg tablet - TAKE 1 TABLET BY MOUTH TWICE A DAY Qty: (60) tablet Refills: 2 Pharmacy: [facility] #2510 3. Primary hypersomnia -educated on sleep [...] good response in past on rx obtain [facility] Buspar 10 mg three times a day- [...] response in past on rx obtain [facility] Buspar 10 mg three times a day- [...] response in past on rx obtain [facility] Buspar 10 mg three times a day- [...] MORNING Qty: (90) tablet Refills: 0 Pharmacy: [facility] #2510 divalproex 500 mg tablet,delayed release - Take 1 tablet(s) every day by oral route at bedtime for 30 days. Qty: (30) tablet Refills: 2 Pharmacy: [facility] #2510 Note to Pharmacy: quetiapine 100 mg tablet - TAKE 1 TABLET BY MOUTH EVERYDAY AT BEDTIME Qty: (90) tablet Refills: 0 Pharmacy: [facility] #2510 lamotrigine 100 mg tablet - TAKE 1 TABLET BY MOUTH TWICE A DAY DIRECTED FOR 90 DAYS Qty: (180) tablet Refills: 0 Pharmacy: [facility] #2510 2. Generalized anxiety disorder - Prozac 20 mg daily for depression and anxietymonitor for agustín - patient reported had good response in past on rx obtain [facility] Buspar 10 mg three times a day- [...] MEALS Qty: (270) tablet Refills: 0 Pharmacy: [facility] #2510 fluoxetine 20 mg capsule - TAKE 1 CAPSULE BY MOUTH EVERY DAY IN THE MORNING Qty: (30) capsule Refills: 1 Pharmacy: [facility] #2510 lorazepam 0.5 mg tablet - TAKE 1 TABLET BY MOUTH TWICE A DAY Qty: (60) tablet Refills: 2 Pharmacy: [facility] #2510 3. Primary hypersomnia -educated on sleep [...] response in past on rx obtain [facility] Buspar 10 mg three times a day- [...] good response in past on rx obtain [facility] Buspar 10 mg three times a day- [...] sleep 4. Long-term drug therapy 12/21/2023 Other exterminator helper (current) drug therapy (ICD-10 - Z79.899) Medication [...] MORNING Qty: (90) tablet Refills: 0 Pharmacy: [facility] #2510 divalproex 500 mg tablet,delayed release - Take 1 tablet(s) every day by oral route at bedtime for 30 days. Qty: (30) tablet Refills: 2 Pharmacy: [facility] #2510 Note to Pharmacy: quetiapine 100 mg tablet - TAKE 1 TABLET BY MOUTH EVERYDAY AT BEDTIME Qty: (90) tablet Refills: 0 Pharmacy: [facility] #2510 lamotrigine 100 mg tablet - TAKE 1 TABLET BY MOUTH TWICE A DAY DIRECTED FOR 90 DAYS Qty: (180) tablet Refills: 0 Pharmacy: [facility] #2510 2. Generalized anxiety disorder - Prozac 20 mg daily for depression and anxietymonitor for agustín - patient reported had good response in past on rx obtain [facility] Buspar 10 mg three times a day- [...] MEALS Qty: (270) tablet Refills: 0 Pharmacy: [facility] #2510 fluoxetine 20 mg capsule - TAKE 1 CAPSULE BY MOUTH EVERY DAY IN THE MORNING Qty: (30) capsule Refills: 1 Pharmacy: [facility] #2510 lorazepam 0.5 mg tablet - TAKE 1 TABLET BY MOUTH TWICE A DAY Qty: (60) tablet Refills: 2 Pharmacy: [facility] #2510 3. Primary hypersomnia -educated on sleep [...] good response in past on rx obtain [facility] Buspar 10 mg three times a day- [...] sleep 4. Long-term drug therapy 03/14/2024 Other alf (current) drug therapy (ICD-10 - Z79.899) Medication [...] good response in past on rx obtain [facility] Buspar 10 mg three times a day- [...] sleep 4. Long-term drug therapy 06/13/2024 Other exterminator helper (current) drug therapy (ICD-10 - Z79.899) Medication [...] 1 09/13/23 missing teeth refer to therapy MARELN educated on all medications, benefits, side effects [...] good response in past on rx obtain [facility] Buspar 10 mg three times a day- [...] good response in past on rx obtain [facility] Buspar 10 mg three times a day- [...] good response in past on rx obtain [facility] Buspar 10 mg three times a day- [...] sleep 4. Long-term drug therapy 10/03/2024 Other alf (current) drug therapy (ICD-10 - Z79.899) Medication [...] good response in past on rx obtain [facility] Buspar 10 mg three times a day- [...] MORNING Qty: (90) tablet Refills: 0 Pharmacy: [facility] #2510 divalproex 500 mg tablet,delayed release - Take 1 tablet(s) every day by oral route at bedtime for 30 days. Qty: (30) tablet Refills: 2 Pharmacy: [facility] #2510 Note to Pharmacy: quetiapine 100 mg tablet - TAKE 1 TABLET BY MOUTH EVERYDAY AT BEDTIME Qty: (90) tablet Refills: 0 Pharmacy: [facility] #2510 lamotrigine 100 mg tablet - TAKE 1 TABLET BY MOUTH TWICE A DAY DIRECTED FOR 90 DAYS Qty: (180) tablet Refills: 0 Pharmacy: [facility] #2510 2. Generalized anxiety disorder - Prozac 20 mg daily for depression and anxietymonitor for agustín - patient reported had good response in past on rx obtain [facility] Buspar 10 mg three times a day- [...] MEALS Qty: (270) tablet Refills: 0 Pharmacy: [facility] #2510 fluoxetine 20 mg capsule - TAKE 1 CAPSULE BY MOUTH EVERY DAY IN THE MORNING Qty: (30) capsule Refills: 1 Pharmacy: [facility] #2510 lorazepam 0.5 mg tablet - TAKE 1 TABLET BY MOUTH TWICE A DAY Qty: (60) tablet Refills: 2 Pharmacy: [facility] #2510 3. Primary hypersomnia -educated on sleep F51.11: Primary hypersomnia 4. Long-term drug therapy Plan Of Treatment Future Test Test Name Order Date LIPID PANEL WITH REFLEX TO DIRECT LDL (1 4852) 03/14/2024 COMPREHENSIVE METABOLIC PANEL (69898) CBC (INCLUDES DIFF/PLT) (6399) HEMOGLOBIN A1c (496) 03/14/2024 TSH W/REFLEX TO FT4 (07624) 03/14/2024 VALPROIC ACID (916) 03/14/2024 Liver Function Test (LFT) 10/03/2024 VALPROIC ACID (916) 10/03/2024 Next Appt Details Provider Name:Hemant Loco , 05/01/2025 09:30:00 AM, [address] [address], [facility] [address], [address], Insurance Providers Payer Name Payer Address Payer Phone Subscriber Number Group Number Insured Name Patient Relationship to Insured Coverage Start Date Coverage End Date Medicare-I l Medicare [address] [place] [phone] [id number] [employer] Self - patient is the insured Medical (General) History Medical History History ICD Code Problems: Bipolar disorder Chronic post-traumatic stress disorder Generalized anxiety disorder History of SARS-CoV-2 Hyperlipidemia Hypothyroidism Long-term drug therapy Mild bipolar disorder Morbid obesity Normal grief reaction Primary hypersomnia Type 2 diabetes mellitus , Surgical History Surgery Date(Month/Year) Any surgical history Other 06/11/2003 Hysterectomy (88684) 06/11/2003
--- OUTSIDE RECORDS SUMMARY | 2024-10-31 07:58 | XMS_ITS | Clinical Summary ---
Author Organization [facility] Address [address], [facility] [address] [place] [address] Phone Care Team Providers Care Supply Chain Analyst Name Role Phone Derrell Scott MD Primary Care Provider [phone] Social History Tobacco Use Types Packs/Day Years [...] complete this topic Insurance MEDICARE Care Teams Supply Chain Analyst Relationship Specialty Start Date End Date Derrell Scott MD [address] [place] [address] PCP - General Family Medicine 03/18/20
--- OUTSIDE RECORDS SUMMARY | 2024-10-31 07:58 | XMS_ITS | Clinical Summary ---
Author Organization [facility] Address [address] [facility] [place] [address] Care Team Providers Care Manager Activities Name Role Phone Derrell Scott MD Primary Care Provider [phone] Source Comments [facility],non-owned Affiliates and Associated Physician Practices is amultiple site organization consisting of ambulatory clinics and hospital sitesin [place], [place], [place] and [place]. This disclosure is being madepursuant to the Care Everywhere program and may not contain all information available regarding this patient. 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
--- OUTSIDE RECORDS SUMMARY | 2024-10-31 07:58 | XMS_ITS | Encounter Summary ---
Author Organization [employer] Address [address] [place] [address] Care Team Providers Care Pantry Steward/Stewardess Name Role Phone Unavailable Primary Care Provider Unavailabl e Encounter Details Date Type Department Care Team (Late st Contact Info) Description 06/21/1998 Outpatient Historical [facility] STDallin Coe MD [address] 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
--- OUTSIDE RECORDS SUMMARY | 2024-10-31 07:58 | XMS_ITS | Encounter Summary ---
Author Organization [facility] Address [address] [place] [address] Care Team Providers Care Fleet Assistant Name Role Phone Unavailable Primary Care Provider Unavailabl e Encounter Details Date Type Department Care Team (Late st Contact Info) Description 10/29/2024 External Device Data [facility] ABSTRACTION Provider, Abstract NO ADDRESS ON FILE Social History Tobacco Use Types Packs/Day Years Used Date Smoking Tobacco: Never Smokeless Tobacco: Never Alcohol Use Standard Drinks/Week Comments Never 0 (1 standard drink = 0.6 oz pur e alcohol) Comments Unknown Sex and Gender Information Value Date Recorded Sex Assigned at Not on file Legal Sex Female 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
--- OUTSIDE RECORDS SUMMARY | 2024-10-31 07:58 | XMS_ITS | Encounter Summary ---
Author Organization [facility] Address [address] [place] [address] Care Team Providers Care Territory Supervisor Name Role Phone Derrell Scott MD Primary Care Provider Encounter Details Date Type Department Care Team (Late st Contact Info) Description 12/13/2021 Lab Requisition [facility] Care Pathology Lab [address] [place] [address] Jamaal Manuel MD [address] [place] [address] Illness, unspecified Social History Tobacco Use Types Packs/Day Years Used Date Smoking Tobacco: Never Assessed Comments Unknown Sex and Gender Information Value Date Recorded Sex Assigned at Not on file 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 - See description. 12/14/2021 11:44 AM [facility] at 1144 CDT AP Comment Immunohistochemistry is performed to assess staining [...] with genetics is recommended. 12/14/2021 11:44 AM [facility] Peripheral Smear Description RBC: normocytic anemia WBC: decreased in number with no overt dysplasia or circulating blasts Platelets: decreased in number, normal morphology 12/14/2021 11:44 AM [facility] Bone Marrow Aspirate Touch preparation only: Differential count (200 cells): not performed due to hemodilution Specimen quality: dilute Spicules: none Peripheral blood contamination is present. Megakaryocytes are not seen in this preparation indicating the hemodilution. Few myeloid and erythroid precursor cells are seen. No overt dyspoiesis is present. 12/14/2021 11:44 AM [facility] Bone Marrow Core Biopsy [...] absent on clot section. 12/14/2021 11:44 AM [facility] Flow Cytometry Summary Not submitted. 12/14/2021 11:44 AM [facility] Clinical History Pancytopenia. 12/14/2021 11:44 AM [facility] Materials Received Received are 14 slide(s) and 3 blocks labeled [id number] along with a copy of the outside pathology report. The materials originate from [address], [place] [address]. All original materials are returned to the referring institution, along with a copy of our final report. 12/14/2021 11:44 AM [facility] Disclaimer The performance characteristics of all immunohistochemical and indirect immunofluorescence stains (if any) cited in this report were determined by the Histopathology Laboratory of [facility]. Some of these tests were developed [...] the attending (teaching) pathologist. 12/14/2021 11:44 AM [facility] Embedded Images 12/14/2021 11:44 AM [facility] Pathology/Cytology BONE MARROW SPECIMEN / Unknown 12/08/2021 9:20 AM CDT 12/13/2021 11:49 AM CDT Miscellaneous samples (specimen) BONE MARROW SPECIMEN / Unknown 12/08/2021 9:20 AM CDT 12/13/2021 11:49 AM CDT us Jamaal Manuel MD LAB - PATHOLOGY/CYTOLOGY ORD ERABLES Final Result [facility] [address] [facility] [phone] documented in this encounter Visit Diagnoses Diagnosis Illness, unspecified documented in this encounter Care Teams Territory Supervisor Relationship Specialty Start Date End Date Derrell Scott MD [address] [place] [address] PCP - General 04/27/20 documented as of this encounter
[2024-10-31 09:21] LABS: Anion Gap 6 mmol/L (4-12); Blood Urea Nitrogen 38 mg/dL (7-17); Calcium 9.4 mg/dL (8.4-10.2); Carbon Dioxide 26 mmol/L (22-30); Chloride 107 mmol/L (98-107); Estimated Glomerular Filt Rate 30; Glucose 149 mg/dL (65-110); Potassium 4.5 mmol/L (3.4-5.0); Sodium 139 mmol/L (137-145)
== END 2024-10-31 07:56 | disposition home or self-care (01) ==
LOC: ANHLAB 07:56
PROVIDERS: PCP Nurse Practitioner; Visit Provider Internal Medicine Nephrology
DX: N18.32 Chronic kidney disease, stage 3b (principal)
CPT/HCPCS: 36415; 80048

== ENCOUNTER 2025-01-09 07:44 | Outpatient (CLI) | payer MEDICARE, SELFPAY ==
--- OUTSIDE RECORDS SUMMARY | 2025-01-09 07:48 | XMS_ITS | Clinical Summary ---
Author Organization [facility] Address [address] [facility] [address] [place] [address] Phone Care Team Providers Care Osteologist Name Role Phone Derrell Scott MD Primary [...] Cervical Cancer Screening (CCS) 1990 HPV/Cotest 1990 Cologuard 2005 Colonoscopy 2005 Colorectal Cancer Screening 2005 Immunochemical Fecal Occult Blood 2005 Pneumococcal Immunization (5 0+ years) (1 of 1 - PCV) 2010 Zoster Immunization (1 of 2) 2010 SARS-COV-2 Immunization ( season) 2024 04/12/2021, 09/28/2020, 09/07/2020 Influenza Immunization (#1) 2025 Respiratory Syncytial Virus (RSV) Immunization (Adult) (1 - 1-dose 75+ series) 2035 Hepatitis B Immunization Aged Out No longer eligible based on patient's age to complete this topic Human Papillomavirus (HPV) Immunization Aged Out No longer eligible b ased on patient's age to complete this topic Meningococcal Immunization (ACWY) Aged Out No longer eligible b ased on patient's age to complete this topic Rotavirus Immunization Aged Out No lo nger eligible based on patient's age to complete this topic Insurance MEDICARE Care Teams Osteologist Relationship Specialty Start Date End Date Derrell Scott MD [address] [place] [address] PCP - General Family Medicine 03/18/20
--- OUTSIDE RECORDS SUMMARY | 2025-01-09 07:48 | XMS_ITS | Clinical Summary ---
Author Organization 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 Gender Identity Not on file Sexual Orientation [...] 1:31 PM CDT Height 157.5 cm (5' 2) 12/31/2023 1:31 PM CDT Body Mass Index 39.87 12/31/2023 1:31 PM CDT Plan of Treatment Health Maintenance Due Date Last Done Comments DTAP/TDAP/TD VACCINES (1 - Tdap) 1979 HPV/Cotest (21-29) 1981 CERVICAL CANCER SCREENING 1990 HPV/Cotest (30-65) 1990 PAP SMEAR 1990 FIT-DNA Q 3 years 2005 FIT/FOBT Q 1 year 2005 Flex Sig/CT Colonography Q 5 years 2005 ZOSTER VACCINE (1 of 2) 2010 RSV VACCINE (60+ or ) (1 - Risk 60-74 years 1-dose series) 2020 INFLUENZA VACCINE (#1) 2025 BREAST CANCER SCREENING 04/11/2025 04/11/2024, 04/11 COLORECTAL SCREENING 04/23/2030 04/23/2020 Colorectal Cancer Screening 04/23/2030 Insurance MEDICARE PART A AND B MEDICARE PART A AND B
--- OUTSIDE RECORDS SUMMARY | 2025-01-09 07:48 | XMS_ITS | Encounter Summary ---
[facility] Organization [facility] Address 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
--- OUTSIDE RECORDS SUMMARY | 2025-01-09 07:48 | XMS_ITS | Clinical Summary ---
Author Organization [facility] Address [address] [place] [address] Care Team Providers Care Power Plant Inspector Name Role Phone Derrell Scott MD Primary Care Provider Source Comments [facility],non-owned Affiliates and Associated Physician Practices is amultiple site organization consisting of ambulatory clinics and hospital sitesin [place], [place], [place] and [place]. This disclosure is being madepursuant to the Care Everywhere program and may not contain all information available regarding this patient. 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 Gender Identity Not on file Sexual Orientation [...] MAMMOGRAM 1960 MEDICARE AWV 12 MONTHS 1960 HIV SCREENING 1975 HEPATITIS C SCREENING 04/01/1978 DTAP/TDAP/TD VACCINES (1 - Tdap) 1979 PAP SMEAR 1981 PNEUMOCOCCAL VACCINE 50+ (1 of 1 - PCV) 2010 ZOSTER VACCINE (1 of 2) 2010 COVID-19 VACCINE (1 - 2023-2 5 season) 2024 DEPRESSION SCREENING 06/11/2024 INFLUENZA VACCINE (#1) 2025 Respiratory Syncytial Virus (RSV) Vaccine Pt: [...] MEDICAID - OUT OF STATE Care Teams Power Plant Inspector Relationship Specialty Start Date End Date Derrell Scott MD [address] [place] [address] PCP - General 04/27/20
--- OUTSIDE RECORDS SUMMARY | 2025-01-09 07:48 | XMS_ITS | Encounter Summary ---
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 - See description. 12/14/2021 11:44 AM [facility] PATHOLOGY LAB at 1144 CDT AP Comment [...] with genetics is recommended. 12/14/2021 11:44 AM [facility] Peripheral Smear Description RBC: normocytic anemia WBC: decreased in number with no overt dysplasia or circulating blasts Platelets: decreased in number, normal morphology 12/14/2021 11:44 AM [facility] PATH[facility] Bone Marrow Aspirate Touch preparation only: Differential count (200 cells): not performed due to hemodilution Specimen quality: dilute Spicules: none Peripheral blood contamination is present. Megakaryocytes are not seen in this preparation indicating the hemodilution. Few myeloid and erythroid precursor cells are seen. No overt dyspoiesis is present. 12/14/2021 11:44 AM [facility] Bone Marrow Core Biopsy and [...] absent on clot section. 12/14/2021 11:44 AM [facility] Flow Cytometry Summary Not submitted. 12/14/2021 11:44 AM [facility] Clinical History Pancytopenia. 12/14/2021 11:44 AM [facility] Materials Received Received are 14 slide(s) and 3 blocks labeled [id number] along with a copy of the outside pathology report. The materials originate from [address], [place] [address]. All original materials are returned to the referring institution, along with a copy of our final report. 12/14/2021 11:44 AM [facility] Disclaimer The performance characteristics of all immunohistochemical and indirect immunofluorescence stains (if any) cited in this report were determined by the Histopathology Laboratory of [facility]. Some of these tests were developed [...] the attending (teaching) pathologist. 12/14/2021 11:44 AM [facility] LAB Embedded Images 12/14/2021 11:44 AM T [facility] PATHOLOGY LAB Pathology/Cytology BONE MARROW SPECIMEN / Unknown 12/08/2021 9:20 AM CDT 12/13/2021 11:49 AM CDT Miscellaneous samples (specimen) BONE MARROW SPECIMEN / Unknown 12/08/2021 9:20 AM CDT 12/13/2021 11:49 AM CDT us Jamaal Manuel MD LAB - PATHOLOGY/CYTOLOGY ORD ERABLES Final Result [facility] PATHOLOG[facility] [address] [facility] [phone] documented in this encounter Visit Diagnoses Diagnosis Illness, unspecified documented in this encounter Care Teams Cleaners Relationship Specialty Start Date End Date Derrell Scott MD [address] [place] [address] PCP - General 04/27/20 documented as of this encounter
[2025-01-09 09:39] LABS: Hemoglobin A1C 7.5 % (<5.7)
== END 2025-01-09 07:45 | disposition home or self-care (01) ==
PROVIDERS: PCP Nurse Practitioner; Visit Provider Nurse Practitioner
DX: E11.22 Type 2 diabetes mellitus with diabetic chronic kidney disease (principal); N18.4 Chronic kidney disease, stage 4 (severe)
CPT/HCPCS: 36415; 83036

== ENCOUNTER 2025-05-23 09:51 | Outpatient (CLI) | payer MEDICARE, SELFPAY ==
--- OUTSIDE RECORDS SUMMARY | 2025-05-15 07:00 | XMS_ITS ---
Author Organization [facility] [employer] [facility] Address [facility] [facility] [address] [address] Care Team Providers Care Relay Dispatcher Name Role Phone Jules Govea DO Primary Care Provider Hemant Rea Unavailable [phone] REASON FOR VISIT follow-up Social History Sex Assigned At : Social History Observation Description Sex Assigned At Female Encounters Encounter Location Date Provider Diagnosis [facility] [address] [address] 05/15/2025 Hemant Loco Plan Of Treatment Next Appt Details Provider Name:Alyce gifford, 08/21/2025 09:45:00 AM, [address] [place] [address] [address], [address], [address], Provider Name:Hemant Loco , 10/23/2025 09:30:00 AM, [address] [place] [address], [phone], Progress Notes * AMBER HARDENADOB: 0 (65 yo F)Acc No.[id number]:05/15/2025 Patient: Robert SALOMONJACEAMBERA Provider: EDIS MENDEZ :1960 A ge:65 Y S ex:Female Date:05/15/2025 Address:[address], [place], [place] Pcp:Jules B Yablonsky DO Subjective: * Chief Complaints: * F ollow-up Billing Information: * Procedure Codes: * Electronic signature of EDIS Augustin on 05/23/2025 at 09:55 AM ONLINE CONTENT EDITOR Sign off status: Pending * Provider: EDIS MENDEZ Date: 07/16/2024 Generated for Lillian deal/Lilian/Delmy on: 07/24/2024 09:55 AM ONLINE CONTENT EDITOR
--- OUTSIDE RECORDS SUMMARY | 2025-05-23 09:55 | XMS_ITS | Clinical Summary ---
Author Organization 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
--- OUTSIDE RECORDS SUMMARY | 2025-05-23 09:56 | XMS_ITS | Patient Health Record ---
Author Organization [facility] As [facility] Address [address] [place] [address] Care Team Providers Care Electrical Continuity Tester Name Role Phone Jules Govea DO Primary Care Provider Hemant Rea Unavailable [phone] Allergies Allergen (clinical drug ingredient) Drug/Non Drug Allergy documented on EMR Reaction Allergy Type Onset Date Status diphenhydramine Benadryl Unknown Drug Allergy 09/14/2023 Active oxycodone Oxycodone Unknown Drug Allergy 09/14/2023 Active tramadol Tramadol Unknown Drug Allergy 09/14/2023 Active Reason For Referral No Information Medications Medication SIG (Take, Route, Frequency, Duration) Notes Start Date End Date Status Divalproex Sodium 500 MG Tablet Delayed Release 1 tablet Oral at bedtime; Duration: 90 days 5 Active Jardiance 25 MG Tablet Oral 09/13 4 Active lamoTRIgine 100 MG Tablet 1 tablet Oral twice a day; Duration: 90 days 5 Active Atorvastatin Calcium 80 MG Tablet Oral 4 Active Divalproex Sodium 250 MG Tablet Delayed Release 1 tablet Oral in am; Duration: 90 days 5 Active Losartan Potassium 25 MG Tablet Oral 4 Active LORazepam 0.5 MG Tablet 1 tablet Oral twice a day; Duration: 30 days 5 Active Fenofibrate 145 MG Tablet Oral 4 Active QUEtiapine Fumarate 100 MG Tablet 1 tablet Oral bedtime; Duration: 90 days 5 Active Pantoprazole Sodium 40 MG Tablet Delayed Release Oral 4 Active busPIRone HCl 10 MG Tablet 1 tablet Oral three times a day; Duration: 90 days 5 10/29/19 26 Active Memantine HCl 5 MG Tablet 1 tablet Orally twice a day; Duration: 30 days 5 Active Acetaminophen Extra Strength 500 MG Tablet Oral 4 Active FLUoxetine HCl 20 MG Capsule 1 capsule Oral Once a day; Duration: 90 days 5 Active Levothyroxine Sodium 125 MCG Tablet Oral 4 Active Fluconazole 150 MG Tablet Oral 4 Active Contour Next One EACH MISCELLANEOUS 09/13 4 Active LORazepam 0.5 MG Tablet 1 tablet Oral twice a day; Duration: 30 days 5 Active CHOLECALCIFEROL (VITAMIN D3) 25 MCG (1,000 UNIT) CAPSULE *Reorder from [employer] for eRx and Interaction Alerts* 4 Active hydroCHLOROthiazide 25 MG Tablet Oral 4 Not-Taking Carvedilol 3.125 MG Tablet Oral 4 Active Contour Blood Glucose System w/Device Kit In Vitro 4 Active Immunizations Vaccine Route Administration Date [...] History Observation Description Sex Assigned At Female Social History Miscellaneous: Social Info Question Answer Notes Advance Care Planning Are you your own decision-maker Yes Do you have Power of First Coat Operator for Health or Medi lexi? No Tobacco Use: Social Info Question Answer Notes Tobacco Control (Standard) Tobacco use: Nonsmoker Additional Details Category Social Info Options Details Migrated Social History Migrated Social History Alcohol Intake: None 04/13/2020,Tobacco Years: Never smoker 04/13/2020 Drug/Alcohol: Do you smoke marijuana? Den ies Do you drink alcohol? No Problems Problem Type SNOMED Code ICD Code Onset Dates Problem Status W/U Status Risk Notes Problem Bipolar affective disorder, currently depressed, moderate (683590216) Bipolar disorder, current episode depressed, moderate (F31.32) 09/14/19 24 Active confirmed Problem Generalized anxiety disorder (58309923) Generalized anxiety disorder (F41.1) 09/14/19 24 Active confirmed Problem Posttraumatic stress disorder (94427264) Post-traumatic stress disorder, chronic (F43.12) 06/15/19 24 Active confirmed Problem Primary hypersomnia (69209519) Primary hypersomnia (F51.11) 09/14/19 24 Active confirmed Problem Screening for cardiovascular system disease (914693704) Encounter for screening for cardiovascular disorders (Z13.6) Active confirmed Problem Long-term current use of drug therapy (529975103) Other intermediate (current) drug therapy (Z79.899) 09/14/19 Active confirmed Problem Depression Screening (499899733) Encounter for screening for depression (Z13.31) Active confirmed Problem Memory loss (35442909) Memory loss (R41.3) Active confirmed Vital Signs Heart Rate 71 /min 05/01/2025 Respiratory Rate 18 /min 05/01/2025 Height-cm 160.02 cm 05/01/2025 Blood pressure diastolic 83 mm Hg 05/01/2025 Weight-kg 101.88 kg 05/01/2025 Height 63.00 in 05/01/2025 Blood pressure systolic 155 mm Hg 05/01/2025 Weight 224.6 lbs 05/01/2025 BMI 39.78 kg/m2 05/01/2025 Encounters Encounter Location Date Provider Diagnosis [facility] [address] [place] [address] 06/13/2024 Hemant Loco Bipolar disorder, current episode depressed, moderate F31.32 ; Generalized anxiety disorder F41.1 ; Primary hypersomnia F51.11 ; Post-traumatic stress disorder, chronic F43.12 and Other termite control representative (current) drug therapy Z79.899 [facility] [address] [place] [address] 10/03/2024 Hemant Loco Encounter for screen ing for depression Z13.31 ; Encounter for screening for cardiovascular disorders Z13.6 ; Bipolar disorder, current episode depressed, moderate F31.32 ; Generalized anxiety disorder F41.1 ; Primary hypersomnia F51.11 ; Post-traumatic stress disorder, chronic F43.12 and Other termite control representative (current) drug therapy Z79.899 [facility] [address] [place] [address] 05/01/2025 Hemant Loco Encounter for screen ing for depression Z13.31 ; Encounter for screening for cardiovascular disorders Z13.6 ; Bipolar disorder, current episode depressed, moderate F31.32 ; Generalized anxiety disorder F41.1 ; Primary hypersomnia F51.11 ; Post-traumatic stress disorder, chronic F43.12 ; Other termite control representative (current) drug therapy Z79.899 and Memory loss R41.3 [facility] [address] [place] [address] 11/14/2024 Hemant Loco [facility] [employer] [address] [place] [address] 05/13/2025 Hemant Loco Assessments Encounter Date Diagnosis (ICD [...] response in past on rx obtain labs [facility] Buspar 10 mg three times [...] good response in past on rx obtain [facility] Buspar 10 mg three times a day- [...] -educated on sleep 4. Long-term drug therapy 05/01/2025 Encounter for screening for depression (ICD-10 - Z13.31) 1. Mild bipolar disorder - Depakote 250 mg in am and continue Depakote 500 mg at night Lamotrigine 100 mg twice a day Seroquel 100 mg at bedtime- LABS ordered plan to have done 07/06 she is seeing specialist with labs pill [...] response in past on rx obtain labs [facility] Buspar 10 mg three times [...] be lethal. Patient was provided cautioN labs ordered 3. Primary hypersomnia -educated on sleep 4 Memory loss discuss SLUMS= 16 05/01/25 Disucss medications options and SLUMS Will add Namenda 5 mg twice a day - PA sent . Long-term drug therapy 05/01/2025 Encounter for screening for cardiovascular disorders (ICD-10 - Z13.6) 1. Mild bipolar disorder - Depakote 250 mg in am and continue Depakote 500 mg at night Lamotrigine 100 mg twice a day Seroquel 100 mg at bedtime- LABS ordered plan to have done 07/06 she is seeing specialist with labs pill [...] good response in past on rx obtain [facility] Buspar 10 mg three times a day- [...] be lethal. Patient was provided cautioN labs ordered 3. Primary hypersomnia -educated on sleep 4 Memory loss discuss SLUMS= 16 05/01/25 Disucss medications options and SLUMS Will add Namenda 5 mg twice a day - PA sent . Long-term drug therapy 10/03/2024 Encounter for screening [...] response in past on rx obtain labs [facility] Buspar 10 mg three times [...] good response in past on rx obtain [facility] Buspar 10 mg three times a day- [...] -educated on sleep 4. Long-term drug therapy 05/01/2025 Bipolar disorder, current episode depressed, moderate (ICD-10 [...] day Seroquel 100 mg at bedtime- LABS ordered plan to have done 07/06 she is seeing specialist with labs pill [...] good response in past on rx obtain [facility] Buspar 10 mg three times a day- [...] be lethal. Patient was provided cautioN labs ordered 3. Primary hypersomnia -educated on sleep 4 Memory loss discuss SLUMS= 16 05/01/25 Disucss medications options and SLUMS Will add Namenda 5 mg twice a day - PA sent . Long-term drug therapy 05/01/2025 Generalized anxiety disorder (ICD-10 - F41.1) Learning About Generalized Anxiety Disorder material was published, Generalized Anxiety Disorder: Care Instructions material was published, Learning About Anxiety Disorders material was published 1. Mild bipolar disorder - Depakote 250 mg in am and continue Depakote 500 mg at night Lamotrigine 100 mg twice a day Seroquel 100 mg at bedtime- LABS ordered plan to have done 07/06 she is seeing specialist with labs pill [...] good response in past on rx obtain [facility] Buspar 10 mg three times a day- [...] be lethal. Patient was provided cautioN labs ordered 3. Primary hypersomnia -educated on sleep 4 Memory loss discuss SLUMS= 16 05/01/25 Disucss medications options and SLUMS Will add Namenda 5 mg twice a day - PA sent . Long-term drug therapy 06/13/2024 Primary hypersomnia (ICD-10 [...] good response in past on rx obtain [facility] Buspar 10 mg three times a day- [...] response in past on rx obtain labs [facility] Buspar 10 mg three times [...] on sleep 4. 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 Long-term drug therapy 05/01/2025 Primary hypersomnia (ICD-10 - F51.11) 1. Mild bipolar disorder - Depakote 250 mg in am and continue Depakote 500 mg at night Lamotrigine 100 mg twice a day Seroquel 100 mg at bedtime- LABS ordered plan to have done 07/06 she is seeing specialist with labs pill [...] good response in past on rx obtain [facility] Buspar 10 mg three times a day- [...] be lethal. Patient was provided cautioN labs ordered 3. Primary hypersomnia -educated on sleep 4 Memory loss discuss SLUMS= 16 05/01/25 Disucss medications options and SLUMS Will add Namenda 5 mg twice a day - PA sent . Long-term drug therapy 10/03/2024 Primary hypersomnia (ICD-10 [...] good response in past on rx obtain [facility] Buspar 10 mg three times a day- [...] sleep 4. Long-term drug therapy 06/13/2024 Other termite control representative (current) drug therapy (ICD-10 - Z79.899) Medication [...] good response in past on rx obtain [facility] Buspar 10 mg three times a day- [...] -educated on sleep 4. Long-term drug therapy 05/01/2025 Post-traumatic stress disorder, chronic (ICD-10 - F43.12) Post-Traumatic Stress Disorder (PTSD): Care Instructions material was published 1. Mild bipolar disorder - Depakote 250 mg in am and continue Depakote 500 mg at night Lamotrigine 100 mg twice a day Seroquel 100 mg at bedtime- LABS ordered plan to have done 07/06 she is seeing specialist with labs pill [...] response in past on rx obtain labs [facility] Buspar 10 mg three times [...] be lethal. Patient was provided cautioN labs ordered 3. Primary hypersomnia -educated on sleep 4 Memory loss discuss SLUMS= 16 05/01/25 Disucss medications options and SLUMS Will add Namenda 5 mg twice a day - PA sent . Long-term drug therapy 10/03/2024 Post-traumatic stress disorder, [...] response in past on rx obtain labs [facility] Buspar 10 mg three times [...] -educated on sleep 4. Long-term drug therapy 05/01/2025 Other termite control representative (current) drug therapy (ICD-10 - Z79.899) Medication Refill: Care Instructions material was published 1. Mild bipolar disorder - Depakote 250 mg in am and continue Depakote 500 mg at night Lamotrigine 100 mg twice a day Seroquel 100 mg at bedtime- LABS ordered plan to have done 07/06 she is seeing specialist with labs pill [...] good response in past on rx obtain [facility] Buspar 10 mg three times a day- [...] be lethal. Patient was provided cautioN labs ordered 3. Primary hypersomnia -educated on sleep 4 Memory loss discuss SLUMS= 16 05/01/25 Disucss medications options and SLUMS Will add Namenda 5 mg twice a day - PA sent . Long-term drug therapy 05/01/2025 Memory loss (ICD-10 - R41.3) Electronic Prior Authorization was requested for Memantine HCl 5 MG Tablet. Provider can order medication once approval received. 1. Mild bipolar disorder - Depakote 250 mg in am and continue Depakote 500 mg at night Lamotrigine 100 mg twice a day Seroquel 100 mg at bedtime- LABS ordered plan to have done 07/06 she is seeing specialist with labs pill [...] good response in past on rx obtain [facility] Buspar 10 mg three times a day- [...] be lethal. Patient was provided cautioN labs ordered 3. Primary hypersomnia -educated on sleep 4 Memory loss discuss SLUMS= 16 05/01/25 Disucss medications options and SLUMS Will add Namenda 5 mg twice a day - PA sent . Long-term drug therapy 10/03/2024 Other termite control representative (current) drug therapy (ICD-10 - Z79.899) Medication [...] good response in past on rx obtain [facility] Buspar 10 mg three times a day- [...] provided cautioN labs reviewed on patient phone 4/25 A1c 8, TSH 1.58, TG 216, TC 172, LDL 74, HDL 53, Vit D 46.5, 3. Primary hypersomnia -educated on sleep 4. Long-term drug therapy 05/01/2025 Other Gait, Strength, and Balance Training ExercisesThis handout provides simple exercises to improve your gait, strength, and balance. Theseexercises can help prevent falls, improve mobility, and enhance overall function. Perform them in asafe space, use support if needed, and stop if you feel pain or dizziness.1. Gait Training Exercises- Walk in a straight line for 10-20 feet, heel-to-toe.- Step over small objects (cones or rolled towels).- Practice walking sideways and backwards.- Use a treadmill if available, under supervision.2. Balance Exercises- Stand on one foot for 10-30 seconds; switch legs.- Walk heel-to-toe in a straight line.- Use a balance board or cushion to challenge stability.- Practice rising from a chair without using your hands.3. Strength Training Exercises- Upv-on-lmlfq: rise from a chair repeatedly.- Wall push-ups: stand at arm's length from a wall and push.- Step-ups on a low step or stairs.- Leg lifts while seated or lying down.Consult your primary care provider (PCP) before starting these exercises, especially if you havemedical conditions or difficulty performing them Notes: referral to the local chapter or national office of the Alzheimer's Association ( ; http://www.alz.o rg), the Alzheimer's Disease Education and Referral Center (ADEAR) ( ; http://www.timbo.n .gov/Alzheimer s/), referral to the local chapter or national office of the Alzheimer's Association ( ; http://www.alz.o rg), the Alzheimer's Disease Education and Referral Center (ADEAR) ( ; http://www.timbo.n ih.gov/Alzheimer s/), 1. Mild bipolar disorder - Depakote 250 mg in am and continue Depakote 500 mg at night Lamotrigine 100 mg twice a day Seroquel 100 mg at bedtime- LABS ordered plan to have done 07/06 she is seeing specialist with labs pill [...] good response in past on rx obtain [facility] Buspar 10 mg three times a day- [...] be lethal. Patient was provided cautioN labs ordered 3. Primary hypersomnia -educated on sleep 4 Memory loss discuss SLUMS= 16 05/01/25 Disucss medications options and SLUMS Will add Namenda 5 mg twice a day - PA sent . Long-term drug therapy Plan Of Treatment Future Test Test Name Order Date LIPID PANEL WITH REFLEX TO DIRECT LDL (1 5972) 03/14/2024 COMPREHENSIVE METABOLIC PANEL (80606) CBC (INCLUDES DIFF/PLT) (6399) HEMOGLOBIN A1c (496) 03/14/2024 TSH W/REFLEX TO FT4 (87806) 03/14/2024 VALPROIC ACID (916) 03/14/2024 Liver Function Test (LFT) 10/03/2024 VALPROIC ACID (916) 10/03/2024 Liver Function Test (LFT) 05/01/2025 LIPID PANEL WITH REFLEX TO DIRECT LDL (1 2112) 05/01/2025 COMPREHENSIVE METABOLIC PANEL (75487) CBC (INCLUDES DIFF/PLT) (6399) HEMOGLOBIN A1c (496) 05/01/2025 TSH W/REFLEX TO FT4 (96129) 05/01/2025 VALPROIC ACID (916) 05/01/2025 Next Appt Details Provider Name:Alyce gifford, 08/21/2025 09:45:00 AM, [address], [place] [address], [place], [address], Provider Name:Hemant Loco , 10/23/2025 09:30:00 AM, [address], [facility], [place], [address], Insurance Providers Payer Name Payer Address Payer Phone Subscriber Number Group Number Insured Name Patient Relationship to Insured Coverage Start Date Coverage End Date Medicare-I l Medicare [address] [place] [phone] [id number] [employer] Self - patient is the insured Medical (General) History Medical History History ICD Code Problems: Bipolar disorder Chronic post-traumatic stress disorder Generalized anxiety disorder History of SARS-CoV-2 Hyperlipidemia Hypothyroidism Long-term drug therapy Mild bipolar disorder Morbid obesity Normal grief reaction Primary hypersomnia Type 2 diabetes mellitus , Surgical History Surgery Date(Month/Year) Any surgical history Other 06/11/2003 Hysterectomy (89139) 06/11/2003
--- OUTSIDE RECORDS SUMMARY | 2025-05-23 09:56 | XMS_ITS | Encounter Summary ---
Author Organization [facility] Address [address] [place] [address] Care Team Providers Care Wastewater Plant Civil Engineer Name Role Phone Derrell Scott MD Primary Care Provider Encounter Details Date Type Department Care Team (Late st Contact Info) Description 12/13/2021 Lab Requisition [facility] Care Pathology Lab [address] [place] [address] Jamaal Manuel MD [address] [place] [address] Illness, unspecified Social History Tobacco Use Types Packs/Day Years Used Date Smoking Tobacco: Never Assessed Comments Unknown Sex and Gender Information Value Date Recorded Sex Assigned at Not on file Legal Sex 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 - See description. 12/14/2021 11:44 AM [facility] PATHOLOGY LAB at 1144 CDT AP [...] with genetics is recommended. 12/14/2021 11:44 AM [facility] Peripheral Smear Description RBC: normocytic anemia WBC: decreased in number with no overt dysplasia or circulating blasts Platelets: decreased in number, normal morphology 12/14/2021 11:44 AM [facility] Bone Marrow Aspirate Touch preparation only: Differential count (200 cells): not performed due to hemodilution Specimen quality: dilute Spicules: none Peripheral blood contamination is present. Megakaryocytes are not seen in this preparation indicating the hemodilution. Few myeloid and erythroid precursor cells are seen. No overt dyspoiesis is present. 12/14/2021 11:44 AM [facility] Bone Marrow Core Biopsy [...] absent on clot section. 12/14/2021 11:44 AM [facility] Flow Cytometry Summary Not submitted. 12/14/2021 11:44 AM [facility] Clinical History Pancytopenia. 12/14/2021 11:44 AM [facility] Materials Received Received are 14 slide(s) and 3 blocks labeled [id number] along with a copy of the outside pathology report. The materials originate from [address], [place] [address]. All original materials are returned to the referring institution, along with a copy of our final report. 12/14/2021 11:44 AM [facility] Disclaimer The performance characteristics of all immunohistochemical and indirect immunofluorescence stains (if any) cited in this report were determined by the Histopathology Laboratory of [facility]. Some of these tests were developed [...] the attending (teaching) pathologist. 12/14/2021 11:44 AM [facility] Embedded Images 12/14/2021 11:44 AM T [facility] PATHOLOGY LAB Pathology/Cytology BONE MARROW SPECIMEN / Unknown 12/08/2021 9:20 AM CDT 12/13/2021 11:49 AM CDT Miscellaneous samples (specimen) BONE MARROW SPECIMEN / Unknown 12/08/2021 9:20 AM CDT 12/13/2021 11:49 AM CDT us Jamaal Manuel MD LAB - PATHOLOGY/CYTOLOGY ORD ERABLES Final Result [facility] PATHOLOG[facility] LAB [address] [facility]. [address] [phone] documented in this encounter Visit Diagnoses Diagnosis Illness, unspecified documented in this encounter Care Teams Wastewater Plant Civil Engineer Relationship Specialty Start Date End Date Derrell Scott MD [address] [place] [address] PCP - General 04/27/20 documented as of this encounter
--- OUTSIDE RECORDS SUMMARY | 2025-05-23 09:56 | XMS_ITS | Encounter Summary ---
Author Organization [facility] Address [address] [place] [address] Care Team Providers Care Conservation Science Teacher Name Role Phone Unavailable Primary Care Provider Unavailabl e Encounter Details Date Type Department Care Team (Late st Contact Info) Description 06/21/1998 Emergency [facility] Dallin Fink MD [facility] [place] [address] Er, Authorized P NO ADDRESS ON FILE Metrorrhagia (Primary Dx) Social History Tobacco Use Types Packs/Day Years Used Date Smoking Tobacco: Never Assessed Comments Unknown Sex and Gender Information Value Date Recorded Sex Assigned at Not on file Legal Sex Female 4:36 AM VOLUNTEER PATIENT REPRESENTATIVE Gender Identity Not on file Sexual Orientation Not on file documented as of this encounter Plan of Treatment Not on file documented as of this encounter Visit Diagnoses Diagnosis Metrorrhagia- Primary documented in this encounter
--- OUTSIDE RECORDS SUMMARY | 2025-05-23 09:56 | XMS_ITS | Clinical Summary ---
Author Organization [facility] Address [address], [facility] [address] [place] [address] Phone Care Team Providers Care Retirement Specialist Name Role Phone Derrell Scott MD Primary [...] Screening 2005 Immunochemical Fecal Occult Blood 2005 Medicare Initial AWV [id number] 03/11/2006 Pneumococcal Immunization (5 0+ years) (1 of 1 - PCV) 2010 Zoster Immunization (1 of 2) 2010 Influenza Immunization (#1) 2025 SARS-COV-2 Immunization ( - season) 2025 04/12/2021, 09/28/2020, 09/07/2020 Respiratory Syncytial Virus (RSV) [...] complete this topic Insurance MEDICARE Care Teams Retirement Specialist Relationship Specialty Start Date End Date Derrell Scott MD [address] [phone] PCP - General Family Medicine 03/18/20
--- OUTSIDE RECORDS SUMMARY | 2025-05-23 09:56 | XMS_ITS | Clinical Summary ---
Author Organization [facility] Address [address] [place] [address] Care Team Providers Care Veneer Production Machine Operator Name Role Phone Derrell Scott MD Primary Care Provider [phone] Source Comments [facility],non-owned Affiliates and Associated Physician Practices is amultiple site organization consisting of ambulatory clinics and [place]in [place] and [place]. This disclosure is being madepursuant to the Care Everywhere program and may not contain all information available regarding this patient. 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 Gender Identity Not on file Sexual Orientation Not on file Plan of Treatment Health Maintenance Due Date Last Done Comments BONE DENSITY TESTING 1960 COLOGUARD (AGES 45-75) - COL ON CA SCREENING 1960 COLON MONITORING 1960 COLONOSCOPY - COLON CA SCREENING 1960 CT COLONOGRAPHY - COLON CA SCREENING 1960 Colorectal Cancer Screening 1960 FIT - COLON CA SCREENING 1960 FLEX SIG - COLON CA SCREENING 1960 LIPID TESTING 1960 MAMMOGRAM 1960 HIV SCREENING 1975 HEPATITIS C SCREENING 04/01/1978 DTAP/TDAP/TD VACCINES (1 - Tdap) 1979 PNEUMOCOCCAL VACCINE 50+ (1 of 1 - PCV) 2010 ZOSTER VACCINE (1 of 2) 2010 DEPRESSION SCREENING 06/11/2024 COVID-19 VACCINE (1 - 2024-2 6 season) 2025 INFLUENZA VACCINE (#1) 2025 Respiratory Syncytial Virus [...] MEDICAID - OUT OF STATE Care Teams Veneer Production Machine Operator Relationship Specialty Start Date End Date Derrell Scott MD [address] [place] [address] PCP - General 04/27/20
[2025-05-23 10:30] LABS: Alanine Aminotransferase 17 U/L (6-35); Albumin Level 3.8 g/dL (3.5-5.1); Alkaline Phosphatase 66 U/L (38-126); Anion Gap 5 mmol/L (4-12); Aspartate Amino Transferase 37 U/L (14-36); Bilirubin,Total 0.5 mg/dL (0.2-1.3); Blood Urea Nitrogen 35 mg/dL (7-17); Calcium 9.5 mg/dL (8.4-10.2); Carbon Dioxide 23 mmol/L (22-30); Chloride 108 mmol/L (98-107); Estimated Glomerular Filt Rate 33; Glucose 138 mg/dL (65-110); Potassium 4.2 mmol/L (3.4-5.0); Sodium 136 mmol/L (137-145); Total Protein 6.9 g/dL (6.3-8.2)
[2025-05-23 10:42] LABS: Hemoglobin A1C 7.3 % (<5.7)
[2025-05-23 11:06] LABS: Thyroid Stimulating Hormone 1.010 uIU/mL (0.465-4.680)
== END 2025-05-23 09:52 | disposition home or self-care (01) ==
PROVIDERS: PCP Nurse Practitioner; Visit Provider Nurse Practitioner
DX: E03.9 Hypothyroidism, unspecified (principal); E11.22 Type 2 diabetes mellitus with diabetic chronic kidney disease; N18.4 Chronic kidney disease, stage 4 (severe)
CPT/HCPCS: 36415; 80053; 83036; 84443